=== PATIENT | female | born 1950 | race Caucasian/White ===

== ENCOUNTER 2020-11-25 10:50 | Inpatient (IN) | payer MEDICARE, SELFPAY ==
[2020-11-25] VITALS (41 sets, daily range): BP systolic 156–269; BP diastolic 76–133; PULSE 79–99; RESP 14–21; TEMP 36.2–37.1; O2SAT 92–100; BMI 32.5
--- NOTE | 2020-11-25 10:58 | DI.CT.S_ITS ---
PROCEDURE: CT HEAD/BRAIN WO CON INDICATIONS: Confusion, hypertension TECHNIQUE: Noncontrast 4.5 mm thick angled axial sections acquired from the foramen magnum to the vertex, with coronal and sagittal reformats. For radiation dose reduction, the following was used: automated exposure control, adjustment of mA and/or kV according to patient size. COMPARISON: None. FINDINGS: Image quality: Excellent. CSF spaces: Basal cisterns are patent. No extra-axial fluid collections. The ventricles are symmetric in size and shape. Brain: No intracranial bleeds or masses. There is cerebral volume loss for age, with resultant ventricular and sulcal prominence. There are periventricular and deep white matter chronic small vessel ischemic changes. There is intracranial internal carotid artery atherosclerosis. Skull and face: Calvarium and visualized facial bones appear intact, without suspicious lesions. Sinuses: Visualized sinuses and mastoids are clear. IMPRESSION: 1. No acute intracranial process. 2. Moderate atrophy and chronic microvascular ischemic changes. Dictated by: Mansi Licea M.D. on 11/25/2020 at 10:20 Approved by: Mansi Licea M.D. on 11/25/2020 at 10:22
--- NOTE | 2020-11-25 11:04 | ED.GENADULT ---
HPI - General Adult General Chief complaint: Neuro Symptoms/Deficit Stated complaint: episodes of being confused Time Seen by Provider: 11/25/20 10:57 Source: patient and family () Mode of arrival: Ambulatory Limitations: no limitations History of Present Illness HPI narrative: 70-year-old female who is here for evaluation of intermittent confusion. She is here with her . They state that since yesterday the patient has had intermittent episodes where she seems very confused. She denies any other associated symptoms. She states she does realize these times where she has been confused. She does have a history of high blood pressure but is currently not on any medications. She states that her previous primary doctor stopped her on the medications peer this is been more than a year ago. She does not have a primary doctor here in the local area. Related Data Home Medications Medication Instructions Recorded Confirmed No Known Home Medications 11/25/20 11/25/20 Allergies Allergy/AdvReac Type Severity Reaction Status Date / Time No Known Drug Allergies Allergy Verified 11/25/20 11:10 Review of Systems Constitutional Constitutional: Denies fatigue, Denies fever(s), Denies headache(s) and Denies weakness Eyes Eyes: Denies change in vision ENT Ears, Nose, Mouth, and Throat: Denies vertigo, Denies dizziness, Denies headache(s), Denies disequilibrium and Denies sore throat Cardiovascular Cardiovascular: Denies chest pain, Denies syncope and Denies dyspnea Respiratory Respiratory: Denies cough and Denies dyspnea Gastrointestinal Gastrointestinal: Denies abdominal pain, Denies nausea and Denies vomiting Genitourinary Genitourinary: Denies dysuria Genitourinary: Denies dysuria Musculoskeletal Musculoskeletal: Denies arthralgias, Denies myalgias, Denies numbness and Denies tingling Integumentary/Breasts Skin/Breast: Denies rash Neurologic Neurologic: Denies abnormal speech, Denies behavioral changes, Reports confusion, Denies vertigo, Denies dizziness, Denies syncope, Denies headache(s), Denies numbness, Denies tingling, Denies disequilibrium and Denies weakness Psychiatric Psychiatric: Denies behavioral changes and Reports confusion Endocrine Endocrine: Denies fatigue Hematologic/Lymphatic On Anticoagulants: No Allergic/Immunologic Allergic/Immunologic: Denies urticaria Patient History Medical History Hypertension Social History household members: spouse Smoking Status: Never smoker Exam Initial Vital Signs Initial Vital Signs: Vital Signs Temperature 97.1 F L 11/25/20 10:50 Pulse Rate 97 H 11/25/20 10:50 Respiratory Rate 14 11/25/20 10:50 Blood Pressure 269/133 H 11/25/20 10:50 Pulse Oximetry 100 11/25/20 10:50 Const General: cooperative, comfortable and well developed Limitations: mental status not altered HENMT Head: normal to inspection and normocephalic Ears: hearing grossly normal bilaterally Eyes General: appearance normal, both eyes and all related structures Resp Effort & Inspection: normal respiratory effort Auscultation: clear to auscultation bilaterally Cardio Rate: regular rate Rhythm: regular rhythm GI Inspection: non-distended Palpation: soft, No firm and No tender Skin Lesions: no lesions Rashes: no rashes Neuro General: patient alert and patient awake Speech: speech normal Gait: normal gait Motor: muscle tone normal throughout Sensory Exam: no sensory deficits noted Coordination: [id number] test normal Extrem General: normal to inspection, capillary refill normal and No edema Psych Appearance: grossly normal and well kempt Scores GCS Teagan coma scale eye opening: Spontaneous [place] coma scale verbal response: Confused [place] coma scale motor response: Obey commands Teagan coma scale total score: 14 NIH Stroke Scale Level of Conciousness: Alert, keenly responsive Ask month/age: Answers neither question correctly, aphasic, stuporous, coma Open/close eyes, close hand: Performs both tasks correctly Best gaze horizontal: Normal Visual thomas: No visual loss Facial palsy: Normal symetrical movement Left arm drift: No drift for full 10 sec Right arm drift: No drift for full 10 sec Left leg drift: No drift for full 5 sec Right leg drift: No drift for full 5 sec Limb ataxia: Absent Sensory on face/arms/legs: Normal, no sensory loss Best language: No aphasia, normal Dysarthria: Normal Extinction or inattention: No abnormality Total NIH Stroke scale score: 2 Course Orders Ordered: ED Orders 11/25/20 10:58 CT head/brain wo con Stat 11/25/20 10:59 Urinalysis and Microscopic Stat Urine Drug Screen, Rapid Stat EKG-12 Lead Stat 11/25/20 11:13 COVID19 - ADMIT ([employer] swab/PCR) Stat 11/25/20 11:22 Ammonia (NH3) Stat Complete Blood Count AUTO DIFF Stat Comprehensive Metabolic Panel Stat Ethanol (ETOH) Stat Lipase Stat Magnesium Stat Partial Thromboplastin Time Stat Prothrombin Time INR Stat Troponin & CK Cardiac Panel Stat Acetaminophen (Acetaminophen 325 Mg Tablet) 650 mg PO Q6HR PRN PRN Reason: Fever Aspirin (Aspirin Ec 81 Mg Tablet) 81 mg PO DAILY MANOLO Bisacodyl (Bisacodyl 10 Mg Supp) 10 mg MT DAILY PRN PRN Reason: Constipation Docusate Sodium (Docusate 100 Mg Capsule) 100 mg PO BID MANOLO Enoxaparin Sodium (Enoxaparin 40 Mg/0.4 Ml Syringe) 40 mg SUBCUT DAILY MANOLO Last Admin: 11/25/20 14:15 Dose: 40 mg Documented by: SPABONA Sodium Chloride (Normal Saline 0.9%) 1,000 mls @ 125 mls/hr IV CONT MANOLO Last Infusion: 11/25/20 14:13 Dose: 75 mls/hr Documented by: Infusion: 11/25/20 13:35 Dose: 125 mls/hr Documented by: Infusion: 11/25/20 13:32 Dose: 0 mls/hr Documented by: Infusion: 11/25/20 13:31 Dose: 0 mls/hr Documented by: Admin: 11/25/20 11:35 Dose: 125 mls/hr Documented by: ANAT Nicardipine HCl 25 mg/ Sodium (Chloride) 250 mls @ 50 mls/hr IV TITRATE MANOLO; Protocol Last Titration: 11/25/20 13:40 Dose: 5 mg/hr, 50 mls/hr Documented by: Titration: 11/25/20 13:35 Dose: 0 mg/hr, 0 mls/hr Documented by: Titration: 11/25/20 13:31 Dose: 0 mg/hr, 0 mls/hr Documented by: Admin: 11/25/20 12:25 Dose: 5 mg/hr, 50 mls/hr Documented by: ANAT Sodium Chloride (Normal Saline 0.9%) 1,000 mls @ 75 mls/hr IV CONT MANOLO Last Admin: 11/25/20 14:13 Dose: Not Given Documented by: MARLIN Naloxone HCl (Naloxone 0.4 Mg/Ml Vial) 0.2 mg IV Q2MIN PRN PRN Reason: Opiate Reversal Discontinued Medications Labetalol HCl (Labetalol 20 Mg/4 Ml Syringe) 10 mg IV NOW ONE Stop: 11/25/20 11:26 Last Admin: 11/25/20 11:34 Dose: 10 mg Documented by: ANAT Vital Signs Vital signs: Vital Signs - 8 hr 11/25/20 10:50 11/25/20 11:03 11/25/20 11:15 Temperature 97.1 F L Pulse Rate 97 H 96 H 91 H Respiratory Rate 14 19 Blood Pressure 269/133 H Pulse Oximetry 100 97 95 11/25/20 11:21 11/25/20 11:30 11/25/20 11:34 Temperature Pulse Rate 94 H 91 H 90 Respiratory Rate Blood Pressure 202/124 H 221/124 H 221/124 H Pulse Oximetry 94 95 11/25/20 11:40 11/25/20 11:45 11/25/20 11:50 Temperature Pulse Rate 90 80 79 Respiratory Rate Blood Pressure 218/94 H 213/98 H Pulse Oximetry 94 94 94 11/25/20 12:00 11/25/20 12:10 11/25/20 12:15 Temperature Pulse Rate 79 79 80 Respiratory Rate Blood Pressure 224/101 H 207/93 H Pulse Oximetry 95 94 96 11/25/20 12:20 11/25/20 12:30 Temperature Pulse Rate 81 79 Respiratory Rate Blood Pressure 207/98 H 207/98 H Pulse Oximetry 93 95 Medical Decision Making Lab Data Lab results reviewed: Yes I reviewed the patient's lab results. Result diagrams: 11/25/20 11:22 11/25/20 11:22 Labs: Lab Results 11/25/20 11/25/20 11/25/20 Range/Units 11:13 11:22 11:22 WBC 5.2 (4.5-11.0) X10^3/uL RBC 5.02 (4.0-5.2) X10^6/uL Hgb 14.0 (12.0-16.0) g/dL Hct 43.2 (36-46) % MCV 86.1 (80-100) fL MCH 27.9 (26-34) PG MCHC 32.4 (30-36) % RDW 17.4 H (11.6-14.8) % Plt Count 193 (150-400) X10^3/uL Neut % (Auto) 69.7 (50-75) % Lymph % (Auto) 18.5 L (25-40) % [place] % (Auto) 9.2 (3-14) % Eos % (Auto) 2.0 (2-4) % Baso % (Auto) 0.6 (0-2) % Neut # (Auto) 3600 (2309-0691) /uL Lymph # (Auto) 1000 L (7790-4513) /uL [place] # (Auto) 500 (0-900) /uL Eos # (Auto) 100 (0-450) /uL Baso # (Auto) 0 (0-100) /uL PT 12.8 H (10.1-12.7) SECONDS INR 1.1 (0.9-1.3) APTT 38 H (26.4-36.2) SECONDS Sodium (137-145) mmol/L Potassium (3.4-5.1) mmol/L Chloride (98-107) mmol/L Carbon Dioxide (22-32) mmol/L BUN (7-17) mg/dL Creatinine (0.52-1.04) mg/dL Estimated GFR (>60) mL/min BUN/Creatinine Ratio (6-22) Glucose (80-110) mg/dL Calcium (8.4-10.2) mg/dL Magnesium (1.6-2.3) mg/dL Total Bilirubin (0.2-1.3) mg/dL AST (14-36) IU/L ALT (<35) IU/L Alkaline Phosphatase (38-126) U/L Ammonia (9-30) umol/L Total Creatine Kinase (30-135) U/L CK-MB (CK-2) CK-MB (CK-2) Rel Index Troponin I (0.01-0.034) ng/mL Total Protein (6.3-8.2) g/dL Albumin (3.5-5.0) g/dL Globulin (1.7-4.1) g/dL Albumin/Globulin Ratio (1.0-2.8) Lipase (23-300) U/L Ethyl Alcohol ( - 10) mg/dL SARS-CoV-2 (PCR) Negative (Negative) 11/25/20 11/25/20 Range/Units 11:22 11:22 WBC (4.5-11.0) X10^3/uL RBC (4.0-5.2) X10^6/uL Hgb (12.0-16.0) g/dL Hct (36-46) % MCV (80-100) fL MCH (26-34) PG MCHC (30-36) % RDW (11.6-14.8) % Plt Count (150-400) X10^3/uL Neut % (Auto) (50-75) % Lymph % (Auto) (25-40) % [place] % (Auto) (3-14) % Eos % (Auto) (2-4) % Baso % (Auto) (0-2) % Neut # (Auto) (8177-5834) /uL Lymph # (Auto) (1292-1289) /uL [place] # (Auto) (0-900) /uL Eos # (Auto) (0-450) /uL Baso # (Auto) (0-100) /uL PT (10.1-12.7) SECONDS INR (0.9-1.3) APTT (26.4-36.2) SECONDS Sodium 134 L (137-145) mmol/L Potassium 3.7 (3.4-5.1) mmol/L Chloride 100 (98-107) mmol/L Carbon Dioxide 25 (22-32) mmol/L BUN 15 (7-17) mg/dL Creatinine 0.55 (0.52-1.04) mg/dL Estimated GFR > 60.0 (>60) mL/min BUN/Creatinine Ratio 27.3 H (6-22) Glucose 380 H (80-110) mg/dL Calcium 9.1 (8.4-10.2) mg/dL Magnesium 1.5 L (1.6-2.3) mg/dL Total Bilirubin 1.0 (0.2-1.3) mg/dL AST 52 H (14-36) IU/L ALT 37 H (<35) IU/L Alkaline Phosphatase 121 (38-126) U/L Ammonia 10 (9-30) umol/L Total Creatine Kinase 24 L (30-135) U/L CK-MB (CK-2) TNP CK-MB (CK-2) Rel Index TNP Troponin I < 0.012 (0.01-0.034) ng/mL Total Protein 7.6 (6.3-8.2) g/dL Albumin 3.6 (3.5-5.0) g/dL Globulin 4.0 (1.7-4.1) g/dL Albumin/Globulin Ratio 0.9 L (1.0-2.8) Lipase 197 (23-300) U/L Ethyl Alcohol < 10 ( - 10) mg/dL SARS-CoV-2 (PCR) (Negative) Imaging Data CT scan - head: Radiologist's Impression: [address] [id number] Scan ReportSigned Patient: Sharon Vang LMR#: [id number]: [id number]:[id number]/Sex: 70 / FDate of Service: 11/25/20Loc: EDAccession Number: [id number] Procedure: CT head/brain wo con Ordering Provider: Amol Ayala D.O. PROCEDURE: CT HEAD/BRAIN WO CON INDICATIONS: Confusion, hypertension TECHNIQUE: Noncontrast 4.5 mm thick angled axial sections acquired from the foramen magnum to the vertex, with coronal and sagittal reformats. For radiation dose reduction, the following was used: automated exposure control, adjustment of mA and/or kV according to patient size. COMPARISON: None. FINDINGS: Image quality: Excellent. CSF spaces: Basal cisterns are patent. No extra-axial fluid collections. The ventricles are symmetric in size and shape. Brain: No intracranial bleeds or masses. There is cerebral volume loss for age, with resultant ventricular and sulcal prominence. There are periventricular and deep white matter chronic small vessel ischemic changes. There is intracranial internal carotid artery atherosclerosis. Skull and face: Calvarium and visualized facial bones appear intact, without suspicious lesions. Sinuses: Visualized sinuses and mastoids are clear. IMPRESSION: 1. No acute intracranial process. 2. Moderate atrophy and chronic microvascular ischemic changes. Dictated by: Mansi Licea M.D. on 11/25/2020 at 10:20 Approved by: Mansi Licea M.D. on 11/25/2020 at 10:22 ECG Data Attestation: I personally reviewed and interpreted this ECG as follows: Prior ECG tracings: not available for review Interpretation: Sinus rhythm Ventricular rate 90 Left axis deviation Normal QRS QTC [address] T wave changes MDM Narrative Medical decision making narrative: Patient does seem to be somewhat confused when she does speak she has a clear voice. She is not slurring her words however does stumble over simple things such as the urine the month which according to her she normally nose. When she initially arrived she did not know the year. When she returned back from the CT scan she knew what your was but then shortly after could not remember it. Was hypertensive upon arrival. Is initially given labetalol which improved blood pressure somewhat but then it recurred elevated once again. She was started on a nicardipine drip. Other than the memory issues had no other neurologic deficits. Not on blood thinners. 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 Will hold on tPA as her symptoms started yesterday and there is not a definite ischemic cause. Discussed the case with Dr. zuniga on-call for Internal Medicine who will admit. Discuss the admission with the patient her . They both expressed understanding and agreement. Discharge Plan Departure Patient Disposition: Admitted As Inpatient Clinical Impression: Hypertension, Acute confusion Admit Date/Time: 11/25/20 12:38 Admit Provider: Taylor Zuniga
[2020-11-25 11:29] LABS: Add Manual Diff / Slide Review NO; Basophils Absolute Auto 0 /uL (0-100); Basophils Percent Auto 0.6 % (0-2); Eosinophils Absolute Auto 100 /uL (0-450); Hematocrit 43.2 % (36-46); Lymphocytes Absolute Auto 1000 /uL (1100-4500); Lymphocytes Percent Auto 18.5 % (25-40); Mean Corpuscular HGB Conc 32.4 % (30-36); Mean Corpuscular Hemoglobin 27.9 PG (26-34); Mean Corpuscular Volume 86.1 fL (80-100); Monocytes Absolute Auto 500 /uL (0-900); Monocytes Percent Auto 9.2 % (3-14); Neutrophils Absolute Auto 3600 /uL (1500-7000); Neutrophils Percent Auto 69.7 % (50-75); Platelet Count 193 X10^3/uL (150-400); Red Blood Cell Count 5.02 X10^6/uL (4.0-5.2); Red Cell Distribution Width 17.4 % (11.6-14.8); White Blood Cell Count 5.2 X10^3/uL (4.5-11.0)
[2020-11-25] MEDS: LABETALOL 20 MG/4 ML SYRINGE 10 MG IV (11:34)
[2020-11-25] MEDS: SODIUM CHLORIDE 0.9% 1,000 ML 125 ML IV (11:35)
[2020-11-25 11:37] LABS: INR 1.1 (0.9-1.3); Prothrombin Time 12.8 SECONDS (10.1-12.7)
[2020-11-25 11:40] LABS: PTT Partial Thromboplastin Tim 38 SECONDS (26.4-36.2)
[2020-11-25 11:42] LABS: Ammonia (NH3) 10 umol/L (9-30)
[2020-11-25 11:43] LABS: Alanine Aminotransferase 37 IU/L (<35); Albumin 3.6 g/dL (3.5-5.0); Albumin Globulin Ratio 0.9 (1.0-2.8); Alkaline Phosphatase 121 U/L (38-126); Aspartate Aminotransferase 52 IU/L (14-36); BUN Creatinine Ratio 27.3 (6-22); Blood Urea Nitrogen 15 mg/dL (7-17); Calcium 9.1 mg/dL (8.4-10.2); Carbon Dioxide 25 mmol/L (22-32); Chloride 100 mmol/L (98-107); Creatine Kinase 24 U/L (30-135); Estimated Glomerular Filt Rate > 60.0 mL/min (>60); Ethanol (ETOH) < 10 mg/dL; Glucose 380 mg/dL (80-110); HEMOLYSIS < 15 (0-50); Lipase 197 U/L (23-300); Magnesium 1.5 mg/dL (1.6-2.3); Potassium 3.7 mmol/L (3.4-5.1); Sodium 134 mmol/L (137-145); Total Protein 7.6 g/dL (6.3-8.2)
[2020-11-25 11:53] LABS: Troponin I < 0.012 ng/mL (0.01-0.034)
[2020-11-25] MEDS: NICARDIPINE 25 MG in SODIUM CHLORIDE 0.9% 240 ML 50 ML IV ×2 (12:25→16:00)
[2020-11-25 12:31] LABS: COVID19 - ADMIT (NP swab/PCR) Negative (Negative)
--- NOTE | 2020-11-25 14:08 | DI.MRI.S_ITS ---
PROCEDURE: MR HEAD/BRAIN WO/W CON INDICATIONS: Clinical concern for PRESS syndrome TECHNIQUE: Noncontrast axial T1 spin echo, axial T2 fast spin echo, sagittal and axial FLAIR, coronal T2 fast spin echo, axial gradient echo, axial diffusion and ADC through the brain. After the administration of contrast, axial and coronal T1 spin echo with fat saturation through the brain. COMPARISON: [facility], CT, CT HEAD/BRAIN WO CON, 11/25/2020, 11:09. FINDINGS: Image quality: Excellent. CSF spaces: Basal cisterns are patent. No extra-axial fluid collections. Ventricles are normal in size and shape. Brain: Abnormal diffusion-weighted signal can be seen within the anterior aspect of the left thalamus, as on series 11 images 61 and 62. There is associated dark signal seen on the ADC map these sites. Developing T2 weighted signal can be seen at these sites. Brain parenchymal volume loss is seen. Generalized T2 weighted hyperintensity can be seen within the periventricular deep white matter, with a slight predominance posteriorly, yet this is within normal limits for age appropriate chronic small vessel ischemic change. No midline shift. No intracranial bleeds or masses. No abnormal intracranial enhancement. There is cerebral volume loss for age. There is periventricular white matter chronic small vessel ischemic change. The brainstem appears normal. No chronic ischemic insults. Normal intravascular flow voids are present. Skull and face: Calvarial marrow is normal in signal. Orbits appear normal. Sinuses: Sinuses and mastoids appear clear. IMPRESSION: Left thalamus subacute infarction. Brain parenchymal volume loss and chronic small vessel ischemic change, without yamini findings of posterior reversible encephalopathy syndrome (PRES). Dictated by: Jasiel Ramos M.D. on 11/25/2020 at 17:00 Approved by: Jasiel Ramos M.D. on 11/25/2020 at 17:03
[2020-11-25] MEDS: ENOXAPARIN 40 MG/0.4 ML SYRINGE SUBCUT (14:15)
--- NOTE | 2020-11-25 14:30 | PC.NURSE ---
PT ADMITTED TO ROOM 230- SOME APHASIA NOTED, PT ABLE TO RESPOND TO MOST QUESTIONING BUT AT TIMES WILL BE AT A LOSS FOR WORDS- CAN SPEAK JUST DOESN'T KNOW WHAT TO SAY, SPOUSE, MARIE AT BEDSIDE. SHE HAS NOT VOIDED OF YET AND HAS ORDER FOR UA/TOX SCREEN UPON URINATION- SR WITH 1ST DEGREE AVB IN THE 80'S NO ECTOPY SEEN- B/P ON 5MG/H CARDENE = 160/74 AT THE LOWEST SINCE ARRIVAL TO ICU- DENIES PAIN - ORIENTED TO ROOM AND BED CONTROLS WELL CALL LIGHTS AND PLAN OF CARE- MRI PENDING AT 1800 [facility] SCORE 4
--- NOTE | 2020-11-25 14:50 | PM.HP.1 ---
History of Present Illness History of Present Illness Date Patient Seen: 11/25/20 Chief complaint: episodes of being confused Narrative: The patient is a 70 y/o female with a history of hypertension off medications, who developed confusion yesterday. The patient and her were previously living and is will call [place]. She was seen by Tiny perez primary care provider. She was previously diagnosed with hypertension. However her medications were discontinued about 1 year ago. She has not established care with a primary care provider as such her blood pressure medications have not resumed over the past year. The patient her noted that yesterday she became more confused. She was having hard time answering simple questions. There were multiple times where the patient was not ?making sense. Her was concerned about her brought her to the emergency department for evaluation. In the emergency department patient did not know the year or the month. However subsequently she was able to answer those questions. She denies any headache or blurred vision. She denies any facial droop. She denies any weakness of her arms or legs. She has had no prior episodes of confusion. She has had no prior stroke. Her past medical history is only significant for hypertension. Her notes that she does drink about 3 cocktails per evening. Patient by report has no history of needing to cut down on her alcohol, using an eye commander police reserves with alcohol, feeling guilty about her drinking, or other symptoms of alcoholism. In the emergency department the patient had a head CT. There was no acute bleed. There were chronic microvascular changes. The patient was found to be markedly hypertensive, her initial blood pressure in the emergency room department was 269/133. She was given labetalol and her blood pressure decreased to 221/124. Subsequently the blood pressure increased again and she was placed on a nicardipine drip and admitted to the hospital. Patient continues to be confused. Patient is admitted for further evaluation. Patient History Medical History (Updated 11/25/20 @ 15:32 by Taylor Zuniga MD) Allergic rhinitis Breast cancer Hypertension Surgical History (Updated 11/25/20 @ 15:31 by Taylor Zuniga MD) H/O bilateral mastectomy H/O hysterectomy for benign disease H/O oophorectomy Family & Social History Family History (Updated 11/25/20 @ 15:43 by Taylor Zuniga MD) Father Parkinson's disease dementia Mother Dementia Social History: household members spouse Prior Living Arrangements House Safety & Behavioral: Feels Safe in Current Yes Environment Been Physically Hurt or No Threatened By a Person Suicidal Ideation Description None Suicide Plan Description No Plan Tobacco & Substance use: Smoking Status Never smoker alcohol intake frequency 0-2 drinks per day Substance Use Type does not use Meds Home Medications and Allergies Home Medications Medication Instructions Recorded Confirmed Type No Known Home Medications 11/25/20 11/25/20 History Allergies Allergy/AdvReac Type Severity Reaction Status Date / Time No Known Drug Allergies Allergy Verified 11/25/20 11:10 Review of Systems Review of Systems ROS: Yes All systems reviewed with the patient and are negative except as otherwise documented Exam Vital Signs (past 8 hours): - 11/25/20 10:50 11/25/20 11:03 11/25/20 11:15 Temperature 97.1 F L Pulse Rate 97 H 96 H 91 H Respiratory Rate 14 19 Blood Pressure 269/133 H Pulse Oximetry 100 97 95 11/25/20 11:21 11/25/20 11:30 11/25/20 11:34 Temperature Pulse Rate 94 H 91 H 90 Respiratory Rate Blood Pressure 202/124 H 221/124 H 221/124 H Pulse Oximetry 94 95 11/25/20 11:40 11/25/20 11:45 11/25/20 11:50 Temperature Pulse Rate 90 80 79 Respiratory Rate Blood Pressure 218/94 H 213/98 H Pulse Oximetry 94 94 94 11/25/20 12:00 11/25/20 12:10 11/25/20 12:15 Temperature Pulse Rate 79 79 80 Respiratory Rate Blood Pressure 224/101 H 207/93 H Pulse Oximetry 95 94 96 11/25/20 12:20 11/25/20 12:30 11/25/20 12:40 Temperature Pulse Rate 81 79 82 Respiratory Rate Blood Pressure 207/98 H 207/98 H 185/90 H Pulse Oximetry 93 95 95 11/25/20 12:45 11/25/20 12:50 11/25/20 13:00 Temperature Pulse Rate 84 83 83 Respiratory Rate Blood Pressure 170/86 H 175/86 H Pulse Oximetry 94 93 92 11/25/20 13:27 11/25/20 13:51 11/25/20 14:01 Temperature 97.8 F 98.3 F Pulse Rate 90 85 86 Respiratory Rate 18 19 Blood Pressure 198/93 H 186/83 H 174/80 H Pulse Oximetry 96 93 Oxygen Delivery Method Room Air Narrative Exam Narrative: Pleasant female lying in bed in no obvious distress HEENT: Normocephalic atraumatic, extraocular muscles are intact, oropharynx is clear, neck is supple without adenopathy, there is no facial droop, tongue is midline Lungs: Clear to auscultation Cardiac exam: Regular rate and rhythm normal S1-S2 with a 2/6 systolic ejection murmur Abdomen: Soft nontender nondistended Extremities: No edema Neuro exam: The patient is awake alert and appropriate, she does not know what year it is, she does not know what month it is she was able to state her name, she has excellent stave cutter strength, she is awake and alert, she does have some expressive aphasia, her strength is symmetric and equal in the upper and lower extremities, sensation is grossly intact, she has no abnormalities in terms of ataxia. Her NIH stroke score is 4 Objective Labs Result Diagrams: 11/25/20 11:22 11/25/20 11:22 Labs: Laboratory Results - last 24 hr 11/25/20 11/25/20 11/25/20 11:13 11:22 11:22 WBC 5.2 RBC 5.02 Hgb 14.0 Hct 43.2 MCV 86.1 MCH 27.9 MCHC 32.4 RDW 17.4 H Plt Count 193 Neut % (Auto) 69.7 Lymph % (Auto) 18.5 L [place] % (Auto) 9.2 Eos % (Auto) 2.0 Baso % (Auto) 0.6 Neut # (Auto) 3600 Lymph # (Auto) 1000 L [place] # (Auto) 500 Eos # (Auto) 100 Baso # (Auto) 0 PT 12.8 H INR 1.1 APTT 38 H Sodium Potassium Chloride Carbon Dioxide BUN Creatinine Estimated GFR BUN/Creatinine Ratio Glucose Calcium Magnesium Total Bilirubin AST ALT Alkaline Phosphatase Ammonia Total Creatine Kinase CK-MB (CK-2) CK-MB (CK-2) Rel Index Troponin I Total Protein Albumin Globulin Albumin/Globulin Ratio Lipase Ethyl Alcohol SARS-CoV-2 (PCR) Negative 11/25/20 11/25/20 11:22 11:22 WBC RBC Hgb Hct MCV MCH MCHC RDW Plt Count Neut % (Auto) Lymph % (Auto) [place] % (Auto) Eos % (Auto) Baso % (Auto) Neut # (Auto) Lymph # (Auto) [place] # (Auto) Eos # (Auto) Baso # (Auto) PT INR APTT Sodium 134 L Potassium 3.7 Chloride 100 Carbon Dioxide 25 BUN 15 Creatinine 0.55 Estimated GFR > 60.0 BUN/Creatinine Ratio 27.3 H Glucose 380 H Calcium 9.1 Magnesium 1.5 L Total Bilirubin 1.0 AST 52 H ALT 37 H Alkaline Phosphatase 121 Ammonia 10 Total Creatine Kinase 24 L CK-MB (CK-2) TNP CK-MB (CK-2) Rel Index TNP Troponin I < 0.012 Total Protein 7.6 Albumin 3.6 Globulin 4.0 Albumin/Globulin Ratio 0.9 L Lipase 197 Ethyl Alcohol < 10 SARS-CoV-2 (PCR) Assessment & Plan Assessment & Plan narrative: Impression 1. 70-year-old female admitted to the hospital with acute encephalopathy. Differential diagnosis includes: -acute CVA -hypertensive encephalopathy -reversible posterior leukoencephalopathy syndrome Head CT in the emergency room reveals the following: -No intracranial bleeds or masses. There is cerebral volume loss for age, with resultant ventricular and sulcal prominence. There are periventricular and deep white matter chronic small vessel ischemic changes. There is intracranial internal carotid artery atherosclerosis. Patient remains markedly hypertensive, she is on a nicardipine drip, goal is to decrease blood pressure 20 5% in the 1st 24 hours Patient was hyperglycemic on admission. Will check hemoglobin AIC, check chem stick, and cover with sliding scale insulin Will obtain a fasting lipid profile, start her on a baby aspirin, obtain a head MRI to rule out stroke verses clinical findings suggestive of PRES Will obtain cardiac echo Will adjust blood pressure medications pending the results of the MRI. If the patient has been found to have a stroke will allow for permissive hypertension. If there is no evidence of stroke will continue to manage her blood pressure as described above Patient will be placed on DVT prophylaxis Patient has a surrogate caregiver who was her who is at the bedside Patient reports she is a full code will note that her record accordingly Quality VTE Deep Vein Thrombosis/Pulmonary Embolism Present on Admission: No MIPS - Admit I confirm the patient?s Advance Care Plan is present, Code status is documented, Surrogate decision maker is in patient?s record [If Yes, STOP here]: Yes
[2020-11-25] MEDS: INSULIN LISPRO 100 UNIT/ML 3ML VIAL SUBCUT ×2 (17:06→20:59)
[2020-11-25 17:11] LABS: Hemoglobin A1C% w Est Avg Glu 10.2 % (4.0-6.0)
--- NOTE | 2020-11-25 17:17 | ST.OPIE ---
Visit Care Team Role Provider Type Amol Ayala DO Emergency Provider Physician Referring Provider Specialty: Emergency Medicine Address: [address] [place] [address], [id number] Email: [email or web address] Taylor Zuniga MD Admit Provider Physician Attending Provider Specialty: Internal Medicine Address: [address] [place] [address], [id number] Email: [email or web address] Speech-Language Pathology Initial Evaluation [employer]AIGHT[employer] Adult Cognitive Linguistic Eval Start: 11/25/20 16:47 Freq: Status: Active Protocol: Document 11/25/20 16:47 LNK (Rec: 11/25/20 17:17 LNK [id number]) Adult Cognitive Linguistic Evaluation Session Time Visit Start Time 14:50 Visit Stop Time 15:40 Total Visit Minutes 50 Referral Reason for Referral Code stroke Setting Assessment Location Acute Care Visit Type Note Type Initial evaluation Next Note Type Next Note Type Treatment Note Patient Information Identification Type Name,Wristband Medical History The patient is a 70 y/o female with a history of hypertension off medications, who developed confusion yesterday. She was previously diagnosed with hypertension. However her medications were discontinued about 1 year ago. She has not established care with a primary care provider and as such her blood pressure medications have not resumed over the past year. The patient's noted that yesterday she became more confused. She was having hard time answering simple questions. There were multiple times where the patient was not ?making sense. Her was concerned about her brought her to the emergency department for evaluation. In the emergency department patient did not know the year or the month; however subsequently she was able to answer those questions . She denies any headache or blurred vision. She denies any facial droop. She denies any weakness of her arms or legs. She has had no prior episodes of confusion. She has had no prior stroke. Vision Comments Question visual field cut Previous Therapy Previous Speech-Language Therapy No Subjective Patient Report Pt was in her bed in her room. Her was in attendance and was able to provide information as well as confirm /deny pt's responses to questions. Assessment Oral Motor Examination Completed Yes: WFL Results Pt did not present with dysarthria. A swallow screen was completed. The results indicated no obvious s/sx dysphagia. Pt was able to safely tolerate thin liquids and thin liquids Informal Assessment Receptive Language Normal No Receptive Language Impairment(s) Comprehension of complex yes/ no questions,Following 2-step commands,Picture/Object identification Expressive Language Normal No Expressive Language Impairment(s) Automatic speech,Confrontation naming,Divergent naming, Expression of basic wants/ needs,Expression of complex thoughts/ideas Pragmatic Language Impairment(s) Flat affect,Poor eye contact, Initiation Speech Normal Yes Cognition Normal Confusion - Recommend cognitive screening Cognitive Impairment(s) Orientation,Attention,Thought organization Findings/Results Language Function Moderately-severely impaired Cognitive Function Moderately-severely impaired Findings Pt presents with receptive/ expressive aphasia with significant word-finding difficulty, paraphasias, perseveration, decreased awareness of deficits. Pt was unable to provide her last name, her age or her date of , She was unable to state the name of the hospital. When provided with a choice of tow, she was able to name the hospital. She did appear to demonstrate confusion, giving different answers to the same question. Visual field deficit is questioned. Pt was unable to describe approximately half of the [employer] picture. She did not mention the water spilling from the sink, the mother doing dishes or the boy falling from the chair. She reported that she did not see my fingers wiggling in her peripheral vision. Plan of Care Speech-Language Treatment Yes Frequency 1-2x/day Duration while in hospital Patient/Caregiver Education Described results of evaluation,Family/caregivers expressed understanding of evaluation,Family/caregivers expressed agreement with goals and treatment plan Short Term Goals Pt will be able to name common items within her room either spontaneously or when given a choice of 2. Pt will be able to locate and name items by their function when given a choice of two. Discharge Recommendations [facility] facility, Inpatient rehab facility
[2020-11-25 18:11] LABS: Appearance Urine UA CLEAR; Bilirubin Urine UA NEGATIVE (NEGATIVE); Color Urine UA YELLOW; Glucose Urine UA 2+ g/dL (Negative); Ketones Urine UA TRACE (NEGATIVE); Leukocyte Esterase Urine UA NEGATIVE (NEGATIVE); Nitrite Urine UA NEGATIVE (Negative); Occult Blood Urine UA NEGATIVE (Negative); Protein Urine UA TRACE (Negative); UR Morphine/Opiate cutoff 300 Negative (Negative); Ur Creatinine Normal (Normal); Ur Specific Gravity Normal (Normal); Urine Amphetamines Negative (Negative); Urine Barbiturates Negative (Negative); Urine Benzodiazepines Negative (Negative); Urine Cocaine Negative (Negative); Urine MDMA Negative (Negative); Urine Methadone Negative (Negative); Urine Methamphetamines Negative (Negative); Urine Oxycodone Negative (Negative); Urine Phencyclidine Negative (Negative); Urine Tetrahydrocannabinol Negative (Negative); Urine Tricyclic Antidepressant Negative (Negative); Urine pH Normal (Normal); Urobilinogen Urine UA 0.2 E.U./dL (0.2)
[2020-11-25 18:21] LABS: pH Urine UA 5.5 (4.5-8.0)
[2020-11-25 18:28] LABS: Bacteria Urine Few (2-10); Culture Indicated Urine Specimen Cultured; RBC Urine 0-1/HPF (0-5/HPF); Squamous Epithelial Cell Urine 1-5 /HPF (0-5/HPF); WBC Urine 5-10/HPF (0-5/HPF)
[2020-11-25] MEDS: DOCUSATE 100 MG CAPSULE PO (20:43)
[2020-11-25] MEDS: ATORVASTATIN 20 MG TABLET 80 MG PO (20:43)
--- NOTE | 2020-11-25 22:45 | PC.NURSE ---
Addendum entered by Swapna Sahni R.N. 11/25/20 23:11: Patient also started on sliding scale regular insulin due to high glucose lab results, new A1C result is >10. Mag was low at 1.5, provider aware. Original Note: Patient is alert and able to answer yes/no orientation questions correctly. When asked non yes/no questions, patient has difficulty finding words and will say random words. Patient is aware that her speech is incorrect. [employer] passed patient on swallow eval. Cardene drip on at start of shift, instructions from Dr. Zuniga was to keep MAP around 110. Cardene was titrated down and off due to BP continuing to decrease. Patient had MRI which showed subacute thalamus infarct. Patient started on daily asprin and statin. Per Dr. Zuniga, plan is for permissive hypertension as long as systolic is <200 and diastolic <100. Patient's spO2 on RA was around 90-91%, added NC 2L O2 which improved sats to 95-97%. Patient is able to ambulate to bathroom and appears to be steady. was at bedside most of shift. NIH remains 4. NS is kept running at 75ml/hr per NATASHA Rahman.
[2020-11-26] VITALS (47 sets, daily range): BP systolic 185–237; BP diastolic 88–114; PULSE 80–97; RESP 14–20; TEMP 36.8–37.4; O2SAT 90–97
[2020-11-26] MEDS: MAGNESIUM SULFATE 1 GM/25 ML PIGGYBACK IV (00:33)
[2020-11-26] MEDS: SODIUM CHLORIDE 0.9% 1,000 ML 75 ML IV (02:18)
[2020-11-26 05:00] LABS: Cholesterol 151 mg/dL (140-199); HDL Cholesterol 45 mg/dL (40-60); LDL Cholesterol Calculated 81 mg/dL (<100); Triglycerides 126 mg/dL (35-150)
--- NOTE | 2020-11-26 06:37 | PC.NURSE ---
Birth Attendant Note-Patient has been drowsy, continues to have expressive aphasia, does say yes no thank you otherwise has word anamika. SR, 1st degree AVB, remains hypertensive 190s/100 mostly, see vital trends, denies headache or other pain. NS @ 75ml/hr, 1gm Mg+ rider given. Ambulated to BR with walker and SBA, slow and steady.
[2020-11-26] MEDS: HYDRALAZINE 20 MG/ML VIAL 10 MG IV (07:04)
[2020-11-26] MEDS: DOCUSATE 100 MG CAPSULE PO ×2 (08:17→20:55)
[2020-11-26] MEDS: ASPIRIN EC 81 MG TABLET PO (08:17)
[2020-11-26] MEDS: ENOXAPARIN 40 MG/0.4 ML SYRINGE SUBCUT (08:17)
[2020-11-26] MEDS: INSULIN LISPRO 100 UNIT/ML 3ML VIAL SUBCUT ×4 (08:17→20:55)
--- NOTE | 2020-11-26 08:39 | PC.NURSE ---
0800- Pt continues to be hypertensive (216/104) post hydralazine administration. Notified hospitalist by phone. Dr. Zuniga instructs to monitor and notify for SBP greater than 220.
--- NOTE | 2020-11-26 10:27 | CM.DANOTE ---
Discharge Planning/Care Management DCP: assessment: Case received, EMR reviewed and met in Team Rounds with pt and her . Went back after Rounds to continue the assessment process. Introduced self and role. Pt is a 70 year old female who admitted yesterday afternoon to care of hospitalist team. Payer: [employer] Medicare PCP: last PCP was at the [facility] > one year ago. Pt's spouse is established with Dr. Haynes. Pt has been researching female providers but has yet to establish with anyone. Both express awareness that pt will now need a local PCP. Pt has been on no home medications. Dr. Zuniga explained to all that pt has been diagnoses with a CVA/subacute: likely occuring in the last 24-48 hours with symtoms primarily seeming to affect her speech. TOOLS AND PARTS ATTENDANT has worked with pt. OT and PT are pending. Pt and spouse confirm that she has been functionally independent at baseline, including driving. Pt confirms that she does have a weak R knee, carries a cane in the car but thus far has not felt need to use it. Pt states that she has hx of breast CA with surgeries, chemo and radiation treatment, all at . She and her both say that she has been reluctant to return to the hospital setting because of this. Pt does say that she feels she is understanding more clearly and able to express herself more easily this morning. Assured both that the DCP team would be following as POC unfolds to see what the further therapy recommendations are for post hospital rehab. P: at this time: ? home with spouse and OUT PT therapy vs HH vs SNF vs Acute rehab. Dr. Zuniga advises not staring any referrals at this time as too little is known. (Pt and her spouse have both had full COVID vaccinations.) Advanced directive, confirm from FAMILY Start: 11/25/20 14:12 Freq: Q24H Status: Active Protocol: Document 11/25/20 14:12 SFP (Rec: 11/25/20 14:12 SFP [id number]) Advance Directive, confirm on record Time 14:12 Person contacted Raymond Taj Copy received No CM Discharge Assessment Start: 11/26/20 10:25 Freq: Status: Active Protocol: Document 11/26/20 10:26 ITV (Rec: 11/26/20 10:27 ITV [id number]) Discharge Planning Assessment Advance Directives? Yes Advance Directives on File No History Provided By Patient,Family Member,Medical Record Has Patient been admitted in last 30 No days? Prior Living Arrangements House Household Members spouse Type of transportation used prior to Drives own vehicle admit Independent with ADL's Yes Is patient alert and oriented? Yes DME Already Rented / Owned Cane Comment has a cane but does not use it . White-board Updated in Patient Room with Yes name and ext. # of Milling General Superintendent Review Status In Process
--- NOTE | 2020-11-26 11:06 | DI.ECHO.S_ITS ---
:Reason For Study: R/O EMBOLIC FOCUS : :Ordering Physician: DIAMOND : :CAROLINA Performed By: Mana Lyle : :Referring: CAROLINA FIELDS : + + Interpretation Summary There is mild-moderate concentric left ventricular hypertrophy. Left ventricular systolic function appears normal without focal wall motion abnormalities. The ejection fraction is estimated to be 65-70%. The right ventricle is normal in size and function. Pulmonary artery pressures cannot be estimated because of the lack of a measurable TR jet velocity. Both atria are normal in size. There is no Doppler evidence for an interatrial shunt. Injection of contrast documented no interatrial shunt. There is mild aortic stenosis. The calculated aortic valve area is 1.8 cm2. There is no other significant valvular heart disease. The ascending aorta is mildly enlarged. Procedure: A two-dimensional transthoracic echocardiogram with color flow and Doppler was performed. The study quality was technically adequate. There is no prior echocardiogram noted for this patient. A saline contrast injection was performed to assess for cardiac shunting. The patient was in sinus tachycardia with heart rates between 90-104 bpm during the exam. Left Ventricle: The left ventricle is normal in size. There is mild-moderate concentric left ventricular hypertrophy. Left ventricular systolic function appears normal without focal wall motion abnormalities. The ejection fraction is estimated to be 65-70%. Diastolic function could not be accurately assessed due to tachycardia. Right Ventricle: The right ventricle is normal in size and function. Atria: Both atria are normal in size. There is no Doppler evidence for an interatrial shunt. Injection of contrast documented no interatrial shunt. Mitral Valve: The mitral valve leaflets appear mildly thickened, but open well. There is trace mitral regurgitation. Aortic Valve: There is mild aortic valve sclerosis. The aortic valve is mildly calcified. There is mild aortic stenosis. The calculated aortic valve area is 1.8 cm2. The aortic valve mean gradient is 11 mmHg. The peak aortic velocity is 2.1 m/sec. There is trace aortic regurgitation. Tricuspid Valve: The tricuspid valve is normal in structure and function. There is trace tricuspid regurgitation. Pulmonary artery pressures cannot be estimated because of the lack of a measurable TR jet velocity. Pulmonic Valve: The pulmonic valve leaflets are thin and pliable; valve motion is normal. There is no pulmonic valvular regurgitation. There is no other significant valvular heart disease. Great Vessels: The aortic root is normal size. The ascending aorta is mildly enlarged. The inferior vena cava was not well visualized. Pericardium/ Pleura There is no pericardial effusion. There is no pleural effusion. MMode/2D Measurements & Calculations LVIDd: 4.6 cm LVOT diam: 2.2 cm LVIDs: 3.1 cm Ao root diam: 3.1 cm FS: 32.1 % asc Aorta Diam: 3.8 cm EPSS: 1.2 cm Ao Arch Diam (Prox Trans): 2.5 cm IVSd: 1.4 cm LVPWd: 1.4 cm LV wood. diameter/BSA (cm/m^2): 2.2 LV sys. diameter/BSA (cm/m^2): 1.5 LA A2 area: 21.1 cm2 RA long axis: 4.8 cm LA A4 area: 17.9 cm2 RA area: 15.8 cm2 LA length (vol): 5.2 cm RA vol: 44.1 ml LA vol: 62.1 ml RA : 21.6 ml/m2 LA vol index: 30.4 ml/m2 RVD1 (basal): 3.4 cm TAPSE: 2.3 cm Doppler Measurements & Calculations Ao V2 max: 213.5 cm/sec LVOT Max Magdaleno: 98.1 cm/sec Ao V2 mean: 157.9 cm/sec LV V1 max P.9 mmHg Ao max P.2 mmHg LV V1 VTI: 17.1 cm Ao mean P.9 mmHg GAB(I,D): 1.6 cm2 Ao V2 VTI: 41.1 cm GAB(V,D): 1.8 cm2 sev ratio: 0.42 GAB indexed to BSA (cm^2/m^2): 0.79 MV E max magdaleno: 74.9 cm/sec PA V2 max: 114.4 cm/sec MV A max magdaleno: 124.8 cm/sec PA V2 mean: 81.1 cm/sec MV E/A: 0.60 PA mean P.9 mmHg PA pr(Accel): 24.2 mmHg SV(LVOT): 66.7 ml Reading Physician:02:46 PM
--- NOTE | 2020-11-26 11:10 | ST.IPTN ---
Visit Care Team Role Provider Type Amol Ayala DO Emergency Provider Physician Referring Provider Address: [address] [place] [address], [id number] Taylor Zuniga MD Admit Provider Physician Attending Provider Address: [address] [place] [address], [id number] MANAGER ETL Treatment Note MANAGER ETL Treatment Note Start: 11/25/20 16:47 Freq: Status: Active Protocol: Document 11/26/20 10:50 LNK (Rec: 11/26/20 11:08 LNK [id number]) Speech Pathology Treatment Note Session Time Visit Start Time 08:40 Visit Stop Time 09:15 Total Visit Minutes 35 Setting Treatment Setting Acute Care Visit Type Note Type Treatment Note Next Note Type Next Note Type Treatment Note General Information General Information The patient is a 70 y/o female with a history of hypertension off medications, who developed confusion yesterday. She was previously diagnosed with hypertension. However her medications were discontinued about 1 year ago. She has not established care with a primary care provider and as such her blood pressure medications have not resumed over the past year. The patient's noted that yesterday she became more confused. She was having hard time answering simple questions. There were multiple times where the patient was not ?making sense. Her was concerned about her brought her to the emergency department for evaluation. In the emergency department patient did not know the year or the month; however subsequently she was able to answer those questions . She denies any headache or blurred vision. She denies any facial droop. She denies any weakness of her arms or legs. She has had no prior episodes of confusion. She has had no prior stroke. Subjective Identification Type Name,Date of Others Present Family Observations/Patient Presentation Pt sitting up in her bed. Pt's facial expressions more animated than yesterday. Pt's in attendance Chief Complaint(s) Language Patient Knowledge/Awareness of MANAGER ETL Role Good in Treatment Parent/Caretake Knowledge/Awareness of Excellent MANAGER ETL Role in Treatment Objective Short Term Goals Pt will be able to name common items within her room either spontaneously or when given a choice of 2. Pt will be able to locate and name items by their function when given a choice of two. Pt will be able to provide personal information with choice of 2 cues. Treatment Activities Greeted pt and her . discussed pt's aphasia with pt and her relative to communication and therapeutic activities planned while inpatient status. Both indicated they understood. Pt was able to name objects in her room without difficulty: floor, TV, blanket and light ( penlight). She was able to give her month and day, but was unable to state the year. She could not name [facility], but knows she is in the hospital. Yes/no questions more accurate @ 12/04. Pt was initially unable to state her last name, but after she told me her 's full name, she was then able to state Seble Vang. Pt was also able to state the function of 2/2 items in her room (blanket, TV control). Assessment Patient Response to Treatment Good Rehab Potential Good Impairments Identified Aphasia,Expressive Language, Receptive Language Progress Towards Goals Good Progress Assessment of Improvement Pt appears improved from yesterday. stated he sees improvement. Plan Comment while inpatient Therapeutic Contents Expressive Language Training, Receptive Language Training Provided Patient/Caregiver Instruction Plan of Care Comment Discussed importance of working with personal information and naming Therapy Recommendations Continue with Current Program
--- NOTE | 2020-11-26 11:46 | PT.IIE ---
Surgical History (Last Updated 11/25/20 @ 15:31 by Taylor Zuniga MD) H/O bilateral mastectomy H/O hysterectomy for benign disease H/O oophorectomy Medical History (Last Updated 11/25/20 @ 15:32 by Taylor Zuniga MD) Allergic rhinitis Breast cancer Hypertension Physical Therapy Inpatient Evaluation/Re-Eval M1 PT/OT-IP Prior Functional Status Start: 11/26/20 13:20 Freq: NEEDED Status: Active Protocol: Document 11/26/20 11:46 AB (Rec: 11/26/20 13:34 AB [id number]) Medical Review Prior Functional Status Medical History Reviewed Yes Communication able to answer questions but info is not accurate; spouse in room and anwered questions regarding pt Mobility and Gait stated that she is independent with all mobilities and ambulation without AD Social History Household Members spouse Living Arrangements House Number of Floors (Floors) One Floor Number of Stairs To Enter/Railing? 3 steps L rail ascending to enter Home Environment Standard Height Toilet,Walk in Shower Additional Social History Comment spouse stated that pt has a bad R knee and is due to sx but pt hold off on surgery due to pandemic M2 PT-IP Current Condition Start: 11/26/20 13:20 Freq: NEEDED Status: Active Protocol: Document 11/26/20 11:46 AB (Rec: 11/26/20 13:34 AB [id number]) Physical Therapy Current Condition Current Condition Evaluation Date 11/26/20 Treatment Diagnosis CVA; difficulty in walking Onset Date 11/25/20 Precautions Other Precautions falls M3 PT-IP Subjective Start: 11/26/20 13:20 Freq: NEEDED Status: Active Protocol: Document 11/26/20 11:46 AB (Rec: 11/26/20 13:34 AB [email or web address]) Subjective Physical Therapy Visit Type Type Initial Evaluation Visit Start Time 11:46 Visit Stop Time 12:04 Total Visit Minutes 18 Number of CRITICAL CARE UNIT MANAGER Visits 0 Physical Therapy Visit Comments Patient Comments pt agreed to do PT Therapy Pain Assessment Pain Present Pain Present Denied Pain M4 PT-IP Mobility and Gait Start: 11/26/20 13:20 Freq: NEEDED Status: Active Protocol: Document 11/26/20 11:46 AB (Rec: 11/26/20 13:34 AB [id number]) PT-Bed Mobility Assessment Supine to Sit Supine to Sit Standby Assistance PT-Transfer Assessment Sit to and From Stand Sit to and from Stand Contact Guard Assistance,1 Person Assistance Equipment Transfer Assistive Device None,Gait Belt Orthotic/Prosthetic Devices or Brace: No Transfers Transfer Destination Chair Transfer Technique ambulated without AD Transfer Ability Level of Assist Contact Guard Assistance,1 Person Assistance,Use of Upper Extremities Comments Mobility Comments checked with nurse and stated that pt's BP is stable to work with PT. BP check in supine: 213/103. pt wants to get out of bed. completed supine to sit SBA. pt without c/o dizziness/nausea/ lightheadedness. completed sit to stand CGA and ambulated towards the chair CGA ~ 12 ft without AD. presents with antalgic gait and with genu varus on L knee. agreed to stay up on chair. positioned on chair. call light and table placed within reach. BP checked: 207/101. PT limited activity due to high BP. left pt with spouse and nurse in room. Gait Assessment Gait Gait Assistance Required: Contact Guard Assist Distance (Feet) 12 Able to Maintain Weight Bearing Status Yes During Gait Assistive Devices Assistive Device None,Gait Belt Orthotic/Prosthetic Devices or Brace: No Gait Deviations General Gait Pattern Antalgic,Decreased Stride Length,Decreased Feet Clearance Factors Limiting Gait Function Factors Limiting Gait Function Decreased Activity Tolerance, Poor Balance,Poor Safety Awareness PT-Balance Assessment Sitting Balance and Reactions Static Sitting Balance Ability Good Dynamic Sitting Balance Ability Good Standing Balance and Reactions Static Standing Balance Ability Fair Dynamic Standing Balance Ability Fair Device Used without AD M5 PT-IP Objective Assessments Start: 11/26/20 13:20 Freq: NEEDED Status: Active Protocol: Document 11/26/20 11:46 AB (Rec: 11/26/20 13:34 AB [id number]) Orientation Orientation/Cognition Level of Alertness Alert Orientation Name Safety Awareness Decreased Safety Awareness Memory Description Short Term Impaired Comments pt knows she is in the hospital but was not able to give the name. pt also unable to give date, month or year. able to follow directions but is not aware of safety needs Gross Range of Motion Lower Extremity ROM Assessment Within Functional Limits Strength Lower Extremity Strength Assessment Within Functional Limits Muscle Tone Muscle Tone WNL Yes M6 PT-IP Treatment Start: 11/26/20 13:20 Freq: NEEDED Status: Active Protocol: Document 11/26/20 11:46 AB (Rec: 11/26/20 13:34 AB [id number]) Physical Therapy Treatment Education Education Provided Safety M7 PT-IP Assessment and Plan Start: 11/26/20 13:20 Freq: NEEDED Status: Active Protocol: Document 11/26/20 11:46 AB (Rec: 11/26/20 13:34 AB [id number]) PT Summary Assessment and Plan Potential Rehabilitation Potential Fair Status of Condition at Evaluation Evolving Summary Impairments Pain,ROM,Strength,Balance, Coordination,Cognition,Bed Mobility,Transfers,Gait, Activity Tolerance Assessment Summary pt requiring SBA to CGA with mobility but has cognitive issues affecting safety and requires cues with tasks. pt continues to have increase BP 207/101 and activity limited due to this. PT will continue to assess progress and determine safe d/c plan. pt might require acute rehab or if pt goes home, will require 24/7 assist available for safety needs. Goals Bed Mobility Goal Independent Transfer Goal Independent Gait Goal Independent Gait Distance 150 Other Goals up/down 3 steps L rail ascending SBA Days to Meet Goals 5 Frequency of Treatment Frequency Of Treatment Once a Day Treatment Plan Physical Therapy Treatment Plan Bed Mobility Training,Transfer Training,Gait Training, Therapeutic Exercise,Balance Retraining,Discharge Planning, Neuromuscular Re-ed, Coordination Retraining Precautions Other Precautions BP Recommendations To Nursing Amount of Assist Needed 1 Person Assist Discharge Recommendations PT Discharge Recommendations Home with 24/7 Assist Available,Home Health,Acute Rehab Transportation Needs at Discharge Private Vehicle,Wheelchair/ Cabulance
[2020-11-26] MEDS: LOSARTAN 50 MG TABLET PO (13:14)
[2020-11-26] MEDS: CLOPIDOGREL 75 MG TABLET PO (13:14)
--- NOTE | 2020-11-26 14:58 | OT.IP.EVAL ---
Past Medical History (Last Updated 11/25/20 @ 15:32 by Taylor Zuniga MD) Allergic rhinitis Breast cancer Hypertension Surgical History (Last Updated 11/25/20 @ 15:31 by Taylor Zuniga MD) H/O bilateral mastectomy H/O hysterectomy for benign disease H/O oophorectomy Occupational Therapy Inpatient Evaluation/Re-Eval M1 PT/OT-IP Prior Functional Status Start: 11/26/20 15:26 Freq: NEEDED Status: Active Protocol: Document 11/26/20 15:26 [facility] (Rec: 11/26/20 15:45 [facility] [id number]) Medical Review Prior Functional Status Medical History Reviewed Yes Communication able to answer questions but info is not accurate; spouse in room and answered questions regarding pt Mobility and Gait stated that she is independent with all mobilities and ambulation without AD Activities of Daily Living and IADL's Completely independent with all ADL's, IADL incuding paying the bills and driving. Social History Household Members spouse Living Arrangements House Number of Floors (Floors) One Floor Number of Stairs To Enter/Railing? 3 steps L rail ascending to enter Home Environment Standard Height Toilet,Walk in Shower Additional Social History Comment spouse stated that pt has a bad R knee and is due to sx but pt hold off on surgery due to pandemic M2 OT-IP Current Condition Start: 11/26/20 15:26 Freq: Status: Active Protocol: Document 11/26/20 15:26 [facility] (Rec: 11/26/20 15:45 [facility] [id number]) Occupational Therapy Current Condition Current Condition Evaluation Date 11/25/20 Treatment Diagnosis CVA, decreased functional cognition Diagnosis Onset Date 11/26/20 M3 OT- IP Subjective and Pain Start: 11/26/20 15:26 Freq: Status: Active Protocol: Document 11/26/20 15:26 [facility] (Rec: 11/26/20 15:45 [facility] [id number]) OT- Subjective Occupational Therapy Visit Type Type Initial Evaluation Visit Start Time 14:25 Visit Stop Time 14:58 Total Visit Minutes 33 Occupational Therapy Visit Comments Patient Comments Pt's in the room for OT eval. Patient/Caregiver Goals To get better. Pt states wants whatever is best for the pt when asked whether pt looking to go home versus acute rehab. OT Pain Assessment Pain When Pain Assessed At Rest Pain Present Pain Present Denied Pain M4 OT- IP ADL's Start: 11/26/20 15:26 Freq: Status: Active Protocol: Document 11/26/20 15:26 [facility] (Rec: 11/26/20 15:45 [facility] [id number]) OT [id number] Comments OT Self-Feeding Comments NOt at meal time. OT ADL-Grooming Comments OT Grooming Comments Pt's BP too high therefore just have the pt stay in bed. OT ADL-Oral Care Comments Oral Care Comments Pt's BP too high therefore just have the pt stay in bed. OT ADL-Dressing General Eval Lower Body Dressing Ability Standby Assistance Comments OT Dressing Comments Pt needing to place her right foot up on the bed in order to merry her right foot. OT ADL-Toileting Comments OT Toileting Comments Pt's BP too high therefore just have the pt stay in bed. OT ADL-Bathing Comments OT Bathing Comments Pt's BP too high therefore just have the pt stay in bed. M5 OT- IP IADL's Start: 11/26/20 15:26 Freq: Status: Active Protocol: Document 11/26/20 15:26 [facility] (Rec: 11/26/20 15:45 [facility] [id number]) OT-Instrumental Activities of Daily Living Home Safety Awareness Awareness of Need for Assistance at Home Decreased Awareness Ability to Problem Solve Emergency Unable to Problem Solve Situations Medication Management Medication Management Comments Due to her decreased functional cognition of receptive and expressive aphasia, pt's will have to assist pt for all needs. Money Management Money Management Comments Due to her decreased functional cognition of receptive and expressive aphasia, pt's will have to assist pt for all needs. Meal Preparation Meal Preparation Comments Due to her decreased functional cognition of receptive and expressive aphasia, pt's will have to assist pt for all needs. Director Channel Director Channel Comments Due to her decreased functional cognition of receptive and expressive aphasia, pt's will have to assist pt for all needs. Driving Driving Concerns Identified Regarding Safety M6 OT- IP Functional Cognition Start: 11/26/20 15:26 Freq: Status: Active Protocol: Document 11/26/20 15:26 [facility] (Rec: 11/26/20 15:45 [facility] [id number]) Cognitive Factors Limiting Selfcare Function Cognitive Ability Level of Alertness Alert Patient Orientation Name Attention Span Ability Capable of Focused Attention, Capable of Sustained Attention Ability to Follow Commands Able to Follow One Step Commands with Increased Time, Able to Follow One Step Commands with Repetition Memory Description Short Term Impaired,Working Impaired Problem Solving Ability Unable to Identify Errors, Needs Assist to Identify Solutions Executive Function Ability Unable to Filter Distractions, Unable to Make Plans,Unable to Organize Plans,Unable to Remember Details Cognitive Comments Cognitive Assessment Comments Pt tends to perseverate with words when doing light touch testing would repetitively say wrist, even though pt was aware in was another body part being touched . Pt not able to follow directions for TRAil MAking Part B and unable to complete. Pt not able to remember to alternate between numbers and letters. Score strongly suggests no driving. OT- Vision and Hearing OT- Hearing Assessment OT- Hearing Assessment WFL OT- Vision Assessment Visual Acuity Glasses All The Time Visual Attentiveness WFL Occular Pursuits WFL Visual Convergence WFL Visual [place] WFL Diplopia Absent Vision Assessment Comments Pt able to read the clock time correctly. M7 OT- IP Mobility and Balance Start: 11/26/20 15:26 Freq: Status: Active Protocol: Document 11/26/20 15:26 [facility] (Rec: 11/26/20 15:45 [facility] [id number]) OT- Bed Mobility Assessment Rolling Type of Rolling Roll to Right Level of Assistance Standby Assistance Supine to Sit Supine to Sit Assist Standby Assistance Sit to Supine Sit to Supine Assist Standby Assistance OT-Transfer Assessment Comments Mobility Comments Nursing states pt's BP at 187/ 95 and okay to get up and attempt shower. Pt's BP while seated at the edge of the bed 253/123 pt having no symptoms, but had pt lie down down and notified nursing and physician. BP 247/109 in supine. Pt tends to use a lot of momentum to try to get up from supine to sit. OT- Gait Assessment Comments Gait Ability Comments Unable to assess due to high BP. OT- Balance Assessment Sitting Balance and Reactions Static Sitting Balance Ability Good Dynamic Sitting Balance Ability Fair M8 OT- IP Objective Assessments Start: 11/26/20 15:26 Freq: Status: Active Protocol: Document 11/26/20 15:26 [facility] (Rec: 11/26/20 15:45 [facility] [id number]) OT Gross Range of Motion Upper Extremity Range of Motion Assessment Within Functional Limits OT Strength Comments Strength Comments BUE 4/5 OT- Coordination Assessment Upper Extremity Finger to Nose Test Right UE Impaired OT-Muscle Tone Assessment Muscle Tone WNL Yes OT Sensation Assessment Comments Summary Comments Intact for light touch. Decreased for proprioception for right elbow and fingers and left fingers. M9 OT- IP Assessment and Plan Start: 11/26/20 15:26 Freq: Status: Active Protocol: Document 11/26/20 15:26 [facility] (Rec: 11/26/20 15:45 [facility] [id number]) OT Summary Assessment and Plan Potential Rehabilitation Potential Good Analytic Complexity at Evaluation Moderate Summary OT Impairments Strength,Balance,Coordination, Functional Cognition, Functional Mobility,Grooming, Dressing,Toileting,Bathing, Toilet Transfers,Shower Transfers,Activity Tolerance Progress Towards Goals Slow Progress due to Medical Issues,Slow Progress due to Cognition Assessment Summary Pt MOD complexity and main barriers are high BP, decreased expressive and receptive aphasia, decreased functional cognition and not able to fully assess her mobility due to her high BP level- 247/109 in supine. Pt would benefit from acute rehab versus home and 24/7 assist and home health pending progress. Goals Self-Feeding Goal Independent Grooming Goal Independent Dressing Goal Independent Toileting Goal Independent Bathing Goal Independent Toilet Transfer Goal Independent Shower Transfer Goal Independent Patient/Caregiver Education Goal Caregiver Independent Assisting Patient Days to Meet Goals 20 Frequency of Treatment Frequency Of Treatment Once a Day Treatment Plan OT Treatment Plan ADL Training,Functional Cognition Training,Functional Mobility,Patient/Family Education,Discharge Planning Other Treatment Recommendations and Next shower Treatment Focus Discharge Recommendations OT Discharge Recommendations Home with 24/7 Assist Available,Home Health,Acute Rehab Transportation Needs at Discharge Private Vehicle,Wheelchair/ Cabulance
[2020-11-26] MEDS: LABETALOL 20 MG/4 ML SYRINGE IV ×3 (15:13→22:22)
--- NOTE | 2020-11-26 15:50 | PM.PN.1 ---
Subjective Subjective Date Patient Seen: 11/26/20 Interval history: 70 y/o female admitted yesterday with a subacute thalamic stroke. Patient continues to have episodes of severe hypertension. She continues to remain confused and also with expressive and receptive aphasia. She has no focal weakness. Exam Vital Signs (past 8 hours): - 11/26/20 08:00 11/26/20 08:04 11/26/20 09:25 Temperature 98.3 F Pulse Rate 90 89 97 H Respiratory Rate 18 17 15 Blood Pressure 227/109 H 216/104 H 197/99 H Pulse Oximetry 96 95 94 11/26/20 10:00 11/26/20 10:50 11/26/20 11:00 Temperature 98.3 F Pulse Rate 96 H 92 H 92 H Respiratory Rate 16 19 19 Blood Pressure 185/96 H 204/103 H Pulse Oximetry 93 93 94 11/26/20 11:50 11/26/20 11:54 11/26/20 11:55 Temperature 98.5 F Pulse Rate 92 H 90 Respiratory Rate 20 19 Blood Pressure 213/103 H Pulse Oximetry 94 11/26/20 13:00 11/26/20 15:13 Temperature 98.2 F Pulse Rate 92 H 92 H Respiratory Rate 17 Blood Pressure 187/95 H 237/114 H Pulse Oximetry 94 Oxygen Delivery Method Room Air Oxygen Flow Rate 2 Narrative Exam Narrative: ill appearing female confused but in no distress HEENT: NC/AT, EOMI, no facial droop Lungs: clear to auscultation CV: RRR nl Sl S2 Abd; soft/ non tender Ext: no edema Limited Neuro: confused, expressive aphasia, awake, alert Objective Labs Result Diagrams: 11/25/20 11:22 11/25/20 11:22 Labs: Laboratory Results - last 24 hr 11/25/20 11/25/20 11/25/20 11:22 14:05 17:15 Hemoglobin A1c 10.2 H Triglycerides Cholesterol LDL Cholesterol, Calc HDL Cholesterol Urine Color Yellow Urine Appearance Clear Urine pH 5.5 Ur Specific [place] 1.020 Urine Protein Trace H Urine Glucose (UA) 2+ H Urine Ketones Trace H Urine Occult Blood Negative Urine Nitrate Negative Urine Bilirubin Negative Urine Urobilinogen 0.2 Ur Leukocyte Esterase Negative Urine RBC 0-1/hpf Urine WBC 5-10/hpf H Ur Squamous Epith Cells 1-5 /hpf Urine Bacteria Few (2-10) H Ur Culture Indicated? Specimen cultured Nasal Screen MRSA (PCR) Negative for mrsa U Opiates 300ng/mL cut Ur Oxycodone Screen Urine Methadone Screen Ur Barbiturates Screen U Tricyclic Antidepress Ur Phencyclidine Scrn Ur Amphetamines Screen U Methamphetamines Scrn Ur MDMA Scrn (Ecstasy) U Benzodiazepines Scrn Urine Cocaine Screen U Marijuana (THC) Screen 11/25/20 11/26/20 17:15 04:40 Hemoglobin A1c Triglycerides 126 Cholesterol 151 LDL Cholesterol, Calc 81 HDL Cholesterol 45 Urine Color Urine Appearance Urine pH Ur Specific [place] Urine Protein Urine Glucose (UA) Urine Ketones Urine Occult Blood Urine Nitrate Urine Bilirubin Urine Urobilinogen Ur Leukocyte Esterase Urine RBC Urine WBC Ur Squamous Epith Cells Urine Bacteria Ur Culture Indicated? Nasal Screen MRSA (PCR) U Opiates 300ng/mL cut Negative Ur Oxycodone Screen Negative Urine Methadone Screen Negative Ur Barbiturates Screen Negative U Tricyclic Antidepress Negative Ur Phencyclidine Scrn Negative Ur Amphetamines Screen Negative U Methamphetamines Scrn Negative Ur MDMA Scrn (Ecstasy) Negative U Benzodiazepines Scrn Negative Urine Cocaine Screen Negative U Marijuana (THC) Screen Negative PFSH Medical History (Updated 11/25/20 @ 15:32 by Taylor Zuniga MD) Allergic rhinitis Breast cancer Hypertension Surgical History (Updated 11/25/20 @ 15:31 by Taylor Zuniga MD) H/O bilateral mastectomy H/O hysterectomy for benign disease H/O oophorectomy Family History (Updated 11/25/20 @ 15:43 by Taylor Zuniga MD) Father Parkinson's disease dementia Mother Dementia Social History household members: spouse Smoking Status: Never smoker Assessment & Plan Assessment & Plan narrative: 1. Acute Thalamic CVA -Patient continues to have expressive and receptive aphasia -motor weakness difficult to assess given significant hypertension -continue ASA/Plavix, Statin -will obtain Echo with bubble study -continue DVT prophylaxis -continue PT/OT/Speech 2. Hypertension-poorly controlled -will allow permissive hypertension -goal is for SBP to be less than 200 -losartan started today -prn hydralazine/lebetalol for SBP over 200 or DBP over 110 -will add additional agent tomorrow if needed 3. New Onset Diabetes -Hgb A1c 10.5% -BS still elevated -start Glucophage 500 bid -dietary consult -diabetic education Patient is significantly disabled from her Stroke. Will need additional support for mental status/aphasia Quality VTE Deep Vein Thrombosis/Pulmonary Embolism Present on Admission: No
[2020-11-26] MEDS: METFORMIN HCL 500 MG TABLET PO (17:35)
[2020-11-26] MEDS: AMLODIPINE 5 MG TABLET 10 MG PO (19:26)
[2020-11-26] MEDS: ATORVASTATIN 20 MG TABLET 80 MG PO (20:55)
[2020-11-27] VITALS (17 sets, daily range): BP systolic 175–219; BP diastolic 87–105; PULSE 79–89; RESP 16–20; TEMP 35.8–37; O2SAT 93–95
[2020-11-27] MEDS: ENOXAPARIN 40 MG/0.4 ML SYRINGE SUBCUT (08:18)
[2020-11-27] MEDS: DOCUSATE 100 MG CAPSULE PO ×2 (08:19→21:11)
[2020-11-27] MEDS: ASPIRIN EC 81 MG TABLET PO (08:19)
[2020-11-27] MEDS: CLOPIDOGREL 75 MG TABLET PO (08:20)
[2020-11-27] MEDS: LOSARTAN 50 MG TABLET PO (08:20)
[2020-11-27] MEDS: AMLODIPINE 5 MG TABLET 10 MG PO (08:20)
[2020-11-27] MEDS: METFORMIN HCL 500 MG TABLET PO ×2 (08:22→17:55)
[2020-11-27] MEDS: INSULIN LISPRO 100 UNIT/ML 3ML VIAL SUBCUT ×4 (08:22→21:11)
[2020-11-27] MEDS: cloNIDine TTS 0.1 MG PATCH TOP (09:52)
[2020-11-27] MEDS: SODIUM CHLORIDE 0.9% FLUSH 10 ML IV ×2 (09:53→21:15)
[2020-11-27] MEDS: LOSARTAN 50 MG TABLET 100 MG PO (09:57)
--- NOTE | 2020-11-27 10:35 | ST.IPTN ---
Visit Care Team Role Provider Type Amol Ayala DO Emergency Provider Physician Referring Provider Address: [address] [place] [address], [id number] Taylor Zuniga MD Admit Provider Physician Attending Provider Address: [address] [place] [address], [id number] CLINIC LEAD Treatment Note CLINIC LEAD Treatment Note Start: 11/25/20 16:47 Freq: Status: Active Protocol: Document 11/27/20 10:05 JOVI (Rec: 11/27/20 10:35 JOVI [id number]) Speech Pathology Treatment Note Session Time Visit Start Time 08:50 Visit Stop Time 09:30 Total Visit Minutes 40 Setting Treatment Setting Acute Care Visit Type Note Type Treatment Note Next Note Type Next Note Type Treatment Note General Information General Information The patient is a 70 y/o female admitted with a subacute thalamic stroke. Patient continues to have episodes of severe hypertension. She continues to remain confused and also with expressive and receptive aphasia. She has no focal weakness. Subjective Identification Type Name,Date of Others Present Family Observations/Patient Presentation Pt was awake sitting up in bed with present. Both pt and spouse reported improvement with pt's communication skills. The pt stated it was still difficult to talk, sometimes to formulate thoughts, other times to verbally express her thoughts. She felt she was understanding others sufficiently. Chief Complaint(s) Language Patient Knowledge/Awareness of CLINIC LEAD Role Good in Treatment Parent/Caretake Knowledge/Awareness of Excellent CLINIC LEAD Role in Treatment Objective Short Term Goals 1. The pt will be able to recite biographical information accurately with minimal verbal prompts to communicate effectively with her medical team and significant others. 2. With verbal prompts as needed (e.g., phonemic cues, carrier phrases, obvious topic transitions, etc.), the pt will express her thoughts with minimal paraphasias. Mcfp Goals 1. The pt will demonstrate expressive, receptive and cognitive communication skills sufficient to participate in conversations and decisions related to her care. Treatment Activities Greeted pt and her . Discussed pt's aphasia with pt and her relative to communication and therapeutic activities planned while inpatient status as well as future rehab situations. Both indicated they understood. Pt named items in her environment and described their uses with 100% accuracy. Pt stated her full name, name of and dtr, and city of residence independently. Had initial difficulty stating date and son's name but was responsive to use of carrier phrases (both independently and as clinician prompt) and phonemic cues. Able to restate accurately x2 after delays, with one error in month, which she self -corrected when given time. Biographical information was written by CLINIC LEAD on paper. The pt was able to read accurately . Paper left for practice and as start of communication book , if desired. Automatic speech: Able to state days of week independently. Was perseverative in transitions from days to months and from letters to numbers, but again responsive to v/v prompts, resulting in 100% accuracy of recitation. Yes/No Questions: 100% accuracy. Trained pt/spouse in use of verbal prompts, as well as hand gestures to signal if the pt would like others to help her find words or not (i.e., a hand held up = wait, let me try; a hand wave forward = please help me). Discussed use it or lose it and use it and improve it principles of neuroplasticity. Pt/spouse both verbalized understanding and agreement. Also discussed idea of creating a communication book of important information for the pt to express, should she be unable to verbalize accurately . Spouse independently provided appropriate phonemic cue to assist the pt in stating son's name, demonstrating understanding. He also took notes of all education provided. 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 Recommended the pt read aloud to exercise expressive language. Pt/spouse in agreement. Assessment Patient Response to Treatment Good Rehab Potential Good Impairments Identified Aphasia,Expressive Language, Receptive Language Progress Towards Goals Good Progress Assessment of Overall Progress Improving Assessment of Improvement Pt is improving. Comprehension is better than expression; however, the pt is highly responsive to verbal and visual prompts. She is perseverative on topics, so clear topic transitions from conversation partners are important. The pt is often aware of errors and sometimes able to self-correct if given time and opportunity. Recommend medical staff and loved ones give the pt additional time and be responsive to her desires to work to express herself. Reviewed with Patient Goals,Progress Being Made,Home Exercise Program Patient/Caregiver Understanding Good Plan Comment while inpatient Therapeutic Contents Expressive Language Training, Receptive Language Training Provided Patient/Caregiver Instruction Home Exercise Program,Plan of Care,Questions/Concerns Comment Discussed importance of working with personal information and naming Therapy Recommendations Continue with Current Program
--- NOTE | 2020-11-27 11:20 | OT.IP.TRT ---
Current Diagnoses Encephalopathy, unspecified (11/25/20) Occupational Therapy Treatment Note M2 OT-IP Current Condition Start: 11/26/20 15:26 Freq: Status: Active Protocol: Document 11/26/20 15:26 [facility] (Rec: 11/26/20 15:45 [facility] [id number]) Occupational Therapy Current Condition Current Condition Evaluation Date 11/25/20 Treatment Diagnosis CVA, decreased functional cognition Diagnosis Onset Date 11/26/20 M3 OT- IP Subjective and Pain Start: 11/26/20 15:26 Freq: Status: Active Protocol: Document 11/27/20 12:56 [facility] (Rec: 11/27/20 13:25 [facility] [id number]) OT- Subjective Occupational Therapy Visit Type Type Treatment Note Visit Start Time 09:50 Visit Stop Time 11:20 Total Visit Minutes 90 Occupational Therapy Visit Comments Patient Comments Pt agreed to redo [place] Making Part B and wanting to shower. Pt's present in the room. Patient/Caregiver Goals Pt states would like to go home, but open to going to rehab. Pt's states wants whatever is best for the pt and really would like her to go to rehab to start. OT Pain Assessment Pain When Pain Assessed At Rest Pain Present Pain Present Denied Pain M4 OT- IP ADL's Start: 11/26/20 15:26 Freq: Status: Active Protocol: Document 11/27/20 12:56 [facility] (Rec: 11/27/20 13:25 [facility] [id number]) OT ADL-Grooming General Evaluation Grooming Ability Standby Assistance Areas Needing Assistance Retrieving/Set-up of Grooming Items OT ADL-Dressing General Eval Lower Body Dressing Ability Minimal Assistance Comments OT Dressing Comments JOEL to assist to help straighten her right sock. OT ADL-Toileting General Evaluation Toileting Ability Standby Assistance OT ADL-Bathing Bathing Type Bathing Type Shower General Evaluation Bathing Ability Minimal Assistance Areas Needing Assistance Wash/Dry Back Comments OT Bathing Comments Pt needing assist to wash her back, CGA while standing for her balance and heavy use of grab bars while standing. Pt needing vc for sequencing through the task of showering needs. M5 OT- IP IADL's Start: 11/26/20 15:26 Freq: Status: Active Protocol: Document 11/27/20 12:56 [facility] (Rec: 11/27/20 13:25 [facility] [id number]) OT-Instrumental Activities of Daily Living Home Safety Awareness Awareness of Need for Assistance at Home Decreased Awareness Ability to Problem Solve Emergency Unable to Problem Solve Situations Medication Management Medication Management Comments Due to her decreased functional cognition of receptive and expressive aphasia, pt's will have to assist pt for all needs. Money Management Money Management Comments Due to her decreased functional cognition of receptive and expressive aphasia, pt's will have to assist pt for all needs. Meal Preparation Meal Preparation Comments Due to her decreased functional cognition of receptive and expressive aphasia, pt's will have to assist pt for all needs. Ditch Inspector Ditch Inspector Comments Due to her decreased functional cognition of receptive and expressive aphasia, pt's will have to assist pt for all needs. M6 OT- IP Functional Cognition Start: 11/26/20 15:26 Freq: Status: Active Protocol: Document 11/27/20 12:56 [facility] (Rec: 11/27/20 13:25 [facility] [id number]) Cognitive Factors Limiting Selfcare Function Cognitive Ability Level of Alertness Alert Patient Orientation Name Attention Span Ability Capable of Focused Attention, Capable of Sustained Attention Ability to Follow Commands Able to Follow One Step Commands with Increased Time, Able to Follow One Step Commands with Repetition Memory Description Short Term Impaired,Working Impaired Problem Solving Ability Unable to Identify Errors, Needs Assist to Identify Solutions Executive Function Ability Unable to Filter Distractions, Unable to Make Plans,Unable to Organize Plans,Unable to Remember Details Cognitive Comments Cognitive Assessment Comments Pt able to figure out after increased time how to get the toilet paper out from the roll , and able adjust the water temperature after given cues of how it works. Pt still having trouble with numbers to add, average two numbers, how to read a chart for her 9 hole peg test. Pt not able to sequence through showering task as forgot to wash her legs, feet, and pericare needs. After giving pt reminders to wash, pt states was done. Pt needing cue to keep the FWW in front of her at all times for safety. Today pt able to complete [place] Making Part B with MODA vc in 610 seconds much better from yesterday of not being able to recall the directions and only got from 1-A-2. M7 OT- IP Mobility and Balance Start: 11/26/20 15:26 Freq: Status: Active Protocol: Document 11/27/20 12:56 [facility] (Rec: 11/27/20 13:25 [facility] [id number]) OT- Bed Mobility Assessment Rolling Type of Rolling Roll to Right Level of Assistance Standby Assistance Supine to Sit Supine to Sit Assist Standby Assistance Sit to Supine Sit to Supine Assist Standby Assistance OT-Transfer Assessment Sit to and From Stand Sit to and from Stand Standby Assistance,Contact Guard Assistance Technique Transfer Destination Bed,Chair,Shower Stall,Toilet Transfer Technique Stand Step Pivot Devices Transfer Assistive Devices None,Gait Belt,Front Wheeled Walker Comments Mobility Comments BP 184/89 while in bed and then 199/103. Pt given more BP medication and patch and able to shower and BP at 195/ 91. Dr. Zuniga aware of her high numbers. Pt CGA for balance without use of walker with wide base of support and unsteady gait. OT- Balance Assessment Sitting Balance and Reactions Static Sitting Balance Ability Good Dynamic Sitting Balance Ability Fair Standing Balance and Reactions Static Standing Balance Ability Fair M8 OT- IP Objective Assessments Start: 11/26/20 15:26 Freq: Status: Active Protocol: Document 11/27/20 12:56 [facility] (Rec: 11/27/20 13:25 [facility] [id number]) OT- Coordination Assessment Comments Coordination Comments Pt scored 35 with right hand and 33.5 for left hand for 9 hole peg test which both score under 10% for her age. Pt is right hand dominant. Pt able to lease picker the pegs but slow in movements. M9 OT- IP Assessment and Plan Start: 11/26/20 15:26 Freq: Status: Active Protocol: Document 11/27/20 12:56 [facility] (Rec: 11/27/20 13:25 [facility] [id number]) OT Summary Assessment and Plan Potential Rehabilitation Potential Good Analytic Complexity at Evaluation Moderate Summary OT Impairments Strength,Balance,Coordination, Functional Cognition, Functional Mobility,Grooming, Dressing,Toileting,Bathing, Toilet Transfers,Shower Transfers,Activity Tolerance Progress Towards Goals Slow Progress due to Medical Issues,Slow Progress due to Cognition Assessment Summary Pt making some gains with her cognition , however tends to still perseverate and repeat herself, pt did not remember how old she was even after letting her know, and in addition pt's has to correct her answers at times. Pt would benefit from acute rehab if able to qualify versus skilled rehab to be able to get daily therapy to help with her gains and follow through with coordination , speed of movements, dynamic balance, and functional cognition for ADL and functional mobility needs. Goals Self-Feeding Goal Independent Grooming Goal Standby Assistance Dressing Goal Standby Assistance Toileting Goal Standby Assistance Bathing Goal Standby Assistance Toilet Transfer Goal Standby Assistance Shower Transfer Goal Standby Assistance Patient/Caregiver Education Goal Caregiver Independent Assisting Patient Days to Meet Goals 19 Frequency of Treatment Frequency Of Treatment Once a Day Treatment Plan OT Treatment Plan ADL Training,Functional Cognition Training,Functional Mobility,Patient/Family Education,Discharge Planning Discharge Recommendations OT Discharge Recommendations Home with 22/02 Assist Available,Home Health,Acute Rehab Transportation Needs at Discharge Private Vehicle
--- NOTE | 2020-11-27 11:36 | CM.DPC ---
Addendum entered by Rosetta Collins R.N. 11/27/20 12:38: Called Bethany at [facility] to follow up with the referral that was sent. She indicated, she most likely will not have enough needs to qualify for acute inpatient rehab. Updated , Raymond. Updated Jocelynn at [facility], and she is currently working on authorization through [employer]. Gave Jocelynn's phone number, for he has questions regarding the facility. He does have proof that he and his have both had COVID vaccines, and he scanned them on his phone. At this time, [facility] is the plan. Original Note: DCP Cont: Met with patient and , Raymond. Introduced self and role. Prior, had gone into patient's room during team rounds. According to P.T, patient does have some improved mobility, but is also having cognitive and speech issues. Gave Raymond, , some resources, discussed with him and patient in the room. Brought in information regarding [facility], versus Medicare Choice List, as well as [facility] for in home caregiving when patient does discharge home. stated, he just wants best for her, and if she needs care home or inpatient rehab, he is supportive of this. also stated, he has resources should she need some in home care, but would like her to go to rehab first. Discussed home health services as well, and what it entails. Sent referral over to Jocelynn at [facility] to review, updated her on patient. and patient have both had their COVID vaccines, so he should be able to visit her if she goes there. Having Ibis, addictions counselor assistant, fax over referral over to [facility]. Asking her to fax over all therapy disciplines, including P.T, O.T, speech, med sheets, H&P. P: DCP to continue to follow. Patient does have [employer], so either facility of acceptance will need to obtain insurance authorization. will continue to review Medicare Choice List, but [facility] verses [facility] is in the works. Rosetta Collins RN/[employer]
--- NOTE | 2020-11-27 11:50 | CM.DPNOTE ---
Faxed referral packet to [facility] per Giovana on 11/27/20 and received fax confirmation. Ibis Salazar CM Asst.
--- NOTE | 2020-11-27 12:29 | PT-IP ANOTE ---
Pt was unavailable seeing OT in am and eating lunch when returned. MANAGER MORTGAGE will see pt in early afternoon.
--- NOTE | 2020-11-27 14:27 | PM.PN.1 ---
Subjective Subjective Date Patient Seen: 11/27/20 Exam Vital Signs (past 8 hours): - 11/27/20 07:55 11/27/20 08:20 11/27/20 09:57 Temperature 98.0 F Pulse Rate 79 Respiratory Rate 20 Blood Pressure 198/101 H 198/101 H 184/89 H Pulse Oximetry 94 11/27/20 10:04 Temperature Pulse Rate Respiratory Rate Blood Pressure 184/89 H Pulse Oximetry Oxygen Delivery Method Room Air Oxygen Flow Rate 0 Objective Labs Result Diagrams: 11/25/20 11:22 11/25/20 11:22 PFSH Medical History (Updated 11/25/20 @ 15:32 by Taylor Zuniga MD) Allergic rhinitis Breast cancer Hypertension Surgical History (Updated 11/25/20 @ 15:31 by Taylor Zuniga MD) H/O bilateral mastectomy H/O hysterectomy for benign disease H/O oophorectomy Family History (Updated 11/25/20 @ 15:43 by Taylor Zuniga MD) Father Parkinson's disease dementia Mother Dementia Social History household members: spouse Smoking Status: Never smoker Quality VTE Deep Vein Thrombosis/Pulmonary Embolism Present on Admission: No
--- NOTE | 2020-11-27 14:32 | PC.NURSE ---
Upon shift change, patient resting in bed comfortably, awake and alert. Flat affect noted, pt does not verbalize much besides yes/no but does appear to be oriented to situation. Pt vital signs stable, heart and lung sounds WDL. Raymond at bedside at 0810. Pt BP maintained below 200 systolic and 110 diastolic up until working with physical therapy at 1430. BP at this time elevated up to 219/105 after ambulation. Pt took a shower with the assistance of OT at 1000 and BP remained controlled without supplemental medications. Dr. Zuniga increased the dosage of PO losartan from 50mg to 100mg, and added on metoprolol and a clonidine patch as well. Patient and educated on fall prevention strategies.
[2020-11-27] MEDS: LABETALOL 20 MG/4 ML SYRINGE IV (14:37)
--- NOTE | 2020-11-27 14:40 | PT.IPTN ---
Current Diagnoses Encephalopathy, unspecified (11/25/20) Physical Therapy Treatment Note M2 PT-IP Current Condition Start: 11/26/20 13:20 Freq: NEEDED Status: Active Protocol: Document 11/26/20 11:46 AB (Rec: 11/26/20 13:34 AB [id number]) Physical Therapy Current Condition Current Condition Evaluation Date 11/26/20 Treatment Diagnosis CVA; difficulty in walking Onset Date 11/25/20 Precautions Other Precautions falls M3 PT-IP Subjective Start: 11/26/20 13:20 Freq: NEEDED Status: Active Protocol: Document 11/27/20 14:16 SP (Rec: 11/27/20 15:46 SP [id number]) Subjective Physical Therapy Visit Type Type Treatment Note Visit Start Time 14:16 Visit Stop Time 14:40 Total Visit Minutes 24 Notes provided physical assist required during caregiver training throughout tx. Number of ELECTRICAL TEST ENGINEER Visits 1 Physical Therapy Visit Comments Patient Comments Pt agreed to work with PT. Therapy Pain Assessment Pain Present Pain Present Denied Pain M4 PT-IP Mobility and Gait Start: 11/26/20 13:20 Freq: NEEDED Status: Active Protocol: Document 11/27/20 14:16 SP (Rec: 11/27/20 15:46 SP [id number]) PT-Bed Mobility Assessment Supine to Sit Supine to Sit Standby Assistance Scooting Scooting to Edge of Bed Contact Guard Assistance PT-Transfer Assessment Sit to and From Stand Sit to and from Stand Standby Assistance,Use of Upper Extremities Equipment Transfer Assistive Device Gait Belt,Front Wheeled Walker Orthotic/Prosthetic Devices or Brace: No Transfers Transfer Destination Chair Transfer Technique pt ambulated using FWW . Transfer Ability Level of Assist Contact Guard Assistance,Use of Upper Extremities Comments Mobility Comments Pt is self motiviated to work with therapy. She completed supine>sitting SBA, scoot CGA. Assessed BP 212/104 with report I feel fine, with c/o dizziness/ nausea/ lightheadness. Pt wanted to get up in the chair. BP check in standing 219/105 CGA for balance without use of walker with wide base of support and unsteady gait, provided FWW then ambulated around end of bed to chair SBA with cuing for body center front chair then reach back for slow descent. Instructed patient on LE exercises can do when not standing: supine ankle pumps, heel slides, hip abd, SLR; seated LAQ, HRTR, marching with good performance. Pt was seated call light and all needs in reach with in room before left. Gait Assessment Gait Gait Assistance Required: Contact Guard Assist Distance (Feet) 12 Able to Maintain Weight Bearing Status Yes During Gait Assistive Devices Assistive Device Gait Belt,Front Wheeled Walker Orthotic/Prosthetic Devices or Brace: No Gait Deviations General Gait Pattern Antalgic,Decreased Stride Length,Decreased Feet Clearance Factors Limiting Gait Function Factors Limiting Gait Function Decreased Activity Tolerance, Poor Balance,Poor Safety Awareness Comments Gait Comments See mobility comments Stair Climbing Assessment Comments Stair Climbing Comments unable at this time due to safety concerns w/ elevated BP . PT-Balance Assessment Sitting Balance and Reactions Static Sitting Balance Ability Good Dynamic Sitting Balance Ability Good Standing Balance and Reactions Static Standing Balance Ability Fair Dynamic Standing Balance Ability Fair Device Used without AD, good with fWW Functional Assessments Other Functional Tests Performed static balance head turns NBOS unsteady CGA, EC unsteady sway min recovery with cuing. M5 PT-IP Objective Assessments Start: 11/26/20 13:20 Freq: NEEDED Status: Active Protocol: Document 11/26/20 11:46 AB (Rec: 11/26/20 13:34 AB [id number]) Orientation Orientation/Cognition Level of Alertness Alert Orientation Name Safety Awareness Decreased Safety Awareness Memory Description Short Term Impaired Comments pt knows she is in the hospital but was not able to give the name. pt also unable to give date, month or year. able to follow directions but is not aware of safety needs Gross Range of Motion Lower Extremity ROM Assessment Within Functional Limits Strength Lower Extremity Strength Assessment Within Functional Limits Muscle Tone Muscle Tone WNL Yes M6 PT-IP Treatment Start: 11/26/20 13:20 Freq: NEEDED Status: Active Protocol: Document 11/27/20 14:16 SP (Rec: 11/27/20 15:46 SP [id number]) Physical Therapy Treatment Education Education Provided Safety M7 PT-IP Assessment and Plan Start: 11/26/20 13:20 Freq: NEEDED Status: Active Protocol: Document 11/27/20 14:16 SP (Rec: 11/27/20 15:46 SP [id number]) PT Summary Assessment and Plan Potential Rehabilitation Potential Fair Status of Condition at Evaluation Evolving Summary Impairments Pain,ROM,Strength,Balance, Coordination,Cognition,Bed Mobility,Transfers,Gait, Activity Tolerance Progress Towards Goals Progressing Toward Goals,Slow Progress due to Medical Issues Assessment Summary Pt requiring SBA to CGA with mobility, requires cuing for proper hand placement and body spacial awareness for safety mobilizing. Pt continues to have increased BP 219/105 and activity limited due to this. PT will continue to assess progress and determine safe d/ c plan. pt would be a good candidate for acute rehab/ longterm or if pt goes home, will require 24/7 assist available for safety needs. Goals Bed Mobility Goal Independent Transfer Goal Independent Gait Goal Independent Gait Distance 150 Other Goals up/down 3 steps L rail ascending SBA Days to Meet Goals 5 Frequency of Treatment Frequency Of Treatment Once a Day Treatment Plan Physical Therapy Treatment Plan Bed Mobility Training,Transfer Training,Gait Training, Therapeutic Exercise,Balance Retraining,Discharge Planning, Neuromuscular Re-ed, Coordination Retraining Other Recommendations and Next Treatment Assess vitals, Bed mobility, Focus transfers, gait with LRAD. Precautions Other Precautions BP Recommendations To Nursing Amount of Assist Needed 1 Person Assist Discharge Recommendations PT Discharge Recommendations Home with 24/7 Assist Available,Home Health,Acute Rehab Transportation Needs at Discharge Private Vehicle,Wheelchair/ Cabulance
--- NOTE | 2020-11-27 15:00 | CM.DPNOTE ---
Faxed referral packet to [facility]arro at [facility] fax [phone]. I followed up with Chaparro at [phone] and told him I was faxing referral for pt. He said that [facility] usually takes 24-48 hours to receive approval, and if pt. is discharged home on 11/28, [facility] may not receive the authorization in time. He suggested that if the pt. is discharged home, she could call him to see if she qualifies for this service. Fax confirmation received. Ibis Salazar CM Asst.
--- NOTE | 2020-11-27 15:03 | CM.DPC ---
DCP Cont: Patient's , Raymond, has had several questions. He has been spending some time researching skilled rehab facilities. He was concerned about some of the reviews of [facility], as well as the others. He mentioned facilities in the [place] area, and let him know that this train planner is not familiar with these, only on the local Medicare Choice List. Confirmed with Jocelynn at [facility] that she did receive authorization through patient's [employer]. Other option for is to take her home, which he is considering. Mentioned home health, which is an option, but informed that they will not be there daily. He wanted to know if he can hire a physical therapist to come a few times a day to see patient, and let him know that this case filler is not familiar with this service. He does have [employer] that he can review for caregivers in the home. Let him know that patient is accepted at [facility] tomorrow. Did have Ibis contact [facility]. They will review. It is unclear if they can accept, but they mentioned that they can always contact if patient goes home, and she can go there from her home. P: Plan is for discharge tomorrow. She will either go to [facility], or home with and home health. Rosetta Collins RN/Ophthalmic Technologist
[2020-11-27] MEDS: METOPROLOL ER 50 MG TABLET PO ×2 (15:26→21:10)
--- NOTE | 2020-11-27 16:40 | DIET.PN ---
Addendum entered by Madeleine Dumas 11/28/20 10:43: Met c pt and spouse, Raymond at bedside. Pt and completely unaware of MNT for DM2. RD spent 30 minutes educating on Heart Healthy/Carbohydrate Consistent Diet and answering questions. Pt was able to follow along c conversation and even interjected appropriately throughout. Usual Day: B(8am): coffee c half and half, raisin bran c almond milk or two slices toast L(1pm): leftovers or [employer] packaged soup [place] Sn(3pm): chocolate chip cookie or ice cream D(6pm): grilled salmon, chicken, ribs, pasta, potatoes ETOH: ~4 shots scotch on ice in evening while watching news Pts reports they both put on some weight during covid as they had just retired and moved to the area. They are relying more on processed foods (boxed au gratin potatoes, soups) than they did previously. Also both have been drinking more than usual. Pts son who is healthy eater will be coming up to stay with them and do a [employer] run, requested he shop for low sodium, carb consistent, good protein, and high fiber food options. Nutrition Dx: altered nutrition-related laboratory values (BP, A1c, BG) r/t life transitions and undesirable food choices aeb BP on admit 207/109 c subacute CVA, BG 380 H, A1c 10.2 c new dx DM2, pt has gained weight over the past year, eating more carb-heavy processed foods, increased etoh intake, and has limited mobility secondary to bad knee. Interventions: 1. Discussed Heart Healthy nutrition including role of sodium in diet, limiting to 1.5-2g/d focusing on reducing intake of processed foods, label reading tips. Provided HH/CCD MNT handout and answered all questions. 2. Discussed role of etoh in HTN. Educated on moderate etoh intake of 1 etoh eq no more than 4x/w for women. Discussed ways to moderate intake such as subbing loose leaf tea in fancy cups, reexamining evening habits. 3. Introduced pt and spouse to DM2 MNT including what A1c is, factors contributing to pts insulin resistance, and ways to manage to get A1c down to 6-7 range. Pt has limited mobility until knee replacement so focus is on CCD. Discussed appropriate carb levels for pt focusing on grain foods, sweets, beverages. Provided DM2 MNT c carb levels and examples of carb foods and how to build meals and read food labels. Introduced pt and spouse to patient menu c carb amounts listed for practice. Answered all questions at this time. 4. Request pt enroll in DSME program at to further support this lifestyle change. Original Note: Dietary Progress Note Nursing request RD do teaching when pts spouse, Raymond present. RD to cosmetic counselor pt and spouse Thurs am on HH/CCD diet using handouts. Assessment: 70y F admitted for subacute thalamic stroke c severe hypertension (207/109) and new onset DM2 (A1c 10.2) referred to nutrition for education on HTN, stroke, DM2 nutrition. HT: 167.6cm WT: 91.1kg BMI:32.4 Labs:A1c 10.2 H, BG 380 H MNA: 14 Greg:20 Diet Order: CCD/HH EER: 30g CHO/meal, 2g Na max, 21g dietary fiber/d
--- NOTE | 2020-11-27 18:16 | P.PN_ITS ---
Subjective Subjective Date Patient Seen: 11/27/20 Interval history: The patient is a 70 year female who was admitted to the hospital for an acute left thalamic stroke. She continues to have significant hypertension. The patient has improvement of her expressive aphasia but does continue to have some cognitive impairment. She also complained of some right hip pain when ambulating. Exam Vital Signs (past 8 hours): - 11/27/20 14:00 11/27/20 14:37 11/27/20 15:26 Temperature 98.3 F Pulse Rate 87 89 81 Respiratory Rate 20 Blood Pressure 175/90 H 219/105 H 186/101 H Pulse Oximetry 94 11/27/20 16:10 Temperature 97.9 F Pulse Rate 79 Respiratory Rate 16 Blood Pressure 177/87 H Pulse Oximetry 94 Oxygen Delivery Method Room Air Oxygen Flow Rate 0 Narrative Exam Narrative: Pleasant female resting comfortably in no obvious distress Lungs: Clear to auscultation Cardiac exam: Regular rate and rhythm normal S1-S2 Abdomen soft nontender nondistended Extremities: No edema Objective Labs Result Diagrams: 11/25/20 11:22 11/25/20 11:22 REPLACED BY [facility] Medical History (Updated 11/25/20 @ 15:32 by Taylor Zuniga MD) Allergic rhinitis Breast cancer Hypertension Surgical History (Updated 11/25/20 @ 15:31 by Taylor Zuniga MD) H/O bilateral mastectomy H/O hysterectomy for benign disease H/O oophorectomy Family History (Updated 11/25/20 @ 15:43 by Taylor Zuniga MD) Father Parkinson's disease dementia Mother Dementia Social History household members: spouse Smoking Status: Never smoker Assessment & Plan Assessment & Plan narrative: 1. Acute Thalamic CVA -Patient continues to have expressive and receptive aphasia -motor weakness difficult to assess given significant hypertension -continue ASA/Plavix, Statin -will obtain Echo with bubble study -continue DVT prophylaxis -continue PT/OT/Speech -patient's speech is improving, she was able to ambulate with PT and OT, she is not likely a candidate for acute rehab but may be eligible for subacute rehab -Case Management will continue to work with to find a suitable place for her to go at discharge 2. Hypertension-poorly controlled -will allow permissive hypertension -goal is for SBP to be less than 200 -losartan started today -prn hydralazine/lebetalol for SBP over 200 or DBP over 110 -patient now on losartan 100 mg per day, clonidine TTS patch 1., metoprolol 50 per day -would recommend outpatient renal duplex to rule out renal artery stenosis. We were unable to obtain that study here in the hospital 3. New Onset Diabetes -Hgb A1c 10.5% -BS still elevated -start Glucophage 500 bid -dietary consult -diabetic education Patient is significantly disabled from her Stroke. Will need additional support for mental status/aphasia Quality VTE Deep Vein Thrombosis/Pulmonary Embolism Present on Admission: No
[2020-11-27] MEDS: ATORVASTATIN 20 MG TABLET 80 MG PO (21:11)
[2020-11-28] VITALS (15 sets, daily range): BP systolic 160–226; BP diastolic 77–105; PULSE 75–86; RESP 16–18; TEMP 35.8–36.7; O2SAT 94–97
[2020-11-28] MEDS: SODIUM CHLORIDE 0.9% FLUSH 10 ML IV ×2 (00:33→08:48)
[2020-11-28] MEDS: LABETALOL 20 MG/4 ML SYRINGE IV (00:33)
[2020-11-28] MEDS: METOPROLOL ER 50 MG TABLET PO ×2 (08:21→14:51)
[2020-11-28] MEDS: ASPIRIN EC 81 MG TABLET PO (08:21)
[2020-11-28] MEDS: LOSARTAN 50 MG TABLET 100 MG PO (08:21)
[2020-11-28] MEDS: ENOXAPARIN 40 MG/0.4 ML SYRINGE SUBCUT (08:21)
[2020-11-28] MEDS: AMLODIPINE 5 MG TABLET 10 MG PO (08:22)
[2020-11-28] MEDS: CLOPIDOGREL 75 MG TABLET PO (08:22)
[2020-11-28] MEDS: DOCUSATE 100 MG CAPSULE PO (08:22)
[2020-11-28] MEDS: INSULIN LISPRO 100 UNIT/ML 3ML VIAL SUBCUT ×2 (08:37→12:44)
[2020-11-28] MEDS: METFORMIN HCL 500 MG TABLET PO (08:38)
--- NOTE | 2020-11-28 10:32 | DI.CT.S_ITS ---
PROCEDURE: CT ANGIO ABDOMEN INDICATIONS: r/o renal artery stenosis for malignant hypertension TECHNIQUE: After the administration of intravenous contrast, 2.5 mm sections acquired from the diaphragm to the iliac crests. 10 mm maximum intensity projection (MIP) coronal and sagittal reformats were then performed. For radiation dose reduction, the following was used: automated exposure control. COMPARISON: None. FINDINGS: Image quality: Excellent. Extravascular tissues: Lung bases are clear. Heart size is normal. Bilateral mammoplasties. Diffusely cirrhoticsurface nodularity of the liver with a somewhat prominent left lobe. There are multiple gallstones in the gallbladder. The gallbladder wall is not thickened. Biliary system is non dilated. Pancreas enhances normally. Spleen is enlarged. No adrenal nodules. Kidneys are normal in size and enhancement, without hydronephrosis. Non-opacified bowel loops demonstrate normal wall thickness and caliber. No free fluid or air. No retroperitoneal or mesenteric adenopathy. No ventral hernias. No suspicious bony abnormalities. No vertebral body compression fractures. Abdominal aorta: Normal caliber, unremarkable Mesenteric arteries: The left gastric artery arises as an independent vessel off the abdominal aorta just above and minimally to the left of the celiac artery. It provides a very impressive Dieulafoy lesion (vascular malformation) involving the posterior wall of the fundus and extending into the mucosal region of the fundus, potentially putting the patient at risk for marked hemorrhage. The celiac, SMA, and HILDA are widely patent. Renal arteries: No ostial stenosis. No findings suggesting fibromuscular dysplasia. Widely patent. IMPRESSION: 1. No evidence of renal artery stenosis. No evidence of fibromuscular dysplasia of the renal arteries. 2. Cirrhosis. 3. Splenomegaly. 4. Cholelithiasis. 5. The left gastric artery has normal variant origin off of the abdominal aorta, independent of the celiac artery. 6. 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 This puts the patient at risk for marked hemorrhage. Comment: Findings were discussed with Dr. Taylor Zuniga, the hospitalist caring for the patient at [facility], at the time of study dictation on 11/28/2020 at 1157 hours. At that time, consideration of placing an outpatient Ambulatory Referral in Interventional Radiology for consideration of possible prophylactic percutaneous embolization of this lesion. Additional comment: There is a small amount of high density material present in the stomach. On questioning Dr. Zuniga, the patient is not having any hematemesis. This likely represents ingested food content. Dictated by: West Melendez M.D. on 11/28/2020 at 11:48 Approved by: West Melendez M.D. on 11/28/2020 at 12:14
[2020-11-28] MEDS: HYDRALAZINE 20 MG/ML VIAL 10 MG IV (10:37)
--- NOTE | 2020-11-28 11:00 | ST.OPTN ---
Visit Care Team Role Provider Type Amol Ayala DO Emergency Provider Physician Referring Provider Address: [address] [place] [address], [id number] Taylor Zuniga MD Admit Provider Physician Attending Provider Address: [address] [place] [address], [id number] STRATEGIC INTELLIGENCE OFFICER Treatment Note STRATEGIC INTELLIGENCE OFFICER Treatment Note Start: 11/25/20 16:47 Freq: Status: Active Protocol: Document 11/28/20 13:15 [facility] (Rec: 11/28/20 13:18 [facility] [id number]) Speech Pathology Treatment Note Session Time Visit Start Time 10:20 Visit Stop Time 11:00 Total Visit Minutes 40 Setting Treatment Setting Acute Care Visit Type Note Type Treatment Note Next Note Type Next Note Type Treatment Note General Information General Information The patient is a 70 y/o female admitted with a subacute thalamic stroke. Patient continues to have episodes of severe hypertension. She continues to remain confused and also with expressive and receptive aphasia. She has no focal weakness. Subjective Identification Type Name,Date of Others Present Family Observations/Patient Presentation Pt was awake sitting up in chair in room. Her was present and reported he noticed improvements in patient's communication since admission. Patient noted to have flat affect. Chief Complaint(s) Language Additional Areas of Concern Cognition Patient Knowledge/Awareness of STRATEGIC INTELLIGENCE OFFICER Role Good in Treatment Parent/Caretake Knowledge/Awareness of Excellent STRATEGIC INTELLIGENCE OFFICER Role in Treatment Objective Short Term Goals 1. The pt will be able to recite biographical information accurately with minimal verbal prompts to communicate effectively with her medical team and significant others. 2. With verbal prompts as needed (e.g., phonemic cues, carrier phrases, obvious topic transitions, etc.), the pt will express her thoughts with minimal paraphasias. Treatment Activities Administered SLUMs cognitive examination. Patient scored 9/ 30 indicating significant neurocognitive impairments. She stated the day of the week correctly, but said the year was 1971 and said we were in the state of [place]. She had difficulty with mental math and divergent naming. She named only one animal (albatross) and a plant (philodendren). She recalled 1 out of 5 objects during short term recall. She perseverated on the clock drawing putting the number 11 along the entire circumference of the clock. She correctly answered 1 out of 4 questions about a paragraph read aloud. Patient was taken down to radiology following completion of SLUMs at which time I reviewed results with patient's . We discussed recommendations for ongoing assessment and therapy given significant cognitive impairment. Patient' s said he was surprised by the difficulty patient had on the cognitive assessment since he feels she has made such obvious improvements in communication. I provided handouts targeting word finding, categorization and attention for the patient' s to complete with her . He verbalized understanding and did not have any questions . Assessment Patient Response to Treatment Good Rehab Potential Good Impairments Identified Aphasia,Expressive Language, Receptive Language Progress Towards Goals Good Progress Assessment of Overall Progress Improving Assessment of Improvement Patient continues to have difficulty answering orientation questions. Unable to assess communication in conversation since patient went down to radiology right after completion of cognitive assessment. Reviewed with Patient Goals,Progress Being Made,Home Exercise Program Patient/Caregiver Understanding Good Plan Therapeutic Contents Cognitive-Linguistic Training, Expressive Language Training, Receptive Language Training Provided Patient/Caregiver Instruction Home Exercise Program,Plan of Care,Questions/Concerns Therapy Recommendations Continue with Current Program
--- NOTE | 2020-11-28 11:05 | CM.DPC ---
DCP Cont: Chaparro at [facility] stated that patient does not meet criteria, as is the same criteria as [facility]. Patient has also been having increased blood pressures. Jocelynn at [facility] confirmed that she can accept patient today, is aware of high blood pressures, prefers that they be under 200 systolic. Patient is having a test done today. was going to meet with Jocelynn elizabeth [facility] with additional questions. 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 Have updated nurse, Phuong. Will need updated COVID. All will depend upon test results and blood pressures. P: [facility] can accept patient today, depending upon test results and BPs. Rosetta Collins RN/Handle Lathe Operator
--- NOTE | 2020-11-28 11:44 | OT.IP.TRT ---
Current Diagnoses Encephalopathy, unspecified (11/25/20) Occupational Therapy Treatment Note M2 OT-IP Current Condition Start: 11/26/20 15:26 Freq: Status: Active Protocol: Document 11/26/20 15:26 [facility] (Rec: 11/26/20 15:45 [facility] [id number]) Occupational Therapy Current Condition Current Condition Evaluation Date 11/25/20 Treatment Diagnosis CVA, decreased functional cognition Diagnosis Onset Date 11/26/20 M3 OT- IP Subjective and Pain Start: 11/26/20 15:26 Freq: Status: Active Protocol: Document 11/28/20 13:18 [facility] (Rec: 11/28/20 13:34 [facility] [id number]) OT- Subjective Occupational Therapy Visit Type Type Treatment Note Visit Start Time 11:13 Visit Stop Time 11:44 Total Visit Minutes 31 Occupational Therapy Visit Comments Patient Comments Pt agreed to work with OT. Patient/Caregiver Goals Pt's present during OT eval. OT Pain Assessment Pain When Pain Assessed At Rest Pain Present Pain Present Denied Pain M4 OT- IP ADL's Start: 11/26/20 15:26 Freq: Status: Active Protocol: Document 11/28/20 13:18 [facility] (Rec: 11/28/20 13:34 [facility] [id number]) OT [id number] Comments OT Self-Feeding Comments Not at meal time. OT ADL-Grooming General Evaluation Grooming Ability Standby Assistance Areas Needing Assistance Retrieving/Set-up of Grooming Items Comments OT Grooming Comments While standing, vc to point out items on the counter. OT ADL-Oral Care General Eval Oral Care Ability Independent M6 OT- IP Functional Cognition Start: 11/26/20 15:26 Freq: Status: Active Protocol: Document 11/28/20 13:18 [facility] (Rec: 11/28/20 13:34 [facility] [id number]) Cognitive Factors Limiting Selfcare Function Cognitive Ability Level of Alertness Alert Patient Orientation Name Attention Span Ability Capable of Focused Attention, Capable of Sustained Attention Ability to Follow Commands Able to Follow One Step Commands with Increased Time, Able to Follow One Step Commands with Repetition Memory Description Short Term Impaired Problem Solving Ability Unable to Identify Errors, Needs Assist to Identify Solutions Executive Function Ability Unable to Organize Plans, Unable to Remember Details Cognitive Comments Cognitive Assessment Comments Had pt make the bed. Pt needing cues to identify the names of the items and at times perseverating on certain words. Pt able to pick out from the closet with MODA vc all the items needed to make the bed. Pt also needing MODA vc to help sequence , pt trying to put flat sheet on the bed versus fitted sheet first, and pt forgetting to put the green pad on the bed. Pt also not remembering that after brushing her teeth that therapist had asked her to try to make her bed. Pt needing vc to keep the FWW in front of her. M7 OT- IP Mobility and Balance Start: 11/26/20 15:26 Freq: Status: Active Protocol: Document 11/28/20 13:18 [facility] (Rec: 11/28/20 13:34 [facility] [id number]) OT- Bed Mobility Assessment Rolling Type of Rolling Roll to Right Level of Assistance Standby Assistance Supine to Sit Supine to Sit Assist Standby Assistance Sit to Supine Sit to Supine Assist Standby Assistance OT-Transfer Assessment Sit to and From Stand Sit to and from Stand Standby Assistance Technique Transfer Destination Bed Transfer Technique Stand Step Pivot Devices Transfer Assistive Devices None,Gait Belt,Front Wheeled Walker Comments Mobility Comments Pt able to use FWW as times only barely touching the FWW for support. Pt able to walk around the bed in order to make the bed without loss of balance. Pt getting tired and needing cues to sit and rest BP 191/95. OT- Gait Assessment Comments Gait Ability Comments Close SBA no device, distant SBA with FWW. OT- Balance Assessment Sitting Balance and Reactions Static Sitting Balance Ability Normal Dynamic Sitting Balance Ability Good Standing Balance and Reactions Static Standing Balance Ability Good . M9 OT- IP Assessment and Plan Start: 11/26/20 15:26 Freq: Status: Active Protocol: Document 11/28/20 13:18 [facility] (Rec: 11/28/20 13:34 [facility] [id number]) OT Summary Assessment and Plan Potential Rehabilitation Potential Good Analytic Complexity at Evaluation Moderate Summary OT Impairments Strength,Balance,Coordination, Functional Cognition, Functional Mobility,Grooming, Dressing,Toileting,Bathing, Toilet Transfers,Shower Transfers,Activity Tolerance Progress Towards Goals Progressing Toward Goals Assessment Summary Pt able to sequence better today and with MODA vc able to get items needed out of the closet and able to change the bedding with close SBA. Pt still having difficulty with short term memory and getting the words out. Pt would benefit from daily therapy as making progress with her cognition. Therefore recommend acute rehab , but per case management notes does not meet criteria, therefore suggest skilled rehab versus home with 24/7 assist and home health. Goals Self-Feeding Goal Independent Grooming Goal Independent Dressing Goal Standby Assistance Toileting Goal Standby Assistance Bathing Goal Standby Assistance Toilet Transfer Goal Standby Assistance Shower Transfer Goal Standby Assistance Patient/Caregiver Education Goal Caregiver Independent Assisting Patient Days to Meet Goals 10 Frequency of Treatment Frequency Of Treatment Once a Day Treatment Plan OT Treatment Plan ADL Training,Functional Cognition Training,Functional Mobility,Patient/Family Education,Discharge Planning Discharge Recommendations OT Discharge Recommendations Home with 24/7 Assist Available,Home Health,SNF Rehab Transportation Needs at Discharge Private Vehicle
--- NOTE | 2020-11-28 11:55 | PT.IPTN ---
Current Diagnoses Encephalopathy, unspecified (11/25/20) Physical Therapy Treatment Note M2 PT-IP Current Condition Start: 11/26/20 13:20 Freq: NEEDED Status: Active Protocol: Document 11/26/20 11:46 AB (Rec: 11/26/20 13:34 AB [id number]) Physical Therapy Current Condition Current Condition Evaluation Date 11/26/20 Treatment Diagnosis CVA; difficulty in walking Onset Date 11/25/20 Precautions Other Precautions falls M3 PT-IP Subjective Start: 11/26/20 13:20 Freq: NEEDED Status: Active Protocol: Document 11/28/20 11:55 AB (Rec: 11/28/20 13:18 AB [email or web address]) Subjective Physical Therapy Visit Type Type Treatment Note Visit Start Time 11:55 Visit Stop Time 12:21 Total Visit Minutes 26 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 Physical Therapy Visit Comments Patient Comments pt is agreeable to do PT Therapy Pain Assessment Pain Present Pain Present Denied Pain M4 PT-IP Mobility and Gait Start: 11/26/20 13:20 Freq: NEEDED Status: Active Protocol: Document 11/28/20 11:55 AB (Rec: 11/28/20 13:18 AB [id number]) PT-Bed Mobility Assessment Supine to Sit Supine to Sit Standby Assistance PT-Transfer Assessment Sit to and From Stand Sit to and from Stand Contact Guard Assistance Equipment Transfer Assistive Device None,Gait Belt Orthotic/Prosthetic Devices or Brace: No Transfers Transfer Destination Chair Transfer Technique ambulated without AD Comments Mobility Comments BP: 171/85 .pt completed supine to sit SBA. pt was able to sit on EOB SBA. completed sit to stand CGA and ambulated in room CGA without AD. presents with antalgic gait with decrease jag, step length. per spouse, pt has R knee problems and is needing and replacement but was hold off at this time. pt prefer to use FWW at this time for safety and spouse stated that he bought one for pt already. pt sat on chair and rested. BP checked: 181/87 . completed standing balance activities: increase COG awareness, standing with decrease JENNIFER, weight shifting Ant/post, side to side and horizontal, reaching, standing on one leg (pt required mod to max A for SLS) also completed sit to stand x 3 reps without use of UE. ambulated in room again with education and carryover of previous standing activities: pt able to ambulate without AD in room 20 ft with better LE elevation and step length. pt agreed to stay up on chair and positioned. BP checked: 160/77. call light and table placed within reach. Gait Assessment Gait Gait Assistance Required: Contact Guard Assist,1 Person Assist Distance (Feet) 30 Able to Maintain Weight Bearing Status Yes During Gait Assistive Devices Assistive Device None,Gait Belt Orthotic/Prosthetic Devices or Brace: No Gait Deviations General Gait Pattern Antalgic,Decreased Stride Length,Decreased Feet Clearance,Flexed Trunk,Step-to Gait,Wide Based Gait Factors Limiting Gait Function Factors Limiting Gait Function Decreased Activity Tolerance, Decreased Strength,Limited Range of Motion,Pain,Poor Balance,Poor Safety Awareness Comments Gait Comments pls refer to mobility section for details M5 PT-IP Objective Assessments Start: 11/26/20 13:20 Freq: NEEDED Status: Active Protocol: Document 11/26/20 11:46 AB (Rec: 11/26/20 13:34 AB [id number]) Orientation Orientation/Cognition Level of Alertness Alert Orientation Name Safety Awareness Decreased Safety Awareness Memory Description Short Term Impaired Comments pt knows she is in the hospital but was not able to give the name. pt also unable to give date, month or year. able to follow directions but is not aware of safety needs Gross Range of Motion Lower Extremity ROM Assessment Within Functional Limits Strength Lower Extremity Strength Assessment Within Functional Limits Muscle Tone Muscle Tone WNL Yes M6 PT-IP Treatment Start: 11/26/20 13:20 Freq: NEEDED Status: Active Protocol: Document 11/28/20 11:55 AB (Rec: 11/28/20 13:18 AB [email or web address]) Physical Therapy Treatment Education Education Provided Safety Other Treatments Other Treatment Performed sit<>stand x 4 reps without use of UE M7 PT-IP Assessment and Plan Start: 11/26/20 13:20 Freq: NEEDED Status: Active Protocol: Document 11/28/20 11:55 AB (Rec: 11/28/20 13:18 AB [email or web address]) PT Summary Assessment and Plan Potential Rehabilitation Potential Good Summary Impairments Pain,ROM,Strength,Balance, Coordination,Sensation,Tone, Cognition,Bed Mobility, Transfers,Gait,Activity Tolerance Progress Towards Goals Progressing Toward Goals Assessment Summary pt requiring CGA with mobility but requires cues with all tasks. pt continues to have flat affect and had decrease safety awareness. pt may benefit from acute rehab or SNF. If pt goes home, will need assistance for safety and will need outpt PT. will continues to assess progress. Goals Bed Mobility Goal Independent Transfer Goal Independent Gait Goal Independent Gait Distance 150 Other Goals up/down 3 steps L rail ascending SBA Days to Meet Goals 5 Frequency of Treatment Frequency Of Treatment Once a Day Treatment Plan Physical Therapy Treatment Plan Bed Mobility Training,Transfer Training,Gait Training, Therapeutic Exercise,Balance Retraining,Discharge Planning, Neuromuscular Re-ed, Coordination Retraining Other Recommendations and Next Treatment Assess vitals, Bed mobility, Focus transfers, gait with LRAD. Precautions Other Precautions BP Recommendations To Nursing Amount of Assist Needed 1 Person Assist Discharge Recommendations PT Discharge Recommendations Home with 22/02 Assist Available,Home Health,SNF Rehab,Acute Rehab Transportation Needs at Discharge Private Vehicle,Wheelchair/ Cabulance
--- NOTE | 2020-11-28 13:39 | P.DS_ITS ---
History of Present Illness History of Present Illness Chief complaint: episodes of being confused Narrative: The patient is a 70 y/o female with a history of hypertension off medications, who developed confusion yesterday. The patient and her were previously living and is will call [place]. She was seen by Tiny perez primary care provider. She was previously diagnosed with hypertension. However her medications were discontinued about 1 year ago. She has not established care with a primary care provider as such her blood pressure medications have not resumed over the past year. The patient her noted that yesterday she became more confused. She was having hard time answering si mple questions. There were multiple times where the patient was not ?making sense. Her was concerned about her brought her to the emergency department for evaluation. In the emergency department patient did not know the year or the month. However subsequently she was able to answer those questions. She denies any headache or blurred vision. She denies any facial droop. She denies any weakness of her arms or legs. She has had no prior episodes of confusion. She has had no prior stroke. Her past medical history is only significant for hypertension. Her notes that she does drink about 3 cocktails per evening. Patient by report has no history of needing to cut down on her alcohol, using an eye imcu specialist with alcohol, feeling guilty about her drinking, or other symptoms of alcoholism. In the emergency department the patient had a head CT. There was no acute bleed. There were chronic microvascular changes. The patient was found to be markedly hypertensive, her initial blood pressure in the emergency room department was 269/133. She was given labetalol and her blood pressure decreased to 221/124. Subsequently the blood pressure increased again and she was placed on a nicardipine drip and admitted to the hospital. Patient continues to be confused. Patient is admitted for further evaluation. Discharge Providers Provider Date of admission: 11/25/20 12:38 Discharge Date: 11/28/20 Consults: 11/25/20 14:09 Consult to Speech Therapy Evaluate & Treat Comment: cognitive evaluation Physician Instructions: Evaluate and treat 11/25/20 18:43 Consult to Occupational Therapy Evaluate & Treat Comment: Physician Instructions: Evaluate and treat Consult to Physical Therapy Evaluate & Treat Comment: Physician Instructions: Evaluate and Treat 11/26/20 13:16 Consult to Dietitian, Adult Routine Comment: Reason For Exam: new DM, new stroke, HTN Discharge provider: Taylor Zuniga MD Summary Hospital Course Discharge Diagnosis: 1. Left thalamic stroke, with residual aphasia and cognitive deficits 2. Hypertension 3. New onset diabetes 4. Obesity 5. Cirrhosis, based on CT finding 6. Lesion of dieulafoy defined as a lesion involving the left gastric artery Hospital Course: Patient was admitted to the hospital with acute encephalopathy and malignant hypertension. Her initial blood pressure was 233/150. The patient was initially confused. MRI findings on CT demonstrated a subacute left thalamic stroke. The patient was seen by speech pathology, PT and OT. She was functionally able to ambulate and had no weakness in the upper and lower extremities. However she continued to have evidence of expressive and receptive aphasia. The patient's blood sugars were elevated during her hospital stay. Her glycohemoglobin was also elevated at 10%. She was started on metformin. This will be increased to 1000 mg twice daily. Patient's blood pressure was quite difficult to control. Ultimately she was placed on losartan 100 mg per day, metoprolol 50 b.i.d., clonidine TTS patch, and amlodipine 10 mg daily. With this her blood pressure improved to 160/77 systolic. The patient stabilized in terms of her stroke. She did have some improvement in her l anguage and cognitive abilities. However she is still less than her baseline. Recommendations were made for the patient to go to [facility] for ongoing PT OT and speech. Patient her were agreeable. Given her abdominal CT findings the patient will be referred to outpatient Interventional Radiology at [facility] for possible stenting given her Dieulafoy lesion. Patient had no evidence of bleeding during her hospital stay. She was deemed appropriate for discharge and arrangements were made for her to discharge to [facility] home. Status at Discharge Cognitive/behavioral status at discharge: confused Functional status at discharge: independent ambulation Overall status at discharge: patient is not back to baseline Time Spent with Patient Time spent: Less than 30 minutes Exam Vital Signs (past 8 hours): - 11/28/20 08:00 11/28/20 08:21 11/28/20 09:22 Temperature 97.2 F L Pulse Rate 75 85 77 Respiratory Rate 18 Blood Pressure 205/96 H 205/96 H 188/94 H Pulse Oximetry 94 11/28/20 10:20 11/28/20 10:37 11/28/20 11:12 Temperature Pulse Rate 78 81 Respiratory Rate 17 Blood Pressure 195/95 H 196/95 H 191/91 H Pulse Oximetry 97 11/28/20 12:12 11/28/20 12:37 Temperature Pulse Rate 86 85 Respiratory Rate 18 Blood Pressure 181/87 H 160/77 H Pulse Oximetry Oxygen Delivery Method Room Air Oxygen Flow Rate 0 Narrative Exam Narrative: Pleasant female in no obvious distress Lungs: Clear to auscultation Cardiac exam: Regular rate and rhythm normal S1-S2 Abdomen: Soft nontender nondistended Extremities: No edema Objective Labs Result Diagrams: 11/25/20 11:22 11/25/20 11:22 [facility] Medical History (Updated 11/25/20 @ 15:32 by Taylor Zuniga MD) Allergic rhinitis Breast cancer Hypertension Surgical History (Updated 11/25/20 @ 15:31 by Taylor Zuniga MD) H/O bilateral mastectomy H/O hysterectomy for benign disease H/O oophorectomy Family History (Updated 11/25/20 @ 15:43 by Taylor Zuniga MD) Father Parkinson's disease dementia Mother Dementia Social History household members: spouse Smoking Status: Never smoker Discharge Assessment & Plan Assessment and Plan Assessment: 1. Left thalamic stroke 2. Hypertension 3. New onset type 2 diabetes 4. Cirrhosis 5. Lesion of Dieulafoy Plan of Treatment: Medications as prescribed A patient evaluation by [facility] Interventional Radiology for the Dieulafoy lesion above Patient to follow up with Dr. Haynes who will schedule the outpatient visit at [facility] Interventional Radiology for embolization of the lesion above Discharge Plan Discharge Plan Patient Disposition: Home Discharge orders & Medications Prescriptions: New losartan 50 mg Tablet 100 mg PO DAILY Qty: 30 RF: 0 atorvastatin [Lipitor] 20 mg Tablet 80 mg PO BEDTIME Qty: 30 RF: 0 clopidogrel 75 mg Tablet 75 mg PO DAILY Qty: 21 RF: 0 amlodipine [Norvasc] 5 mg Tablet 10 mg PO DAILY Qty: 30 RF: 0 aspirin 81 mg Tablet,Delayed Release (Dr/Ec) 81 mg PO DAILY Qty: 30 RF: 0 metoprolol succinate 100 mg tablet extended release 24 hr 100 mg PO DAILY Qty: 30 RF: 0 Discharge Health Status Multidrug resistant organism: No MDRO Diet/Activity/Treatments Diet: Carb-consistent/Diabetic, Low-sodium and Low-cholesterol Activity: as tolerated Quality VTE Deep Vein Thrombosis/Pulmonary Embolism Present on Admission: No
[2020-11-28 14:14] LABS: COVID19 - ADMIT (NP swab/PCR) Negative (Negative)
--- NOTE | 2020-11-28 14:39 | CM.DPC ---
Addendum entered by Rosetta Collins R.N. 11/28/20 15:20: has chosen [facility]. Updated Blessing at [facility], [place]. Let her know that is in the process of getting patient an appointment at [facility] with Dr. Haynes, or other provider to establish care. Blessing asked if Dr. Zuniga can follow before, and let her know that she can't, for she is hospitalist, and once patient is discharged, will be up to the primary provider. was going to to over to the clinic to see if he can get her an appointment soon. Faxed over face sheet, orders, face to face, H&P, P.T, O.T, Speech, Sales Representative Metals notes, pending updated discharge summary to [facility]. Gave patient's a copy of [facility]. He stated, he appreciated the care that his has received here in the hospital. Gave a [facility] Health brochure. Original Note: DCP Cont: Patient is being discharged today. Original plan was for patient to go over to [facility]. , Raymond, had gone over to attempt to see facility and talk to P.T. He ended up speaking to social welfare administrator, and expressed concerns that he will not be able to see his when he wants to, and how much therapy she will be getting, as well as what the rooms look like. Jocelynn at [facility] had updated this home health care case manager about reconsidering her [facility]. This home health care case manager and nurse, Phuong, spoke to in patient's room. Let him know that patient is deemed medically stable, and ready for discharge today. He is willing to do home health. He is currently researching agencies. Updated Dr. Zuniga, and she signed a face to face. It is also noted that Dr. Haynes will be following patient, as sees Dr. Haynes, and he went over to set up an appointment for her. also mentioned that their son is at their home now for additional assistance. He also has a walker for her. has also learned from key sander here at hospital, and taken note of foods recommended for patient. He has Senior Resource Book that was given to him yesterday with caregiving information. He is also aware that home health P.T and O.T, will not be on a daily basis, but a few times a week depending upon her needs. Speech will be ordered, as well as a bath aide. Have face to face signed, Dr. Zuniga will update DC summary, and is currently speaking to patient and . P: Patient will be discharged home today with home health. Will see again to discuss agency of choice so this capacity planner can set up for patient before she leaves. December at [facility] is aware that patient will not be going to their facility, and home with home health instead. Rosetta Collins RN/Automotive Generator Repairer
--- NOTE | 2020-11-28 17:35 | PC.NURSE ---
1700 Pt given discharge instructions re BP meds, Stroke symptoms and blood thinners. Pt and state they understand instructions. follow up appointment made with Dr. Haynes. discharged per WC @ 0944
== END 2020-11-28 17:20 | disposition home or self-care (01) | DRG 64 ==
LOC: ED 12:37 → AC 12:39 → ICU 14:50
PROVIDERS: Admitting Provider Internal Medicine; Emergency Provider Emergency Medicine; Referring Provider Emergency Medicine; Visit Provider Internal Medicine
DX: I63.89 Other cerebral infarction (principal); K31.82 Dieulafoy lesion (hemorrhagic) of stomach and duodenum; G93.49 Other encephalopathy; I16.9 Hypertensive crisis, unspecified; R47.01 Aphasia; I10 Essential (primary) hypertension; Z85.3 Personal history of malignant neoplasm of breast; E11.9 Type 2 diabetes mellitus without complications; E66.9 Obesity, unspecified; Z68.32 Body mass index [BMI] 32.0-32.9, adult; Z20.822 Contact with and (suspected) exposure to COVID-19
CPT/HCPCS: 36415; 70450; 70553; 74175; 80053; 80061; 80305; 80320; 81001; 82140; 82550; 82962; 83036; 83690; 83735; 84484; 85025; 85610; 85730; 87086; 87635; 87797; 92507; 93005; 93306; 96105; 96361; 96365; 96375; 97110; 97112; 97116; 97129; 97130; 97162; 97166; 97530; 97535; 99284; 99285; C9803; A9579; J0360; J1650; J1815; J3475; Q9967

== ENCOUNTER 2021-01-08 11:15 | Outpatient (RCR) | payer MEDICARE, SELFPAY ==
[2020-11-25 14:04] VITALS: BMI 32.5
--- NOTE | 2021-01-07 14:30 | PT.OPPOC ---
Physical, Occupational & Speech Therapy At [facility] Current Diagnoses Cerebral infarction, unspecified (01/08/21) Visit Care Team Role Provider Type Renny Haynes MD Attending Provider Physician Family Provider Primary Care Provider Referring Provider Specialty: Internal Medicine Address: [address] [place] [address], [address], [address] Email: [email or web address] Plan Of Care PT-OP-T Assessment and Plan Start: 01/07/21 14:19 Freq: Status: Active Protocol: Document 01/07/21 13:45 DCW (Rec: 01/08/21 11:44 DCW [id number]) Physical Therapy Assessment Rehab Potential Rehabilitation Potential Excellent Evaluation Complexity Number of Personal Factors/Comorbidities 1-2 Number of Body Systems Impaired 1-2 Clinical Presentation at Evaluation Stable Impairments Impairments Balance Goals Two Impairment Pt limited on SLS to 7 seconds R and 4 seconds L Short Term Goal (STG) Pt to increase SLS time to 15 seconds bilaterally STG Duration 01/14/21 One Impairment Pt does not have an appropriate home exercise program Short Term Goal (STG) Pt to be independent and compliant with an appropriate HEP STG Duration 01/14/21 Assessment Summary Assessment Pt largely doing very well six weeks s/p CVA. Pt strength is largely WNL, good balance, appropriate mobility. Pt's only real limitations are due to her ongoing right knee dysfunction, for which conservative treatment has already failed and pt is now waiting for a TKA. Pt and her are in agreement that she will not largely benefit from outpatient therapy at the moment, but would like to have one session with balance training to better understand what she should be working on at home. Physical Therapy Plan Frequency and Duration Frequency of Treatment 2x/Week Duration of Treatment One week Plan of Care Start Date 01/07/21 Plan of Care End Date 01/14/21 Therapeutic Interventions Therapeutic Interventions Balance Training,Neuromuscular Re-education,Therapeutic Exercises Next Visit Focus/Plan Next Note Type Treatment Note Next Visit Plan Balance training, HEP Plan of Care Dates Plan of Care Start Date 01/07/21 Plan of Care End Date 01/14/21 Electronically Signed by: Jarad Jensen, PT 01/08/21 2321 Please Sign and Return: I have reviewed this Plan of Care and certify that the skilled therapy services above are required to meet the patient?s needs. Physician Signature Date Printed Name and Credentials Clinical Instructor Signature Printed Name and Credentials
--- NOTE | 2021-01-07 14:30 | PT.OIE ---
Current Diagnoses Cerebral infarction, unspecified (01/08/21) Past Medical History (Last Reviewed 12/10/20 @ 10:32 by Renny Haynes MD) Allergic rhinitis Breast cancer (~1999) Dieulafoy lesion of stomach Essential hypertension H/O: stroke with residual effects Hypertension LVH (left ventricular hypertrophy) Uncontrolled type 2 diabetes mellitus with hyperglycemia Past Surgical History (Last Reviewed 12/10/20 @ 10:32 by Renny Haynes MD) H/O bilateral mastectomy (~2000) H/O hysterectomy for benign disease H/O oophorectomy Visit Care Team Role Provider Type Renny Haynes MD Attending Provider Physician Family Provider Primary Care Provider Referring Provider Specialty: Internal Medicine Address: [address] [place] [address], [address], [facility] Email: [email or web address] Physical Therapy Initial Evaluation PT-OP-A Visit Information Start: 01/07/21 14:19 Freq: Status: Active Protocol: Document 01/07/21 13:45 DCW (Rec: 01/07/21 14:28 DCW [id number]) Out-Patient Physical Therapy Visit Information Visit Information Visit Type Initial Evaluation Visit Start Time 13:45 Visit Stop Time 14:15 Total Visit Minutes 30 Visit Number 1 Number of VERIFIER Visits 0 Evaluation Information Evaluation Date 01/07/21 PT-OP-B Current Condition Start: 01/07/21 14:19 Freq: Status: Active Protocol: Document 01/07/21 13:45 DCW (Rec: 01/07/21 14:28 DCW [id number]) Current Condition History of Current Condition Onset Date 11/24/20 Current Complaints 6 weeks s/p CVA History of Current Condition Pt is a 70 year old female presenting with skilled physical therapy for an evaluation six weeks s/p CVA. PT had presented to the ED with a one day history of confusion on 11/25/20, and was found to have suffered a left thalamic stroke. While in the hospital, pt exhibited some confusion and expressive aphasia, as well as unsteadiness and was discharged home with a FWW and participated in home health PT. Pt is now feeling better overall, walks in without an assistive device. Pt and her note she has a history of right knee problems, and was actually scheduled for a TKA last year before plans were changed due to Covid shut -downs. Pt feels that her only difficulty with movement and balance are all related to her knee pain, not her CVA. PT-OP-C Subjective Start: 01/07/21 14:19 Freq: Status: Active Protocol: Document 01/07/21 13:45 DCW (Rec: 01/07/21 14:28 DCW [id number]) OP-PT Subjective Patient Comments Patient Comments I want to get back to playing my violin. When asked what she felt was holding her back from playing, she simply stated she hasn't practiced. Patient Reported Progress Improving OP-PT Pain Assessment Pain Assessment Grid Paper Pain Assessment Grid Completed Yes: None PT-OP-D Balance Start: 01/07/21 14:19 Freq: Status: Active Protocol: Document 01/07/21 13:45 DCW (Rec: 01/07/21 16:11 DCW [id number]) OP-PT Balance Assessment Sitting Balance Static Sitting Balance Ability Normal Dynamic Sitting Balance Ability Normal Standing Balance Static Standing Balance Ability Normal Dynamic Standing Balance Ability Normal Balance Tests Single Limb Standing Single Limb- Right 7 seconds Single Limb- Left 4 seconds Tandem Tandem Standing 16 seconds L, 18 seconds R Other Other Balance Tests Performed NBOS EO: 45+ seconds NBOS EC: 45+ seconds Travis Fall Scale Copyright Permission PT-OP-G Mobility & Gait Start: 01/07/21 14:19 Freq: Status: Active Protocol: Document 01/07/21 13:45 DCW (Rec: 01/07/21 16:11 DCW [id number]) OP Gait Assessment Gait Gait Assistance Required: Independent Assistive Devices Assistive Device None Orthotic/Prosthetic Devices or Brace: No Gait Deviations General Gait Pattern Antalgic Factors Limiting Gait Function Factors Limiting Gait Function Pain Comments Gait Comments Right knee pain causes antalgic gait PT-OP-H Neuro Start: 01/07/21 14:19 Freq: Status: Active Protocol: Document 01/07/21 13:45 DCW (Rec: 01/07/21 16:11 DCW [id number]) Sensation Evaluation Gross Sensation Gross Sensation WNL Coordination Evaluation Upper Extremity Tests Right Finger to Therapist's Finger Test Minimal Impairment Finger to Finger Test Normal Performance Alternate Nose to Finger Test Minimal Impairment Pronation/Supination Test Normal Performance Left Finger to Therapist's Finger Test Normal Performance Finger to Finger Test Normal Performance Alternate Nose to Finger Test Normal Performance Pronation/Supination Test Normal Performance Lower Extremity Tests Right Heel on Michelle Test Minimal Impairment Left Heel on Michelle Test Normal Performance Comments Coordination Comments Right sided coordination testing all on target, just very mildly slower speed than left Deep Tendon Reflex & Clonus Assessment Deep Tendon Reflex Right Achilles Deep Tendon Reflex 1+ Diminished Right Patellar Deep Tendon Reflex 1+ Diminished Left Achilles Deep Tendon Reflex 1+ Diminished Left Patellar Deep Tendon Reflex 1+ Diminished Ankle Clonus Bilateral Clonus Assessment Absent PT-OP-M Strength Start: 01/07/21 14:19 Freq: Status: Active Protocol: Document 01/07/21 13:45 DCW (Rec: 01/07/21 16:11 DCW [id number]) Hip Strength Hip Manual Muscle Testing Right Flexion (L2) 4+ Good+ Extension (S1) 4- Good- Abduction 4+ Good+ External Rotation 4- Good- Internal Rotation 4- Good- Left Flexion (L2) 4+ Good+ Abduction 4+ Good+ Adduction 4+ Good+ External Rotation 4+ Good+ Internal Rotation 4+ Good+ Knee Strength Knee Manual Muscle Testing Right Flexion (S2) 4+ Good+ Extension (L3) 4+ Good+ Left Flexion (S2) 4+ Good+ Extension (L3) 4+ Good+ Ankle/Foot Strength Ankle and Foot Manual Muscle Testing Right Dorsiflexion (L4) 4+ Good+ Plantarflexion (S1) 4+ Good+ Left Dorsiflexion (L4) 4+ Good+ Plantarflexion (S1) 4+ Good+ PT-OP-T Assessment and Plan Start: 01/07/21 14:19 Freq: Status: Active Protocol: Document 01/07/21 13:45 DCW (Rec: 01/08/21 11:44 DCW [id number]) Physical Therapy Assessment Rehab Potential Rehabilitation Potential Excellent Evaluation Complexity Number of Personal Factors/Comorbidities 1-2 Number of Body Systems Impaired 1-2 Clinical Presentation at Evaluation Stable Impairments Impairments Balance Goals Two Impairment Pt limited on SLS to 7 seconds R and 4 seconds L Short Term Goal (STG) Pt to increase SLS time to 15 seconds bilaterally STG Duration 01/14/21 One Impairment Pt does not have an appropriate home exercise program Short Term Goal (STG) Pt to be independent and compliant with an appropriate HEP STG Duration 01/14/21 Assessment Summary Assessment Pt largely doing very well six weeks s/p CVA. Pt strength is largely WNL, good balance, appropriate mobility. Pt's only real limitations are due to her ongoing right knee dysfunction, for which conservative treatment has already failed and pt is now waiting for a TKA. Pt and her are in agreement that she will not largely benefit from outpatient therapy at the moment, but would like to have one session with balance training to better understand what she should be working on at home. Physical Therapy Plan Frequency and Duration Frequency of Treatment 2x/Week Duration of Treatment One week Plan of Care Start Date 01/07/21 Plan of Care End Date 01/14/21 Therapeutic Interventions Therapeutic Interventions Balance Training,Neuromuscular Re-education,Therapeutic Exercises Next Visit Focus/Plan Next Note Type Treatment Note Next Visit Plan Balance training, HEP
--- NOTE | 2021-01-08 11:44 | PT.OIE ---
Current Diagnoses Cerebral infarction, unspecified (01/08/21) Past Medical History (Last Reviewed 12/10/20 @ 10:32 by Renny Haynes MD) Allergic rhinitis Breast cancer (~1999) Dieulafoy lesion of stomach Essential hypertension H/O: stroke with residual effects Hypertension LVH (left ventricular hypertrophy) Uncontrolled type 2 diabetes mellitus with hyperglycemia Past Surgical History (Last Reviewed 12/10/20 @ 10:32 by Renny Haynes MD) H/O bilateral mastectomy (~2000) H/O hysterectomy for benign disease H/O oophorectomy Visit Care Team Role Provider Type Renny Haynes MD Attending Provider Physician Family Provider Primary Care Provider Referring Provider Specialty: Internal Medicine Address: [address] [place] [address], [address], [facility] Email: [email or web address] Physical Therapy Initial Evaluation PT-OP-A Visit Information Start: 01/07/21 14:19 Freq: Status: Active Protocol: Document 01/07/21 13:45 DCW (Rec: 01/07/21 14:28 DCW [id number]) Out-Patient Physical Therapy Visit Information Visit Information Visit Type Initial Evaluation Visit Start Time 13:45 Visit Stop Time 14:15 Total Visit Minutes 30 Visit Number 1 Number of CITIZENSHIP TEACHER Visits 0 Evaluation Information Evaluation Date 01/07/21 PT-OP-B Current Condition Start: 01/07/21 14:19 Freq: Status: Active Protocol: Document 01/07/21 13:45 DCW (Rec: 01/07/21 14:28 DCW [id number]) Current Condition History of Current Condition Onset Date 11/24/20 Current Complaints 6 weeks s/p CVA History of Current Condition Pt is a 70 year old female presenting with skilled physical therapy for an evaluation six weeks s/p CVA. PT had presented to the ED with a one day history of confusion on 11/25/20, and was found to have suffered a left thalamic stroke. While in the hospital, pt exhibited some confusion and expressive aphasia, as well as unsteadiness and was discharged home with a FWW and participated in home health PT. Pt is now feeling better overall, walks in without an assistive device. Pt and her note she has a history of right knee problems, and was actually scheduled for a TKA last year before plans were changed due to Covid shut -downs. Pt feels that her only difficulty with movement and balance are all related to her knee pain, not her CVA. PT-OP-C Subjective Start: 01/07/21 14:19 Freq: Status: Active Protocol: Document 01/07/21 13:45 DCW (Rec: 01/07/21 14:28 DCW [id number]) OP-PT Subjective Patient Comments Patient Comments I want to get back to playing my violin. When asked what she felt was holding her back from playing, she simply stated she hasn't practiced. Patient Reported Progress Improving OP-PT Pain Assessment Pain Assessment Grid Paper Pain Assessment Grid Completed Yes: None PT-OP-D Balance Start: 01/07/21 14:19 Freq: Status: Active Protocol: Document 01/07/21 13:45 DCW (Rec: 01/07/21 16:11 DCW [id number]) OP-PT Balance Assessment Sitting Balance Static Sitting Balance Ability Normal Dynamic Sitting Balance Ability Normal Standing Balance Static Standing Balance Ability Normal Dynamic Standing Balance Ability Normal Balance Tests Single Limb Standing Single Limb- Right 7 seconds Single Limb- Left 4 seconds Tandem Tandem Standing 16 seconds L, 18 seconds R Other Other Balance Tests Performed NBOS EO: 45+ seconds NBOS EC: 45+ seconds Travis Fall Scale Copyright Permission PT-OP-G Mobility & Gait Start: 01/07/21 14:19 Freq: Status: Active Protocol: Document 01/07/21 13:45 DCW (Rec: 01/07/21 16:11 DCW [id number]) OP Gait Assessment Gait Gait Assistance Required: Independent Assistive Devices Assistive Device None Orthotic/Prosthetic Devices or Brace: No Gait Deviations General Gait Pattern Antalgic Factors Limiting Gait Function Factors Limiting Gait Function Pain Comments Gait Comments Right knee pain causes antalgic gait PT-OP-H Neuro Start: 01/07/21 14:19 Freq: Status: Active Protocol: Document 01/07/21 13:45 DCW (Rec: 01/07/21 16:11 DCW [id number]) Sensation Evaluation Gross Sensation Gross Sensation WNL Coordination Evaluation Upper Extremity Tests Right Finger to Therapist's Finger Test Minimal Impairment Finger to Finger Test Normal Performance Alternate Nose to Finger Test Minimal Impairment Pronation/Supination Test Normal Performance Left Finger to Therapist's Finger Test Normal Performance Finger to Finger Test Normal Performance Alternate Nose to Finger Test Normal Performance Pronation/Supination Test Normal Performance Lower Extremity Tests Right Heel on Michelle Test Minimal Impairment Left Heel on Michelle Test Normal Performance Comments Coordination Comments Right sided coordination testing all on target, just very mildly slower speed than left Deep Tendon Reflex & Clonus Assessment Deep Tendon Reflex Right Achilles Deep Tendon Reflex 1+ Diminished Right Patellar Deep Tendon Reflex 1+ Diminished Left Achilles Deep Tendon Reflex 1+ Diminished Left Patellar Deep Tendon Reflex 1+ Diminished Ankle Clonus Bilateral Clonus Assessment Absent PT-OP-M Strength Start: 01/07/21 14:19 Freq: Status: Active Protocol: Document 01/07/21 13:45 DCW (Rec: 01/07/21 16:11 DCW [id number]) Hip Strength Hip Manual Muscle Testing Right Flexion (L2) 4+ Good+ Extension (S1) 4- Good- Abduction 4+ Good+ External Rotation 4- Good- Internal Rotation 4- Good- Left Flexion (L2) 4+ Good+ Abduction 4+ Good+ Adduction 4+ Good+ External Rotation 4+ Good+ Internal Rotation 4+ Good+ Knee Strength Knee Manual Muscle Testing Right Flexion (S2) 4+ Good+ Extension (L3) 4+ Good+ Left Flexion (S2) 4+ Good+ Extension (L3) 4+ Good+ Ankle/Foot Strength Ankle and Foot Manual Muscle Testing Right Dorsiflexion (L4) 4+ Good+ Plantarflexion (S1) 4+ Good+ Left Dorsiflexion (L4) 4+ Good+ Plantarflexion (S1) 4+ Good+ PT-OP-T Assessment and Plan Start: 01/07/21 14:19 Freq: Status: Active Protocol: Document 01/07/21 13:45 DCW (Rec: 01/08/21 11:44 DCW [id number]) Physical Therapy Assessment Rehab Potential Rehabilitation Potential Excellent Evaluation Complexity Number of Personal Factors/Comorbidities 1-2 Number of Body Systems Impaired 1-2 Clinical Presentation at Evaluation Stable Impairments Impairments Balance Goals Two Impairment Pt limited on SLS to 7 seconds R and 4 seconds L Short Term Goal (STG) Pt to increase SLS time to 15 seconds bilaterally STG Duration 01/14/21 One Impairment Pt does not have an appropriate home exercise program Short Term Goal (STG) Pt to be independent and compliant with an appropriate HEP STG Duration 01/14/21 Assessment Summary Assessment Pt largely doing very well six weeks s/p CVA. Pt strength is largely WNL, good balance, appropriate mobility. Pt's only real limitations are due to her ongoing right knee dysfunction, for which conservative treatment has already failed and pt is now waiting for a TKA. Pt and her are in agreement that she will not largely benefit from outpatient therapy at the moment, but would like to have one session with balance training to better understand what she should be working on at home. Physical Therapy Plan Frequency and Duration Frequency of Treatment 2x/Week Duration of Treatment One week Plan of Care Start Date 01/07/21 Plan of Care End Date 01/14/21 Therapeutic Interventions Therapeutic Interventions Balance Training,Neuromuscular Re-education,Therapeutic Exercises Next Visit Focus/Plan Next Note Type Treatment Note Next Visit Plan Balance training, HEP
--- NOTE | 2021-01-08 11:50 | PT.OTN ---
Current Diagnoses Cerebral infarction, unspecified (01/08/21) Physical Therapy Treatment Note PT-OP-A Visit Information Start: 01/07/21 14:19 Freq: Status: Active Protocol: Document 01/08/21 11:15 DCW (Rec: 01/08/21 11:49 DCW [id number]) Out-Patient Physical Therapy Visit Information Visit Information Visit Type Discharge Summary Visit Start Time 11:15 Visit Stop Time 11:35 Total Visit Minutes 20 Visit Number 2 Number of BULK SAUSAGE CASING TIER OFF Visits 0 Evaluation Information Evaluation Date 01/07/21 PT-OP-B Current Condition Start: 01/07/21 14:19 Freq: Status: Active Protocol: Document 01/07/21 13:45 DCW (Rec: 01/07/21 14:28 DCW [id number]) Current Condition History of Current Condition Onset Date 11/24/20 Current Complaints 6 weeks s/p CVA History of Current Condition Pt is a 70 year old female presenting with skilled physical therapy for an evaluation six weeks s/p CVA. PT had presented to the ED with a one day history of confusion on 11/25/20, and was found to have suffered a left thalamic stroke. While in the hospital, pt exhibited some confusion and expressive aphasia, as well as unsteadiness and was discharged home with a FWW and participated in home health PT. Pt is now feeling better overall, walks in without an assistive device. Pt and her note she has a history of right knee problems, and was actually scheduled for a TKA last year before plans were changed due to Covid shut -downs. Pt feels that her only difficulty with movement and balance are all related to her knee pain, not her CVA. PT-OP-C Subjective Start: 01/07/21 14:19 Freq: Status: Active Protocol: Document 01/08/21 11:15 DCW (Rec: 01/08/21 11:50 DCW [id number]) OP-PT Subjective Patient Comments Patient Comments Pt still comfortable with a short balance training session today for a better understanding of a good HEB, followed by discharge from [facility] PT. PT-OP-D Balance Start: 01/07/21 14:19 Freq: Status: Active Protocol: Document 01/07/21 13:45 DCW (Rec: 01/07/21 16:11 DCW [id number]) OP-PT Balance Assessment Sitting Balance Static Sitting Balance Ability Normal Dynamic Sitting Balance Ability Normal Standing Balance Static Standing Balance Ability Normal Dynamic Standing Balance Ability Normal Balance Tests Single Limb Standing Single Limb- Right 7 seconds Single Limb- Left 4 seconds Tandem Tandem Standing 16 seconds L, 18 seconds R Other Other Balance Tests Performed NBOS EO: 45+ seconds NBOS EC: 45+ seconds Travis Fall Scale Copyright Permission PT-OP-G Mobility & Gait Start: 01/07/21 14:19 Freq: Status: Active Protocol: Document 01/07/21 13:45 DCW (Rec: 01/07/21 16:11 DCW [id number]) OP Gait Assessment Gait Gait Assistance Required: Independent Assistive Devices Assistive Device None Orthotic/Prosthetic Devices or Brace: No Gait Deviations General Gait Pattern Antalgic Factors Limiting Gait Function Factors Limiting Gait Function Pain Comments Gait Comments Right knee pain causes antalgic gait PT-OP-H Neuro Start: 01/07/21 14:19 Freq: Status: Active Protocol: Document 01/07/21 13:45 DCW (Rec: 01/07/21 16:11 DCW [id number]) Sensation Evaluation Gross Sensation Gross Sensation WNL Coordination Evaluation Upper Extremity Tests Right Finger to Therapist's Finger Test Minimal Impairment Finger to Finger Test Normal Performance Alternate Nose to Finger Test Minimal Impairment Pronation/Supination Test Normal Performance Left Finger to Therapist's Finger Test Normal Performance Finger to Finger Test Normal Performance Alternate Nose to Finger Test Normal Performance Pronation/Supination Test Normal Performance Lower Extremity Tests Right Heel on Michelle Test Minimal Impairment Left Heel on Michelle Test Normal Performance Comments Coordination Comments Right sided coordination testing all on target, just very mildly slower speed than left Deep Tendon Reflex & Clonus Assessment Deep Tendon Reflex Right Achilles Deep Tendon Reflex 1+ Diminished Right Patellar Deep Tendon Reflex 1+ Diminished Left Achilles Deep Tendon Reflex 1+ Diminished Left Patellar Deep Tendon Reflex 1+ Diminished Ankle Clonus Bilateral Clonus Assessment Absent PT-OP-M Strength Start: 01/07/21 14:19 Freq: Status: Active Protocol: Document 01/07/21 13:45 DCW (Rec: 01/07/21 16:11 DCW [id number]) Hip Strength Hip Manual Muscle Testing Right Flexion (L2) 4+ Good+ Extension (S1) 4- Good- Abduction 4+ Good+ External Rotation 4- Good- Internal Rotation 4- Good- Left Flexion (L2) 4+ Good+ Abduction 4+ Good+ Adduction 4+ Good+ External Rotation 4+ Good+ Internal Rotation 4+ Good+ Knee Strength Knee Manual Muscle Testing Right Flexion (S2) 4+ Good+ Extension (L3) 4+ Good+ Left Flexion (S2) 4+ Good+ Extension (L3) 4+ Good+ Ankle/Foot Strength Ankle and Foot Manual Muscle Testing Right Dorsiflexion (L4) 4+ Good+ Plantarflexion (S1) 4+ Good+ Left Dorsiflexion (L4) 4+ Good+ Plantarflexion (S1) 4+ Good+ PT-OP-Q Treatments Start: 01/07/21 14:19 Freq: Status: Active Protocol: Document 01/08/21 11:15 DCW (Rec: 01/08/21 11:49 [facility] [id number]) Neuro Re-Education Treatment Balance Activities 4 Details SLS 3 Details Tandem Stance 2 Details Foam Stance Surface Blue foam Comments EO/EC 1 Details Narrow JENNIFER Comments EO/EC PT-OP-T Assessment and Plan Start: 01/07/21 14:19 Freq: Status: Active Protocol: Document 01/08/21 11:15 DCW (Rec: 01/08/21 11:49 [facility] [id number]) Physical Therapy Assessment Impairments Impairments Balance Goals Two Impairment Pt limited on SLS to 7 seconds R and 4 seconds L Short Term Goal (STG) Pt to increase SLS time to 15 seconds bilaterally STG Duration 01/14/21 One Impairment Pt does not have an appropriate home exercise program Short Term Goal (STG) Pt to be independent and compliant with an appropriate HEP STG Duration 01/14/21 Assessment Summary Assessment Pt and comfortable at this time with general understanding of appropriate balance HEP. Pt discharged to independent HEP with assistance from her . Physical Therapy Plan Frequency and Duration Frequency of Treatment 2x/Week Duration of Treatment One week Plan of Care Start Date 01/07/21 Plan of Care End Date 01/14/21 Therapeutic Interventions Therapeutic Interventions Balance Training,Neuromuscular Re-education,Therapeutic Exercises Discharge Physical Therapy Discharge Reasons Patient Request Next Visit Focus/Plan Next Note Type Discharge Summary
== END 2021-01-08 14:00 | disposition home or self-care (01) ==
LOC: PHYS 11:15
PROVIDERS: Family Provider Internal Medicine; PCP Internal Medicine; Referring Provider Internal Medicine; Visit Provider Internal Medicine
DX: I63.9 Cerebral infarction, unspecified (principal)
CPT/HCPCS: 97112; 97161

== ENCOUNTER 2021-01-27 10:30 | Outpatient (RCR) | payer MEDICARE, SELFPAY ==
[2020-11-25 14:04] VITALS: BMI 32.5
--- NOTE | 2021-01-08 15:30 | OT.OP.EVAL ---
Visit Care Team Role Provider Type Renny Haynes MD Attending Provider Physician Family Provider Primary Care Provider Referring Provider Specialty: Internal Medicine Address: [address] [place] [address], [address], [place], [address] Email: [email or web address] Occupational Therapy Initial Evaluation OT Outpatient Adult Evaluation Start: 01/10/21 10:45 Freq: Status: Active Protocol: Document 01/08/21 15:30 AMS (Rec: 01/10/21 11:22 AMS [id number]) General Information Visit Start Time 12:30 Visit Stop Time 13:23 Total Visit Minutes 53 Plan of Care Dates 01/08/21-03/19/21 Treatment Setting Outpatient Care Note Type Initial Evaluation Goals Treatment Education. Initiated home exercise program. Skilled Nursing Goals 1. Sharon will be modified independent with execution of home exercise program with support(s) utilizing written and visual instructions provided by therapist. 2. Sharon will demonstrate improved engagement in meaningful activities; this will be evidenced by couple's report of Sharon self- initiating and engaging in use of electronic/tech devices on the home on a daily basis. Assessment/Plan Treatment Assessment Patient is a 70 year-old right hand dominant female referred to outpatient OT by PCP d/t stroke. On 11/25/20, patient was admitted to hospital w/ acute encephalopathy and malignant hypertension. Diagnostic findings included subacute left thalamic stroke. Patient received inpatient PT , OT and speech. Patient was d /c from hospital to SNF and then to home w/ HH. Patient will be receiving outpatient speech. She has been discharged from outpatient PT. PMH: Significant for blood clots; bood pressure concerns; cancer; diabetes II; and memory loss; need for TKR ( surgery was planned --> and then COVID happened). PLOF: Independent; division of labor was evident prior. Evaluation Findings: QuickDASH UE Outcome Measure Score = 4.55. Ambulated without AE. Kinesthetic awareness of UEs WFL, however, left hand/ fingers slightly slower than R hand w/ EO and EC w/ opposition and opposition slide. Slight midline shift to the left observed in frontal plane and above head with UEs meeting at midline. Patient has begun engaging in functional activities in the home; she is actively utilizing the microwave and managing one of the couple's music devices. She is self- initiating getting dressed in the morning and going to breakfast, as well as self- initiating bathing. Since the stroke, Sharon has not returned to use of her electronic devices (cell phone , laptop, ipad, and annemarie) and or playing the violin. All of these activities were preferred prior to onset of stroke. 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 Sharon reportedly read and completed necessary paperwork prior to outpatient initial evaluation. Thus, it would likely be beneficial for OT to address initiation with engagement in tech based tasks to support return to prior level of function. When asked to list as many animals as she could, Sharon listed bear, cat, dog and boy w/ 3+ minutes given for task completion. Handwriting was legible and spelling was correct. Sharon did not demonstrate much variability in facial expressions and did not spontaneously participate in verbal conversation; cueing w/ questioning support engagement w/ therapist in conversation. Sharon did engage in brightly contrasted puzzle w/ therapist; structure was provided to support participation. Further assessment re: visual perceptual abilities is recommended. Comment 10 weeks Treatment Frequency Once a Week Therapeutic Contents Active Range of Motion, Adaptive Equipment Education, Client Education,Cognitive Skills Development,Functional Activities,Home Exercise Program,Joint Protection, Education,Neurodevelopment Treatment,Neuromuscular Re- Education,Self-Care, Therapeutic Activities, Therapeutic Exercises
--- NOTE | 2021-01-14 13:51 | OT.OP.TRT ---
Visit Care Team Role Provider Type Renny Haynes MD Attending Provider Physician Family Provider Primary Care Provider Referring Provider Specialty: Internal Medicine Address: [address] [place] [address], [address], [place], [address] Email: [email or web address] Occupational Therapy Treatment Note OT Outpatient Treatment Note - Adult Start: 01/10/21 10:45 Freq: Status: Active Protocol: Document 01/14/21 13:38 AMS (Rec: 01/14/21 13:51 AMS [id number]) OT Outpatient Adult Treatment Note Session Time Visit Start Time 09:30 Visit Stop Time 10:25 Total Visit Minutes 55 Visit Information Plan of Care Dates 01/08/21-03/19/21 Insurance Information [facility] Setting Treatment Setting Outpatient Care Visit Type Note Type Treatment Note General Information General Information Patient is a 70 year-old right hand dominant female referred to outpatient OT by PCP d/t stroke. On 11/25/20, patient was admitted to hospital w/ acute encephalopathy and malignant hypertension. Diagnostic findings included subacute left thalamic stroke. Patient received inpatient PT , OT and speech. Patient was d /c from hospital to SNF and then to home w/ HH. Patient will be receiving outpatient speech. She has been discharged from outpatient PT. PMH: Significant for blood clots; bood pressure concerns; cancer; diabetes II; and memory loss; need for TKR ( surgery was planned --> and then COVID happened). PLOF: Independent; division of labor was evident prior. - Subjective Identification Type Name Identification Reconciled With Medical Record Observations Sharon was accompanied by her to treatment session. She has been doing more per Raymond. - Objective Objective Measurements Please refer to below for progress towards meeting established OT goals. MVPT-4: The Motor-Free Visual Perception Test (4th ed.) ( MVPT-4) is an individually administered assessment of visual-perceptual skills. The MVPT-4 tasks provide information for five types of visual-perceptual abilities: spatial relationships, visual discrimination, figure-ground, visual closure, and visual memory. Sharon obtained a raw score = 24, which was converted to a standard score of 79 which is > 1 SD below the mean. Sharon's performance suggests that her visual perceptual abilities are less/slightly impared when compared to her same-aged peers. Payroll Lead Goals 1. Sharon will be modified independent with execution of home exercise program with support(s) utilizing written and visual instructions provided by therapist. 2. Sharon will demonstrate improved engagement in meaningful activities; this will be evidenced by couple's report of Sharon self- initiating and engaging in use of electronic/tech devices on the home on a daily basis. - - Assessment Assessment of Improvement Per Sharon and her , she is engaging in more activities in the home since last treatment session. She participated in prepping strawberries and the asparague the couple had gotten at the [employer]. She is not actively engaging in/using familiar tech when compared to PLOF. She was able to engage in [employer] game on ipad w/ no cueing re: rules. Therapist administered the Motor-Free Visual Perception Test (4th ed .). The (MVPT-4) is an individually administered assessment of visual- perceptual skills. The MVPT-4 tasks provide information for five types of visual- perceptual abilities: spatial relationships, visual discrimination, figure-ground, visual closure, and visual memory. Sharon obtained a raw score = 24, which was converted to a standard score of 79 which is > 1 SD below the mean. Sharon's performance suggests that her visual perceptual abilities are less/slightly impared when compared to her same-aged peers. She had difficulties in the following areas: spatial relationships, visual discrimination and figure- ground. Continued outpatient OT is recommended to maximize Sharon's success w/ active participation in meaningful activities. TUG CAPTAIN to address sequencing. - Plan Therapy Recommendations Continue with Current Program, Advance per Rehabilitation Protocol
--- NOTE | 2021-01-23 16:04 | OT.OP.TRT ---
Visit Care Team Role Provider Type Renny Haynes MD Attending Provider Physician Family Provider Primary Care Provider Referring Provider Specialty: Internal Medicine Address: [address] [place] [address], [address], [address] Email: [email or web address] Occupational Therapy Treatment Note OT Outpatient Treatment Note - Adult Start: 01/10/21 10:45 Freq: Status: Active Protocol: Document 01/23/21 15:58 AMS (Rec: 01/23/21 16:03 AMS [id number]) OT Outpatient Adult Treatment Note Session Time Visit Start Time 13:30 Visit Stop Time 14:25 Total Visit Minutes 55 Visit Information Plan of Care Dates 01/08/21-03/19/21 Insurance Information [facility] Setting Treatment Setting Outpatient Care Visit Type Note Type Treatment Note General Information General Information Patient is a 70 year-old right hand dominant female referred to outpatient OT by PCP d/t stroke. On 11/25/20, patient was admitted to hospital w/ acute encephalopathy and malignant hypertension. Diagnostic findings included subacute left thalamic stroke. Patient received inpatient PT , OT and speech. Patient was d /c from hospital to SNF and then to home w/ HH. Patient will be receiving outpatient speech. She has been discharged from outpatient PT. PMH: Significant for blood clots; bood pressure concerns; cancer; diabetes II; and memory loss; need for TKR ( surgery was planned --> and then COVID happened). PLOF: Independent; division of labor was evident prior. - Subjective Identification Type Name Identification Reconciled With Medical Record Observations Sharon was accompanied by her , Raymond, to treatment session. She has been doing slightly more. She is still taking a nap for about an hour; she is not having any difficulties sleeping at night. Her affect is still pretty low. She sees Dr. Haynes in 2 weeks per Raymond. - Objective Objective Measurements Please refer to below for progress towards meeting established OT goals. MVPT-4: The Motor-Free Visual Perception Test (4th ed.) ( MVPT-4) is an individually administered assessment of visual-perceptual skills. The MVPT-4 tasks provide information for five types of visual-perceptual abilities: spatial relationships, visual discrimination, figure-ground, visual closure, and visual memory. Sharon obtained a raw score = 24, which was converted to a standard score of 79 which is > 1 SD below the mean. Sharon's performance suggests that her visual perceptual abilities are less/slightly impared when compared to her same-aged peers. 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 Sharon will be modified independent with execution of home exercise program with support(s) utilizing written and visual instructions provided by therapist. 2. Sharon will demonstrate improved engagement in meaningful activities; this will be evidenced by couple's report of Sharno self- initiating and engaging in use of electronic/tech devices on the home on a daily basis. - - Assessment Assessment of Improvement Inconsistent use of personal ipad w/ previously preferred game - SolStackSearchire; 1 error corrected by therapist w/ stacking from Santo --> Rigoberto of each suit. Cueing to support swiping through ipad to locate Adea game; increased ability to self-identify runs with this zoya w/ horizontal orientation of ipad. Trialed puzzle zoya on personal ipad as well; therapist assist w/ parameters. Able to complete x 2, 12 piece puzzles without assistance. Mod v.c. to support completion of 42-piece puzzle on zoya. Inconsistent engagement in Solitaire zoya per couple's report. Recommended alternating between the 2 apps. Continued outpatient OT is recommended to maximize Sharon's success w/ active participation in meaningful activities. SEW ON OPERATOR to address sequencing. - Plan Therapy Recommendations Continue with Current Program, Advance per Rehabilitation Protocol
--- NOTE | 2021-01-27 11:32 | OT.OP.TRT ---
Visit Care Team Role Provider Type Renny Haynes MD Attending Provider Physician Family Provider Primary Care Provider Referring Provider Specialty: Internal Medicine Address: [address] [place] [address], [address], [address] Email: [email or web address] Occupational Therapy Treatment Note OT Outpatient Treatment Note - Adult Start: 01/10/21 10:45 Freq: Status: Active Protocol: Document 01/27/21 11:24 AMS (Rec: 01/27/21 11:32 AMS [id number]) OT Outpatient Adult Treatment Note Session Time Visit Start Time 10:30 Visit Stop Time 11:24 Total Visit Minutes 54 Visit Information Plan of Care Dates 01/08/21-03/19/21 Insurance Information [facility] Setting Treatment Setting Outpatient Care Visit Type Note Type Treatment Note General Information General Information Patient is a 70 year-old right hand dominant female referred to outpatient OT by PCP d/t stroke. On 11/25/20, patient was admitted to hospital w/ acute encephalopathy and malignant hypertension. Diagnostic findings included subacute left thalamic stroke. Patient received inpatient PT , OT and speech. Patient was d /c from hospital to SNF and then to home w/ HH. Patient will be receiving outpatient speech. She has been discharged from outpatient PT. PMH: Significant for blood clots; bood pressure concerns; cancer; diabetes II; and memory loss; need for TKR ( surgery was planned --> and then COVID happened). PLOF: Independent; division of labor was evident prior. - Subjective Identification Type Name Identification Reconciled With Medical Record Observations Sharon was accompanied by her , Raymond, to treatment session. Patient/Caregiver Compliance with Home Good Exercise Program - Objective Objective Measurements Please refer to below for progress towards meeting established OT goals. MVPT-4: The Motor-Free Visual Perception Test (4th ed.) ( MVPT-4) is an individually administered assessment of visual-perceptual skills. The MVPT-4 tasks provide information for five types of visual-perceptual abilities: spatial relationships, visual discrimination, figure-ground, visual closure, and visual memory. Sharon obtained a raw score = 24, which was converted to a standard score of 79 which is > 1 SD below the mean. Sharon's performance suggests that her visual perceptual abilities are less/slightly impared when compared to her same-aged peers. 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 *MET Sharon will demonstrate improved engagement in meaningful activities; this will be evidenced by couple's report of Sharon self- initiating and engaging in use of electronic/tech devices on the home on a daily basis. SOLID DIE CUTTER to continue to work on sequencing/cognition to support use of technology/ electronic devices - - Assessment Assessment of Improvement Patient is modified independent w/ execution of home exercise program w/ support. Sharon is actively engaging in functional tasks in the home and the couple denies any fine motor difficulties. Sharon required min support for navigation purposes w/ use of personal ipad; single page on ipad was created to isolate most used apps by therapist. Sharon demonstrated improved functional independence w/ execution of puzzle w/ use of personal ipad; however, she required min v.c. relative to edge completion and problem solving. Sharon will continue to receive outpatient speech services which will address sequencing and cognition concerns. Couple was agreeable to d/c. - Plan Therapy Recommendations Discharge from Occupational Therapy
== END 2021-01-27 11:45 | disposition home or self-care (01) ==
LOC: OT 10:30
PROVIDERS: Family Provider Internal Medicine; PCP Internal Medicine; Referring Provider Internal Medicine; Visit Provider Internal Medicine
DX: I63.9 Cerebral infarction, unspecified (principal)
CPT/HCPCS: 97110; 97165; 97530

== ENCOUNTER → 2021-01-27 11:29 | Outpatient (CLI) | payer MEDICARE, SELFPAY ==
[2020-11-25 14:04] VITALS: BMI 32.5
[2021-01-27 12:39] LABS: Hemoglobin A1C% w Est Avg Glu 9.7 % (4.0-6.0)
[2021-01-27 12:51] LABS: BUN Creatinine Ratio 41.1 (6-22); Blood Urea Nitrogen 23 mg/dL (7-17); Calcium 9.1 mg/dL (8.4-10.2); Carbon Dioxide 22 mmol/L (22-32); Chloride 104 mmol/L (98-107); Estimated Glomerular Filt Rate > 60.0 mL/min (>60); Glucose 226 mg/dL (80-110); HEMOLYSIS < 15 (0-50); Potassium 4.1 mmol/L (3.4-5.1); Sodium 137 mmol/L (137-145)
== END ==
PROVIDERS: Family Provider Internal Medicine; PCP Internal Medicine; Referring Provider Internal Medicine; Visit Provider Internal Medicine
DX: E11.65 Type 2 diabetes mellitus with hyperglycemia (principal); I10 Essential (primary) hypertension
CPT/HCPCS: 36415; 80048; 83036

== ENCOUNTER 2021-02-24 08:41 | Observation (INO) | payer MEDICARE, SELFPAY ==
[2020-11-25 14:04] VITALS: BMI 32.5
[2021-02-24] VITALS (29 sets, daily range): BP systolic 119–158; BP diastolic 57–71; PULSE 70–102; RESP 12–19; TEMP 36.4–36.6; O2SAT 95–100; BMI 32.8
--- NOTE | 2021-02-24 09:02 | ED_ITS ---
HPI - Altered Mental Status General Chief Complaint: Nausea/Vomiting/Diarrhea Stated Complaint: can barely form sentences/diarrhea and vomitting Time Seen by Provider: 02/24/21 08:47 History of Present Illness HPI narrative: 71-year-old female nonsmoker with history of hypertension, hyper lipidemia and prior stroke on anticoagulation presents with her in the chief complaint of significant weakness and confusion. They state that she went to bed feeling a bit under the weather and was weak and in the middle the night had nausea, vomiting and diarrhea. There is no report of blood or dark and tarry emesis or stool. Upon waking this morning at about 8 or 830 she was very confused, lightheaded and weak. There is no report of focal findings. states that she appears quite pale. She has had no fever or chills. She has had no chest pain or shortness of breath. Related Data Previous Rx's Medication Instructions Recorded aspirin 81 mg tablet,delayed 81 mg PO DAILY #30 tab 11/28/20 release amlodipine 10 mg tablet 10 mg PO DAILY #90 tab 12/31/20 atorvastatin 80 mg tablet 80 mg PO DAILY #90 tab 12/31/20 clopidogrel 75 mg tablet 75 mg PO DAILY #90 tab 12/31/20 losartan 100 mg tablet 100 mg PO DAILY #90 tab 12/31/20 metoprolol succinate 100 mg 100 mg PO DAILY #90 tab 12/31/20 tablet,extended release 24 hr metformin 1,000 mg tablet 1,000 mg PO BID #180 tab 01/31/21 Allergies Allergy/AdvReac Type Severity Reaction Status Date / Time No Known Drug Allergies Allergy Verified 02/24/21 09:10 Review of Systems Review of Systems Narrative: GENERAL: See HPI HEENT: Denies sinus pain, ear pain, sore throat, difficulty swallowing, dizziness. RESPIRATORY: Denies dyspnea, cough, wheezing, hemoptysis, sputum. CARDIOVASCULAR: Denies chest pain, palpitations, orthopnea, edema, GASTROINTESTINAL: Denies nausea, vomiting, abdominal pain, diarrhea, constip ation, melena. : Denies dysuria, frequency, incontinence, hematuria, urinary retention. MUSCULOSKELETAL: denies weakness, joint pain, or bony pain SKIN: Denies rash, skin lesions, or other NEUROLOGIC: See HPI PSYCHIATRIC: No concerning psychosocial issues. 12 point review of systems is negative except for those stated above Patient History Medical History Allergic rhinitis Allergies Breast cancer (~1999) Chicken pox Dieulafoy lesion of stomach Essential hypertension (~2009) H/O: stroke with residual effects (~11/25/20) Hypertension LVH (left ventricular hypertrophy) Measles Mixed hyperlipidemia Mumps Uncontrolled type 2 diabetes mellitus with hyperglycemia (~2020) Surgical History Anesthesia H/O bilateral mastectomy (~2000) H/O hysterectomy for benign disease (~2000) H/O oophorectomy (~2000) History of section (~1979) Family History Father Parkinson's disease dementia Mother Dementia Breast cancer Social History household members: spouse Smoking Status: Never smoker alcohol intake: former Smoking Status: Never smoker alcohol intake frequency: 0-2 drinks per day Substance Use Type: does not use Exam Narrative Exam Narrative: GENERAL: [71] year old patient appears stated age. Well- developed patient, in mild distress. A bit slow to respond though much better than earlier per the . Pale HEAD: Atraumatic. Normocephalic. EYES: Pale conjunctiva. Pupils equal round and reactive. Extraocular motions intact. No scleral icterus. No injection or drainage. ENT: Nose without bleeding, purulent drainage. Throat without erythema, to nsillar hypertrophy or exudate. Airway patent. NECK: Trachea midline. Non tender CARDIOVASCULAR: Regular rate and rhythm without murmurs, gallops, or rubs. RESPIRATORY: Clear to auscultation. Breath sounds equal bilaterally. No wheezes, rales, or rhonchi. GASTROINTESTINAL: Abdomen soft, non-tender, nondistended. RECTAL: No pain or bleeding, heme-negative. EXTREMITIES: No edema or joint tenderness. BACK: Nontender without deformity or crepitance. No flank tenderness. NEURO: AOx3. SKIN: No rash or erythema of visible areas NIH Stroke Scale 1a. LOC: Patient is alert and keenly responsive (0) 1b. LOC Questions: Patient answers both LOC questions accurately (0) 1c. LOC Commands: Patient performs both tasks correctly (0) 2. Best Gaze: Normal (0) 3. Visual: No visual loss (0) 4. Facial palsy: Normal symmetrical movements (0) 5. Motor arm: No drift (0) 6. Motor leg: No drift (0) 7. Limb ataxia: Absent (0) 8. Sensory: Normal (0) 9. Best language: No aphasia; normal (0) 10. Dysarthria: Normal (0) 11. Extinction and inattention: No abnormality (0) NIHSS: 0 Initial Vital Signs Initial Vital Signs: Vital Signs Pulse Rate 91 H 02/24/21 08:58 Blood Pressure 135/65 02/24/21 08:58 Pulse Oximetry 97 02/24/21 08:58 Course Orders Ordered: ED Orders 02/24/21 13:21 Consult to Physician Routine 02/24/21 18:11 Hemoglobin and Hematocrit Urgent Acetaminophen (Acetaminophen 325 Mg Tablet) 650 mg PO Q6HR PRN PRN Reason: Fever/Mild Pain (1-3) Atorvastatin Calcium (Atorvastatin 20 Mg Tablet) 80 mg PO DAILY MANOLO Dextrose (Dextrose 50 % In Water 25 Gm/50 Ml Syringe) 25 gm IV PRN PRN PRN Reason: Hypoglycemia Sodium Chloride (Normal Saline 0.9%) 1,000 mls @ 100 mls/hr IV CONT MANOLO Last Admin: 02/24/21 17:45 Dose: 100 mls/hr Documented by: MIKE Insulin Human Lispro (Insulin Lispro 100 Unit/Ml 3ml Vial) 0 unit SUBCUT Q6H MANOLO; Protocol Last Admin: 02/24/21 17:46 Dose: Not Given Documented by: MIKE Magnesium Oxide (Magnesium Oxide 400 Mg Tablet) 400 mg PO BID [facility] Metoprolol Succinate (Metoprolol Er 50 Mg Tablet) 100 mg PO DAILY [facility] Naloxone HCl (Naloxone 0.4 Mg/Ml Vial) 0.2 mg IV Q2MIN PRN PRN Reason: Opiate Reversal Pantoprazole Sodium (Pantoprazole 40 Mg Vial) 40 mg IV BID MANOLO Discontinued Medications Insulin Human Lispro (Insulin Lispro 100 Unit/Ml 3ml Vial) 0 unit SUBCUT ACHS MANOLO; Protocol Last Admin: 02/24/21 16:00 Dose: Not Given Documented by: MIKE Polyethylene Glycol/Electrolytes ([id number]/Sod Sulf,Bicarb,Cl/Kcl 4,000 Ml Solution) 4,000 ml PO NOW ONE Stop: 02/24/21 13:25 Last Admin: 02/24/21 15:59 Dose: 4,000 ml Documented by: MIKE Consultations Consultation #1: Discussed with her PCP, Dr. Haynes, given her anemia, weakness and use of anticoagulant she will require hospitalization unlikely an upper and lower endoscopy. He requests I consult with Dr. Silva Consultation #2: Dr. Silva (Gen Surgeon) happy to be involved when needed. Vital Signs Vital signs: Vital Signs - 8 hr 02/24/21 08:58 02/24/21 09:00 02/24/21 09:07 Temperature 97.9 F Pulse Rate 91 H 89 70 Respiratory Rate 14 Blood Pressure 135/65 130/66 130/66 Pulse Oximetry 97 97 99 02/24/21 09:30 02/24/21 10:00 02/24/21 10:30 Temperature Pulse Rate 88 84 87 Respiratory Rate Blood Pressure 123/58 L 119/57 L 125/64 Pulse Oximetry 98 98 97 02/24/21 11:00 Temperature Pulse Rate 91 H Respiratory Rate Blood Pressure 129/68 Pulse Oximetry 98 MDM - Altered Mental Status Lab Data Result diagrams: 02/24/21 18:11 02/24/21 09:35 Labs: Lab Results 02/24/21 02/24/21 02/24/21 Range/Units 09:35 09:35 09:35 WBC 6.5 (4.5-11.0) X10^3/uL RBC 2.56 L (4.0-5.2) X10^6/uL Hgb 6.3 L* (12.0-16.0) g/dL Hct 19.8 L* (36-46) % MCV 77.4 L (80-100) fL MCH 24.6 L (26-34) PG MCHC 31.8 (30-36) % RDW 23.7 H (11.6-14.8) % Plt Count 268 (150-400) X10^3/uL Neut % (Auto) 71.8 (50-75) % Lymph % (Auto) 15.3 L (25-40) % [place] % (Auto) 11.4 (3-14) % Eos % (Auto) 0.8 L (2-4) % Baso % (Auto) 0.7 (0-2) % Neut # (Auto) 4600 (4021-9120) /uL Lymph # (Auto) 1000 L (8419-7962) /uL [place] # (Auto) 700 (0-900) /uL Eos # (Auto) 100 (0-450) /uL Baso # (Auto) 0 (0-100) /uL RBC Morphology See below Anisocytosis 2+ H PT 14.1 H (10.1-12.7) SECONDS INR 1.2 (0.9-1.3) Sodium 137 (137-145) mmol/L Potassium 3.9 (3.4-5.1) mmol/L Chloride 108 H (98-107) mmol/L Carbon Dioxide 23 (22-32) mmol/L BUN 15 (7-17) mg/dL Creatinine 0.48 L (0.52-1.04) mg/dL Estimated GFR > 60.0 (>60) mL/min BUN/Creatinine Ratio 31.3 H (6-22) Glucose 144 H (80-110) mg/dL Lactate (0.7-2.1) mmol/L Calcium 8.7 (8.4-10.2) mg/dL Magnesium (1.6-2.3) mg/dL Total Bilirubin 0.5 (0.2-1.3) mg/dL AST 37 H (14-36) IU/L ALT 30 (<35) IU/L Alkaline Phosphatase 80 (38-126) U/L Ammonia (9-30) umol/L Total Creatine Kinase (30-135) U/L CK-MB (CK-2) CK-MB (CK-2) Rel Index Troponin I (0.01-0.034) ng/mL NT-Pro-B Natriuret Pep (<125) pg/mL Total Protein 6.7 (6.3-8.2) g/dL Albumin 3.3 L (3.5-5.0) g/dL Globulin 3.4 (1.7-4.1) g/dL Albumin/Globulin Ratio 1.0 (1.0-2.8) Lipase (23-300) U/L SARS-CoV-2 (PCR) (Negative) Blood Type Antibody Screen Crossmatch 02/24/21 02/24/21 02/24/21 Range/Units 09:35 09:35 09:35 WBC (4.5-11.0) X10^3/uL RBC (4.0-5.2) X10^6/uL Hgb (12.0-16.0) g/dL Hct (36-46) % MCV (80-100) fL MCH (26-34) PG MCHC (30-36) % RDW (11.6-14.8) % Plt Count (150-400) X10^3/uL Neut % (Auto) (50-75) % Lymph % (Auto) (25-40) % [place] % (Auto) (3-14) % Eos % (Auto) (2-4) % Baso % (Auto) (0-2) % Neut # (Auto) (4381-1292) /uL Lymph # (Auto) (6862-4122) /uL [place] # (Auto) (0-900) /uL Eos # (Auto) (0-450) /uL Baso # (Auto) (0-100) /uL RBC Morphology Anisocytosis PT (10.1-12.7) SECONDS INR (0.9-1.3) Sodium (137-145) mmol/L Potassium (3.4-5.1) mmol/L Chloride (98-107) mmol/L Carbon Dioxide (22-32) mmol/L BUN (7-17) mg/dL Creatinine (0.52-1.04) mg/dL Estimated GFR (>60) mL/min BUN/Creatinine Ratio (6-22) Glucose (80-110) mg/dL Lactate 1.8 (0.7-2.1) mmol/L Calcium (8.4-10.2) mg/dL Magnesium 1.5 L (1.6-2.3) mg/dL Total Bilirubin (0.2-1.3) mg/dL AST (14-36) IU/L ALT (<35) IU/L Alkaline Phosphatase (38-126) U/L Ammonia 14 (9-30) umol/L Total Creatine Kinase 46 (30-135) U/L CK-MB (CK-2) TNP CK-MB (CK-2) Rel Index TNP Troponin I < 0.012 (0.01-0.034) ng/mL NT-Pro-B Natriuret Pep 139 H (<125) pg/mL Total Protein (6.3-8.2) g/dL Albumin (3.5-5.0) g/dL Globulin (1.7-4.1) g/dL Albumin/Globulin Ratio (1.0-2.8) Lipase 338 H (23-300) U/L SARS-CoV-2 (PCR) (Negative) Blood Type Antibody Screen Crossmatch 02/24/21 02/24/21 Range/Units 09:35 09:50 WBC (4.5-11.0) X10^3/uL RBC (4.0-5.2) X10^6/uL Hgb (12.0-16.0) g/dL Hct (36-46) % MCV (80-100) fL MCH (26-34) PG MCHC (30-36) % RDW (11.6-14.8) % Plt Count (150-400) X10^3/uL Neut % (Auto) (50-75) % Lymph % (Auto) (25-40) % [place] % (Auto) (3-14) % Eos % (Auto) (2-4) % Baso % (Auto) (0-2) % Neut # (Auto) (6585-9896) /uL Lymph # (Auto) (2797-8660) /uL [place] # (Auto) (0-900) /uL Eos # (Auto) (0-450) /uL Baso # (Auto) (0-100) /uL RBC Morphology Anisocytosis PT (10.1-12.7) SECONDS INR (0.9-1.3) Sodium (137-145) mmol/L Potassium (3.4-5.1) mmol/L Chloride (98-107) mmol/L Carbon Dioxide (22-32) mmol/L BUN (7-17) mg/dL Creatinine (0.52-1.04) mg/dL Estimated GFR (>60) mL/min BUN/Creatinine Ratio (6-22) Glucose (80-110) mg/dL Lactate (0.7-2.1) mmol/L Calcium (8.4-10.2) mg/dL Magnesium (1.6-2.3) mg/dL Total Bilirubin (0.2-1.3) mg/dL AST (14-36) IU/L ALT (<35) IU/L Alkaline Phosphatase (38-126) U/L Ammonia (9-30) umol/L Total Creatine Kinase (30-135) U/L CK-MB (CK-2) CK-MB (CK-2) Rel Index Troponin I (0.01-0.034) ng/mL NT-Pro-B Natriuret Pep (<125) pg/mL Total Protein (6.3-8.2) g/dL Albumin (3.5-5.0) g/dL Globulin (1.7-4.1) g/dL Albumin/Globulin Ratio (1.0-2.8) Lipase (23-300) U/L SARS-CoV-2 (PCR) Negative (Negative) Blood Type A Positive Antibody Screen Negative Crossmatch See Detail Point of Care Testing Glucose POC 140 Discharge Plan Departure Patient Disposition: Admitted As Inpatient Clinical Impression: Anemia, Anticoagulation adequate Admit Date/Time: 02/24/21 11:22 Admit Provider: Renny Haynes
--- NOTE | 2021-02-24 09:13 | DI.CT.S_ITS ---
PROCEDURE: CT HEAD/BRAIN WO CON INDICATIONS: altered, history of stroke TECHNIQUE: Noncontrast 4.5 mm thick angled axial sections acquired from the foramen magnum to the vertex, with coronal and sagittal reformats. For radiation dose reduction, the following was used: automated exposure control, adjustment of mA and/or kV according to patient size. COMPARISON: [facility], MR, MR HEAD/BRAIN WO/W CON, 11/25/2020, 17:23. [facility], CT, CT HEAD/BRAIN WO CON, 11/25/2020, 11:09. FINDINGS: Image quality: Excellent. CSF spaces: Basal cisterns are patent. No extra-axial fluid collections. The ventricles are symmetric in size and shape. Brain: No intracranial bleeds or masses. There is cerebral volume loss for age, with resultant ventricular and sulcal prominence. There are periventricular and deep white matter chronic small vessel ischemic changes. Chronic left thalamic lacunar infarct. There is intracranial internal carotid artery and vertebral artery atherosclerosis. Skull and face: Calvarium and visualized facial bones appear intact, without suspicious lesions. Sinuses: Visualized sinuses and mastoids are clear. IMPRESSION: No acute intracranial disease process. Dictated by: Bhavna Monte MD, PhD on 02/24/2021 at 10:32 Approved by: Bhavna Monte MD, PhD on 02/24/2021 at 10:34
[2021-02-24 09:55] LABS: INR 1.2 (0.9-1.3); Prothrombin Time 14.1 SECONDS (10.1-12.7)
[2021-02-24 09:57] LABS: Add Manual Diff / Slide Review NO; Basophils Absolute Auto 0 /uL (0-100); Basophils Percent Auto 0.7 % (0-2); Eosinophils Absolute Auto 100 /uL (0-450); Eosinophils Percent Auto 0.8 % (2-4); Lymphocytes Absolute Auto 1000 /uL (1100-4500); Lymphocytes Percent Auto 15.3 % (25-40); Mean Corpuscular HGB Conc 31.8 % (30-36); Mean Corpuscular Hemoglobin 24.6 PG (26-34); Mean Corpuscular Volume 77.4 fL (80-100); Monocytes Absolute Auto 700 /uL (0-900); Monocytes Percent Auto 11.4 % (3-14); Neutrophils Absolute Auto 4600 /uL (1500-7000); Neutrophils Percent Auto 71.8 % (50-75); Platelet Count 268 X10^3/uL (150-400); Red Blood Cell Count 2.56 X10^6/uL (4.0-5.2); Red Cell Distribution Width 23.7 % (11.6-14.8); White Blood Cell Count 6.5 X10^3/uL (4.5-11.0)
[2021-02-24 09:58] LABS: Creatine Kinase 46 U/L (30-135); Lipase 338 U/L (23-300); Magnesium 1.5 mg/dL (1.6-2.3)
[2021-02-24 09:59] LABS: Lactate (Lactic Acid) 1.8 mmol/L (0.7-2.1)
[2021-02-24 10:01] LABS: Ammonia (NH3) 14 umol/L (9-30)
[2021-02-24 10:04] LABS: Hematocrit 19.8 % (36-46); Hemoglobin 6.3 g/dL (12.0-16.0)
[2021-02-24 10:10] LABS: NT-proBNP (BNP-Adult 18+) 139 pg/mL (<125); Troponin I < 0.012 ng/mL (0.01-0.034)
[2021-02-24 10:15] LABS: Alanine Aminotransferase 30 IU/L (<35); Albumin 3.3 g/dL (3.5-5.0); Alkaline Phosphatase 80 U/L (38-126); Aspartate Aminotransferase 37 IU/L (14-36); BUN Creatinine Ratio 31.3 (6-22); Bilirubin Total 0.5 mg/dL (0.2-1.3); Blood Urea Nitrogen 15 mg/dL (7-17); Calcium 8.7 mg/dL (8.4-10.2); Carbon Dioxide 23 mmol/L (22-32); Chloride 108 mmol/L (98-107); Estimated Glomerular Filt Rate > 60.0 mL/min (>60); Globulin 3.4 g/dL (1.7-4.1); Glucose 144 mg/dL (80-110); HEMOLYSIS < 15 (0-50); Potassium 3.9 mmol/L (3.4-5.1); Sodium 137 mmol/L (137-145); Total Protein 6.7 g/dL (6.3-8.2)
[2021-02-24 10:51] LABS: Anisocytosis 2+
[2021-02-24 10:54] LABS: COVID19 - ADMIT (NP swab/PCR) Negative (Negative)
--- NOTE | 2021-02-24 11:45 | PM.HP.1 ---
History of Present Illness History of Present Illness Date Patient Seen: 02/24/21 Chief complaint: can barely form sentences/diarrhea and vomitting Narrative: 71-year-old female, admitted through the [facility] Emergency Department for anemia Patient relatively new to my practice been seen only a couple of times after a recent hospitalization for CVA. She had primarily word-finding and speech issues and was placed on dual anti-platelet therapy upon discharge. Also diagnosed with a Dieulafoy lesion treated by Interventional Radiology at [facility] in December In any event she presented to the emergency department with complaints severe weakness and perhaps increased confusion. These complaints are relatively sudden in onset apparently. Had had some nausea and vomiting within 12-24 hours prior although no blood or dark material were noted. Family and friends have noticed a change in overall coloration thinking she had the yellowish cast to her the last 2 weeks or so apparently She has found to be quite anemic and was admitted for transfusion and further evaluation Patient History Medical History (Updated 02/24/21 @ 17:36 by Osei Silva MD) Allergic rhinitis Allergies Breast cancer (~1999) Chicken pox Dieulafoy lesion of stomach Essential hypertension (~2009) H/O: stroke with residual effects (~11/25/20) Hypertension LVH (left ventricular hypertrophy) Measles Mixed hyperlipidemia Mumps Uncontrolled type 2 diabetes mellitus with hyperglycemia (~2020) Surgical History Anesthesia H/O bilateral mastectomy (~2000) H/O hysterectomy for benign disease (~2000) H/O oophorectomy (~2000) History of section (~1979) Family & Social History Family History Father Parkinson's disease dementia Mother Dementia Breast cancer Social History: household members spouse Safety & Behavioral: Feels Safe in Current Yes Environment Been Physically Hurt or No Threatened By a Person Tobacco & Substance use: Smoking Status Never smoker alcohol intake frequency 0-2 drinks per day Substance Use Type does not use Meds Home Medications and Allergies Home Medications Medication Instructions Recorded Confirmed Type aspirin 81 mg tablet,delayed 81 mg PO DAILY #30 tab 11/28/20 02/24/21 Rx release amlodipine 10 mg tablet 10 mg PO DAILY #90 tab 12/31/20 02/24/21 Rx atorvastatin 80 mg tablet 80 mg PO DAILY #90 tab 12/31/20 02/24/21 Rx clopidogrel 75 mg tablet 75 mg PO DAILY #90 tab 12/31/20 02/24/21 Rx losartan 100 mg tablet 100 mg PO DAILY #90 tab 12/31/20 02/24/21 Rx metoprolol succinate 100 mg 100 mg PO DAILY #90 tab 12/31/20 02/24/21 Rx tablet,extended release 24 hr metformin 1,000 mg tablet 1,000 mg PO BID #180 tab 01/31/21 02/24/21 Rx Allergies Allergy/AdvReac Type Severity Reaction Status Date / Time No Known Drug Allergies Allergy Verified 02/24/21 09:10 Review of Systems Constitutional Constitutional: Denies excessive sweating, Denies fever(s), Denies headache(s), Denies weakness, Denies weight gain and Denies weight loss Eyes Eyes: Denies change in vision, Denies itchy eyes, Denies loss of vision and Denies other visual disturbances ENT Ears, Nose, Mouth, and Throat: No change in voice, No dysphagia, No dizziness, No otalgia, No headache(s), No hoarseness, No lip swelling, No neck pain, No sore throat, No throat swelling and No tongue swelling Cardiovascular Cardiovascular: Denies chest pain, Denies syncope, Denies rapid heart rate, Denies irregular heart rhythm, Denies palpitations, Denies dyspnea, Denies dyspnea on exertion and Denies slow heart rate Respiratory Respiratory: Denies chest congestion, Denies cough, Denies hemoptysis, Denies dyspnea, Denies dyspnea on exertion, Denies stridor and Denies wheezing Gastrointestinal Gastrointestinal: Denies dysphagia Genitourinary Genitourinary: Denies hematuria, Denies urinary frequency and Denies difficulty voiding Musculoskeletal Musculoskeletal: Denies abnormal gait, Denies myalgias, Denies arthralgias, Denies limited range of motion and Denies neck pain Integumentary/Breasts Skin/Breast: Denies bleeding lesions, Denies change in pigmentation, Denies changing lesions, Denies new lesions, Denies rash, Denies skin swelling, Denies sores and Denies jaundice Neurologic Neurologic: Denies abnormal gait, Denies behavioral changes, Denies confusion, Denies dizziness, Denies syncope, Denies headache(s), Denies loss of vision, Denies memory loss and Denies weakness Psychiatric Psychiatric: Denies behavioral changes, Denies change in appetite, Denies confusion, Denies difficulty concentrating, Denies auditory hallucinations, Denies memory loss, Denies mood swings and Denies suicidal ideation Endocrine Endocrine: Denies excessive sweating, Denies flushing, Denies polyuria and Denies palpitations Hematologic/Lymphatic Hematologic/Lymphatic: Denies easy bleeding, Denies easy bruising and Denies lymphadenopathy Allergic/Immunologic Allergic/Immunologic: Denies urticaria, Denies itchy eyes, Denies lip swelling, Denies throat swelling, Denies tongue swelling and Denies wheezing Exam Vital Signs (past 8 hours): - 02/24/21 08:58 02/24/21 09:00 02/24/21 09:07 Temperature 97.9 F Pulse Rate 91 H 89 70 Respiratory Rate 14 Blood Pressure 135/65 130/66 130/66 Pulse Oximetry 97 97 99 02/24/21 09:30 02/24/21 10:00 02/24/21 10:30 Temperature Pulse Rate 88 84 87 Respiratory Rate Blood Pressure 123/58 L 119/57 L 125/64 Pulse Oximetry 98 98 97 02/24/21 11:00 02/24/21 11:38 Temperature 97.9 F Pulse Rate 91 H 89 Respiratory Rate 16 Blood Pressure 129/68 129/68 Pulse Oximetry 98 Oxygen Delivery Method Room Air Narrative Exam Narrative: Elderly female in no obvious distress sitting in her hospital bed HEENT-unremarkable, normocephalic atraumatic Neck-no lymphadenopathy no bruits Lungs-clear anteriorly and posteriorly no wheezes no crackles good breath sounds Heart-regular rate and rhythm, no murmur, rub, or gallop. normal S1-S2 Abdomen-positive bowel tones, soft, nontender, nondistended, no hepatosplenomegaly, no masses palpable Neuro-normal to screening exam, gait not tested Extremities-no cyanosis clubbing or edema Objective Labs Result Diagrams: 02/24/21 09:35 02/24/21 09:35 Labs: Laboratory Results - last 24 hr 02/24/21 02/24/21 02/24/21 09:35 09:35 09:35 WBC 6.5 RBC 2.56 L Hgb 6.3 L* Hct 19.8 L* MCV 77.4 L MCH 24.6 L MCHC 31.8 RDW 23.7 H Plt Count 268 Neut % (Auto) 71.8 Lymph % (Auto) 15.3 L [place] % (Auto) 11.4 Eos % (Auto) 0.8 L Baso % (Auto) 0.7 Neut # (Auto) 4600 Lymph # (Auto) 1000 L [place] # (Auto) 700 Eos # (Auto) 100 Baso # (Auto) 0 RBC Morphology See below Anisocytosis 2+ H PT 14.1 H INR 1.2 Sodium 137 Potassium 3.9 Chloride 108 H Carbon Dioxide 23 BUN 15 Creatinine 0.48 L Estimated GFR > 60.0 BUN/Creatinine Ratio 31.3 H Glucose 144 H Lactate Calcium 8.7 Magnesium Total Bilirubin 0.5 AST 37 H ALT 30 Alkaline Phosphatase 80 Ammonia Total Creatine Kinase CK-MB (CK-2) CK-MB (CK-2) Rel Index Troponin I NT-Pro-B Natriuret Pep Total Protein 6.7 Albumin 3.3 L Globulin 3.4 Albumin/Globulin Ratio 1.0 Lipase SARS-CoV-2 (PCR) Blood Type Antibody Screen Crossmatch 02/24/21 02/24/21 02/24/21 09:35 09:35 09:35 WBC RBC Hgb Hct MCV MCH MCHC RDW Plt Count Neut % (Auto) Lymph % (Auto) [place] % (Auto) Eos % (Auto) Baso % (Auto) Neut # (Auto) Lymph # (Auto) [place] # (Auto) Eos # (Auto) Baso # (Auto) RBC Morphology Anisocytosis PT INR Sodium Potassium Chloride Carbon Dioxide BUN Creatinine Estimated GFR BUN/Creatinine Ratio Glucose Lactate 1.8 Calcium Magnesium 1.5 L Total Bilirubin AST ALT Alkaline Phosphatase Ammonia 14 Total Creatine Kinase 46 CK-MB (CK-2) TNP CK-MB (CK-2) Rel Index TNP Troponin I < 0.012 NT-Pro-B Natriuret Pep 139 H Total Protein Albumin Globulin Albumin/Globulin Ratio Lipase 338 H SARS-CoV-2 (PCR) Blood Type Antibody Screen Crossmatch 02/24/21 02/24/21 09:35 09:50 WBC RBC Hgb Hct MCV MCH MCHC RDW Plt Count Neut % (Auto) Lymph % (Auto) [place] % (Auto) Eos % (Auto) Baso % (Auto) Neut # (Auto) Lymph # (Auto) [place] # (Auto) Eos # (Auto) Baso # (Auto) RBC Morphology Anisocytosis PT INR Sodium Potassium Chloride Carbon Dioxide BUN Creatinine Estimated GFR BUN/Creatinine Ratio Glucose Lactate Calcium Magnesium Total Bilirubin AST ALT Alkaline Phosphatase Ammonia Total Creatine Kinase CK-MB (CK-2) CK-MB (CK-2) Rel Index Troponin I NT-Pro-B Natriuret Pep Total Protein Albumin Globulin Albumin/Globulin Ratio Lipase SARS-CoV-2 (PCR) Negative Blood Type A Positive Antibody Screen Negative Crossmatch See Detail Assessment & Plan Assessment & Plan narrative: 1. Significant, probably acute blood loss type anemia causing least her weakness. She received transfusion of packed red blood cells. Certainly would be concerned about a possible GI source of bleeding specially given her GI symptoms even though by report there is no evidence of active bleeding and her stool was thus far hemoccult negative. She is microcytic in addition to being anemic which would suggest more longer term blood loss rather than some sudden acute (over the last 24-48 hours) time frame. I would recommend certainly upper and strongly consider lower endoscopy if upper endoscopy does not reveal source of bleeding. General surgery has been consulted via the emergency department for this purpose. I am going to start her on proton pump inhibitor to start with. She will need to have both her aspirin and her clopidogrel discontinued at this time 2. Diabetes-diabetic diet and continue oral meds for now. Insulin as necessary to manage hyperglycemia 3. Status post CVA-will have to discontinue her anti-platelet therapy as above. Do not believe she needs skilled therapy at this point but will continue to monitor 4. Hypertension-if anything patient is somewhat hypotensive here today probably due to blood loss. Will hold off on her antihypertensives but continue her beta-donis therapy for now. Will reintroduce her antihypertensives if her blood pressure permits and or requires 5. VTE prophylaxis-patient not a candidate for any sort of anticoagulant but sequential compression devices make sense 6. Code status-patient should be considered full code in the setting of a sudden cardiac or respiratory arrest she would like to be resuscitated Patient deserves inpatient hospitalization given her profound anemia and need for further evaluation as above. Should clearly be in the hospital more likely than not greater than 48 hours which will span 2 separate midnights
[2021-02-24] MEDS: PEG3350/SOD SULF,BICARB,CL/KCL 4,000 ML SOLUTION 4000 ML PO (15:59)
--- NOTE | 2021-02-24 17:36 | P.CONS_ITS ---
History of Present Illness Consult details Date Patient Seen: 02/24/21 Time Patient Seen: 17:42 Chief complaint: can barely form sentences/diarrhea and vomitting Narrative: 71-year-old female history of stroke admitted to the hospital for acute anemia. Yesterday she developed weakness nausea vomiting and worsening confusion. At admission today, hematocrit 20, baseline October. No hematemesis bright red blood per rectum or dark stool. She was recently started on aspirin and clopidogrel secondary to CVA. Since admission she has received 1 unit packed red blood cells, Protonix and remained hemodynamically stable. No history of peptic ulcer disease. Interestingly she had Interventional Radiology procedure unspecified for a Dieulafoy's lesion of the stomach the according to there was no active hemorrhage at the time it was done prophylactically. Colonoscopy within the past 15 years at [facility] per was initially unable to be completed secondary to tortuous colon and likely effects of abdominal radiation. No current nausea vomiting or abdominal pain. Meds Home Medications and Allergies Home Medications Medication Instructions Recorded Confirmed Type aspirin 81 mg tablet,delayed 81 mg PO DAILY #30 tab 11/28/20 02/24/21 Rx release amlodipine 10 mg tablet 10 mg PO DAILY #90 tab 12/31/20 02/24/21 Rx atorvastatin 80 mg tablet 80 mg PO DAILY #90 tab 12/31/20 02/24/21 Rx clopidogrel 75 mg tablet 75 mg PO DAILY #90 tab 12/31/20 02/24/21 Rx losartan 100 mg tablet 100 mg PO DAILY #90 tab 12/31/20 02/24/21 Rx metoprolol succinate 100 mg 100 mg PO DAILY #90 tab 12/31/20 02/24/21 Rx tablet,extended release 24 hr metformin 1,000 mg tablet 1,000 mg PO BID #180 tab 01/31/21 02/24/21 Rx Allergies Allergy/AdvReac Type Severity Reaction Status Date / Time No Known Drug Allergies Allergy Verified 02/24/21 09:10 Review of Systems Review of Systems ROS: Yes unobtainable due to mental condition (CVA) Exam Vital Signs (past 8 hours): - 02/24/21 10:00 02/24/21 10:30 02/24/21 11:00 Temperature Pulse Rate 84 87 91 H Respiratory Rate Blood Pressure 119/57 L 125/64 129/68 Pulse Oximetry 98 97 98 02/24/21 11:32 02/24/21 11:38 02/24/21 11:39 Temperature 97.9 F Pulse Rate 102 H 89 89 Respiratory Rate 16 Blood Pressure 129/68 141/66 H Pulse Oximetry 96 99 02/24/21 11:54 02/24/21 11:59 02/24/21 12:00 Temperature 97.7 F Pulse Rate 86 87 87 Respiratory Rate 15 16 16 Blood Pressure 129/63 130/64 Pulse Oximetry 99 98 98 02/24/21 12:15 02/24/21 12:30 02/24/21 12:45 Temperature Pulse Rate 87 87 90 Respiratory Rate 16 17 12 Blood Pressure 134/65 130/63 125/64 Pulse Oximetry 97 97 97 02/24/21 13:00 02/24/21 13:15 02/24/21 13:29 Temperature Pulse Rate 87 87 88 Respiratory Rate 15 16 Blood Pressure 126/67 136/70 Pulse Oximetry 98 98 97 02/24/21 13:30 02/24/21 14:01 02/24/21 14:04 Temperature 97.8 F 97.8 F Pulse Rate 84 84 Respiratory Rate 17 17 Blood Pressure 128/57 L 131/68 131/68 Pulse Oximetry 02/24/21 14:09 02/24/21 14:19 02/24/21 16:05 Temperature 97.8 F 97.7 F 97.6 F Pulse Rate 84 84 86 Respiratory Rate 17 19 18 Blood Pressure 131/68 132/63 151/71 H Pulse Oximetry 100 96 Oxygen Delivery Method Room Air Oxygen Flow Rate 0 Narrative Exam Narrative: GENERAL-elderly woman, no acute distress HEENT-no scleral icterus, hearing intact NECK-no JVD, trachea midline CVS- regular rate, no peripheral edema RESP-unlabored respiratory effort, no audible wheezing GI-soft, nontender nondistended MSK-no cyanosis or clubbing, extremities without deformity SKIN-warm, dry NEURO-alert, confused at times Objective Labs Result Diagrams: 02/24/21 09:35 02/24/21 09:35 Labs: Laboratory Results - last 24 hr 02/24/21 02/24/21 02/24/21 09:35 09:35 09:35 WBC 6.5 RBC 2.56 L Hgb 6.3 L* Hct 19.8 L* MCV 77.4 L MCH 24.6 L MCHC 31.8 RDW 23.7 H Plt Count 268 Neut % (Auto) 71.8 Lymph % (Auto) 15.3 L [place] % (Auto) 11.4 Eos % (Auto) 0.8 L Baso % (Auto) 0.7 Neut # (Auto) 4600 Lymph # (Auto) 1000 L [place] # (Auto) 700 Eos # (Auto) 100 Baso # (Auto) 0 RBC Morphology See below Anisocytosis 2+ H PT 14.1 H INR 1.2 Sodium 137 Potassium 3.9 Chloride 108 H Carbon Dioxide 23 BUN 15 Creatinine 0.48 L Estimated GFR > 60.0 BUN/Creatinine Ratio 31.3 H Glucose 144 H Lactate Calcium 8.7 Magnesium Total Bilirubin 0.5 AST 37 H ALT 30 Alkaline Phosphatase 80 Ammonia Total Creatine Kinase CK-MB (CK-2) CK-MB (CK-2) Rel Index Troponin I NT-Pro-B Natriuret Pep Total Protein 6.7 Albumin 3.3 L Globulin 3.4 Albumin/Globulin Ratio 1.0 Lipase Nasal Screen MRSA (PCR) SARS-CoV-2 (PCR) Blood Type Antibody Screen Crossmatch 02/24/21 02/24/21 02/24/21 09:35 09:35 09:35 WBC RBC Hgb Hct MCV MCH MCHC RDW Plt Count Neut % (Auto) Lymph % (Auto) [place] % (Auto) Eos % (Auto) Baso % (Auto) Neut # (Auto) Lymph # (Auto) [place] # (Auto) Eos # (Auto) Baso # (Auto) RBC Morphology Anisocytosis PT INR Sodium Potassium Chloride Carbon Dioxide BUN Creatinine Estimated GFR BUN/Creatinine Ratio Glucose Lactate 1.8 Calcium Magnesium 1.5 L Total Bilirubin AST ALT Alkaline Phosphatase Ammonia 14 Total Creatine Kinase 46 CK-MB (CK-2) TNP CK-MB (CK-2) Rel Index TNP Troponin I < 0.012 NT-Pro-B Natriuret Pep 139 H Total Protein Albumin Globulin Albumin/Globulin Ratio Lipase 338 H Nasal Screen MRSA (PCR) SARS-CoV-2 (PCR) Blood Type Antibody Screen Crossmatch 02/24/21 02/24/21 02/24/21 09:35 09:50 14:00 WBC RBC Hgb Hct MCV MCH MCHC RDW Plt Count Neut % (Auto) Lymph % (Auto) [place] % (Auto) Eos % (Auto) Baso % (Auto) Neut # (Auto) Lymph # (Auto) [place] # (Auto) Eos # (Auto) Baso # (Auto) RBC Morphology Anisocytosis PT INR Sodium Potassium Chloride Carbon Dioxide BUN Creatinine Estimated GFR BUN/Creatinine Ratio Glucose Lactate Calcium Magnesium Total Bilirubin AST ALT Alkaline Phosphatase Ammonia Total Creatine Kinase CK-MB (CK-2) CK-MB (CK-2) Rel Index Troponin I NT-Pro-B Natriuret Pep Total Protein Albumin Globulin Albumin/Globulin Ratio Lipase Nasal Screen MRSA (PCR) Negative for mrsa SARS-CoV-2 (PCR) Negative Blood Type A Positive Antibody Screen Negative Crossmatch See Detail Assessment & Plan Assessment and plan (1) Anemia: Status: Acute Assessment & Plan narrative: 71-year-old female history recent stroke admitted to the hospital for acute anemia, hemodynamically stable, presumed gastrointestinal hemorrhage. -esophagoduodenoscopy and colonoscopy -bowel prep -NPO after midnight -Protonix, hold plavix and ASA Discussed with the patient and her recommendations to proceed with esophagoduodenoscopy and colonoscopy to evaluate for any intraluminal pa thology/source of anemia. Given her recent stroke I have requested anesthesia for sedation measures. Technical details of the procedure were discussed with the patient and her procedural risks including bleeding, infection, intestinal perforation, missed diagnosis, were discussed. Their questions have been answered and they are in agreement with this plan.
[2021-02-24] MEDS: SODIUM CHLORIDE 0.9% 1,000 ML 100 ML IV (17:45)
[2021-02-24 18:28] LABS: Hematocrit 26.4 % (36-46); Hemoglobin 8.6 g/dL (12.0-16.0)
[2021-02-24] MEDS: MAGNESIUM OXIDE 400 MG TABLET PO (20:31)
[2021-02-24] MEDS: PANTOPRAZOLE 40 MG VIAL IV (20:31)
[2021-02-25] VITALS (14 sets, daily range): BP systolic 122–162; BP diastolic 51–76; PULSE 77–105; RESP 13–19; TEMP 36.2–37.1; O2SAT 93–98; BMI 32.8
--- NOTE | 2021-02-25 | PATH_ITS ---
[facility] Accession Number: [id number] . 01 Material submitted: . PART A: duodenum - DUODENUM BIOPSY PART B: colon - CECUM POLYP . 02 Diagnosis: A. Duodenum: Duodenal mucosa with no diagnostic abnormality. Negative for active inflammation, features of sprue, dysplasia, or malignancy. . B. Cecal Polyp, Biopsy: Tubular adenoma. MRV 02/28/2021 1206 Local . 02 Electronically signed: . Travis Couch MD, PhD, Pathologist NPI- [id number] . 01 Gross description: . Part A: DUODENUM BIOPSY: Received in formalin are 2 fragment(s) of alfredo, soft tissue measuring 0.2 x 0.2 x 0.2 cm to 0.2 x 0.2 x 0.2 cm submitted entirely in 1 cassette(s) Part B: CECUM POLYP: Received in formalin is 1 fragment(s) of alfredo, soft tissue measuring 1.0 x 0.6 x 0.4 cm submitted entirely in 1 cassette(s) /GAB 02/26/2021 0819 Local . 02 Pathologist provided ICD-10: R10.9, D12.0 . 02 CPT . 792730, [id number] Performed at: 01 [facility] [address], [place], [place] [id number] MD Vamshi Reece MD Phone: [phone] Performed at: 02 [facility] [address] [place], [place] [id number] MD Lorena Berman MD Phone: [phone]
--- NOTE | 2021-02-25 00:23 | PC.NURSE ---
Patient's BP steadily increasing throughout shift. Dr. Haynes aware. Patient is planned to be scoped by Dr. Silva 02/25. Nirmal at bedside, patient is making very little progress drinking it and needs constant encouragement to drink more. Per Dr. Haynes, scope will be in afternoon.
[2021-02-25] MEDS: SODIUM CHLORIDE 0.9% 1,000 ML 100 ML IV ×3 (01:59→21:06)
--- NOTE | 2021-02-25 02:09 | PC.NURSE ---
Drinking her Golytely very slowly. Needs lots of encouragement & frequent reminder to drink her Golytely. Denies any nausea & no C/O pain. Will monitor.
--- NOTE | 2021-02-25 02:54 | PC.NURSE ---
Checked patient to let her drink more of her Golytely, but she's sound asleep. Coordinator notified, will monitor.
[2021-02-25 05:21] LABS: Hematocrit 25.1 % (36-46); Hemoglobin 8.1 g/dL (12.0-16.0)
[2021-02-25 05:22] LABS: BUN Creatinine Ratio 14.6 (6-22); Blood Urea Nitrogen 7 mg/dL (7-17); Calcium 8.5 mg/dL (8.4-10.2); Carbon Dioxide 24 mmol/L (22-32); Chloride 111 mmol/L (98-107); Estimated Glomerular Filt Rate > 60.0 mL/min (>60); Glucose 119 mg/dL (80-110); HEMOLYSIS < 15 (0-50); Potassium 3.5 mmol/L (3.4-5.1); Sodium 141 mmol/L (137-145)
--- NOTE | 2021-02-25 08:22 | PM.PN.1 ---
Subjective Subjective Date Patient Seen: 02/25/21 Time Patient Seen: 08:22 Interval history: Patient with basically an uneventful day yesterday. Managed to get most of her colonoscopy prep in to her overnight. Does not seem to have any complaints this morning Blood counts improved after transfusion and have remained stable Exam Vital Signs (past 8 hours): - 02/25/21 05:41 Temperature 98.3 F Pulse Rate 89 Respiratory Rate 19 Blood Pressure 147/70 H Pulse Oximetry 98 Oxygen Delivery Method Room Air Oxygen Flow Rate 0 Objective Labs Result Diagrams: 02/25/21 04:45 02/25/21 04:45 Labs: Laboratory Results - last 24 hr 02/24/21 02/24/21 02/24/21 09:35 09:35 09:35 WBC 6.5 RBC 2.56 L Hgb 6.3 L* Hct 19.8 L* MCV 77.4 L MCH 24.6 L MCHC 31.8 RDW 23.7 H Plt Count 268 Neut % (Auto) 71.8 Lymph % (Auto) 15.3 L [place] % (Auto) 11.4 Eos % (Auto) 0.8 L Baso % (Auto) 0.7 Neut # (Auto) 4600 Lymph # (Auto) 1000 L [place] # (Auto) 700 Eos # (Auto) 100 Baso # (Auto) 0 RBC Morphology See below Anisocytosis 2+ H PT 14.1 H INR 1.2 Sodium 137 Potassium 3.9 Chloride 108 H Carbon Dioxide 23 BUN 15 Creatinine 0.48 L Estimated GFR > 60.0 BUN/Creatinine Ratio 31.3 H Glucose 144 H Lactate Calcium 8.7 Magnesium Total Bilirubin 0.5 AST 37 H ALT 30 Alkaline Phosphatase 80 Ammonia Total Creatine Kinase CK-MB (CK-2) CK-MB (CK-2) Rel Index Troponin I NT-Pro-B Natriuret Pep Total Protein 6.7 Albumin 3.3 L Globulin 3.4 Albumin/Globulin Ratio 1.0 Lipase Nasal Screen MRSA (PCR) SARS-CoV-2 (PCR) Blood Type Antibody Screen Crossmatch 02/24/21 02/24/21 02/24/21 09:35 09:35 09:35 WBC RBC Hgb Hct MCV MCH MCHC RDW Plt Count Neut % (Auto) Lymph % (Auto) [place] % (Auto) Eos % (Auto) Baso % (Auto) Neut # (Auto) Lymph # (Auto) [place] # (Auto) Eos # (Auto) Baso # (Auto) RBC Morphology Anisocytosis PT INR Sodium Potassium Chloride Carbon Dioxide BUN Creatinine Estimated GFR BUN/Creatinine Ratio Glucose Lactate 1.8 Calcium Magnesium 1.5 L Total Bilirubin AST ALT Alkaline Phosphatase Ammonia 14 Total Creatine Kinase 46 CK-MB (CK-2) TNP CK-MB (CK-2) Rel Index TNP Troponin I < 0.012 NT-Pro-B Natriuret Pep 139 H Total Protein Albumin Globulin Albumin/Globulin Ratio Lipase 338 H Nasal Screen MRSA (PCR) SARS-CoV-2 (PCR) Blood Type Antibody Screen Crossmatch 02/24/21 02/24/21 02/24/21 09:35 09:50 14:00 WBC RBC Hgb Hct MCV MCH MCHC RDW Plt Count Neut % (Auto) Lymph % (Auto) [place] % (Auto) Eos % (Auto) Baso % (Auto) Neut # (Auto) Lymph # (Auto) [place] # (Auto) Eos # (Auto) Baso # (Auto) RBC Morphology Anisocytosis PT INR Sodium Potassium Chloride Carbon Dioxide BUN Creatinine Estimated GFR BUN/Creatinine Ratio Glucose Lactate Calcium Magnesium Total Bilirubin AST ALT Alkaline Phosphatase Ammonia Total Creatine Kinase CK-MB (CK-2) CK-MB (CK-2) Rel Index Troponin I NT-Pro-B Natriuret Pep Total Protein Albumin Globulin Albumin/Globulin Ratio Lipase Nasal Screen MRSA (PCR) Negative for mrsa SARS-CoV-2 (PCR) Negative Blood Type A Positive Antibody Screen Negative Crossmatch See Detail 02/24/21 02/25/21 02/25/21 18:11 04:45 04:45 WBC RBC Hgb 8.6 L 8.1 L Hct 26.4 L 25.1 L MCV MCH MCHC RDW Plt Count Neut % (Auto) Lymph % (Auto) [place] % (Auto) Eos % (Auto) Baso % (Auto) Neut # (Auto) Lymph # (Auto) [place] # (Auto) Eos # (Auto) Baso # (Auto) RBC Morphology Anisocytosis PT INR Sodium 141 Potassium 3.5 Chloride 111 H Carbon Dioxide 24 BUN 7 Creatinine 0.48 L Estimated GFR > 60.0 BUN/Creatinine Ratio 14.6 Glucose 119 H Lactate Calcium 8.5 Magnesium Total Bilirubin AST ALT Alkaline Phosphatase Ammonia Total Creatine Kinase CK-MB (CK-2) CK-MB (CK-2) Rel Index Troponin I NT-Pro-B Natriuret Pep Total Protein Albumin Globulin Albumin/Globulin Ratio Lipase Nasal Screen MRSA (PCR) SARS-CoV-2 (PCR) Blood Type Antibody Screen Crossmatch COUNT INCLUDES THE [facility] Medical History Allergic rhinitis Allergies Breast cancer (~1999) Chicken pox Dieulafoy lesion of stomach Essential hypertension (~2009) H/O: stroke with residual effects (~11/25/20) Hypertension LVH (left ventricular hypertrophy) Measles Mixed hyperlipidemia Mumps Uncontrolled type 2 diabetes mellitus with hyperglycemia (~2020) Surgical History Anesthesia H/O bilateral mastectomy (~2000) H/O hysterectomy for benign disease (~2000) H/O oophorectomy (~2000) History of section (~1979) Family History Father Parkinson's disease dementia Mother Dementia Breast cancer Social History household members: spouse Smoking Status: Never smoker alcohol intake: former Assessment & Plan Assessment & Plan narrative: 1. Question GI bleed with acute blood loss anemia-blood counts improved after transfusion. Plan for endoscopy later today Continue off for anti-platelet therapy and continue with proton pump inhibitor 2. Diabetes-numbers acceptable for now specially with her limited diet. She most likely will return to more normal diet after ask piece today 3. Status post CVA-as above will need to remain off for anti-platelet therapy indefinitely 4. Hypertension-patient's numbers crept up a bit yesterday improve some this morning. Will continue to hold her antihypertensive therapy for now but will likely need to resume at least part of them if not the full regimen when ready for discharge Note: Greater than 30 minutes was spent evaluating the patient on the floor, including examining the patient, discussing clinical course with clinical and nursing staff, reviewing clinical course in the computer, preparing documentation and writing orders for continued management of care, discussing status with family as appropriate, reviewing plans for the next 24 hours with both patient/family and nursing staff as appropriate.
[2021-02-25] MEDS: METOPROLOL ER 50 MG TABLET 100 MG PO (10:03)
[2021-02-25] MEDS: ATORVASTATIN 20 MG TABLET 80 MG PO (10:04)
[2021-02-25] MEDS: MAGNESIUM OXIDE 400 MG TABLET PO ×2 (10:04→21:00)
[2021-02-25] MEDS: PANTOPRAZOLE 40 MG VIAL IV ×2 (10:04→21:00)
[2021-02-25] MEDS: SODIUM CHLORIDE 0.9% FLUSH 10 ML IV ×2 (10:05→21:01)
--- NOTE | 2021-02-25 10:39 | PC.NURSE ---
PT CONTINUES TO REQUIRE MUCH ENCOURAGEMENT TO COMPLETE BOWEL PREP- SPOUSE ASSISTING WITH VERBAL SUPPORT AND FREQ REMINDERS- PTS AFFECT SOMEWHAT FLAT BUT SHE IS STABLE ON FEET AND TRANSFERS TO BR WITH SBA ONLY - LIQ STOOL BUT REMAINS BROWNISH-YELLOW IN COLOR WITH SEDIMENT/PARTICLES OF STOOL
--- NOTE | 2021-02-25 13:11 | CM.DANOTE ---
DCP: Case received, EMR reviewed and met with patient. , Raymond, was at bedside. Was able to obtain information from patient and regarding patient's baseline activity status prior to hospitalization. DCP assessment completed with information currently available. Patient is a 71 year old female who admitted yesterday morning to the care of the hospitalist team. PCP: Dr. Haynes. Payer: confirmed: [facility] Patient came to the hospital via private vehicle secondary to having increased weakness and some confusion. Patient was diagnosed with anemia, and received 2 units of blood. She also has history of recent CVA, and was here at the hospital a few months ago. Patient is to be having an EGD this pm, and a colonoscopy to look for GI bleed. She is currently NPO. Met with patient and , Raymond, who was at bedside. Patient is alert and oriented, she does have history of aphasia secondary to recent CVA, but was answering some questions. She would look at her if she did not know the answer. Patient was discharged a few months ago with [facility], RN, P.T, O.T, and speech. indicated, we were very pleased with [facility]. At the time of that discharge, patient was unsteady on her feet, but indicated, she made progress. She is now going to this hospital for speech therapy with [facility]. Patient is now using a cane, but also has a walker at home if needed. She has her shower set up with a shower chair. She is not currently driving, but patient thought she still was. takes her to her appointments as needed, for he is retired, and her support system. He also prepares ready to eat meals for patient as well. He plans on her continuing with outpatient therapy. P: DCP to continue to follow for any needs. Patient should be able to go home when she is deemed medically stable. Rosetta Collins RN/English As A Second Language Teacher
--- NOTE | 2021-02-25 18:11 | PM.PREOP ---
Pre-operative Note Interval Note History & Physical reviewed/Exam performed by Physician: Yes Changes to H&P: No
--- NOTE | 2021-02-25 19:01 | PM.OP.ENDO ---
Operative Date/Time/Diagnoses Date of procedure: 02/25/21 Time of procedure: 19:01 Pre-op diagnosis: ANEMIA Post-op diagnosis: other (DUODENAL ULCER, COLONIC POLYP) Procedure & Clinicians Study performed: ESOPHAGODUODENOSCOPY AND COLONOSCOPY Same procedure as scheduled: Yes Indications: Anemia Surgeon: Osei Silva Procedure Notes Procedure in detail: General anesthesia was induced intubated with an endotracheal tube. A bite block was placed. the scope was inserted into the mouth and advanced through the esophagus and into the stomach. The pylorus was intubated. In the second portion of the duodenum there was a 1 cm healing ulcer, no active bleeding or visible vessel. Biopsy of the duodenal mucosa was taken. The scope was retroflexed within the stomach and there was no hiatal hernia. No ulcers, or gastritis. The scope was withdrawn into the esophagus the Z line was seen at 40 cm from the incisions. There was no Silva's esophagitis or masses or strictures. Stomach was desufflated and scope removed FINDINGS 1. Healing non actively bleeding duodenal ulcer 1cm The colonoscopy scope was then placed into the anal canal and was advanced to the cecum, which was identified by the ileocecal valve, the appendiceal orifice and the confluence of the taenia. The scope was then slowly withdrawn examining colon thoroughly in all directions, irrigating it of any residual stool. FINDINGS 1. 5 mm cecal polyp removed with cold snare 2. grade 1 internal hemorrhoids The patient tolerated the procedure well. They will be discharged once criteria are met. The prep was of fair quality. The withdrawl time was 8 minutes. Findings: duodenal ulcer Specimen(s): other (dudoenum, cecal polyp) Complications: none Impression: duodenal ulcer Post-procedure Plan for aftercare: Empiric H. pylori treatment Disposition: Acute Care
[2021-02-25] MEDS: AMOXICILLIN 250 MG CAPSULE 1000 MG PO (21:00)
[2021-02-25] MEDS: FAMOTIDINE 20 MG/2 ML VIAL IV (21:00)
[2021-02-25] MEDS: CLARITHROMYCIN 500 MG TABLET PO (21:03)
[2021-02-26 00:50] VITALS: BP 136/73; PULSE 81; RESP 18; TEMP 36.6; O2SAT 94
--- NOTE | 2021-02-26 01:56 | PC.NURSE ---
This morning this SITE OPERATIONS MANAGER passed this patients room and noticed her sitting on the end of her bed. She answered no when asked if needed help, but she that she wanted to get up for the day. She stated she was not confused, and I reported this to her assigned SITE OPERATIONS MANAGER.
[2021-02-26 03:56] VITALS: BP 125/62; PULSE 76; RESP 18; TEMP 36.6; O2SAT 94
[2021-02-26 05:24] LABS: RBC Urine None Seen (0-5/HPF)
[2021-02-26 05:30] LABS: Appearance Urine UA CLEAR; Bilirubin Urine UA NEGATIVE (NEGATIVE); Glucose Urine UA NEGATIVE (Negative); Ketones Urine UA NEGATIVE (NEGATIVE); Leukocyte Esterase Urine UA TRACE (NEGATIVE); Nitrite Urine UA NEGATIVE (Negative); Occult Blood Urine UA NEGATIVE (Negative); Protein Urine UA NEGATIVE (Negative); Specific Gravity Urine UA <=1.005 (1.000-1.035); Urobilinogen Urine UA 0.2 E.U./dL (0.2); pH Urine UA 5.5 (4.5-8.0)
[2021-02-26 05:31] LABS: Bacteria Urine Moderate (10-30); Color Urine UA Straw; Squamous Epithelial Cell Urine 0-1 /HPF (0-5/HPF); WBC Urine 0-1/HPF (0-5/HPF)
[2021-02-26 05:32] LABS: Culture Indicated Urine Specimen Cultured
[2021-02-26 05:57] LABS: Hemoglobin 8.2 g/dL (12.0-16.0)
[2021-02-26 05:59] LABS: Magnesium 1.5 mg/dL (1.6-2.3)
[2021-02-26 07:46] VITALS: BP 144/75; PULSE 87; RESP 16; TEMP 36.5; O2SAT 95
[2021-02-26] MEDS: SODIUM CHLORIDE 0.9% 1,000 ML 100 ML IV (08:15)
[2021-02-26] MEDS: PANTOPRAZOLE 40 MG VIAL IV (08:16)
[2021-02-26] MEDS: INSULIN LISPRO 100 UNIT/ML 3ML VIAL SUBCUT (08:17)
[2021-02-26] MEDS: AMOXICILLIN 250 MG CAPSULE 1000 MG PO (08:18)
[2021-02-26] MEDS: ATORVASTATIN 20 MG TABLET 80 MG PO (08:18)
[2021-02-26] MEDS: TRIMETH/SULFA 160/800 (DS) TABLET 1 TAB PO (08:18)
[2021-02-26] MEDS: METOPROLOL ER 50 MG TABLET 100 MG PO (08:18)
[2021-02-26] MEDS: SODIUM CHLORIDE 0.9% FLUSH 10 ML IV (08:19)
[2021-02-26] MEDS: MAGNESIUM OXIDE 400 MG TABLET PO (08:19)
[2021-02-26] MEDS: CLARITHROMYCIN 500 MG TABLET PO (08:19)
--- NOTE | 2021-02-26 08:44 | P.DS_ITS ---
History of Present Illness History of Present Illness Date Patient Seen: 02/26/21 Time Patient Seen: 08:45 Chief complaint: can barely form sentences/diarrhea and vomitting Narrative: 71-year-old female, admitted through the [facility] Emergency Department for anemia Patient relatively new to my practice been seen only a couple of times after a recent hospitalization for CVA. She had primarily word-finding and speech issues and was placed on dual anti-platelet therapy upon discharge. Also diagnosed with a Dieulafoy lesion treated by Interventional Radiology at [facility] in December In any event she presented to the emergency department with complaints severe weakness and perhaps increased confusion. These complaints are relatively sudden in onset apparently. Had had some nausea and vomiting within 12-24 hours prior although no blood or dark material were noted. Family and friends have noticed a change in overall coloration thinking she had the yellowish cast to her the last 2 weeks or so apparently She has found to be quite anemic and was admitted for transfusion and further evaluation Discharge Providers Provider Date of admission: 02/24/21 11:22 Discharge Date: 02/26/21 Primary care physician: Renny Haynes MD Consults: 02/24/21 13:21 Consult to Physician Routine Comment: Consulting Provider: Osei Silva Reason for consultation: gi bleed? Has provider been notified: Yes Discharge provider: Renny Haynes MD Summary Hospital Course Discharge Diagnosis: 1. Acute blood loss anemia 2. Duodenal ulcer as a source of acute GI bleeding 3. UTI, organism not identified 4. Hypomagnesemia 5. Recent CVA on dual anti-platelet therapy 6. Essential hypertension 7. Type 2 diabetes controlled 8. Dieulafoy's lesion of stomach, status post ablation as an outpatient prior to admission Hospital Course: Patient was admitted as above. She received 2 units of packed red cells with i mprovement in symptoms. Her blood counts remained stable. She underwent upper and lower endoscopy showing evidence of a duodenal ulcer not actively bleeding presumed to be source of blood loss anemia. Endoscopist felt like her anti- platelet therapy could be resumed as this was a low risk lesion. Biopsies were obtained. No lesions or abnormalities found in the large intestine on a marginal prep colonoscopy Patient also with urinary frequency discomfort an obvious infection. Sample was obtained and patient started on empiric oral antibiotics Patient's diabetes well controlled during this hospitalization Status at Discharge Cognitive/behavioral status at discharge: at baseline, oriented Functional status at discharge: independent ambulation Overall status at discharge: patient is progressing back to baseline Time Spent with Patient Time spent: Greater than 30 minutes Exam Vital Signs (past 8 hours): - 02/26/21 00:50 02/26/21 03:56 02/26/21 07:46 Temperature 97.9 F 97.9 F 97.7 F Pulse Rate 81 76 87 Respiratory Rate 18 18 16 Blood Pressure 136/73 125/62 144/75 H Pulse Oximetry 94 94 95 Oxygen Delivery Method Room Air Oxygen Flow Rate 0 Objective Labs Result Diagrams: 02/26/21 05:18 02/25/21 04:45 Labs: Laboratory Results - last 24 hr 02/26/21 02/26/21 02/26/21 02:00 05:18 05:18 Hgb 8.2 L Hct 26.0 L Magnesium 1.5 L Urine Color Straw Urine Appearance Clear Urine pH 5.5 Ur Specific [place] <=1.005 Urine Protein Negative Urine Glucose (UA) Negative Urine Ketones Negative Urine Occult Blood Negative Urine Nitrate Negative Urine Bilirubin Negative Urine Urobilinogen 0.2 Ur Leukocyte Esterase Trace H Urine RBC None seen Urine WBC 0-1/hpf Ur Squamous Epith Cells 0-1 /hpf Urine Bacteria Moderate (10-30) H Ur Culture Indicated? Specimen cultured [facility] Medical History Allergic rhinitis Allergies Breast cancer (~1999) Chicken pox Dieulafoy lesion of stomach Essential hypertension (~2009) H/O: stroke with residual effects (~11/25/20) Hypertension LVH (left ventricular hypertrophy) Measles Mixed hyperlipidemia Mumps Uncontrolled type 2 diabetes mellitus with hyperglycemia (~2020) Surgical History Anesthesia H/O bilateral mastectomy (~2000) H/O hysterectomy for benign disease (~2000) H/O oophorectomy (~2000) History of section (~1979) Family History Father Parkinson's disease dementia Mother Dementia Breast cancer Social History household members: spouse Smoking Status: Never smoker alcohol intake: former Discharge Assessment & Plan Assessment and Plan Plan of Treatment: Patient was discharged home. She will be on a proton pump inhibitor b.i.d. for least 4 weeks. I am going to restart her Plavix but hold off on the dual anti- platelet therapy at this point so will be holding her aspirin. She will continue on antibiotic therapy for her acute cystitis Otherwise continue same medications without change Discharge Plan Discharge Plan Patient Disposition: Home Discharge orders & Medications Prescriptions: New magnesium oxide 400 mg magnesium tablet 400 mg PO DAILY Qty: 90 RF: 3 ferrous sulfate 325 mg (65 mg iron) tablet 325 mg PO DAILY Qty: 90 RF: 3 sulfamethoxazole-trimethoprim 800-160 mg Tablet 1 tab PO BID Qty: 14 RF: 0 clopidogrel 75 mg tablet 75 mg PO DAILY Qty: 90 RF: 3 pantoprazole 40 mg tablet,delayed release (DR/EC) 40 mg PO BID Qty: 60 RF: 2 Continued amlodipine 10 mg tablet 10 mg PO DAILY Qty: 90 RF: 3 atorvastatin 80 mg tablet 80 mg PO DAILY Qty: 90 RF: 3 losartan 100 mg tablet 100 mg PO DAILY Qty: 90 RF: 3 metoprolol succinate 100 mg tablet extended release 24 hr 100 mg PO DAILY Qty: 90 RF: 3 metformin 1,000 mg tablet 1,000 mg PO BID Qty: 180 RF: 3 Discontinued clopidogrel 75 mg tablet 75 mg PO DAILY Qty: 90 RF: 3 aspirin 81 mg Tablet,Delayed Release (Dr/Ec) 81 mg PO DAILY Qty: 30 RF: 0 Follow up/Referrals: Renny Haynes MD [Primary Care Provider] - 2 Weeks Discharge Health Status Multidrug resistant organism: No MDRO Diet/Activity/Treatments Diet: Diet as Tolerated Visit Report/Discharge Packet Instructions: DI for Gastric Ulcer Discharge Data Primary Care Provider: Renny Haynes Attending Provider: Renny Haynes
--- NOTE | 2021-02-26 09:09 | CM.DPC ---
DCP Discharge Home Per MD, pt is medically stable to d/c home today with family support and no identified barriers to discharge. Per RN, pt has been up today and seems alert and oriented and pt has stated she is ready to d/c home and get ready for the day. No identified concerns at this time. Plan: Patient to d/c home today via spouse POV and continuing outpt therapy and no SW needs at this time. MOHINDER Ramos
--- NOTE | 2021-02-26 09:40 | PC.NURSE ---
Assess- Patient is alert but confused x2. Up with one person assist and walker. Patient is confused and tries to get out of bed multiple times. in room and she is going to be discharged soon.
== END 2021-02-26 10:41 | disposition home or self-care (01) ==
LOC: ED 08:47 → AC 11:53 → ICU 13:48 → AC 02-25 14:24
PROVIDERS: Surgery; Admitting Provider Internal Medicine; Emergency Provider Emergency Medicine; Family Provider Internal Medicine; PCP Internal Medicine; Referring Provider Emergency Medicine; Visit Provider Internal Medicine
PROC: 0DJ08ZZ Inspection of Upper Intestinal Tract, Via Natural or Artificial Opening Endoscopic (ICD-10-PCS; CPT 43235; principal; 2021-02-25 17:00)
PROC: 0DJD8ZZ Inspection of Lower Intestinal Tract, Via Natural or Artificial Opening Endoscopic (ICD-10-PCS; CPT 45378; 2021-02-25 17:00)
DX: D62 Acute posthemorrhagic anemia (principal); I10 Essential (primary) hypertension; E78.2 Mixed hyperlipidemia; E11.9 Type 2 diabetes mellitus without complications; Z79.84 Long term (current) use of oral hypoglycemic drugs; Z20.822 Contact with and (suspected) exposure to COVID-19; Z86.73 Personal history of transient ischemic attack (TIA), and cerebral infarction without residual deficits; Z79.01 Long term (current) use of anticoagulants; Z79.82 Long term (current) use of aspirin; K64.0 First degree hemorrhoids; K26.9 Duodenal ulcer, unspecified as acute or chronic, without hemorrhage or perforation; K63.5 Polyp of colon
CPT/HCPCS: 43239; 45385; 36415; 36430; 36592; 70450; 80048; 80053; 81001; 81003; 82140; 82550; 82962; 83605; 83690; 83735; 83880; 84484; 85014; 85018; 85025; 85610; 86850; 86900; 86901; 87077; 87086; 87186; 87635; 87797; 96361; 96372; 96374; 96375; 96376; 99217; 99220; 99225; 99284; C9803; G0378; P9016; C9113; J0330; J1815; J2405; J2704; J3010

== ENCOUNTER → 2021-03-06 11:04 | Outpatient (CLI) | payer MEDICARE, SELFPAY ==
[2021-02-27 10:08] VITALS: BMI 32.8
[2021-03-06 13:44] LABS: Hematocrit 28.6 % (36-46); Hemoglobin 9.1 g/dL (12.0-16.0)
[2021-03-06 14:13] LABS: Blood Urea Nitrogen 17 mg/dL (7-17); Calcium 9.6 mg/dL (8.4-10.2); Carbon Dioxide 22 mmol/L (22-32); Chloride 104 mmol/L (98-107); Estimated Glomerular Filt Rate 51.2 mL/min (>60); Glucose 125 mg/dL (80-110); HEMOLYSIS < 15 (0-50); Magnesium 1.6 mg/dL (1.6-2.3); Potassium 4.6 mmol/L (3.4-5.1); Sodium 137 mmol/L (137-145)
== END ==
PROVIDERS: Family Provider Internal Medicine; PCP Internal Medicine; Referring Provider Internal Medicine; Visit Provider Internal Medicine
DX: I10 Essential (primary) hypertension (principal); D64.9 Anemia, unspecified
CPT/HCPCS: 36415; 80048; 83735; 85014; 85018

== ENCOUNTER → 2021-03-17 07:09 | Outpatient (CLI) | payer MEDICARE, SELFPAY ==
[2021-02-27 10:08] VITALS: BMI 32.8
== END ==
PROVIDERS: Family Provider Internal Medicine; PCP Internal Medicine; Referring Provider Internal Medicine; Visit Provider Internal Medicine
DX: R19.7 Diarrhea, unspecified (principal); R19.5 Other fecal abnormalities
CPT/HCPCS: 87045; 87177; 87493; 87899

== ENCOUNTER → 2021-04-25 08:25 | Outpatient (CLI) | payer MEDICARE, SELFPAY ==
[2021-02-27 10:08] VITALS: BMI 32.8
[2021-04-25 09:27] LABS: Hemoglobin A1C% w Est Avg Glu 6.3 % (4.0-6.0)
[2021-04-25 10:06] LABS: Alanine Aminotransferase 33 IU/L (<35); Albumin Globulin Ratio 1.1 (1.0-2.8); Alkaline Phosphatase 110 U/L (38-126); Aspartate Aminotransferase 40 IU/L (14-36); BUN Creatinine Ratio 28.4 (6-22); Bilirubin Total 0.5 mg/dL (0.2-1.3); Blood Urea Nitrogen 19 mg/dL (7-17); Calcium 9.5 mg/dL (8.4-10.2); Carbon Dioxide 26 mmol/L (22-32); Chloride 107 mmol/L (98-107); Cholesterol 94 mg/dL (140-199); Estimated Glomerular Filt Rate > 60.0 mL/min (>60); Globulin 3.6 g/dL (1.7-4.1); Glucose 149 mg/dL (80-110); HDL Cholesterol 36 mg/dL (40-60); HEMOLYSIS < 15 (0-50); LDL Cholesterol Calculated 35 mg/dL (<100); Potassium 4.3 mmol/L (3.4-5.1); Sodium 139 mmol/L (137-145); Total Protein 7.6 g/dL (6.3-8.2); Triglycerides 114 mg/dL (35-150)
== END ==
PROVIDERS: Family Provider Internal Medicine; PCP Internal Medicine; Referring Provider Internal Medicine; Visit Provider Internal Medicine
DX: E11.65 Type 2 diabetes mellitus with hyperglycemia (principal); E78.2 Mixed hyperlipidemia; I10 Essential (primary) hypertension
CPT/HCPCS: 36415; 80053; 80061; 83036

== ENCOUNTER → 2021-08-05 11:28 | Outpatient (CLI) | payer MEDICARE, SELFPAY ==
[2021-02-27 10:08] VITALS: BMI 32.8
[2021-08-05 12:32] LABS: Hematocrit 30.5 % (36-46); Hemoglobin 9.7 g/dL (12.0-16.0); Mean Corpuscular HGB Conc 31.7 % (30-36); Mean Corpuscular Hemoglobin 27.2 PG (26-34); Mean Corpuscular Volume 85.6 fL (80-100); Platelet Count 355 X10^3/uL (150-400); Red Blood Cell Count 3.56 X10^6/uL (4.0-5.2); Red Cell Distribution Width 15.4 % (11.6-14.8); White Blood Cell Count 6.4 X10^3/uL (4.5-11.0)
[2021-08-05 12:40] LABS: Hemoglobin A1C% w Est Avg Glu 5.6 % (4.0-6.0)
[2021-08-05 13:01] LABS: BUN Creatinine Ratio 22.7 (6-22); Blood Urea Nitrogen 17 mg/dL (7-17); Calcium 9.5 mg/dL (8.4-10.2); Carbon Dioxide 25 mmol/L (22-32); Chloride 106 mmol/L (98-107); Estimated Glomerular Filt Rate > 60.0 mL/min (>60); Glucose 116 mg/dL (80-110); HEMOLYSIS < 15 (0-50); Iron 26 ug/dL (37-170); Sodium 141 mmol/L (137-145)
[2021-08-05 13:11] LABS: Percent Iron Saturation 5 % (15-50); Total Iron Binding Capacity 475 ug/dL (265-497); Transferrin 345 mg/dL (206-381)
== END ==
PROVIDERS: Family Provider Internal Medicine; PCP Internal Medicine; Referring Provider Internal Medicine; Visit Provider Internal Medicine
DX: E11.65 Type 2 diabetes mellitus with hyperglycemia (principal); D64.9 Anemia, unspecified; E78.2 Mixed hyperlipidemia; I10 Essential (primary) hypertension
CPT/HCPCS: 36415; 80048; 83036; 83540; 83550; 85027

== ENCOUNTER → 2021-11-26 08:19 | Outpatient (CLI) | payer MEDICARE, SELFPAY ==
[2021-02-27 10:08] VITALS: BMI 32.8
[2021-11-26 09:08] LABS: Add Manual Diff / Slide Review NO; Basophils Absolute Auto 0 /uL (0-100); Basophils Percent Auto 0.7 % (0-2); Eosinophils Absolute Auto 100 /uL (0-450); Eosinophils Percent Auto 2.7 % (2-4); Hematocrit 35.8 % (36-46); Hemoglobin 11.4 g/dL (12.0-16.0); Lymphocytes Absolute Auto 1500 /uL (1100-4500); Lymphocytes Percent Auto 26.8 % (25-40); Mean Corpuscular Hemoglobin 28.4 PG (26-34); Monocytes Absolute Auto 400 /uL (0-900); Neutrophils Absolute Auto 3400 /uL (1500-7000); Neutrophils Percent Auto 61.8 % (50-75); Platelet Count 260 X10^3/uL (150-400); Red Blood Cell Count 4.02 X10^6/uL (4.0-5.2); Red Cell Distribution Width 15.3 % (11.6-14.8); White Blood Cell Count 5.5 X10^3/uL (4.5-11.0)
[2021-11-26 09:19] LABS: HEMOLYSIS < 15 (0-50); Iron 60 ug/dL (37-170)
[2021-11-26 09:22] LABS: BUN Creatinine Ratio 23.3 (6-22); Blood Urea Nitrogen 17 mg/dL (7-17); Calcium 9.4 mg/dL (8.4-10.2); Carbon Dioxide 26 mmol/L (22-32); Chloride 105 mmol/L (98-107); Estimated Glomerular Filt Rate > 60 mL/min (>60); Glucose 130 mg/dL (80-110); HEMOLYSIS < 15 (0-50); Hemoglobin A1C% w Est Avg Glu 5.6 % (4.0-6.0); Potassium 4.1 mmol/L (3.4-5.1); Sodium 141 mmol/L (137-145)
[2021-11-26 09:31] LABS: Percent Iron Saturation 14 % (15-50); Total Iron Binding Capacity 444 ug/dL (265-497); Transferrin 326 mg/dL (206-381)
== END ==
PROVIDERS: Family Provider Internal Medicine; PCP Internal Medicine; Referring Provider Internal Medicine; Visit Provider Internal Medicine
DX: E78.2 Mixed hyperlipidemia (principal); E11.65 Type 2 diabetes mellitus with hyperglycemia; I10 Essential (primary) hypertension
CPT/HCPCS: 36415; 80048; 83036; 83540; 83550; 85025

== ENCOUNTER 2022-02-24 10:30 | Outpatient (RCR) | payer MEDICARE, SELFPAY ==
[2020-11-25 14:04] VITALS: BMI 32.5
--- NOTE | 2021-01-06 11:30 | ST.OPIE ---
Visit Care Team Role Provider Type Renny Haynes MD Attending Provider Physician Family Provider Primary Care Provider Referring Provider Specialty: Internal Medicine Address: [address] [place] [address], [address], [place], [address] Email: [email or web address] Speech-Language Pathology Initial Evaluation FELT CHECKER Adult Cognitive Linguistic Eval Start: 01/06/21 12:19 Freq: Status: Active Protocol: Document 01/06/21 17:31 JOVI (Rec: 01/06/21 18:12 JOVI [id number]) Adult Cognitive Linguistic Evaluation Session Time Visit Start Time 09:30 Visit Stop Time 10:30 Total Visit Minutes 60 Visit Information Visit Number Initial Evaluation Plan of Care Dates 01/06/21 - 04/08/21 Insurance Information [facility] Referral Referring Provider Dr. Renny Haynes Reason for Referral CVA Setting Assessment Location Outpatient Care Visit Type Note Type Initial evaluation Next Note Type Next Note Type Treatment Note Patient Information Identification Type Name,ID Card Medical History The pt is a 70-yr-old female familiar to this FELT CHECKER from 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 On 11/25/20, the pt was admitted to the hospital with acute encephalopathy and malignant hypertension. She was initially confused. MRI findings on CT demonstrated a subacute left thalamic stroke. The patient was seen by speech pathology, PT and OT. She was functionally able to ambulate and had no weakness in the upper and lower extremities. However, she continued to have evidence of expressive and receptive aphasia. She dc'd from hospital to SNF, and then to home with HH. The pt will be receiving outpatient ST and PT services. 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 Subjective Patient Report The pt arrived on time accompanied by her . The couple provided updated case history. The pt was participatory in conversation but often with vague answers. Her provided detailed reports. The pt identified improving word recall and general thinking skills as goals and priorities. 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 Additionally, she managed grocery shopping ( online during the pandemic) and cooking, while her maintained laundry. The pt has not been using the computer since being home, and has been minimally participatory in generating shopping lists and cooking. She started reading a novel on her Esther yesterday. Her is managing her medications. Mental Status Alert,Responsive,Cooperative Assessment Oral Motor Examination Completed No Informal Assessment Receptive Language Normal WFL in basic conversation. Needs further assessment. Expressive Language Normal No: Vague language/fillers; WFDs; limited expression. Needs further assessment. Pragmatic Language Normal No Pragmatic Language Impairment(s) Flat affect,Initiation Speech Normal Yes Cognition Normal No Cognitive Impairment(s) Orientation,Short-term memory, Executive functioning,Problem solving Formal Assessment Standardized Test/Screener Type [place] Cognitive Assessment (MoCA) Administration Complete Results MoCA: (Normal = 26 or greater) Visuospatial/Executive function (3/5): Pt copied cube correctly and [place] with numbers of clock appropriately sequenced and spaced. Hands of equal length originated from center and pointed to 10 and 11. [place] making task included several errors in sequencing lines and objects. Naming (3/3): Extended time (~ 8 sec) required to name rhinoceros. Immediate Memory (not scored): 4/5 upon first trial; 5/5 upon second trial. Delayed Memory (0/5): Pt listed cat (not an item). Was unable to name others independently, with category cues, or with multiple choices . Attention (3/6): Pt repeated numbers in forward (5 items) and backward (3 items) order; tapped finger upon presentation of A with 1 error ; and was unable to count backwards by 7s. From 100, the pt responded, 103, 105, 104 and was unable to continue after that. Language (2/3): The pt correctly repeated sentences. She named 3 words beginning with F in 60 sec. Orientation (6): The pt was oriented to day of week, place , and city. Stated date as Jul 06, 1008. [place] Naming Test, Short Form : ; the pt named the remaining item with a phonemic cue. Findings/Results Language Function Mild-moderately impaired Cognitive Function Moderately impaired Findings The pt presented with mild- moderate expressive aphasia characterized by WFDs managed with filler words (e.g., stuff , like that, etc.) and limited initiation or expansion of conversation. She exhibited auditory comprehension WFLs during simple, ego-centric conversation, although deficits may be masked by expressive language impairments and require further evaluation. Reading and writing skills were not assessed and will be at next session with administration of [place] Diagnostic Aphasia Examination. The pt presents with moderately-severely impaired cognitive skills, as measured by MoCA screening tool. Deficits were noted in areas of executive functions, memory , mental flexibility, orientation, and word recall. Pt/family report the pt is beginning to participate in household tasks and demonstrating improving function. Further evaluation will be administered in treatment to guide POC. Cognitive Communication Deficits Self-awareness of Cognitive- Predictive awareness (able to Communication Deficits predict problem; impact of impairments) Concomitant Factors Comment Flat affect Impact on Functioning Activity Limits/Particip.Rest. Mod: General Tasks and Demands Household Tasks Sev: Interpersonal Interactions Community Safety Risks Mod: Being Left Alone at Home Sev: Reacting to Emergency Managing Medication Traveling Alone in Community Prognosis Prognosis Good Based on Family support,Comorbidities, Duration of symptoms/severity, Time since onset Plan of Care Speech-Language Treatment Yes Frequency 1x/wk for 16 wks Patient/Caregiver Education Described results of evaluation,Patient expressed understanding of evaluation, Patient expressed agreement with goals and treatment plans ,Family/caregivers expressed understanding of evaluation, Family/caregivers expressed agreement with goals and treatment plan,Patient requires further education/ training,Family/caregivers require further education/ training Short Term Goals 1. The pt will participate in further assessment of expressive, receptive and cognitive communication skills to identify strengths and deficits and to guide POC. 2. The pt will complete exercises targeting word recall with 80% accuracy to improve expressive language skills and increase conversation participation. 3. The pt will follow written instructions with 90% accuracy to perform functional tasks, such as remote control use, simple computer navigation, housekeeping tasks, etc. Additional goals to be established upon completion of assessment. Prison Goals 1. The pt will demonstrate expressive and receptive language skills WFL, as demonstrated by increased social and conversational participation and measured by pt/family report and clinical judgment. 2. The pt will demonstrate cognitive communication skills WFL, as demonstrated by at least 50% participation in household tasks completed by the pt prior to CVA (e.g., computer use, cooking, grocery shopping/planning, etc.) and measured by pt/family report and clinical judgment. Additional goals to be established upon completion of assessment.
--- NOTE | 2021-01-14 15:12 | ST.OPTN ---
Visit Care Team Role Provider Type Renny Haynes MD Attending Provider Physician Family Provider Primary Care Provider Referring Provider Address: [address] [place] [address], [address], [place], [address] FARM MACHINE TENDER Treatment Note FARM MACHINE TENDER Treatment Note Start: 01/06/21 12:19 Freq: Status: Active Protocol: Document 01/13/21 10:28 JOVI (Rec: 01/13/21 10:29 JOVI [id number]) Speech Pathology Treatment Note Session Time Visit Start Time 09:30 Visit Stop Time 10:20 Total Visit Minutes 50 Visit Information Visit Number 08/11 Plan of Care Dates 01/06/21 - 04/08/21 Insurance Information [facility] General Information General Information The pt is a 70-yr-old female familiar to this FARM MACHINE TENDER from 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 On 11/25/20, the pt was admitted to the hospital with acute encephalopathy and malignant hypertension. She was initially confused. MRI findings on CT demonstrated a subacute left thalamic stroke. The patient was seen by speech pathology, PT and OT. She was functionally able to ambulate and had no weakness in the upper and lower extremities. However, she continued to have evidence of expressive and receptive aphasia. She dc'd from hospital to SNF, and then to home with . The pt will be receiving outpatient ST and PT services. Subjective Others Present Family Observations/Patient Presentation The pt arrived on time accompanied by her who was present throughout for CG training to promote carryover of tx targets. No new complaints. 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 She has not yet attempted to work on the computer. The pt's inquired if tx frequency could be increased to 2x/wk. The pt and FARM MACHINE TENDER were in agreement with this request, which will be implemented when scheduling allows. Chief Complaint(s) Language,Cognitive Patient Knowledge/Awareness of FARM MACHINE TENDER Role Good in Treatment Parent/Caretake Knowledge/Awareness of Good FARM MACHINE TENDER Role in Treatment Objective Short Term Goals 1. The pt will participate in further assessment of expressive, receptive and cognitive communication skills to identify strengths and deficits and to guide POC. 2. The pt will complete exercises targeting word recall with 80% accuracy to improve expressive language skills and increase conversation participation. 3. The pt will follow written instructions with 90% accuracy to perform functional tasks, such as remote control use, simple computer navigation, housekeeping tasks, etc. 4. Given texts presented in writing or orally, the pt will answer questions related to inferential or implied meanings with 80% accuracy to improve comprehension of abstract concepts. 5. The pt will complete sequencing tasks (e.g., following a recipe, navigating phone/computer) with min v/v prompts to improve executive function and memory skills and increase pt's participation with functional and social ADLs. Additional goals to be established upon completion of assessment. Patcher Wood Welder Goals 1. The pt will demonstrate expressive and receptive language skills WFL, as demonstrated by increased social and conversational participation and measured by pt/family report and clinical judgment. 2. The pt will demonstrate cognitive communication skills WFL, as demonstrated by at least 50% participation in household tasks completed by the pt prior to CVA (e.g., computer use, cooking, grocery shopping/planning, etc.) and measured by pt/family report and clinical judgment. Additional goals to be established upon completion of assessment. Treatment Activities Continued assessment of expressive and receptive language via administration of [place] Diagnostic Aphasia Examination (BDAE) with the following results: SEVERITY RATIN/5, Moderate Impairment: The pt can discuss almost all everyday problems with little or no assistance. Reduction of speech and/or comprehension, however, makes conversation about certain material difficult or impossible. Picture Description: Appropriate syntax and word choices. Descriptions limited to concrete, visible facts; absent of intentions of characters, safety hazards, or other abstract concepts. When asked why the picture was named The Jamila Sosa, the pt responded, Because he seems to be stealing them. When asked what makes it appear that way, she stated, Just seems to be. FLUENCY: Phrase Length 7/7, 100%ile; Melodic Line 6/7, 60% ile; Grammatical Form 7/7, 100 %ile. COVERSATION/EXPOSITORY SPEECH: Simple Social Responses 6/7, 50%ile, AUDITORY COMPREHENSION: Basic Word Discrimination 15/16, 60% ile; Commands 9/10, 70%ile; Complex /Ideational Material 6 /6, 100%ile. ARTICULATION: Agility 6/7, 70% ile. RECITATION: Automatized Sequences 4/4, 100%ile. REPETITION: Words 5/5, 100%ile ; Sentences 2/2, 100%ile; NAMING: Responsive Naming 6/10 , 40%ile; [place] Naming Test 14/15, 90%ile; Special Categories 07/13, 100%ile; PARAPHASIA: 6/7, verbal x2, 60 %ile. READING: Matching Cases & Scripts 11/03, 100%; Number Matching 11/03, 100%ile; Picture -Word Matching 10/03, 40%ile; Oral Word Reading , 100% ile; Oral Sentence Reading 11/04 , 80%ile; Oral Sentence Comprehension 10/02, 100%ile; Sentence/Paraphraph Comprehension 11/03, 100%ile. WRITING: Form 07/15, 40%ile; Letter Choice , 100%ile; Motor Facility , 50%ile; Primer Words 11/03, 100%ile; Regular Phonics /, 50%ile; Common Irregular Words 10/02, 100%ile; Written Picture Naming 10/03, 80%ile. Narrative Writing 04/11, 90%ile . Assessment Rehab Potential Good Impairments Identified Aphasia,Cognitive-Linguistic Skills,Expressive Language, Memory - Short Term,Memory - Working,Receptive Language, Other Additional Impairments Identified Flat affect and prosody Assessment of Improvement The pt presents with moderate expressive and mild receptive aphasia characterized by limited scope of expression with minimal elaboration when prompted including categorical naming skills, occ WFDs and/ or semantic paraphasias, and reduced comprehension/ expression of abstract concepts. Conversation content is appropriate but limited in scope, often single word or short phrase responses. Example of semantic paraphasia and/or word recall difficulty: when pt was asked what we do with a pencil, she paused as if searching for answer and then responded, Make saravia. Auditory and reading comprehension are strengths, and writing skills appear largely WNLs, possibly mild reduced letter formation that may impact legibility. The pt does not typically write in cursive, accounting for the absence of writing the assessment sentence in cursive , as instructed. She did, however, write her name legibly in cursive (signature) . Reviewed with Patient Goals,Progress Being Made,Home Exercise Program Patient/Caregiver Understanding Good Plan Amount of Therapy Recommended 4 Months Frequency of Treatment Twice a Week Length of Session 45 Minutes Treatment Emphasis Next Session Assess problem solving w/ SCCAN reading task; inferential comprehension Therapeutic Contents Client Education,Cognitive- Linguistic Training,Expressive Language Training,Home Exercise Program,Information Processing,Receptive Language Training Provided Patient/Caregiver Instruction Home Exercise Program,Plan of Care,Questions/Concerns Therapy Recommendations Continue with Current Program
--- NOTE | 2021-01-20 15:24 | ST.OPTN ---
Visit Care Team Role Provider Type Renny Haynes MD Attending Provider Physician Family Provider Primary Care Provider Referring Provider Address: [address] [place] [address], [address], [place], [address] TIPPLE OILER Treatment Note TIPPLE OILER Treatment Note Start: 01/06/21 12:19 Freq: Status: Active Protocol: Document 01/20/21 15:10 JOVI (Rec: 01/20/21 15:24 JOVI [id number]) Speech Pathology Treatment Note Session Time Visit Start Time 10:30 Visit Stop Time 11:15 Total Visit Minutes 45 Visit Information Visit Number 09/11 Plan of Care Dates 01/06/21 - 04/08/21 Insurance Information [facility] Setting Treatment Setting Outpatient Care Next Note Type Next Note Type Treatment Note General Information General Information The pt is a 70-yr-old female familiar to this TIPPLE OILER from 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 On 11/25/20, the pt was admitted to the hospital with acute encephalopathy and malignant hypertension. She was initially confused. MRI findings on CT demonstrated a subacute left thalamic stroke. The patient was seen by speech pathology, PT and OT. She was functionally able to ambulate and had no weakness in the upper and lower extremities. However, she continued to have evidence of expressive and receptive aphasia. She dc'd from hospital to SNF, and then to home with . The pt will be receiving outpatient ST and PT services. Subjective Others Present Family Observations/Patient Presentation The pt arrived on time accompanied by her who was present throughout for CG training to promote carryover of tx targets. No new complaints. 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 She is starting to participate in meal prep and looking on the Internet. Chief Complaint(s) Language,Cognitive Patient Knowledge/Awareness of TIPPLE OILER Role Good in Treatment Parent/Caretake Knowledge/Awareness of Good TIPPLE OILER Role in Treatment Objective Short Term Goals 1. The pt will participate in further assessment of expressive, receptive and cognitive communication skills to identify strengths and deficits and to guide POC. 2. The pt will complete exercises targeting word recall with 80% accuracy to improve expressive language skills and increase conversation participation. 3. The pt will follow written instructions with 90% accuracy to perform functional tasks, such as remote control use, simple computer navigation, housekeeping tasks, etc. 4. Given texts presented in writing or orally, the pt will answer questions related to inferential or implied meanings with 80% accuracy to improve comprehension of abstract concepts. 5. The pt will complete sequencing tasks (e.g., following a recipe, navigating phone/computer) with min v/v prompts to improve executive function and memory skills and increase pt's participation with functional and social ADLs. Additional goals to be established upon completion of assessment. Senior Care Goals 1. The pt will demonstrate expressive and receptive language skills WFL, as demonstrated by increased social and conversational participation and measured by pt/family report and clinical judgment. 2. The pt will demonstrate cognitive communication skills WFL, as demonstrated by at least 50% participation in household tasks completed by the pt prior to CVA (e.g., computer use, cooking, grocery shopping/planning, etc.) and measured by pt/family report and clinical judgment. Additional goals to be established upon completion of assessment. Treatment Activities Continued assessment of reading comprehension and problem solving skills with reading task taken from SCCAN assessment tool. Given a list of 4 tasks that include time constraints, the pt was asked to sequence steps. Initially she listed the first two items as steps 1 and 2, then recorded times next to items 3 and 4. Verbal prompts were provided, and pt listed items 1-4 in the order presented ( incorrect). With each step isolated visually, the pt read content with 100% accuracy and answered questions with 57 % accuracy regarding specific content and sequencing. Pt required max v/v cues including color highlights of critical information to sequence items appropriately. Skilled feedback was provided. Assessed pt's ability to navigate iPad including turning on/off (min prompts), entering passcode (independent ), opening and closing apps ( min prompts), reading email ( independent), opening a new message to compose (mod prompts with review of icons), and searching [employer] (mod prompts). The pt accessed a game of Envysion on iPad. She demonstrated excellent understanding of and ability to play the game. Moderate- severe deficits exhibited in pt's ability to explain how to play the game. She answers to questions related to rules of play with ~65% acc. Assessment Rehab Potential Good Impairments Identified Aphasia,Cognitive-Linguistic Skills,Expressive Language, Memory - Short Term,Memory - Working,Receptive Language, Other Additional Impairments Identified Flat affect and prosody Assessment of Improvement The pt exhibited moderate to severe deficits in executive function including sequencing written material that related to time, and in expressive language necessary to explain steps to a [employer] card game. She played the same card game independently, demonstrating understanding of rules, and exhibited moderate ability to navigate a variety of apps on her iPad. She is improving in participation with household tasks, per pt/spouse reports. Reviewed with Patient Goals,Progress Being Made,Home Exercise Program Patient/Caregiver Understanding Good Plan Amount of Therapy Recommended 4 Months Frequency of Treatment Twice a Week Length of Session 45 Minutes Treatment Emphasis Next Session Introduce Constant Therapy HEP zoya Therapeutic Contents Client Education,Cognitive- Linguistic Training,Expressive Language Training,Home Exercise Program,Information Processing,Receptive Language Training Provided Patient/Caregiver Instruction Home Exercise Program,Plan of Care,Questions/Concerns Therapy Recommendations Continue with Current Program
--- NOTE | 2021-01-27 17:27 | ST.OPTN ---
Visit Care Team Role Provider Type Renny Haynes MD Attending Provider Physician Family Provider Primary Care Provider Referring Provider Address: [address] [place] [address], [address], [place], [address] BID ANALYST Treatment Note BID ANALYST Treatment Note Start: 01/06/21 12:19 Freq: Status: Active Protocol: Document 01/27/21 17:18 JOVI (Rec: 01/27/21 17:22 JOVI [id number]) Speech Pathology Treatment Note Session Time Visit Start Time 09:35 Visit Stop Time 10:20 Total Visit Minutes 45 Visit Information Visit Number 10/[id number] Plan of Care Dates 01/06/21 - 04/08/21 Insurance Information [facility] Setting Treatment Setting Outpatient Care Next Note Type Next Note Type Treatment Note General Information General Information The pt is a 70-yr-old female familiar to this BID ANALYST from 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 On 11/25/20, the pt was admitted to the hospital with acute encephalopathy and malignant hypertension. She was initially confused. MRI findings on CT demonstrated a subacute left thalamic stroke. The patient was seen by speech pathology, PT and OT. She was functionally able to ambulate and had no weakness in the upper and lower extremities. However, she continued to have evidence of expressive and receptive aphasia. She dc'd from hospital to SNF, and then to home with . The pt will be receiving outpatient ST and PT services. Subjective Others Present Family Observations/Patient Presentation The pt arrived on time accompanied by her who was present throughout for CG training to promote carryover of tx targets. No new complaints. The pt/ spouse downloaded Constant Therapy zoya on iPad, which they brought to complete establishment of new account and set up homework. Chief Complaint(s) Language,Cognitive Patient Knowledge/Awareness of BID ANALYST Role Good in Treatment Parent/Caretake Knowledge/Awareness of Good BID ANALYST Role in Treatment Objective Short Term Goals 1. The pt will participate in further assessment of expressive, receptive and cognitive communication skills to identify strengths and deficits and to guide POC. 2. The pt will complete exercises targeting word recall with 80% accuracy to improve expressive language skills and increase conversation participation. 3. The pt will follow written instructions with 90% accuracy to perform functional tasks, such as remote control use, simple computer navigation, housekeeping tasks, etc. 4. Given texts presented in writing or orally, the pt will answer questions related to inferential or implied meanings with 80% accuracy to improve comprehension of abstract concepts. 5. The pt will complete sequencing tasks (e.g., following a recipe, navigating phone/computer) with min v/v prompts to improve executive function and memory skills and increase pt's participation with functional and social ADLs. Additional goals to be established upon completion of assessment. Longterm Goals 1. The pt will demonstrate expressive and receptive language skills WFL, as demonstrated by increased social and conversational participation and measured by pt/family report and clinical judgment. 2. The pt will demonstrate cognitive communication skills WFL, as demonstrated by at least 50% participation in household tasks completed by the pt prior to CVA (e.g., computer use, cooking, grocery shopping/planning, etc.) and measured by pt/family report and clinical judgment. Additional goals to be established upon completion of assessment. Treatment Activities Pt logged into computer from written username and password, initially with min verbal prompts from , improving to independence upon second attempt later in the session. Established Constant Therapy account and initiated training of a variety of tasks and establishment of HEP. The pt completed confrontational naming task with 100% accuracy . She followed oral instructions: 1 component, 80% acc (1 error made following an interruption to task, challenging delayed memory); 2 components, 85% acc. Instruted pt in several other tasks; pt completed 1-2 trials per task to demonstrate understanding. Assessment Rehab Potential Good Impairments Identified Aphasia,Cognitive-Linguistic Skills,Expressive Language, Memory - Short Term,Memory - Working,Receptive Language, Other Additional Impairments Identified Flat affect and prosody Assessment of Improvement The pt was responsive to all training today, demonstrating ability to navigate iPad and Constant Therapy (CT) zoya. She returned demonstration of all tasks. Exhibited minimal impairment in following oral instructions (1 and 2 components), including when task was interrupted. The pt is an excellent candidate for CT home exercises. Will continue training at next session. Reviewed with Patient Goals,Progress Being Made,Home Exercise Program Patient/Caregiver Understanding Good Plan Amount of Therapy Recommended 4 Months Frequency of Treatment Twice a Week Length of Session 45 Minutes Treatment Emphasis Next Session Introduce Constant Therapy HEP zoya Therapeutic Contents Client Education,Cognitive- Linguistic Training,Expressive Language Training,Home Exercise Program,Information Processing,Receptive Language Training Provided Patient/Caregiver Instruction Home Exercise Program,Plan of Care,Questions/Concerns Therapy Recommendations Continue with Current Program
--- NOTE | 2021-02-05 15:19 | ST.OPTN ---
Visit Care Team Role Provider Type Renny Haynes MD Attending Provider Physician Family Provider Primary Care Provider Referring Provider Address: [address] [place] [address], [address], [place], [address] TENNIS DIRECTOR Treatment Note TENNIS DIRECTOR Treatment Note Start: 01/06/21 12:19 Freq: Status: Active Protocol: Document 02/05/21 17:53 JOVI (Rec: 02/05/21 17:57 JOVI [id number]) Speech Pathology Treatment Note Session Time Visit Start Time 09:30 Visit Stop Time 10:20 Total Visit Minutes 50 Visit Information Visit Number 11/09 Plan of Care Dates 01/06/21 - 04/08/21 Insurance Information [facility] Setting Treatment Setting Outpatient Care Next Note Type Next Note Type Treatment Note General Information General Information The pt is a 70-yr-old female familiar to this TENNIS DIRECTOR from 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 On 11/25/20, the pt was admitted to the hospital with acute encephalopathy and malignant hypertension. She was initially confused. MRI findings on CT demonstrated a subacute left thalamic stroke. The patient was seen by speech pathology, PT and OT. She was functionally able to ambulate and had no weakness in the upper and lower extremities. However, she continued to have evidence of expressive and receptive aphasia. She dc'd from hospital to SNF, and then to home with . The pt will be receiving outpatient ST and PT services. Subjective Others Present Family Observations/Patient Presentation The pt arrived on time accompanied by her who was present throughout for CG training to promote carryover of tx targets. No new complaints. Using Constant Therapy at home. noted increased confusion in the pt's ability to orient and sequence tasks such as getting dressed and helping clear food/dishes from table. He also observed the pt's difficulty in using a calculator to set up simple math problems during home practice, requiring his assistance. Chief Complaint(s) Language,Cognitive Patient Knowledge/Awareness of TENNIS DIRECTOR Role Good in Treatment Parent/Caretake Knowledge/Awareness of Good TENNIS DIRECTOR Role in Treatment Objective Short Term Goals 1. The pt will participate in further assessment of expressive, receptive and cognitive communication skills to identify strengths and deficits and to guide POC. 2. The pt will complete exercises targeting word recall with 80% accuracy to improve expressive language skills and increase conversation participation. 3. The pt will follow written instructions with 90% accuracy to perform functional tasks, such as remote control use, simple computer navigation, housekeeping tasks, etc. 4. Given texts presented in writing or orally, the pt will answer questions related to inferential or implied meanings with 80% accuracy to improve comprehension of abstract concepts. 5. The pt will complete sequencing tasks (e.g., following a recipe, navigating phone/computer) with min v/v prompts to improve executive function and memory skills and increase pt's participation with functional and social ADLs. Additional goals to be established upon completion of assessment. Prison Goals 1. The pt will demonstrate expressive and receptive language skills WFL, as demonstrated by increased social and conversational participation and measured by pt/family report and clinical judgment. 2. The pt will demonstrate cognitive communication skills WFL, as demonstrated by at least 50% participation in household tasks completed by the pt prior to CVA (e.g., computer use, cooking, grocery shopping/planning, etc.) and measured by pt/family report and clinical judgment. Additional goals to be established upon completion of assessment. Treatment Activities Consulted with pt/spouse RE confusion with temporal and sequential tasks at home. Education was provided to answer their qurestions. Initiated training of calculator use to assist pt in completing functional mathematical tasks. Pt required max prompts to identify and navigate keys on calculator. Benefited from both visual and verbal cues, including elimination of visual access to extraneous keys. Pt had to copy from written text to perform basic math calculations. Needs reinforcement. Assessment Patient Response to Treatment Good Rehab Potential Good Impairments Identified Aphasia,Cognitive-Linguistic Skills,Expressive Language, Memory - Short Term,Memory - Working,Receptive Language, Other Additional Impairments Identified Flat affect and prosody Assessment of Improvement Pt exhibited minimal recognition of calculator keys , with which she was very familiar prior to stroke. She required basic retraining of calculator use and basic math problem setup and benefited from visual isolation, written text to copy, and repetition. HEP tasks provided. 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 Reviewed with Patient Goals,Progress Being Made,Home Exercise Program Patient/Caregiver Understanding Good Plan Amount of Therapy Recommended 4 Months Frequency of Treatment Twice a Week Length of Session 45 Minutes Treatment Emphasis Next Session Introduce Constant Therapy HEP zoya Therapeutic Contents Client Education,Cognitive- Linguistic Training,Expressive Language Training,Home Exercise Program,Information Processing,Receptive Language Training Provided Patient/Caregiver Instruction Home Exercise Program,Plan of Care,Questions/Concerns Therapy Recommendations Continue with Current Program
--- NOTE | 2021-02-10 16:56 | ST.OPTN ---
Visit Care Team Role Provider Type Renny Haynes MD Attending Provider Physician Family Provider Primary Care Provider Referring Provider Address: [address] [place] [address], [address], [place], [address] BLASTING WORKER Treatment Note BLASTING WORKER Clinical Instructor Line Start: 02/10/21 16:33 Freq: Status: Active Protocol: Document 02/10/21 16:35 JOVI (Rec: 02/10/21 16:35 JOVI [email or web address]) Clinical Instructor Signature Clinical Instructor Clinical Instructor Yes BLASTING WORKER Treatment Note Start: 01/06/21 12:19 Freq: Status: Active Protocol: Document 02/10/21 12:14 EB (Rec: 02/10/21 12:23 EB [email or web address]) Speech Pathology Treatment Note Session Time Visit Start Time 10:30 Visit Stop Time 11:15 Total Visit Minutes 45 Visit Information Visit Number 12/09 Plan of Care Dates 01/06/21 - 04/08/21 Insurance Information [facility] Setting Treatment Setting Outpatient Care Next Note Type Next Note Type Treatment Note General Information General Information The pt is a 70-yr-old female familiar to this BLASTING 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 On 11/25/20, the pt was admitted to the hospital with acute encephalopathy and malignant hypertension. She was initially confused. MRI findings on CT demonstrated a subacute left thalamic stroke. The patient was seen by speech pathology, PT and OT. She was functionally able to ambulate and had no weakness in the upper and lower extremities. However, she continued to have evidence of expressive and receptive aphasia. She dc'd from hospital to SNF, and then to home with . The pt will be receiving outpatient ST and PT services. Subjective Others Present Family,Student Observations/Patient Presentation The pt arrived on time accompanied by her who was present throughout for CG training to promote carryover of tx targets. No new complaints. Using Constant Therapy at home as well as an math addition worksheet provided by BLASTING WORKER last week. again noted confusion in the pt's ability to orient and sequence tasks such as getting dressed. He also observed the pt's difficulty in completing simple math problems during home practice, often requiring his assistance. He also reported the pt perseverated on a particular number across multiple math problems. Session conducted and note written by student BLASTING WORKER Nadeen Mccray. Chief Complaint(s) Language,Cognitive Patient Knowledge/Awareness of BLASTING WORKER Role Good in Treatment Parent/Caretake Knowledge/Awareness of Good BLASTING WORKER Role in Treatment Objective Short Term Goals 1. The pt will participate in further assessment of expressive, receptive and cognitive communication skills to identify strengths and deficits and to guide POC. 2. The pt will complete exercises targeting word recall with 80% accuracy to improve expressive language skills and increase conversation participation. 3. The pt will follow written instructions with 90% accuracy to perform functional tasks, such as remote control use, simple computer navigation, housekeeping tasks, etc. 4. Given texts presented in writing or orally, the pt will answer questions related to inferential or implied meanings with 80% accuracy to improve comprehension of abstract concepts. 5. The pt will complete sequencing tasks (e.g., following a recipe, navigating phone/computer) with min v/v prompts to improve executive function and memory skills and increase pt's participation with functional and social ADLs. Additional goals to be established upon completion of assessment. [employer] Goals 1. The pt will demonstrate expressive and receptive language skills WFL, as demonstrated by increased social and conversational participation and measured by pt/family report and clinical judgment. 2. The pt will demonstrate cognitive communication skills WFL, as demonstrated by at least 50% participation in household tasks completed by the pt prior to CVA (e.g., computer use, cooking, grocery shopping/planning, etc.) and measured by pt/family report and clinical judgment. Additional goals to be established upon completion of assessment. Treatment Activities Consulted and provided education to pt/spouse re general confusion and perseveration that has been noted at home. Spouse reported that pt's confusion seems to vary. Targeted simple addition problems and checking those answers on a calculator. Pt required maximum cueing in order to correctly copy over the math problem to the calculator. Pt answered simple addition problems with 30% accuracy; the problems she was most successful with were problems containing the number 1 i.e. 1+6=7. Introduced new Constant Therapy task which targets formulating Subject+Verb+ Object sentence structure. Pt/ spouse demonstrated understanding of HEP and level of cueing that pt's spouse will likely need to provide in order to complete homework. Assessment Patient Response to Treatment Good Rehab Potential Good Impairments Identified Aphasia,Cognitive-Linguistic Skills,Expressive Language, Memory - Short Term,Memory - Working,Receptive Language, Other Additional Impairments Identified Flat affect and prosody Assessment of Improvement Pt continued to exhibit minimal recognition of calculator keys, with which she was very familiar prior to stroke. She required basic retraining of calculator use and basic math problem setup in order to copy a presented problem onto the calculator. Recognizing and copying symbols/writing will be further targeted in future sessions. BLASTING WORKER noted an increase in perseveration across different therapy tasks ; will continue to provide education and training to decrease the tendency to perseverate. Reviewed with Patient Goals,Progress Being Made,Home Exercise Program Patient/Caregiver Understanding Good Plan Amount of Therapy Recommended 4 Months Frequency of Treatment Twice a Week Length of Session 45 Minutes Treatment Emphasis Next Session Introduce Constant Therapy HEP zoya Therapeutic Contents Client Education,Cognitive- Linguistic Training,Expressive Language Training,Home Exercise Program,Information Processing,Receptive Language Training Provided Patient/Caregiver Instruction Home Exercise Program,Plan of Care,Questions/Concerns Therapy Recommendations Continue with Current Program
--- NOTE | 2021-02-17 12:07 | ST.OPTN ---
Visit Care Team Role Provider Type Renny Haynes MD Attending Provider Physician Family Provider Primary Care Provider Referring Provider Address: [address] [place] [address], [address], [place], [address] STEP DOWN NURSE Treatment Note STEP DOWN NURSE Clinical Instructor Line Start: 02/10/21 16:33 Freq: Status: Active Protocol: Document 02/17/21 12:07 JOVI (Rec: 02/17/21 12:07 JOVI [email or web address]) Clinical Instructor Signature Clinical Instructor Clinical Instructor Yes STEP DOWN NURSE Treatment Note Start: 01/06/21 12:19 Freq: Status: Active Protocol: Document 02/17/21 11:38 EB (Rec: 02/17/21 12:00 EB [id number]) Speech Pathology Treatment Note Session Time Visit Start Time 10:35 Visit Stop Time 11:15 Total Visit Minutes 40 Visit Information Visit Number 01/09 Plan of Care Dates 01/06/21 - 04/08/21 Insurance Information [facility] Setting Treatment Setting Outpatient Care Next Note Type Next Note Type Treatment Note General Information General Information The pt is a 70-yr-old female familiar to this STEP DOWN NURSE from 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 On 11/25/20, the pt was admitted to the hospital with acute encephalopathy and malignant hypertension. She was initially confused. MRI findings on CT demonstrated a subacute left thalamic stroke. The patient was seen by speech pathology, PT and OT. She was functionally able to ambulate and had no weakness in the upper and lower extremities. However, she continued to have evidence of expressive and receptive aphasia. She dc'd from hospital to SNF, and then to home with . The pt will be receiving outpatient ST and PT services. Subjective Others Present Family,Student Observations/Patient Presentation The pt arrived 5 minutes late accompanied by her who was present throughout for CG training to promote carryover of tx targets. No new complaints. Pt recently renewed Constant Therapy subscription in order to practice therapy tasks at home. Session conducted and note written by student STEP DOWN NURSE Nadeen Mccray. Chief Complaint(s) Language,Cognitive Patient Knowledge/Awareness of STEP DOWN NURSE Role Good in Treatment Parent/Caretake Knowledge/Awareness of Good STEP DOWN NURSE Role in Treatment Objective Short Term Goals 1. The pt will participate in further assessment of expressive, receptive and cognitive communication skills to identify strengths and deficits and to guide POC. 2. The pt will complete exercises targeting word recall with 80% accuracy to improve expressive language skills and increase conversation participation. 3. The pt will follow written instructions with 90% accuracy to perform functional tasks, such as remote control use, simple computer navigation, housekeeping tasks, etc. 4. Given texts presented in writing or orally, the pt will answer questions related to inferential or implied meanings with 80% accuracy to improve comprehension of abstract concepts. 5. The pt will complete sequencing tasks (e.g., following a recipe, navigating phone/computer) with min v/v prompts to improve executive function and memory skills and increase pt's participation with functional and social ADLs. Additional goals to be established upon completion of assessment. [facility] Goals 1. The pt will demonstrate expressive and receptive language skills WFL, as demonstrated by increased social and conversational participation and measured by pt/family report and clinical judgment. 2. The pt will demonstrate cognitive communication skills WFL, as demonstrated by at least 50% participation in household tasks completed by the pt prior to CVA (e.g., computer use, cooking, grocery shopping/planning, etc.) and measured by pt/family report and clinical judgment. Additional goals to be established upon completion of assessment. Treatment Activities Targeted sequencing and picture description through [place] zoya. Pt perseverated on written directions 7 times during therapy task. Pt independently answered the question who is doing what? 40% of the time. During other trials, pt required mod-max prompting to achieve the correct answer. Pt required mod-max cueing in order to sequence steps required for task, cueing was faded to min-mod by the end of the session. Instructed pt and pt's spouse to continue targeting the skill at home with Constant Therapy zoya, both verbally agreed. Assessment Patient Response to Treatment Good Rehab Potential Good Impairments Identified Aphasia,Cognitive-Linguistic Skills,Expressive Language, Memory - Short Term,Memory - Working,Receptive Language, Other Additional Impairments Identified Flat affect and prosody Assessment of Improvement Pt showed an increase in perseveration which interfered with her ability to complete the task. When asked who is doing what?, pt consistently answered who correctly, but would then repeat written instructions. Education provided regarding perseveration and strategies for reducing it at home (e.g. covering written instructions) . One instance of noted WFD, but later pt restated the sentence containing the target word. Phonemic and sentence completion cues appeared to be helpful for pt. Reviewed with Patient Goals,Progress Being Made,Home Exercise Program Patient/Caregiver Understanding Good Plan Amount of Therapy Recommended 4 Months Frequency of Treatment Twice a Week Length of Session 45 Minutes Treatment Emphasis Next Session Introduce Constant Therapy HEP zoya Therapeutic Contents Client Education,Cognitive- Linguistic Training,Expressive Language Training,Home Exercise Program,Information Processing,Receptive Language Training Provided Patient/Caregiver Instruction Home Exercise Program,Plan of Care,Questions/Concerns Therapy Recommendations Continue with Current Program
--- NOTE | 2021-02-19 17:52 | ST.OPTN ---
Visit Care Team Role Provider Type Renny Haynes MD Attending Provider Physician Family Provider Primary Care Provider Referring Provider Address: [address] [place] [address], [address], [place], [address] ASSEMBLING MACHINE OPERATOR Treatment Note ASSEMBLING MACHINE OPERATOR Clinical Instructor Line Start: 02/10/21 16:33 Freq: Status: Active Protocol: Document 02/19/21 17:37 JOVI (Rec: 02/19/21 17:37 JOVI [email or web address]) Clinical Instructor Signature Clinical Instructor Clinical Instructor Yes ASSEMBLING MACHINE OPERATOR Treatment Note Start: 01/06/21 12:19 Freq: Status: Active Protocol: Document 02/19/21 12:41 EB (Rec: 02/19/21 13:05 EB [email or web address]) Speech Pathology Treatment Note Session Time Visit Start Time 10:35 Visit Stop Time 11:20 Total Visit Minutes 45 Visit Information Visit Number 02/08 Plan of Care Dates 01/06/21 - 04/08/21 Insurance Information [facility] Setting Treatment Setting Outpatient Care Next Note Type Next Note Type Treatment Note General Information General Information The pt is a 70-yr-old female familiar to this ASSEMBLING MACHINE OPERATOR from 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 On 11/25/20, the pt was admitted to the hospital with acute encephalopathy and malignant hypertension. She was initially confused. MRI findings on CT demonstrated a subacute left thalamic stroke. The patient was seen by speech pathology, PT and OT. She was functionally able to ambulate and had no weakness in the upper and lower extremities. However, she continued to have evidence of expressive and receptive aphasia. She dc'd from hospital to SNF, and then to home with . The pt will be receiving outpatient ST and PT services. Subjective Others Present Family,Student Observations/Patient Presentation The pt was accompanied by her who was present throughout for CG training to promote carryover of tx targets. Pt's spouse reported that HEP went well and that 1-step directions appear to be an appropriate target for the pt at this time. Spouse also reported that pt is continuing to have difficulty sequencing steps required for getting dressed in the morning. No new complaints. Session conducted and note written by student ASSEMBLING MACHINE OPERATOR Nadeen Mccray. Chief Complaint(s) Language,Cognitive Patient Knowledge/Awareness of ASSEMBLING MACHINE OPERATOR Role Good in Treatment Parent/Caretake Knowledge/Awareness of Good ASSEMBLING MACHINE OPERATOR Role in Treatment Objective Short Term Goals 1. The pt will participate in further assessment of expressive, receptive and cognitive communication skills to identify strengths and deficits and to guide POC. 2. The pt will complete exercises targeting word recall with 80% accuracy to improve expressive language skills and increase conversation participation. 3. The pt will follow written instructions with 90% accuracy to perform functional tasks, such as remote control use, simple computer navigation, housekeeping tasks, etc. 4. Given texts presented in writing or orally, the pt will answer questions related to inferential or implied meanings with 80% accuracy to improve comprehension of abstract concepts. 5. The pt will complete sequencing tasks (e.g., following a recipe, navigating phone/computer) with min v/v prompts to improve executive function and memory skills and increase pt's participation with functional and social ADLs. Additional goals to be established upon completion of assessment. Detention Goals 1. The pt will demonstrate expressive and receptive language skills WFL, as demonstrated by increased social and conversational participation and measured by pt/family report and clinical judgment. 2. The pt will demonstrate cognitive communication skills WFL, as demonstrated by at least 50% participation in household tasks completed by the pt prior to CVA (e.g., computer use, cooking, grocery shopping/planning, etc.) and measured by pt/family report and clinical judgment. Additional goals to be established upon completion of assessment. Treatment Activities Targeted sequencing and picture description through ConstantTherapy zoya. Written instructions were obscured to decrease perseverations; this appeared to be helpful as pt perseverated only 3 times during therapy task. Prior to beginning the task, errorless- learning was implemented to reinforce the steps needed to record the pt's voice on the zoya so pt can more easily use the zoya at home. Pt independently answered the question who is doing what? with 80% accuracy. After reviewing the steps, pt required mod cueing in order to sequence steps required for task, cueing was faded to min -mod by the end of the session . Assessment Patient Response to Treatment Good Rehab Potential Good Impairments Identified Aphasia,Cognitive-Linguistic Skills,Expressive Language, Memory - Short Term,Memory - Working,Receptive Language, Other Additional Impairments Identified Flat affect and prosody Assessment of Improvement Pt demonstrated a significant decrease in perseverations when written directions were covered. Education provided to pt's spouse RE supporting/ prompting pt during HEP, spouse verbally expressed understanding. Decreasing the opportunity to perseverate also appeared to aid the pt's ability to focus on the therapy task as evidenced by a significant increase in her accuracy percentage when compared to previous session. Pt also appeared to benefit from errorless-learning to reinforce sequencing task as she needed less cueing than previous session. In conversational speech, pt was noted as being short and vague in her responses, likely due to WFD. Pt's spouse reported that pt continues to have difficulty sequencing the steps required for getting dressed, will collaborate with pt and spouse next session to target this skill and reduce caregiver burden. Reviewed with Patient Goals,Progress Being Made,Home Exercise Program Patient/Caregiver Understanding Good Plan Amount of Therapy Recommended 4 Months Frequency of Treatment Twice a Week Length of Session 45 Minutes Treatment Emphasis Next Session Sequencing related to dressing Therapeutic Contents Client Education,Cognitive- Linguistic Training,Expressive Language Training,Home Exercise Program,Information Processing,Receptive Language Training Provided Patient/Caregiver Instruction Home Exercise Program,Plan of Care,Questions/Concerns Therapy Recommendations Continue with Current Program
--- NOTE | 2021-03-11 11:35 | ST.OPTN ---
Visit Care Team Role Provider Type Renny Haynes MD Attending Provider Physician Family Provider Primary Care Provider Referring Provider Address: [address] [place] [address], [address], [place], [address] CLINICAL ENGINEERING DIRECTOR Treatment Note CLINICAL ENGINEERING DIRECTOR Clinical Instructor Line Start: 02/10/21 16:33 Freq: Status: Active Protocol: Document 02/19/21 17:37 JOVI (Rec: 02/19/21 17:37 JOVI [email or web address]) Clinical Instructor Signature Clinical Instructor Clinical Instructor Yes CLINICAL ENGINEERING DIRECTOR Treatment Note Start: 01/06/21 12:19 Freq: Status: Active Protocol: Document 03/11/21 11:22 JOVI (Rec: 03/11/21 11:35 JOVI [email or web address]) Speech Pathology Treatment Note Session Time Visit Start Time 10:30 Visit Stop Time 11:20 Total Visit Minutes 50 Visit Information Visit Number 03/11 Plan of Care Dates 01/06/21 - 04/08/21 Insurance Information [facility] Setting Treatment Setting Outpatient Care Visit Type Note Type Treatment Note Next Note Type Next Note Type Treatment Note General Information General Information The pt is a 70-yr-old female familiar to this CLINICAL ENGINEERING DIRECTOR from 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 On 11/25/20, the pt was admitted to the hospital with acute encephalopathy and malignant hypertension. She was initially confused. MRI findings on CT demonstrated a subacute left thalamic stroke. The patient was seen by speech pathology, PT and OT. She was functionally able to ambulate and had no weakness in the upper and lower extremities. However, she continued to have evidence of expressive and receptive aphasia. She dc'd from hospital to SNF, and then to home with . The pt will be receiving outpatient ST and PT services. Subjective Identification Type Name,Date of Others Present Family,Student Observations/Patient Presentation The pt was accompanied by her who was present throughout for CG training to promote carryover of tx targets. The pt was recently hospitalized for anemia, feeling better now and back home. Initial symptoms included confusion, which the ED doctor stated was d/t reduced oxygen to the brain. Pt stated she feels she is back to her baseline post stroke and prior to this hospitalization. Spouse reported the pt has demonstrated progress by increasing engagement in conversation and reduced confusion with dressing, though occ mild confusion remains. Chief Complaint(s) Language,Cognitive Additional Areas of Concern Cognition Patient Knowledge/Awareness of CLINICAL ENGINEERING DIRECTOR Role Good in Treatment Parent/Caretake Knowledge/Awareness of Good CLINICAL ENGINEERING DIRECTOR Role in Treatment Objective Short Term Goals 1. The pt will participate in further assessment of expressive, receptive and cognitive communication skills to identify strengths and deficits and to guide POC. 2. The pt will complete exercises targeting word recall with 80% accuracy to improve expressive language skills and increase conversation participation. 3. The pt will follow written instructions with 90% accuracy to perform functional tasks, such as remote control use, simple computer navigation, housekeeping tasks, etc. 4. Given texts presented in writing or orally, the pt will answer questions related to inferential or implied meanings with 80% accuracy to improve comprehension of abstract concepts. 5. The pt will complete sequencing tasks (e.g., following a recipe, navigating phone/computer) with min v/v prompts to improve executive function and memory skills and increase pt's participation with functional and social ADLs. Additional goals to be established upon completion of assessment. Detention Goals 1. The pt will demonstrate expressive and receptive language skills WFL, as demonstrated by increased social and conversational participation and measured by pt/family report and clinical judgment. 2. The pt will demonstrate cognitive communication skills WFL, as demonstrated by at least 50% participation in household tasks completed by the pt prior to CVA (e.g., computer use, cooking, grocery shopping/planning, etc.) and measured by pt/family report and clinical judgment. Additional goals to be established upon completion of assessment. Treatment Activities Re-assessed pt's expressive language and cognitive communication skills informally with confrontational naming, description of objects, and sequencing of tasks. Confrontational Namin/30 (77% acc) + 3 answers with semantic cues and 4 answers with phonemic cues. Object Description: 9/11 (82% acc), perseveration x2 corrected with semantic prompts. Sequencing: Max assist required to sequence two 3- step tasks on the computer; Independent sequencing of getting dressed including up to 6 clothing items pictures. Skilled feedback and findings provided to pt/spouse, as well as recommendations for home practice. Pt/spouse verbalized agreement. Pt followed 1- to 2-step directions with ~80% acc, requiring repetition with sequencing left to right instructions. Assessment Patient Response to Treatment Good Rehab Potential Good Impairments Identified Aphasia,Cognitive-Linguistic Skills,Expressive Language, Memory - Short Term,Memory - Working,Receptive Language, Other Additional Impairments Identified Flat affect and prosody Progress Towards Goals Good Progress Assessment of Overall Progress Improving Assessment of Improvement Informal assessment results indicate continued mild- moderate word recall and expressive/receptive language deficits and moderate reasoning deficits, specific to sequencing. Pt exhibited excellent focused and sustained attention skills and was highly responsive to both semantic and phonemic cues. The pt's verbal output continues to be limited to short, simple sentences and phrases or one-word answers. She was appropriately engaged throughout all conversation and tasks. Will continue goals as stated. Reviewed with Patient Goals,Progress Being Made,Home Exercise Program Patient/Caregiver Understanding Good Plan Amount of Therapy Recommended 4 Months Comment while inpatient Frequency of Treatment Twice a Week Length of Session 45 Minutes Treatment Emphasis Next Session Constant Therapy HEP zoya Therapeutic Contents Client Education,Cognitive- Linguistic Training,Expressive Language Training,Home Exercise Program,Information Processing,Receptive Language Training Provided Patient/Caregiver Instruction Home Exercise Program,Plan of Care,Questions/Concerns Comment Discussed importance of working with personal information and naming Therapy Recommendations Continue with Current Program
--- NOTE | 2021-03-12 13:36 | ST.OPTN ---
Visit Care Team Role Provider Type Renny Haynes MD Attending Provider Physician Family Provider Primary Care Provider Referring Provider Address: [address] [place] [address], [address], [place], [address] VACUUM WORKER Treatment Note VACUUM WORKER Clinical Instructor Line Start: 02/10/21 16:33 Freq: Status: Active Protocol: Document 02/19/21 17:37 JOVI (Rec: 02/19/21 17:37 JOVI [email or web address]) Clinical Instructor Signature Clinical Instructor Clinical Instructor Yes VACUUM WORKER Treatment Note Start: 01/06/21 12:19 Freq: Status: Active Protocol: Document 03/12/21 13:21 JOVI (Rec: 03/12/21 13:36 JOVI [email or web address]) Speech Pathology Treatment Note Session Time Visit Start Time 08:30 Visit Stop Time 09:20 Total Visit Minutes 50 Visit Information Visit Number 04/11 Plan of Care Dates 01/06/21 - 04/08/21 Insurance Information [facility] Setting Treatment Setting Outpatient Care Visit Type Note Type Treatment Note Next Note Type Next Note Type Progress Note General Information General Information The pt is a 70-yr-old female familiar to this VACUUM 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 On 11/25/20, the pt was admitted to the hospital with acute encephalopathy and malignant hypertension. She was initially confused. MRI findings on CT demonstrated a subacute left thalamic stroke. The patient was seen by speech pathology, PT and OT. She was functionally able to ambulate and had no weakness in the upper and lower extremities. However, she continued to have evidence of expressive and receptive aphasia. She dc'd from hospital to SNF, and then to home with . The pt will be receiving outpatient ST and PT services. Subjective Identification Type Name,Date of Others Present Family Observations/Patient Presentation The pt was accompanied by her who was present throughout for CG training to promote carryover of tx targets. No new complaints. Chief Complaint(s) Language,Cognitive Additional Areas of Concern Cognition Patient Knowledge/Awareness of VACUUM WORKER Role Good in Treatment Parent/Caretake Knowledge/Awareness of Good VACUUM WORKER Role in Treatment Objective Short Term Goals 1. The pt will participate in further assessment of expressive, receptive and cognitive communication skills to identify strengths and deficits and to guide POC. 2. The pt will complete exercises targeting word recall with 80% accuracy to improve expressive language skills and increase conversation participation. 3. The pt will follow written instructions with 90% accuracy to perform functional tasks, such as remote control use, simple computer navigation, housekeeping tasks, etc. 4. Given texts presented in writing or orally, the pt will answer questions related to inferential or implied meanings with 80% accuracy to improve comprehension of abstract concepts. 5. The pt will complete sequencing tasks (e.g., following a recipe, navigating phone/computer) with min v/v prompts to improve executive function and memory skills and increase pt's participation with functional and social ADLs. Additional goals to be established upon completion of assessment. Mcfp Goals 1. The pt will demonstrate expressive and receptive language skills WFL, as demonstrated by increased social and conversational participation and measured by pt/family report and clinical judgment. 2. The pt will demonstrate cognitive communication skills WFL, as demonstrated by at least 50% participation in household tasks completed by the pt prior to CVA (e.g., computer use, cooking, grocery shopping/planning, etc.) and measured by pt/family report and clinical judgment. Additional goals to be established upon completion of assessment. Treatment Activities Targeted word recall and increasing spontaneous expressive language via picture description task and conversation. The pt described pictures with min-mod WFDs and word perseveration x4. Content was >90% accurate with exception of perseveration episodes. During episodes of WFD, the pt benefited from prompts to discuss other parts of the picture, after which she frequently produced the original word she was searching for, indicating benefit from semantic feature analysis strategy. In conversation, the pt demonstrated ~85% accurate recall of facts about her life and family. At times of WFDs, her provided appropriate cues, such as question prompts and semantic and phonemic cueing, which were effective >80% of the time. The pt transitioned without difficulty between topics and exhibited only 1 episode of perseveration in conversation. Responses to questions were typically single sentences or phrases, simple in nature. Verbal prompts were required for the pt to elaborate on comments, which were again made in simple sentences and phrases. Assessment Patient Response to Treatment Good Rehab Potential Good Impairments Identified Aphasia,Cognitive-Linguistic Skills,Expressive Language, Memory - Short Term,Memory - Working,Receptive Language, Other Additional Impairments Identified Flat affect and prosody Progress Towards Goals Good Progress Assessment of Overall Progress Improving Assessment of Improvement The pt demonstrated benefit from semantic feature analysis type of word recall strategy. Mod WFS were exhibited in structured tasks and greater perseveration demonstrated in structured tasks vs guided conversation. Conversational speech continues to be short and simple without expansion of ideas. While the pt appeared interested and invested in the conversation, her affect remained flat with little to no facial expression , and prosodic features were present but diminished. The pt 's ability to transition between topics, recall facts about her life and family is improving, and perseveration in conversation is much improved as compared to SOC. The pt's spouse demonstrated excellent verbal prompts, which promoted further language from the pt and ability to participate in conversations. Reviewed with Patient Goals,Progress Being Made,Home Exercise Program Patient/Caregiver Understanding Good Plan Amount of Therapy Recommended 4 Months Frequency of Treatment Twice a Week Length of Session 45 Minutes Therapeutic Contents Client Education,Cognitive- Linguistic Training,Expressive Language Training,Home Exercise Program,Information Processing,Receptive Language Training Provided Patient/Caregiver Instruction Home Exercise Program,Plan of Care,Questions/Concerns Comment Discussed importance of working with personal information and naming Therapy Recommendations Continue with Current Program
--- NOTE | 2021-03-17 16:50 | ST.OPTN ---
Visit Care Team Role Provider Type Renny Haynes MD Attending Provider Physician Family Provider Primary Care Provider Referring Provider Address: [address] [place] [address], [address], [place], [address] COMMERCIAL REAL ESTATE BROKER Treatment Note COMMERCIAL REAL ESTATE BROKER Clinical Instructor Line Start: 02/10/21 16:33 Freq: Status: Active Protocol: Document 02/19/21 17:37 OJVI (Rec: 02/19/21 17:37 JOVI [email or web address]) Clinical Instructor Signature Clinical Instructor Clinical Instructor Yes COMMERCIAL REAL ESTATE BROKER Treatment Note Start: 01/06/21 12:19 Freq: Status: Active Protocol: Document 03/17/21 13:33 JOVI (Rec: 03/17/21 16:50 JOVI [email or web address]) Speech Pathology Treatment Note Session Time Visit Start Time 12:30 Visit Stop Time 13:15 Total Visit Minutes 45 Visit Information Visit Number 05/11 Plan of Care Dates 04/11/21 - 07/11/21 Insurance Information [facility] Setting Treatment Setting Outpatient Care Visit Type Note Type Progress Note Next Note Type Next Note Type Treatment Note General Information General Information The pt is a 70-yr-old female familiar to this COMMERCIAL REAL ESTATE BROKER from 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 On 11/25/20, the pt was admitted to the hospital with acute encephalopathy and malignant hypertension. She was initially confused. MRI findings on CT demonstrated a subacute left thalamic stroke. The patient was seen by speech pathology, PT and OT. She was functionally able to ambulate and had no weakness in the upper and lower extremities. However, she continued to have evidence of expressive and receptive aphasia. She dc'd from hospital to SNF, and then to home with . The pt will be receiving outpatient ST and PT services. Subjective Identification Type Name,Date of Others Present Family Observations/Patient Presentation The pt was accompanied by her who was present throughout for CG training to promote carryover of tx targets. No new complaints. Chief Complaint(s) Language,Cognitive Additional Areas of Concern Cognition Patient Knowledge/Awareness of COMMERCIAL REAL ESTATE BROKER Role Good in Treatment Parent/Caretake Knowledge/Awareness of Good COMMERCIAL REAL ESTATE BROKER Role in Treatment Objective Short Term Goals 1. The pt will participate in further assessment of expressive, receptive and cognitive communication skills to identify strengths and deficits and to guide POC. GOAL MET 2. The pt will complete exercises targeting word recall with 80% accuracy to improve expressive language skills and increase conversation participation. MAKING PROGRESS; CONTINUE GOAL 3. The pt will follow written instructions with 90% accuracy to perform functional tasks, such as remote control use, simple computer navigation, housekeeping tasks, etc. MAKING PROGRESS; CONTINUE GOAL 4. Given texts presented in writing or orally, the pt will answer questions related to inferential or implied meanings with 80% accuracy to improve comprehension of abstract concepts. CONTINUE GOAL 5. The pt will complete sequencing tasks (e.g., following a recipe, navigating phone/computer) with min v/v prompts to improve executive function and memory skills and increase pt's participation with functional and social ADLs. CONTINUE GOAL [employer] Operator Goals CONTINUE ALL LONG-TERM GOALS 1. The pt will demonstrate expressive and receptive language skills WFL, as demonstrated by increased social and conversational participation and measured by pt/family report and clinical judgment. 2. The pt will demonstrate cognitive communication skills WFL, as demonstrated by at least 50% participation in household tasks completed by the pt prior to CVA (e.g., computer use, cooking, grocery shopping/planning, etc.) and measured by pt/family report and clinical judgment. Treatment Activities Targeted expanding expressive language via written/oral sentence creation and expansion. Given a picture scene, the pt created a simple sentence describing Who is doing what? With verbal prompts, the pt described the age, hair color and clothing of individuals in the pictures to create more expansive phrases. The pt wrote 3 phrases/sentences, with mostly legible handwriting. 77% spelling accuracy and appropriate content in 2/3 sentences (67% acc). Spelling errors typically included doubling letters or affixes (e .g., poppcorn, theaterer). Moderate WFDs were exhibited, which the pt resolved in ~75% of opportunities with COMMERCIAL REAL ESTATE BROKER verbal prompts and/or further discussion of pictures. For example, the pt identified a young girl as a boy but then changed her description after discussing the girl's pink dress. Assessment Patient Response to Treatment Good Rehab Potential Good Impairments Identified Aphasia,Cognitive-Linguistic Skills,Expressive Language, Memory - Short Term,Memory - Working,Receptive Language, Other Additional Impairments Identified Flat affect and prosody Progress Towards Goals Good Progress Assessment of Overall Progress Improving Assessment of Improvement Per report, the pt is beginning to initiate conversation and speaking in slightly longer and complete sentences in spontaneous conversation. Over the course of treatment, the pt has demonstrated slowly increasing expressive language production. She continues with moderate expressive and mild-moderate receptive aphasia and moderate cognitive communication deficits primarily in areas of memory and executive functions. Pt has demonstrated inconsistent ability to plan, sequence and carry out household tasks. She is slowly increasing engagement with computers, which were of great interest to her prior to stroke, and reading. She also was highly engaged with numbers and math prior to stroke. She is improving in simple mathematic skills and benefits from home exercises via [employer] zoya. The pt's is a great support and provides appropriate verbal prompts as needed to promote her oral expression. Skilled intervention is medically necessary to increase the pt's ability to express herself, comprehend conversation from others, and complete ADLs. Reviewed with Patient Goals,Progress Being Made,Home Exercise Program Patient/Caregiver Understanding Good Plan Amount of Therapy Recommended 4 Months Frequency of Treatment Twice a Week Length of Session 45 Minutes Therapeutic Contents Client Education,Cognitive- Linguistic Training,Expressive Language Training,Home Exercise Program,Information Processing,Receptive Language Training Provided Patient/Caregiver Instruction Home Exercise Program,Plan of Care,Questions/Concerns Therapy Recommendations Continue with Current Program
--- NOTE | 2021-03-19 14:45 | ST.OPTN ---
Visit Care Team Role Provider Type Renny Haynes MD Attending Provider Physician Family Provider Primary Care Provider Referring Provider Address: [address] [place] [address], [address], [place], [address] AUTO VINYL TOP INSTALLER Treatment Note AUTO VINYL TOP INSTALLER Clinical Instructor Line Start: 02/10/21 16:33 Freq: Status: Active Protocol: Document 02/19/21 17:37 JOVI (Rec: 02/19/21 17:37 JOVI [email or web address]) Clinical Instructor Signature Clinical Instructor Clinical Instructor Yes AUTO VINYL TOP INSTALLER Treatment Note Start: 01/06/21 12:19 Freq: Status: Active Protocol: Document 03/19/21 14:30 JOVI (Rec: 03/19/21 14:45 JOVI [email or web address]) Speech Pathology Treatment Note Session Time Visit Start Time 09:30 Visit Stop Time 10:15 Total Visit Minutes 45 Visit Information Visit Number 08/11 Plan of Care Dates 04/11/21 - 07/11/21 Insurance Information [facility] Setting Treatment Setting Outpatient Care Visit Type Note Type Treatment Note Next Note Type Next Note Type Treatment Note General Information General Information The pt is a 70-yr-old female familiar to this AUTO VINYL TOP INSTALLER from 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 On 11/25/20, the pt was admitted to the hospital with acute encephalopathy and malignant hypertension. She was initially confused. MRI findings on CT demonstrated a subacute left thalamic stroke. The patient was seen by speech pathology, PT and OT. She was functionally able to ambulate and had no weakness in the upper and lower extremities. However, she continued to have evidence of expressive and receptive aphasia. She dc'd from hospital to SNF, and then to home with . The pt will be receiving outpatient ST and PT services. Subjective Identification Type Name,Date of Others Present Family Observations/Patient Presentation The pt was accompanied by her who was present throughout for CG training to promote carryover of tx targets. No new complaints. Spouse reported occasional ongoing difficulty with sequencing or confusion with daily tasks, e.g., putting hand soap in toothbrush. However, this is improved as compared to ~1 mo ago. Chief Complaint(s) Language,Cognitive Additional Areas of Concern Cognition Patient Knowledge/Awareness of AUTO VINYL TOP INSTALLER Role Good in Treatment Parent/Caretake Knowledge/Awareness of Good AUTO VINYL TOP INSTALLER Role in Treatment Objective Short Term Goals 1. The pt will participate in further assessment of expressive, receptive and cognitive communication skills to identify strengths and deficits and to guide POC. GOAL MET 2. The pt will complete exercises targeting word recall with 80% accuracy to improve expressive language skills and increase conversation participation. MAKING PROGRESS; CONTINUE GOAL 3. The pt will follow written instructions with 90% accuracy to perform functional tasks, such as remote control use, simple computer navigation, housekeeping tasks, etc. MAKING PROGRESS; CONTINUE GOAL 4. Given texts presented in writing or orally, the pt will answer questions related to inferential or implied meanings with 80% accuracy to improve comprehension of abstract concepts. CONTINUE GOAL 5. The pt will complete sequencing tasks (e.g., following a recipe, navigating phone/computer) with min v/v prompts to improve executive function and memory skills and increase pt's participation with functional and social ADLs. CONTINUE GOAL [facility] Goals CONTINUE ALL LONG-TERM GOALS 1. The pt will demonstrate expressive and receptive language skills WFL, as demonstrated by increased social and conversational participation and measured by pt/family report and clinical judgment. 2. The pt will demonstrate cognitive communication skills WFL, as demonstrated by at least 50% participation in household tasks completed by the pt prior to CVA (e.g., computer use, cooking, grocery shopping/planning, etc.) and measured by pt/family report and clinical judgment. Treatment Activities Targeted expanding expressive language via written S-V-O sentence structure and picture descriptions. Given a verb, the pt wrote 3 SVO sentences with mod-max v/v prompts required to reduce perseveration. Pt benefited from discussion of subject and object options prior to writing sentences. To improve penmanship/ legibility, the pt wrote sentences on a lined whiteboard designed for such. She required only one verbal prompt to increase size of writing. Writing was otherwise ~75% within targeted upper/ lower case margins. Pt exhibited 2 spelling errors across 6 sentences, which she self-corrected. The pt completed picture description task which required expression of complete sentences (100% acc) and identfication of safety problems represented in pictures (86% acc). The pt frequently exhibited WFDs, which she managed successfully (~70% acc) by using synonyms and/or describing target ideas /words. For example, when seeing a small child standing up in a car, she stated, The child is not stabilized. Moderate semantic paraphasias and perseveration was noted, for example, calling a cell phone a remote phone after looking at TV remote controls. Assessment Patient Response to Treatment Good Rehab Potential Good Impairments Identified Aphasia,Cognitive-Linguistic Skills,Expressive Language, Memory - Short Term,Memory - Working,Receptive Language, Other Additional Impairments Identified Flat affect and prosody Progress Towards Goals Good Progress Assessment of Overall Progress Improving Assessment of Improvement The pt is making progress toward goals. She continues to perseverate frequently on words/concepts, requiring visual and verbal transitions away from previous topics. Word recall difficulties also continue, but the pt is independently beginning to employ strategies to avoid communication breakdowns. She exhibits excellent persistance , not becoming frustrated or abandoning tasks d/t WFDs. Reviewed with Patient Goals,Progress Being Made,Home Exercise Program Patient/Caregiver Understanding Good Plan Amount of Therapy Recommended 12+ Months Frequency of Treatment Twice a Week Length of Session 45 Minutes Treatment Emphasis Next Session Sequencing daily tasks; Identifying/discussing incongruent scenes Therapeutic Contents Client Education,Cognitive- Linguistic Training,Expressive Language Training,Home Exercise Program,Information Processing,Receptive Language Training Provided Patient/Caregiver Instruction Home Exercise Program,Plan of Care,Questions/Concerns Therapy Recommendations Continue with Current Program
--- NOTE | 2021-03-24 12:18 | ST.OPTN ---
Visit Care Team Role Provider Type Renny Haynes MD Attending Provider Physician Family Provider Primary Care Provider Referring Provider Address: [address] [place] [address], [address], [place], [address] DIGITAL IMAGING TECHNICIAN Treatment Note DIGITAL IMAGING TECHNICIAN Clinical Instructor Line Start: 02/10/21 16:33 Freq: Status: Active Protocol: Document 02/19/21 17:37 JOVI (Rec: 02/19/21 17:37 JOVI [email or web address]) Clinical Instructor Signature Clinical Instructor Clinical Instructor Yes DIGITAL IMAGING TECHNICIAN Treatment Note Start: 01/06/21 12:19 Freq: Status: Active Protocol: Document 03/24/21 12:07 JOVI (Rec: 03/24/21 12:18 JOVI [email or web address]) Speech Pathology Treatment Note Session Time Visit Start Time 10:30 Visit Stop Time 11:15 Total Visit Minutes 45 Visit Information Visit Number 09/11 Plan of Care Dates 04/11/21 - 07/11/21 Insurance Information [facility] Setting Treatment Setting Outpatient Care Visit Type Note Type Treatment Note Next Note Type Next Note Type Treatment Note General Information General Information The pt is a 70-yr-old female familiar to this DIGITAL IMAGING TECHNICIAN from 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 On 11/25/20, the pt was admitted to the hospital with acute encephalopathy and malignant hypertension. She was initially confused. MRI findings on CT demonstrated a subacute left thalamic stroke. The patient was seen by speech pathology, PT and OT. She was functionally able to ambulate and had no weakness in the upper and lower extremities. However, she continued to have evidence of expressive and receptive aphasia. She dc'd from hospital to SNF, and then to home with . The pt will be receiving outpatient ST and PT services. Subjective Identification Type Name,Date of Others Present Family Observations/Patient Presentation The pt was accompanied by her who was present throughout for CG training to promote carryover of tx targets. No new complaints. Spouse reported evidence that the pt is getting her cristi back in making clever comments at home. Chief Complaint(s) Language,Cognitive Additional Areas of Concern Cognition Patient Knowledge/Awareness of DIGITAL IMAGING TECHNICIAN Role Good in Treatment Parent/Caretake Knowledge/Awareness of Good DIGITAL IMAGING TECHNICIAN Role in Treatment Objective Short Term Goals 1. The pt will participate in further assessment of expressive, receptive and cognitive communication skills to identify strengths and deficits and to guide POC. GOAL MET 2. The pt will complete exercises targeting word recall with 80% accuracy to improve expressive language skills and increase conversation participation. MAKING PROGRESS; CONTINUE GOAL 3. The pt will follow written instructions with 90% accuracy to perform functional tasks, such as remote control use, simple computer navigation, housekeeping tasks, etc. MAKING PROGRESS; CONTINUE GOAL 4. Given texts presented in writing or orally, the pt will answer questions related to inferential or implied meanings with 80% accuracy to improve comprehension of abstract concepts. CONTINUE GOAL 5. The pt will complete sequencing tasks (e.g., following a recipe, navigating phone/computer) with min v/v prompts to improve executive function and memory skills and increase pt's participation with functional and social ADLs. CONTINUE GOAL [facility] Goals CONTINUE ALL LONG-TERM GOALS 1. The pt will demonstrate expressive and receptive language skills WFL, as demonstrated by increased social and conversational participation and measured by pt/family report and clinical judgment. 2. The pt will demonstrate cognitive communication skills WFL, as demonstrated by at least 50% participation in household tasks completed by the pt prior to CVA (e.g., computer use, cooking, grocery shopping/planning, etc.) and measured by pt/family report and clinical judgment. Treatment Activities Targeted visual and auditory reasoning skills via [employer] sequencing task including sequencing 3-4 steps of daily tasks. The pt completed with mod-max assist and benefited from visual aid representing steiner words (e.g., front, middle, final). Discussed with pt/spouse activities the pt is participating in at home. Given 3 written steps to a simple task and instructions to label them 1-2-3 in order, the pt first labeled them in the order they were written. With further verbal prompts, she correctly labeled them in the order in which they would be done. Provided recommendations for home practice and request the pt/ spouse bring a list of activities the pt is currently completing or would like to re-engage with to create additional sequencing exercises and promote the pt's ability to perform actual tasks. Pt/spouse in agreement . Assessment Patient Response to Treatment Good Rehab Potential Good Impairments Identified Aphasia,Cognitive-Linguistic Skills,Expressive Language, Memory - Short Term,Memory - Working,Problem Solving, Receptive Language,Other Additional Impairments Identified Flat affect and prosody Progress Towards Goals Good Progress Assessment of Overall Progress Improving Assessment of Improvement The pt navigated the [employer] zoya with mod verbal cues which decreased to min with repetition, indicating ability to learn computerized task. Mod-max prompts were required for sequencing tasks. Needs reinforcement with highly functional tasks, scaffolded from 2 to 4 steps. Reviewed with Patient Goals,Progress Being Made,Home Exercise Program Patient/Caregiver Understanding Good Plan Amount of Therapy Recommended 12+ Months Frequency of Treatment Twice a Week Length of Session 45 Minutes Treatment Emphasis Next Session Sequencing daily tasks, written on cards, scaffolded from 2-4 steps Therapeutic Contents Client Education,Cognitive- Linguistic Training,Expressive Language Training,Home Exercise Program,Information Processing,Receptive Language Training Provided Patient/Caregiver Instruction Home Exercise Program,Plan of Care,Questions/Concerns Therapy Recommendations Continue with Current Program
--- NOTE | 2021-03-26 11:46 | ST.OPTN ---
Visit Care Team Role Provider Type Renny Haynes MD Attending Provider Physician Family Provider Primary Care Provider Referring Provider Address: [address] [place] [address], [address], [place], [address] CARDIOPULMONARY TECHNOLOGIST Treatment Note CARDIOPULMONARY TECHNOLOGIST Clinical Instructor Line Start: 02/10/21 16:33 Freq: Status: Active Protocol: Document 02/19/21 17:37 JOVI (Rec: 02/19/21 17:37 JOVI [email or web address]) Clinical Instructor Signature Clinical Instructor Clinical Instructor Yes CARDIOPULMONARY TECHNOLOGIST Treatment Note Start: 01/06/21 12:19 Freq: Status: Active Protocol: Document 03/26/21 11:22 JOVI (Rec: 03/26/21 11:46 JOVI [email or web address]) Speech Pathology Treatment Note Session Time Visit Start Time 10:30 Visit Stop Time 11:15 Total Visit Minutes 45 Visit Information Visit Number [id number] Plan of Care Dates 04/11/21 - 07/11/21 Insurance Information [facility] Setting Treatment Setting Outpatient Care Visit Type Note Type Treatment Note Next Note Type Next Note Type Treatment Note General Information General Information The pt is a 70-yr-old female familiar to this CARDIOPULMONARY TECHNOLOGIST from 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 On 11/25/20, the pt was admitted to the hospital with acute encephalopathy and malignant hypertension. She was initially confused. MRI findings on CT demonstrated a subacute left thalamic stroke. The patient was seen by speech pathology, PT and OT. She was functionally able to ambulate and had no weakness in the upper and lower extremities. However, she continued to have evidence of expressive and receptive aphasia. She dc'd from hospital to SNF, and then to home with . The pt will be receiving outpatient ST and PT services. Subjective Identification Type Other Others Present Family Observations/Patient Presentation The pt was accompanied by her who was present throughout for CG training to promote carryover of tx targets. No new complaints. Spouse brought cards with written steps to functional tasks on them, which he and the pt created together at home. He stated the pt identified a missing step in one sequence while creating the cards. He also reporte difficulty the pt had with sequencing while taking medication last night. Chief Complaint(s) Language,Cognitive Additional Areas of Concern Cognition Patient Knowledge/Awareness of CARDIOPULMONARY TECHNOLOGIST Role Good in Treatment Parent/Caretake Knowledge/Awareness of Good CARDIOPULMONARY TECHNOLOGIST Role in Treatment Patient/Caregiver Compliance with Home Excellent Exercise Program Objective Short Term Goals 1. The pt will participate in further assessment of expressive, receptive and cognitive communication skills to identify strengths and deficits and to guide POC. GOAL MET 2. The pt will complete exercises targeting word recall with 80% accuracy to improve expressive language skills and increase conversation participation. MAKING PROGRESS; CONTINUE GOAL 3. The pt will follow written instructions with 90% accuracy to perform functional tasks, such as remote control use, simple computer navigation, housekeeping tasks, etc. MAKING PROGRESS; CONTINUE GOAL 4. Given texts presented in writing or orally, the pt will answer questions related to inferential or implied meanings with 80% accuracy to improve comprehension of abstract concepts. CONTINUE GOAL 5. The pt will complete sequencing tasks (e.g., following a recipe, navigating phone/computer) with min v/v prompts to improve executive function and memory skills and increase pt's participation with functional and social ADLs. CONTINUE GOAL Explosives Engineer Goals CONTINUE ALL LONG-TERM GOALS 1. The pt will demonstrate expressive and receptive language skills WFL, as demonstrated by increased social and conversational participation and measured by pt/family report and clinical judgment. 2. The pt will demonstrate cognitive communication skills WFL, as demonstrated by at least 50% participation in household tasks completed by the pt prior to CVA (e.g., computer use, cooking, grocery shopping/planning, etc.) and measured by pt/family report and clinical judgment. Treatment Activities Targeted sequencing steps to familiar items and tasks. 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 Unclear if difficulty stemmed from reduced comprehension of sequencing words (e.g., before , after, first, next, ect.), from comprehension of language on the cards, which the pt read aloud without error, or from the general concept of sequencing. Task was simplified to sequencing of automatic speech. The pt recited numbers 1-10, complete alphabet, and days of the week with 100% acc. She did perseverate on the alphabet when first asked to recite days of the week, but appropriately shifted topics with the example that today is Wednesday. The pt then sequenced numbers 1-10 and letters A-E independently, with occasional errors that she self-corrected. She sequenced days of the week with 57% acc (4/7) independently and 100% accurately with prompts for each day (e.g., What comes after...?) from Clinician. Skilled feedback was provided to pt/spouse with recommendations for home practice for decreasing and increasing challenge. Both verbalized understanding and agreement. Assessment Patient Response to Treatment Good Rehab Potential Good Impairments Identified Aphasia,Cognitive-Linguistic Skills,Expressive Language, Memory - Short Term,Memory - Working,Problem Solving, Receptive Language,Other Additional Impairments Identified Flat affect and prosody Progress Towards Goals Good Progress Assessment of Overall Progress Improving Assessment of Improvement The pt exhibited moderate- severe deficits in sequencing functional tasks. Improved ability observed with automatic speech, particularly numbers and letters. Decline in performance appears to be related to complexity of language/images on sequencing cards. 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 Requires further assessment to determine where the breakdown is happening for this patient. Reviewed with Patient Goals,Progress Being Made,Home Exercise Program Patient/Caregiver Understanding Good Plan Amount of Therapy Recommended 12+ Months Frequency of Treatment Twice a Week Length of Session 45 Minutes Treatment Emphasis Next Session Sequencing automatic speech/ simple tasks, language & concepts Therapeutic Contents Client Education,Cognitive- Linguistic Training,Expressive Language Training,Home Exercise Program,Information Processing,Receptive Language Training Provided Patient/Caregiver Instruction Home Exercise Program,Plan of Care,Questions/Concerns Therapy Recommendations Continue with Current Program
--- NOTE | 2021-03-31 11:41 | ST.OPTN ---
Visit Care Team Role Provider Type Renny Haynes MD Attending Provider Physician Family Provider Primary Care Provider Referring Provider Address: [address] [place] [address], [address], [place], [address] REGIONAL SALES MANAGER Treatment Note REGIONAL SALES MANAGER Clinical Instructor Line Start: 02/10/21 16:33 Freq: Status: Active Protocol: Document 02/19/21 17:37 JOVI (Rec: 02/19/21 17:37 JOVI [email or web address]) Clinical Instructor Signature Clinical Instructor Clinical Instructor Yes REGIONAL SALES MANAGER Treatment Note Start: 01/06/21 12:19 Freq: Status: Active Protocol: Document 03/31/21 11:27 JOVI (Rec: 03/31/21 11:41 JOVI [email or web address]) Speech Pathology Treatment Note Session Time Visit Start Time 10:30 Visit Stop Time 11:20 Total Visit Minutes 50 Visit Information Visit Number 11/09 Plan of Care Dates 04/11/21 - 07/11/21 Insurance Information [facility] Setting Treatment Setting Outpatient Care Visit Type Note Type Treatment Note Next Note Type Next Note Type Treatment Note General Information General Information The pt is a 70-yr-old female familiar to this REGIONAL SALES MANAGER from 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 On 11/25/20, the pt was admitted to the hospital with acute encephalopathy and malignant hypertension. She was initially confused. MRI findings on CT demonstrated a subacute left thalamic stroke. The patient was seen by speech pathology, PT and OT. She was functionally able to ambulate and had no weakness in the upper and lower extremities. However, she continued to have evidence of expressive and receptive aphasia. She dc'd from hospital to SNF, and then to home with . The pt will be receiving outpatient ST and PT services. Subjective Identification Type Other Others Present Family Observations/Patient Presentation The pt was accompanied by her who was present throughout for CG training to promote carryover of tx targets. No new complaints. Chief Complaint(s) Language,Cognitive Additional Areas of Concern Cognition Patient Knowledge/Awareness of REGIONAL SALES MANAGER Role Good in Treatment Parent/Caretake Knowledge/Awareness of Good REGIONAL SALES MANAGER Role in Treatment Patient/Caregiver Compliance with Home Excellent Exercise Program Objective Short Term Goals 1. The pt will participate in further assessment of expressive, receptive and cognitive communication skills to identify strengths and deficits and to guide POC. GOAL MET 2. The pt will complete exercises targeting word recall with 80% accuracy to improve expressive language skills and increase conversation participation. MAKING PROGRESS; CONTINUE GOAL 3. The pt will follow written instructions with 90% accuracy to perform functional tasks, such as remote control use, simple computer navigation, housekeeping tasks, etc. MAKING PROGRESS; CONTINUE GOAL 4. Given texts presented in writing or orally, the pt will answer questions related to inferential or implied meanings with 80% accuracy to improve comprehension of abstract concepts. CONTINUE GOAL 5. The pt will complete sequencing tasks (e.g., following a recipe, navigating phone/computer) with min v/v prompts to improve executive function and memory skills and increase pt's participation with functional and social ADLs. CONTINUE GOAL [facility] Goals CONTINUE ALL LONG-TERM GOALS 1. The pt will demonstrate expressive and receptive language skills WFL, as demonstrated by increased social and conversational participation and measured by pt/family report and clinical judgment. 2. The pt will demonstrate cognitive communication skills WFL, as demonstrated by at least 50% participation in household tasks completed by the pt prior to CVA (e.g., computer use, cooking, grocery shopping/planning, etc.) and measured by pt/family report and clinical judgment. Treatment Activities The pt participated in spontaneous conversation RE weekend and upcoming week activities and questions related to her children. She exhibited WFDs x4, responding well to phonemic prompts provided by . She required occ verbal prompts to expand language to specific details vs vague comments (e.g ., REGIONAL SALES MANAGER: How did you spend the weekend? Pt: Quietly.). She was responsive to all prompting. Word choices and syntax were appropriate. Affect remains flat. Continued targeting sequencing steps to familiar items and tasks. Pt recited numbers 1-10 independently, days of week with 1 verbal prompt, and months of year with 3 and then 2 verbal prompts across 2 trials. Given same items presented in writing, she arranged: Numbers in correct sequence with 100% acc; Days of week first segmented into 3 days ( 100% acc) and then 4 days (50% acc) and then all 7 days (71% acc self-corrected to 100% acc); Months of year first segmented into 6 and 6 months (100% acc with self- corrections) and then all 12 with 100% acc after self- corrections. The pt answered sequencing questions (e.g., Does 3 come before or after 4?) with 92% acc. Discussed daily routine with pt. Pt identified 3 meals eaten in correct sequence. Given these and additional routines presented in writing, she placed Get up, Go to bed and brush teeth (x2) in correct places with 75% acc. Skilled feedback was provided with recommendations for home practice. Pt/spouse verbalized understanding. Assessment Patient Response to Treatment Good Rehab Potential Good Impairments Identified Aphasia,Cognitive-Linguistic Skills,Expressive Language, Memory - Short Term,Memory - Working,Problem Solving, Receptive Language,Other Additional Impairments Identified Flat affect and prosody Progress Towards Goals Good Progress Assessment of Overall Progress Improving Assessment of Improvement The pt participated well in spontaneous conversations with verbal prompts provided for expanding language and making it more specific. Spouse provided appropriate phonemic and verbal/reasoning prompts when pt had difficulty recalling details, such as years of children's births and times of upcoming events. She demonstrated improved ability to sequence automatic speech and familiar routine tasks, self-correcting almost all errors. Responses to sequencing questions were generally accurate with occ confusion with before and after. Reviewed with Patient Goals,Progress Being Made,Home Exercise Program Patient/Caregiver Understanding Good Plan Amount of Therapy Recommended 12+ Months Frequency of Treatment Twice a Week Length of Session 45 Minutes Treatment Emphasis Next Session Sequencing simple tasks, language & concepts Therapeutic Contents Client Education,Cognitive- Linguistic Training,Expressive Language Training,Home Exercise Program,Information Processing,Receptive Language Training Provided Patient/Caregiver Instruction Home Exercise Program,Plan of Care,Questions/Concerns Therapy Recommendations Continue with Current Program
--- NOTE | 2021-04-02 11:49 | ST.OPTN ---
Visit Care Team Role Provider Type Renny Haynes MD Attending Provider Physician Family Provider Primary Care Provider Referring Provider Address: [address] [place] [address], [address], [place], [address] CERTIFIED DIALYSIS TECHNICIAN Treatment Note CERTIFIED DIALYSIS TECHNICIAN Clinical Instructor Line Start: 02/10/21 16:33 Freq: Status: Active Protocol: Document 02/19/21 17:37 JOVI (Rec: 02/19/21 17:37 JOVI [email or web address]) Clinical Instructor Signature Clinical Instructor Clinical Instructor Yes CERTIFIED DIALYSIS TECHNICIAN Treatment Note Start: 01/06/21 12:19 Freq: Status: Active Protocol: Document 04/02/21 11:37 JOVI (Rec: 04/02/21 11:49 JOVI [email or web address]) Speech Pathology Treatment Note Session Time Visit Start Time 10:30 Visit Stop Time 11:15 Total Visit Minutes 45 Visit Information Visit Number 12/09 Plan of Care Dates 04/11/21 - 07/11/21 Insurance Information [facility] Setting Treatment Setting Outpatient Care Visit Type Note Type Treatment Note Next Note Type Next Note Type Treatment Note General Information General Information The pt is a 70-yr-old female familiar to this CERTIFIED DIALYSIS TECHNICIAN from 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 On 11/25/20, the pt was admitted to the hospital with acute encephalopathy and malignant hypertension. She was initially confused. MRI findings on CT demonstrated a subacute left thalamic stroke. The patient was seen by speech pathology, PT and OT. She was functionally able to ambulate and had no weakness in the upper and lower extremities. However, she continued to have evidence of expressive and receptive aphasia. She dc'd from hospital to SNF, and then to home with . The pt will be receiving outpatient ST and PT services. Subjective Identification Type Other Others Present Family Observations/Patient Presentation The pt was accompanied by her who was present throughout for CG training to promote carryover of tx targets. No new complaints. Chief Complaint(s) Language,Cognitive Additional Areas of Concern Cognition Patient Knowledge/Awareness of CERTIFIED DIALYSIS TECHNICIAN Role Good in Treatment Parent/Caretake Knowledge/Awareness of Good CERTIFIED DIALYSIS TECHNICIAN Role in Treatment Patient/Caregiver Compliance with Home Excellent Exercise Program Objective Short Term Goals 1. The pt will participate in further assessment of expressive, receptive and cognitive communication skills to identify strengths and deficits and to guide POC. GOAL MET 2. The pt will complete exercises targeting word recall with 80% accuracy to improve expressive language skills and increase conversation participation. MAKING PROGRESS; CONTINUE GOAL 3. The pt will follow written instructions with 90% accuracy to perform functional tasks, such as remote control use, simple computer navigation, housekeeping tasks, etc. MAKING PROGRESS; CONTINUE GOAL 4. Given texts presented in writing or orally, the pt will answer questions related to inferential or implied meanings with 80% accuracy to improve comprehension of abstract concepts. CONTINUE GOAL 5. The pt will complete sequencing tasks (e.g., following a recipe, navigating phone/computer) with min v/v prompts to improve executive function and memory skills and increase pt's participation with functional and social ADLs. CONTINUE GOAL Detention Goals CONTINUE ALL LONG-TERM GOALS 1. The pt will demonstrate expressive and receptive language skills WFL, as demonstrated by increased social and conversational participation and measured by pt/family report and clinical judgment. 2. The pt will demonstrate cognitive communication skills WFL, as demonstrated by at least 50% participation in household tasks completed by the pt prior to CVA (e.g., computer use, cooking, grocery shopping/planning, etc.) and measured by pt/family report and clinical judgment. Treatment Activities Given scrambled sentences presented in writing, the pt sequenced words with 100% acc, 1 verbal prompt. Pt wrote sentences (copying as needed) with 3 words misspelled across 7 sentences. She self- identified one of the words as being incorrect and, when shown errors and prompted, she corrected them independently. Given 7 routine activities representing her daily routine , the pt sequenced activities initially with 57% acc (4/7 items). With prompting, this improved to 86% acc (6/7). The pt repeatedly misplaced one activity (brush teeth) even after several discussions with demonstration. An additional activity was added to the routine in an attempt to break this repetitive cycle, with one demonstration made during the session; will reinforce in future sessions. Scrambled sentences were provided for home practice. Assessment Patient Response to Treatment Good Rehab Potential Good Impairments Identified Aphasia,Cognitive-Linguistic Skills,Expressive Language, Memory - Short Term,Memory - Working,Problem Solving, Receptive Language,Other Additional Impairments Identified Flat affect and prosody Progress Towards Goals Good Progress Assessment of Overall Progress Improving Assessment of Improvement The pt sequenced scrambled sentences very well. Few spelling errors were observed when pt wrote sentences. Home practive is recommended both for sequencing and spelling practice. The pt demonstrated stronger ability to sequence language than activities, though she showed improvement with the latter in today's session. Her continued difficulty sequening a particular activity may indicate deficits in reasoning skills that will continue to be assessed and addressed in treatment. Reviewed with Patient Goals,Progress Being Made,Home Exercise Program Patient/Caregiver Understanding Good Plan Amount of Therapy Recommended 12+ Months Frequency of Treatment Twice a Week Length of Session 45 Minutes Treatment Emphasis Next Session Sequencing simple tasks, language & concepts; reasoning skills Therapeutic Contents Client Education,Cognitive- Linguistic Training,Expressive Language Training,Home Exercise Program,Information Processing,Receptive Language Training Provided Patient/Caregiver Instruction Home Exercise Program,Plan of Care,Questions/Concerns Therapy Recommendations Continue with Current Program
--- NOTE | 2021-04-08 14:11 | ST.OPTN ---
Visit Care Team Role Provider Type Renny Haynes MD Attending Provider Physician Family Provider Primary Care Provider Referring Provider Address: [address] [place] [address], [address], [place], [address] ENVIRONMENTAL STUDIES PROFESSOR Treatment Note ENVIRONMENTAL STUDIES PROFESSOR Clinical Instructor Line Start: 02/10/21 16:33 Freq: Status: Active Protocol: Document 02/19/21 17:37 JOVI (Rec: 02/19/21 17:37 JOVI [email or web address]) Clinical Instructor Signature Clinical Instructor Clinical Instructor Yes ENVIRONMENTAL STUDIES PROFESSOR Treatment Note Start: 01/06/21 12:19 Freq: Status: Active Protocol: Document 04/08/21 12:26 JOVI (Rec: 04/08/21 12:34 JOVI [email or web address]) Speech Pathology Treatment Note Session Time Visit Start Time 10:30 Visit Stop Time 11:15 Total Visit Minutes 45 Visit Information Visit Number 01/09 Plan of Care Dates 04/11/21 - 07/11/21 Insurance Information [facility] Setting Treatment Setting Outpatient Care Visit Type Note Type Treatment Note Next Note Type Next Note Type Treatment Note General Information General Information The pt is a 70-yr-old female familiar to this ENVIRONMENTAL STUDIES PROFESSOR from 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 On 11/25/20, the pt was admitted to the hospital with acute encephalopathy and malignant hypertension. She was initially confused. MRI findings on CT demonstrated a subacute left thalamic stroke. The patient was seen by speech pathology, PT and OT. She was functionally able to ambulate and had no weakness in the upper and lower extremities. However, she continued to have evidence of expressive and receptive aphasia. She dc'd from hospital to SNF, and then to home with . The pt will be receiving outpatient ST and PT services. Subjective Identification Type Other Others Present Family Observations/Patient Presentation The pt was accompanied by her who was present throughout for CG training to promote carryover of tx targets. No new complaints. Chief Complaint(s) Language,Cognitive Additional Areas of Concern Cognition Patient Knowledge/Awareness of ENVIRONMENTAL STUDIES PROFESSOR Role Good in Treatment Parent/Caretake Knowledge/Awareness of Good ENVIRONMENTAL STUDIES PROFESSOR Role in Treatment Patient/Caregiver Compliance with Home Excellent Exercise Program Objective Short Term Goals 1. The pt will participate in further assessment of expressive, receptive and cognitive communication skills to identify strengths and deficits and to guide POC. GOAL MET 2. The pt will complete exercises targeting word recall with 80% accuracy to improve expressive language skills and increase conversation participation. MAKING PROGRESS; CONTINUE GOAL 3. The pt will follow written instructions with 90% accuracy to perform functional tasks, such as remote control use, simple computer navigation, housekeeping tasks, etc. MAKING PROGRESS; CONTINUE GOAL 4. Given texts presented in writing or orally, the pt will answer questions related to inferential or implied meanings with 80% accuracy to improve comprehension of abstract concepts. CONTINUE GOAL 5. The pt will complete sequencing tasks (e.g., following a recipe, navigating phone/computer) with min v/v prompts to improve executive function and memory skills and increase pt's participation with functional and social ADLs. CONTINUE GOAL Assisted Goals CONTINUE ALL LONG-TERM GOALS 1. The pt will demonstrate expressive and receptive language skills WFL, as demonstrated by increased social and conversational participation and measured by pt/family report and clinical judgment. 2. The pt will demonstrate cognitive communication skills WFL, as demonstrated by at least 50% participation in household tasks completed by the pt prior to CVA (e.g., computer use, cooking, grocery shopping/planning, etc.) and measured by pt/family report and clinical judgment. Treatment Activities The pt participated in conversation related to the couple's daughter's visit. The pt responded to questions with appropriate but brief remarks, with phonemic cuing provided by as needed. Unless prompted, the pt's remarks were limited to single phrases/sentences. Continued training in sequencing processes and expressive language production with use of incomplete stories. Given 2-3 sentences in writing that described a scenario, the pt produced a final statement describing what happened next? with mod- max prompts. Most >50% of responses to ENVIRONMENTAL STUDIES PROFESSOR's verbal prompts were appropriate to the context. At other times, the pt visually referred back to the written text and repeated words presented on the page, occasionally including words not related to the current scenario. She benefited from removal of text from her visual field after having read the scenario. Assessment Patient Response to Treatment Good Rehab Potential Good Impairments Identified Aphasia,Cognitive-Linguistic Skills,Expressive Language, Memory - Short Term,Memory - Working,Problem Solving, Receptive Language,Other Additional Impairments Identified Flat affect and prosody Progress Towards Goals Good Progress Assessment of Overall Progress Improving Assessment of Improvement The pt demonstrated logical thinking while creating endings for short stories. She did require mod-max prompts and removal of visual text to prevent verbal perseveration and to think beyond what was presented in writing, but once achieved, responses were appropriate and demonstrated story and sequencing comprehension. Conversational skills were consistent with previous presentation: limited in length and context but topic appropriate. She exhibited frequent WFDs, but was able to name target items when they were described by the ENVIRONMENTAL STUDIES PROFESSOR and was responsive to phonemic cues. These do interfere significantly with the pt's ability to participate effectively in conversations. Reviewed with Patient Goals,Progress Being Made,Home Exercise Program Patient/Caregiver Understanding Good Plan Amount of Therapy Recommended 12+ Months Frequency of Treatment Twice a Week Length of Session 45 Minutes Treatment Emphasis Next Session Semantic features analysis; cont. sequencing tasks Therapeutic Contents Client Education,Cognitive- Linguistic Training,Expressive Language Training,Home Exercise Program,Information Processing,Receptive Language Training Provided Patient/Caregiver Instruction Home Exercise Program,Plan of Care,Questions/Concerns Therapy Recommendations Continue with Current Program
--- NOTE | 2021-04-09 13:38 | ST.OPTN ---
Visit Care Team Role Provider Type Renny Haynes MD Attending Provider Physician Family Provider Primary Care Provider Referring Provider Address: [address] [place] [address], [address], [place], [address] FURNITURE STAINER Treatment Note FURNITURE STAINER Clinical Instructor Line Start: 02/10/21 16:33 Freq: Status: Active Protocol: Document 02/19/21 17:37 JOVI (Rec: 02/19/21 17:37 JOVI [email or web address]) Clinical Instructor Signature Clinical Instructor Clinical Instructor Yes FURNITURE STAINER Treatment Note Start: 01/06/21 12:19 Freq: Status: Active Protocol: Document 04/09/21 12:15 JOVI (Rec: 04/09/21 12:22 JOVI [email or web address]) Speech Pathology Treatment Note Session Time Visit Start Time 10:30 Visit Stop Time 11:15 Total Visit Minutes 45 Visit Information Visit Number 02/08 Plan of Care Dates 04/11/21 - 07/11/21 Insurance Information [facility] Setting Treatment Setting Outpatient Care Visit Type Note Type Treatment Note Next Note Type Next Note Type Treatment Note General Information General Information The pt is a 70-yr-old female familiar to this FURNITURE STAINER from 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 On 11/25/20, the pt was admitted to the hospital with acute encephalopathy and malignant hypertension. She was initially confused. MRI findings on CT demonstrated a subacute left thalamic stroke. The patient was seen by speech pathology, PT and OT. She was functionally able to ambulate and had no weakness in the upper and lower extremities. However, she continued to have evidence of expressive and receptive aphasia. She dc'd from hospital to SNF, and then to home with . The pt will be receiving outpatient ST and PT services. Subjective Identification Type Other Others Present Family Observations/Patient Presentation The pt was accompanied by her who was present throughout for CG training to promote carryover of tx targets. No new complaints. Chief Complaint(s) Language,Cognitive Additional Areas of Concern Cognition Patient Knowledge/Awareness of FURNITURE STAINER Role Good in Treatment Parent/Caretake Knowledge/Awareness of Good FURNITURE STAINER Role in Treatment Patient/Caregiver Compliance with Home Excellent Exercise Program Objective Short Term Goals 1. The pt will participate in further assessment of expressive, receptive and cognitive communication skills to identify strengths and deficits and to guide POC. GOAL MET 2. The pt will complete exercises targeting word recall with 80% accuracy to improve expressive language skills and increase conversation participation. MAKING PROGRESS; CONTINUE GOAL 3. The pt will follow written instructions with 90% accuracy to perform functional tasks, such as remote control use, simple computer navigation, housekeeping tasks, etc. MAKING PROGRESS; CONTINUE GOAL 4. Given texts presented in writing or orally, the pt will answer questions related to inferential or implied meanings with 80% accuracy to improve comprehension of abstract concepts. CONTINUE GOAL 5. The pt will complete sequencing tasks (e.g., following a recipe, navigating phone/computer) with min v/v prompts to improve executive function and memory skills and increase pt's participation with functional and social ADLs. CONTINUE GOAL [facility] Goals CONTINUE ALL LONG-TERM GOALS 1. The pt will demonstrate expressive and receptive language skills WFL, as demonstrated by increased social and conversational participation and measured by pt/family report and clinical judgment. 2. The pt will demonstrate cognitive communication skills WFL, as demonstrated by at least 50% participation in household tasks completed by the pt prior to CVA (e.g., computer use, cooking, grocery shopping/planning, etc.) and measured by pt/family report and clinical judgment. Treatment Activities Initiated semantic features analysis training to increase word recall. Given pictures of objects, semantic features worksheet, and verbal instruction, the pt described various aspects of objects with varying degrees of support, min-max. The pt exhibited perseveration on topics x2, which decreased with elimination of written words from the pt's visual field. The pt exhibited limited vocabulary and/or WFDs in ~45% of opportunities, often producing taget language when given extended time. Often the pt's vocabulary was synonymous with responses this FURNITURE STAINER anticipated (e.g., set off vs explode, coins vs money) and were effective in communicating her ideas. She was responsive to phonemic cues when provided. Prior to completing the features analysis tasks, the pt named each object in the pictures, once with need of extended time, but otherwise without difficulty. Assessment Patient Response to Treatment Good Rehab Potential Good Impairments Identified Aphasia,Cognitive-Linguistic Skills,Expressive Language, Memory - Short Term,Memory - Working,Problem Solving, Receptive Language,Other Additional Impairments Identified Flat affect and prosody Progress Towards Goals Good Progress Assessment of Overall Progress Improving Assessment of Improvement The pt was actively engaged with today's task. Moderate WFDs were evident, but the pt benefited from extended processing time, often producing synonyms to target or anticipated words ( anticipated by FURNITURE STAINER). She demonstrated good comprehension of questions and descriptive categories with occasional need for repetition of instructions and visual elimination of extraneous words and images to avoid perseveration. She named target objects with minimal difficulty. Reviewed with Patient Goals,Progress Being Made,Home Exercise Program Patient/Caregiver Understanding Good Plan Amount of Therapy Recommended 12+ Months Frequency of Treatment Twice a Week Length of Session 45 Minutes Treatment Emphasis Next Session Semantic features analysis; cont. sequencing tasks Therapeutic Contents Client Education,Cognitive- Linguistic Training,Expressive Language Training,Home Exercise Program,Information Processing,Receptive Language Training Provided Patient/Caregiver Instruction Home Exercise Program,Plan of Care,Questions/Concerns Therapy Recommendations Continue with Current Program
--- NOTE | 2021-04-14 11:34 | ST.OPTN ---
Visit Care Team Role Provider Type Renny Haynes MD Attending Provider Physician Family Provider Primary Care Provider Referring Provider Address: [address] [place] [address], [address], [place], [address] NEEDLE CONTROL CHENILLER Treatment Note NEEDLE CONTROL CHENILLER Clinical Instructor Line Start: 02/10/21 16:33 Freq: Status: Active Protocol: Document 02/19/21 17:37 JOVI (Rec: 02/19/21 17:37 JOVI [email or web address]) Clinical Instructor Signature Clinical Instructor Clinical Instructor Yes NEEDLE CONTROL CHENILLER Treatment Note Start: 01/06/21 12:19 Freq: Status: Active Protocol: Document 04/14/21 11:25 JOVI (Rec: 04/14/21 11:34 JOVI [email or web address]) Speech Pathology Treatment Note Session Time Visit Start Time 10:35 Visit Stop Time 11:20 Total Visit Minutes 45 Visit Information Visit Number 03/11 Plan of Care Dates 04/11/21 - 07/11/21 Insurance Information [facility] Setting Treatment Setting Outpatient Care Visit Type Note Type Treatment Note Next Note Type Next Note Type Treatment Note General Information General Information The pt is a 70-yr-old female familiar to this NEEDLE CONTROL CHENILLER from 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 On 11/25/20, the pt was admitted to the hospital with acute encephalopathy and malignant hypertension. She was initially confused. MRI findings on CT demonstrated a subacute left thalamic stroke. The patient was seen by speech pathology, PT and OT. She was functionally able to ambulate and had no weakness in the upper and lower extremities. However, she continued to have evidence of expressive and receptive aphasia. She dc'd from hospital to SNF, and then to home with . The pt will be receiving outpatient ST and PT services. Subjective Identification Type Other Others Present Family Observations/Patient Presentation The pt was accompanied by her who was present throughout for CG training to promote carryover of tx targets. No new complaints. Pt is doing better with sequencing dressing herself in the morning. Sometimes confused with sequencing steps of taking pills. Chief Complaint(s) Language,Cognitive Additional Areas of Concern Cognition Patient Knowledge/Awareness of NEEDLE CONTROL CHENILLER Role Good in Treatment Parent/Caretake Knowledge/Awareness of Good NEEDLE CONTROL CHENILLER Role in Treatment Patient/Caregiver Compliance with Home Excellent Exercise Program Objective Short Term Goals 1. The pt will participate in further assessment of expressive, receptive and cognitive communication skills to identify strengths and deficits and to guide POC. GOAL MET 2. The pt will complete exercises targeting word recall with 80% accuracy to improve expressive language skills and increase conversation participation. MAKING PROGRESS; CONTINUE GOAL 3. The pt will follow written instructions with 90% accuracy to perform functional tasks, such as remote control use, simple computer navigation, housekeeping tasks, etc. MAKING PROGRESS; CONTINUE GOAL 4. Given texts presented in writing or orally, the pt will answer questions related to inferential or implied meanings with 80% accuracy to improve comprehension of abstract concepts. CONTINUE GOAL 5. The pt will complete sequencing tasks (e.g., following a recipe, navigating phone/computer) with min v/v prompts to improve executive function and memory skills and increase pt's participation with functional and social ADLs. CONTINUE GOAL Nursing Home Goals CONTINUE ALL LONG-TERM GOALS 1. The pt will demonstrate expressive and receptive language skills WFL, as demonstrated by increased social and conversational participation and measured by pt/family report and clinical judgment. 2. The pt will demonstrate cognitive communication skills WFL, as demonstrated by at least 50% participation in household tasks completed by the pt prior to CVA (e.g., computer use, cooking, grocery shopping/planning, etc.) and measured by pt/family report and clinical judgment. Treatment Activities Continued training in sequencing and sentence formulation. Given 5 words and instructions to create a 4-word sentence, the pt identified the word that did not belong with min- mod prompts, sometimes requiring reminders that one word does not belong. She was highly responsive to that prompt. She sequenced words into sentences with occ min assistance, benefiting from extended time to check her answers and/or reading sentences aloud to check sequencing. Given 8 steps to a daily routine, the pt required max verbal prompts to sequence steps. Task was broken into 3 chunks of 2-3 steps each, and when pt exhibited difficulty consistently sequencing 3 steps, those were reduced to 2 at a time. The pt answered before/after questions with 68 % acc. Errorless learning technique was used to sequence minimal tasks at a time. The pt was given steps to a new task, taking a pill, including 5 steps. NEEDLE CONTROL CHENILLER provided demonstration of sequencing. The pt then answered leading questions to arrange the items in sequence. Needs reinforcement. Skilled feedback was required, including recommendations for home practice. Assessment Patient Response to Treatment Good Rehab Potential Good Impairments Identified Aphasia,Cognitive-Linguistic Skills,Expressive Language, Memory - Short Term,Memory - Working,Problem Solving, Receptive Language,Other Additional Impairments Identified Flat affect and prosody Progress Towards Goals Good Progress Assessment of Overall Progress Improving Assessment of Improvement The pt continues with moderate confusion with task/step sequencing and benefits from simplification (2-3 items at a time) and prompting questions . She sequences words in sentences with minimal difficulty, able to self- identify and correct errors. Reviewed with Patient Goals,Progress Being Made,Home Exercise Program Patient/Caregiver Understanding Good Plan Amount of Therapy Recommended 12+ Months Frequency of Treatment Twice a Week Length of Session 45 Minutes Treatment Emphasis Next Session Semantic features analysis; cont. sequencing tasks Therapeutic Contents Client Education,Cognitive- Linguistic Training,Expressive Language Training,Home Exercise Program,Information Processing,Receptive Language Training Provided Patient/Caregiver Instruction Home Exercise Program,Plan of Care,Questions/Concerns Therapy Recommendations Continue with Current Program
--- NOTE | 2021-04-16 17:19 | ST.OPTN ---
Visit Care Team Role Provider Type Renny Haynes MD Attending Provider Physician Family Provider Primary Care Provider Referring Provider Address: [address] [place] [address], [address], [place], [address] IN FLIGHT REFUELING SYSTEM REPAIRER Treatment Note IN FLIGHT REFUELING SYSTEM REPAIRER Clinical Instructor Line Start: 02/10/21 16:33 Freq: Status: Active Protocol: Document 02/19/21 17:37 JOIV (Rec: 02/19/21 17:37 JOVI [email or web address]) Clinical Instructor Signature Clinical Instructor Clinical Instructor Yes IN FLIGHT REFUELING SYSTEM REPAIRER Treatment Note Start: 01/06/21 12:19 Freq: Status: Active Protocol: Document 04/16/21 16:54 JOVI (Rec: 04/16/21 17:19 JOVI [email or web address]) Speech Pathology Treatment Note Session Time Visit Start Time 10:30 Visit Stop Time 11:15 Total Visit Minutes 45 Visit Information Visit Number 04/11 Plan of Care Dates 04/11/21 - 07/11/21 Insurance Information [facility] Setting Treatment Setting Outpatient Care Visit Type Note Type Treatment Note Next Note Type Next Note Type Progress Note General Information General Information The pt is a now 71-yr-old female familiar to this IN FLIGHT REFUELING SYSTEM REPAIRER from 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 On , the pt was admitted to the hospital with acute encephalopathy and malignant hypertension. She was initially confused. MRI findings on CT demonstrated a subacute left thalamic stroke. The patient was seen by speech pathology, PT and OT. She was functionally able to ambulate and had no weakness in the upper and lower extremities. However, she continued to have evidence of expressive and receptive aphasia. She dc'd from hospital to SNF, and then to home with . The pt will be receiving outpatient ST and PT services. Subjective Identification Type Other Others Present Family,Additional Therapist Observations/Patient Presentation The pt was accompanied by her who was present throughout for CG training to promote carryover of tx targets. No new complaints. Additional therapist was present for observation training. Chief Complaint(s) Language,Cognitive Additional Areas of Concern Cognition Patient Knowledge/Awareness of IN FLIGHT REFUELING SYSTEM REPAIRER Role Good in Treatment Parent/Caretake Knowledge/Awareness of Good IN FLIGHT REFUELING SYSTEM REPAIRER Role in Treatment Patient/Caregiver Compliance with Home Excellent Exercise Program Objective Short Term Goals 1. The pt will participate in further assessment of expressive, receptive and cognitive communication skills to identify strengths and deficits and to guide POC. GOAL MET 2. The pt will complete exercises targeting word recall with 80% accuracy to improve expressive language skills and increase conversation participation. MAKING PROGRESS; CONTINUE GOAL 3. The pt will follow written instructions with 90% accuracy to perform functional tasks, such as remote control use, simple computer navigation, housekeeping tasks, etc. MAKING PROGRESS; CONTINUE GOAL 4. Given texts presented in writing or orally, the pt will answer questions related to inferential or implied meanings with 80% accuracy to improve comprehension of abstract concepts. CONTINUE GOAL 5. The pt will complete sequencing tasks (e.g., following a recipe, navigating phone/computer) with min v/v prompts to improve executive function and memory skills and increase pt's participation with functional and social ADLs. CONTINUE GOAL Core Analysis Operator Goals CONTINUE ALL LONG-TERM GOALS 1. The pt will demonstrate expressive and receptive language skills WFL, as demonstrated by increased social and conversational participation and measured by pt/family report and clinical judgment. 2. The pt will demonstrate cognitive communication skills WFL, as demonstrated by at least 50% participation in household tasks completed by the pt prior to CVA (e.g., computer use, cooking, grocery shopping/planning, etc.) and measured by pt/family report and clinical judgment. Treatment Activities Continued expressive language training via semantic features analysis (SFA) and confrontational naming. Pt named pictured objects with 100% accuracy. She exhibited frequent WFDs in conversation and during picture description /SFA tasks. She benefited from extended processing and response time as well as phonemic cuing. Frequently the pt's vocabulary was very context specific and different but synonymous to the IN FLIGHT REFUELING SYSTEM REPAIRER's target vocabulary. This demonstrates that the pt has a strong vocabulary but is limited in accessing it. Targeted sequencing of activities in coversation, discussing ways to cook the pt 's favorite foods. The pt continued to be limited and vague in her responses, not addressing cval-[id number] approach but was responsive to IN FLIGHT REFUELING SYSTEM REPAIRER's prompts and able to provide mostly correct steps in sequence (~75% acc). Assessment Patient Response to Treatment Good Rehab Potential Good Impairments Identified Aphasia,Cognitive-Linguistic Skills,Expressive Language, Memory - Short Term,Memory - Working,Problem Solving, Receptive Language,Other Additional Impairments Identified Flat affect and prosody Progress Towards Goals Good Progress Assessment of Overall Progress Improving Assessment of Improvement Pt continues with significant WFDs. Given extended time and prompts, she is able to produce a rich vocabulary. She completes SFA and sequencing tasks with prompting; otherwise limited responses independently. Reviewed with Patient Goals,Progress Being Made,Home Exercise Program Patient/Caregiver Understanding Good Plan Amount of Therapy Recommended 12+ Months Frequency of Treatment Twice a Week Length of Session 45 Minutes Treatment Emphasis Next Session Semantic features analysis; cont. sequencing tasks Therapeutic Contents Client Education,Cognitive- Linguistic Training,Expressive Language Training,Home Exercise Program,Information Processing,Receptive Language Training Provided Patient/Caregiver Instruction Home Exercise Program,Plan of Care,Questions/Concerns Therapy Recommendations Continue with Current Program
--- NOTE | 2021-04-21 11:52 | ST.OPTN ---
Visit Care Team Role Provider Type Renny Haynes MD Attending Provider Physician Family Provider Primary Care Provider Referring Provider Address: [address] [place] [address], [address], [place], [address] STITCHDOWN TOE FORMER Treatment Note STITCHDOWN TOE FORMER Clinical Instructor Line Start: 02/10/21 16:33 Freq: Status: Active Protocol: Document 02/19/21 17:37 JOVI (Rec: 02/19/21 17:37 JOVI [email or web address]) Clinical Instructor Signature Clinical Instructor Clinical Instructor Yes STITCHDOWN TOE FORMER Treatment Note Start: 01/06/21 12:19 Freq: Status: Active Protocol: Document 04/21/21 11:27 JOVI (Rec: 04/21/21 11:52 JOVI [email or web address]) Speech Pathology Treatment Note Session Time Visit Start Time 09:30 Visit Stop Time 10:20 Total Visit Minutes 50 Visit Information Visit Number 05/11 Plan of Care Dates 04/11/21 - 07/11/21 Insurance Information [facility] Setting Treatment Setting Outpatient Care Visit Type Note Type Progress Note Next Note Type Next Note Type Treatment Note General Information General Information The pt is a now 71-yr-old female familiar to this STITCHDOWN TOE FORMER from 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 On , the pt was admitted to the hospital with acute encephalopathy and malignant hypertension. She was initially confused. MRI findings on CT demonstrated a subacute left thalamic stroke. The patient was seen by speech pathology, PT and OT. She was functionally able to ambulate and had no weakness in the upper and lower extremities. However, she continued to have evidence of expressive and receptive aphasia. She dc'd from hospital to SNF, and then to home with . The pt will be receiving outpatient ST and PT services. Subjective Identification Type Other Others Present Family,Additional Therapist Observations/Patient Presentation The pt was accompanied by her who was present throughout for CG training to promote carryover of tx targets. No new complaints. The pt recently was experiencing GI issues, which have resolved over the last week, and since then has increased initiation with participation of household and personal tasks, such as cooking, cleaning dishes, dressing, and bathing, per spouse report. Chief Complaint(s) Language,Cognitive Patient Knowledge/Awareness of STITCHDOWN TOE FORMER Role Good in Treatment Parent/Caretake Knowledge/Awareness of Good STITCHDOWN TOE FORMER Role in Treatment Patient/Caregiver Compliance with Home Excellent Exercise Program Objective Short Term Goals 1. The pt will complete exercises targeting word recall with 80% accuracy to improve expressive language skills and increase conversation participation. MAKING PROGRESS; CONTINUE GOAL 2. The pt will follow written instructions with 90% accuracy to perform functional tasks, such as remote control use, simple computer navigation, housekeeping tasks, etc. MAKING PROGRESS; CONTINUE GOAL 3. Given texts presented in writing or orally, the pt will answer questions related to inferential or implied meanings with 80% accuracy to improve comprehension of abstract concepts. CONTINUE GOAL 4. The pt will complete sequencing tasks (e.g., following a recipe, navigating phone/computer) with min v/v prompts to improve executive function and memory skills and increase pt's participation with functional and social ADLs. CONTINUE GOAL Usp Goals CONTINUE ALL LONG-TERM GOALS 1. The pt will demonstrate expressive and receptive language skills WFL, as demonstrated by increased social and conversational participation and measured by pt/family report and clinical judgment. 2. The pt will demonstrate cognitive communication skills WFL, as demonstrated by at least 50% participation in household tasks completed by the pt prior to CVA (e.g., computer use, cooking, grocery shopping/planning, etc.) and measured by pt/family report and clinical judgment. Treatment Activities Continued word retrieval and sequencing skills training via categorical naming, alphabetizing words, and identifying words that do not belong with others. The pt required max prompts to list items in a category ( fruits). Transitioned task to identifying items (presented in writing) that do not belong in groups. Pt completed task with mod cues and 75% acc. Given lists of 3 words presented in writing, the pt demonstrated recall of alphabetizing rules with different first letters as well as letters that have the same initial letter. She then verbally alphabetized each list accurately, but when asked to repeat her answer, often changed responses to the sequence in which the words were originally listed. The pt required visual prompts to consistently list words in alphabetical order. This may indicate reduced memory skills and/or mental flexibility. Assessment Patient Response to Treatment Good Rehab Potential Good Impairments Identified Aphasia,Cognitive-Linguistic Skills,Expressive Language, Memory - Short Term,Memory - Working,Problem Solving, Receptive Language,Other Additional Impairments Identified Flat affect and prosody Progress Towards Goals Good Progress,Slow Progress Assessment of Overall Progress Improving Assessment of Improvement Over the course of treatment, the pt has made progress with confrontational naming skills, basic writing/spelling skills , and ability to discuss personally relevant topics. Auditory and reading comprehension skills are her strengths, while word recall and executive function deficits appear to be most limiting to her. These impact her ability to participate in conversations and appropriately sequence the steps of ADLs, resulting in significant dependence on spouse. The pt requires frequent verbal prompts for word recall during simple conversations. As a result, she does not initiate conversation and usually responds only when asked questions, often with vague and/or perseverative language (e.g., good or repeating topic words already stated by others in conversation). She is highly responsive to phonemic cuing, which her provides very appropriately. She exhibits frequent perseveration of words and concepts, especially if words/concepts are visually accessible. She benefits from removal of such visual reminders in order to focus on new concepts. Continued skilled intervention is medically necessary to improve the pt's expressive, receptive and cognitive communication skills, independence with ADL partcipation, and quality of life. While progress has been slow, it is being made, and the pt is supported by a very involved and family who provide excellent assistance with HEP tasks. The pt continues to exhibit flat affect but verbalizes motivation to continue with therapy and to improve. Reviewed with Patient Goals,Progress Being Made,Home Exercise Program Patient/Caregiver Understanding Good Plan Amount of Therapy Recommended 12+ Months Frequency of Treatment Twice a Week Length of Session 45 Minutes Treatment Emphasis Next Session Continue word recall and sequencing skills with pt's hobby activities Therapeutic Contents Client Education,Cognitive- Linguistic Training,Expressive Language Training,Home Exercise Program,Information Processing,Receptive Language Training Provided Patient/Caregiver Instruction Home Exercise Program,Plan of Care,Questions/Concerns Therapy Recommendations Continue with Current Program
--- NOTE | 2021-04-30 16:40 | ST.OPTN ---
Visit Care Team Role Provider Type Renny Haynes MD Attending Provider Physician Family Provider Primary Care Provider Referring Provider Address: [address] [place] [address], [address], [place], [address] MONITORING COORDINATOR Treatment Note MONITORING COORDINATOR Clinical Instructor Line Start: 02/10/21 16:33 Freq: Status: Active Protocol: Document 02/19/21 17:37 JOVI (Rec: 02/19/21 17:37 JOVI [email or web address]) Clinical Instructor Signature Clinical Instructor Clinical Instructor Yes MONITORING COORDINATOR Treatment Note Start: 01/06/21 12:19 Freq: Status: Active Protocol: Document 04/30/21 17:36 JOVI (Rec: 04/30/21 17:36 JOVI [email or web address]) Speech Pathology Treatment Note Session Time Visit Start Time 15:30 Visit Stop Time 16:15 Total Visit Minutes 45 Visit Information Visit Number 08/11 Plan of Care Dates 04/11/21 - 07/11/21 Insurance Information [facility] Setting Treatment Setting Outpatient Care Visit Type Note Type Treatment Note Next Note Type Next Note Type Treatment Note General Information General Information The pt is a now 71-yr-old female familiar to this MONITORING COORDINATOR from 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 On , the pt was admitted to the hospital with acute encephalopathy and malignant hypertension. She was initially confused. MRI findings on CT demonstrated a subacute left thalamic stroke. The patient was seen by speech pathology, PT and OT. She was functionally able to ambulate and had no weakness in the upper and lower extremities. However, she continued to have evidence of expressive and receptive aphasia. She dc'd from hospital to SNF, and then to home with . The pt will be receiving outpatient ST and PT services. Subjective Identification Type Other Others Present Family,Additional Therapist Observations/Patient Presentation The pt was accompanied by her who was present throughout for CG training to promote carryover of tx targets. No new complaints. Chief Complaint(s) Language,Cognitive Patient Knowledge/Awareness of MONITORING COORDINATOR Role Good in Treatment Parent/Caretake Knowledge/Awareness of Good MONITORING COORDINATOR Role in Treatment Patient/Caregiver Compliance with Home Excellent Exercise Program Objective Short Term Goals 1. The pt will complete exercises targeting word recall with 80% accuracy to improve expressive language skills and increase conversation participation. MAKING PROGRESS; CONTINUE GOAL 2. The pt will follow written instructions with 90% accuracy to perform functional tasks, such as remote control use, simple computer navigation, housekeeping tasks, etc. MAKING PROGRESS; CONTINUE GOAL 3. Given texts presented in writing or orally, the pt will answer questions related to inferential or implied meanings with 80% accuracy to improve comprehension of abstract concepts. CONTINUE GOAL 4. The pt will complete sequencing tasks (e.g., following a recipe, navigating phone/computer) with min v/v prompts to improve executive function and memory skills and increase pt's participation with functional and social ADLs. CONTINUE GOAL [employer] Goals CONTINUE ALL LONG-TERM GOALS 1. The pt will demonstrate expressive and receptive language skills WFL, as demonstrated by increased social and conversational participation and measured by pt/family report and clinical judgment. 2. The pt will demonstrate cognitive communication skills WFL, as demonstrated by at least 50% participation in household tasks completed by the pt prior to CVA (e.g., computer use, cooking, grocery shopping/planning, etc.) and measured by pt/family report and clinical judgment. Treatment Activities Evaluated pt's HEP via Constant Therapy zoya exercises and modified as appropriate, incorporating math word problems and number pattern reasoning tasks. Pt required max v/v to complete number pattern task, able to complete problems when set up by clinician but unable to determine pattern independently. Will include task for home practice to see if, with repetition and learning, the pt will improve this analytic reasoning task, as she was highly effective with numbers prior to her stroke. Given simple word problems, the pt read problems aloud accurately and set up and solved problems with min cues from Cliniician. The primary error she made was in transitioning from addition in one task to subtraction in the next, or vice versa. Assessment Patient Response to Treatment Good Rehab Potential Good Impairments Identified Aphasia,Cognitive-Linguistic Skills,Expressive Language, Memory - Short Term,Memory - Working,Problem Solving, Receptive Language,Other Additional Impairments Identified Flat affect and prosody Progress Towards Goals Good Progress,Slow Progress Assessment of Overall Progress Improving Assessment of Improvement The pt demonstrated stronger skills in concrete functional math problems vs more abstract quantitative reasoning skills . Reading ability and comprehension continues to be strong. Discussed POC and both pt/ spouse agreed they would like to continue with 2x/wk session , which is appropriate as the pt is making progress, but it is slow and requires much more therapy. Reviewed with Patient Goals,Progress Being Made,Home Exercise Program Patient/Caregiver Understanding Good Plan Amount of Therapy Recommended 12+ Months Frequency of Treatment Twice a Week Length of Session 45 Minutes Treatment Emphasis Next Session Continue word recall and sequencing skills with pt's [employer] activities Therapeutic Contents Client Education,Cognitive- Linguistic Training,Expressive Language Training,Home Exercise Program,Information Processing,Receptive Language Training Provided Patient/Caregiver Instruction Home Exercise Program,Plan of Care,Questions/Concerns Therapy Recommendations Continue with Current Program
--- NOTE | 2021-05-06 10:31 | ST.OPTN ---
Visit Care Team Role Provider Type Renny Haynes MD Attending Provider Physician Family Provider Primary Care Provider Referring Provider Address: [address] [place] [address], [address], [place], [address] CURRENCY COUNTER Treatment Note CURRENCY COUNTER Clinical Instructor Line Start: 02/10/21 16:33 Freq: Status: Active Protocol: Document 02/19/21 17:37 JOVI (Rec: 02/19/21 17:37 JOVI [email or web address]) Clinical Instructor Signature Clinical Instructor Clinical Instructor Yes CURRENCY COUNTER Treatment Note Start: 01/06/21 12:19 Freq: Status: Active Protocol: Document 05/06/21 10:22 JOVI (Rec: 05/06/21 10:31 JOVI [email or web address]) Speech Pathology Treatment Note Session Time Visit Start Time 09:30 Visit Stop Time 10:20 Total Visit Minutes 50 Visit Information Visit Number 09/11 Plan of Care Dates 04/11/21 - 07/11/21 Insurance Information [facility] Setting Treatment Setting Outpatient Care Visit Type Note Type Treatment Note Next Note Type Next Note Type Treatment Note General Information General Information The pt is a now 71-yr-old female familiar to this CURRENCY COUNTER from 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 On , the pt was admitted to the hospital with acute encephalopathy and malignant hypertension. She was initially confused. MRI findings on CT demonstrated a subacute left thalamic stroke. The patient was seen by speech pathology, PT and OT. She was functionally able to ambulate and had no weakness in the upper and lower extremities. However, she continued to have evidence of expressive and receptive aphasia. She dc'd from hospital to SNF, and then to home with . The pt will be receiving outpatient ST and PT services. Subjective Identification Type Other Others Present Family,Additional Therapist Observations/Patient Presentation The pt was accompanied by her who was present throughout for CG training to promote carryover of tx targets. No new complaints. Chief Complaint(s) Language,Cognitive Patient Knowledge/Awareness of CURRENCY COUNTER Role Good in Treatment Parent/Caretake Knowledge/Awareness of Good CURRENCY COUNTER Role in Treatment Patient/Caregiver Compliance with Home Excellent Exercise Program Objective Short Term Goals 1. The pt will complete exercises targeting word recall with 80% accuracy to improve expressive language skills and increase conversation participation. MAKING PROGRESS; CONTINUE GOAL 2. The pt will follow written instructions with 90% accuracy to perform functional tasks, such as remote control use, simple computer navigation, housekeeping tasks, etc. MAKING PROGRESS; CONTINUE GOAL 3. Given texts presented in writing or orally, the pt will answer questions related to inferential or implied meanings with 80% accuracy to improve comprehension of abstract concepts. CONTINUE GOAL 4. The pt will complete sequencing tasks (e.g., following a recipe, navigating phone/computer) with min v/v prompts to improve executive function and memory skills and increase pt's participation with functional and social ADLs. 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 The pt will demonstrate expressive and receptive language skills WFL, as demonstrated by increased social and conversational participation and measured by pt/family report and clinical judgment. 2. The pt will demonstrate cognitive communication skills WFL, as demonstrated by at least 50% participation in household tasks completed by the pt prior to CVA (e.g., computer use, cooking, grocery shopping/planning, etc.) and measured by pt/family report and clinical judgment. Treatment Activities Pt engaged in conversations related to her son's visit and to sewing, which has been a hobby of hers. Increased sentence length was produced in around these conversation topics that were meaningful to her. She explained simple processes and functions of sewing machine parts using complete sentences. Frequent word finding difficulties were exhibited, many resolved with phonemic cues. Attempts to have the pt describe target objects/concepts resulted in limited descriptions, frequent repetition and/or perseveration of previous words stated. Pt was best able to answer yes/no questions. Given categories related to sewing, the pt generated 17 words independently either in confrontational namine or in response to questions. She generated an additional 10 words with phonemic cues. Assessment Patient Response to Treatment Good Rehab Potential Good Impairments Identified Aphasia,Cognitive-Linguistic Skills,Expressive Language, Memory - Short Term,Memory - Working,Problem Solving, Receptive Language,Other Additional Impairments Identified Flat affect and prosody Progress Towards Goals Good Progress,Slow Progress Assessment of Overall Progress Improving Assessment of Improvement Increased sentence length and word production produced around topics of increased personal interest/experience. Pt continues to be highly responsive to phonemic cues. Moderate perseveration persists. Pt demonstrated humor and corrected her x1 in conversation. Reviewed with Patient Goals,Progress Being Made,Home Exercise Program Patient/Caregiver Understanding Good Plan Amount of Therapy Recommended 12+ Months Frequency of Treatment Twice a Week Length of Session 45 Minutes Treatment Emphasis Next Session Continue word recall and sequencing skills with pt's hobby activities Therapeutic Contents Client Education,Cognitive- Linguistic Training,Expressive Language Training,Home Exercise Program,Information Processing,Receptive Language Training Provided Patient/Caregiver Instruction Home Exercise Program,Plan of Care,Questions/Concerns Therapy Recommendations Continue with Current Program
--- NOTE | 2021-05-07 10:28 | ST.OPTN ---
Visit Care Team Role Provider Type Renny Haynes MD Attending Provider Physician Family Provider Primary Care Provider Referring Provider Address: [address] [place] [address], [address], [place], [address] [facility] Treatment Note [facility] Clinical Instructor Line Start: 02/10/21 16:33 Freq: Status: Active Protocol: Document 02/19/21 17:37 JOVI (Rec: 02/19/21 17:37 JOVI [email or web address]) Clinical Instructor Signature Clinical Instructor Clinical Instructor Yes [facility] Treatment Note Start: 01/06/21 12:19 Freq: Status: Active Protocol: Document 05/07/21 10:22 JOVI (Rec: 05/07/21 10:28 JOVI [email or web address]) Speech Pathology Treatment Note Session Time Visit Start Time 09:30 Visit Stop Time 10:15 Total Visit Minutes 45 Visit Information Visit Number 10/09 Plan of Care Dates 04/11/21 - 07/11/21 Insurance Information [facility] Setting Treatment Setting Outpatient Care Visit Type Note Type Treatment Note Next Note Type Next Note Type Treatment Note General Information General Information The pt is a now 71-yr-old female familiar to this [facility] from 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 On , the pt was admitted to the hospital with acute encephalopathy and malignant hypertension. She was initially confused. MRI findings on CT demonstrated a subacute left thalamic stroke. The patient was seen by speech pathology, PT and OT. She was functionally able to ambulate and had no weakness in the upper and lower extremities. However, she continued to have evidence of expressive and receptive aphasia. She dc'd from hospital to SNF, and then to home with . The pt will be receiving outpatient ST and PT services. Subjective Identification Type Other Others Present Family,Additional Therapist Observations/Patient Presentation The pt was accompanied by her who was present throughout for CG training to promote carryover of tx targets. No new complaints. Chief Complaint(s) Language,Cognitive Patient Knowledge/Awareness of [facility] Role Good in Treatment Parent/Caretake Knowledge/Awareness of Good [facility] Role in Treatment Patient/Caregiver Compliance with Home Excellent Exercise Program Objective Short Term Goals 1. The pt will complete exercises targeting word recall with 80% accuracy to improve expressive language skills and increase conversation participation. MAKING PROGRESS; CONTINUE GOAL 2. The pt will follow written instructions with 90% accuracy to perform functional tasks, such as remote control use, simple computer navigation, housekeeping tasks, etc. MAKING PROGRESS; CONTINUE GOAL 3. Given texts presented in writing or orally, the pt will answer questions related to inferential or implied meanings with 80% accuracy to improve comprehension of abstract concepts. CONTINUE GOAL 4. The pt will complete sequencing tasks (e.g., following a recipe, navigating phone/computer) with min v/v prompts to improve executive function and memory skills and increase pt's participation with functional and social ADLs. 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 The pt will demonstrate expressive and receptive language skills WFL, as demonstrated by increased social and conversational participation and measured by pt/family report and clinical judgment. 2. The pt will demonstrate cognitive communication skills WFL, as demonstrated by at least 50% participation in household tasks completed by the pt prior to CVA (e.g., computer use, cooking, grocery shopping/planning, etc.) and measured by pt/family report and clinical judgment. Treatment Activities Treatment session targeted conversation related to travel the pt and her have had. With mod prompts, the pt recalled a variety of places, foods, items purchased, etc. Over duration of the conversation, she became mildly more independently conversant, occasionally producing advanced vocabulary including Persian and Mohawk names for people, foods and places. Spouse was quick to provide phonemic cues, to which the pt was responsive. When given extended uninterrupted time to recall words, the pt recalled words or used synonyms or descriptor words in ~45% of opportunities. Assessment Patient Response to Treatment Good Rehab Potential Good Impairments Identified Aphasia,Cognitive-Linguistic Skills,Expressive Language, Memory - Short Term,Memory - Working,Problem Solving, Receptive Language,Other Additional Impairments Identified Flat affect and prosody Progress Towards Goals Good Progress,Slow Progress Assessment of Overall Progress Improving Assessment of Improvement Pt again demonstrated increased sentence length and word production conversational around topics of increased personal interest/experience. Pt continues to be highly responsive to phonemic cues. Moderate perseveration persists. Pt corrected x1 and produced uncommon words specific to other countries/cultures, demonstrating good prison memory recall of personal experiences. Reviewed with Patient Goals,Progress Being Made,Home Exercise Program Patient/Caregiver Understanding Good Plan Amount of Therapy Recommended 12+ Months Frequency of Treatment Twice a Week Length of Session 45 Minutes Treatment Emphasis Next Session Continue word recall and sequencing skills with pt's hobby activities Therapeutic Contents Client Education,Cognitive- Linguistic Training,Expressive Language Training,Home Exercise Program,Information Processing,Receptive Language Training Provided Patient/Caregiver Instruction Home Exercise Program,Plan of Care,Questions/Concerns Therapy Recommendations Continue with Current Program
--- NOTE | 2021-05-26 12:24 | ST.OPTN ---
Visit Care Team Role Provider Type Renny Haynes MD Attending Provider Physician Family Provider Primary Care Provider Referring Provider Address: [address] [place] [address], [address], [address] CURING ROOM WORKER Treatment Note CURING ROOM WORKER Clinical Instructor Line Start: 02/10/21 16:33 Freq: Status: Active Protocol: Document 02/19/21 17:37 JOVI (Rec: 02/19/21 17:37 JOVI [email or web address]) Clinical Instructor Signature Clinical Instructor Clinical Instructor Yes CURING ROOM WORKER Treatment Note Start: 01/06/21 12:19 Freq: Status: Active Protocol: Document 05/26/21 17:55 JOVI (Rec: 05/26/21 17:55 JOVI [email or web address]) Speech Pathology Treatment Note Session Time Visit Start Time 10:30 Visit Stop Time 11:15 Total Visit Minutes 45 Visit Information Visit Number 11/09 Plan of Care Dates 04/11/21 - 07/11/21 Insurance Information [facility] Setting Treatment Setting Outpatient Care Visit Type Note Type Treatment Note Next Note Type Next Note Type Treatment Note General Information General Information The pt is a now 71-yr-old female 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 On , the pt was admitted to the hospital with acute encephalopathy and malignant hypertension. She was initially confused. MRI findings on CT demonstrated a subacute left thalamic stroke. The patient was seen by speech pathology, PT and OT. She was functionally able to ambulate and had no weakness in the upper and lower extremities. However, she continued to have evidence of expressive and receptive aphasia. She dc'd from hospital to SNF, and then to home with . The pt will be receiving outpatient ST and PT services. Subjective Identification Type Other Others Present Family,Additional Therapist Observations/Patient Presentation The pt was accompanied by her who was present throughout for CG training to promote carryover of tx targets. No new complaints. Chief Complaint(s) Language,Cognitive Patient Knowledge/Awareness of CURING ROOM WORKER Role Good in Treatment Parent/Caretake Knowledge/Awareness of Good CURING ROOM WORKER Role in Treatment Patient/Caregiver Compliance with Home Excellent Exercise Program Objective Short Term Goals 1. The pt will complete exercises targeting word recall with 80% accuracy to improve expressive language skills and increase conversation participation. MAKING PROGRESS; CONTINUE GOAL 2. The pt will follow written instructions with 90% accuracy to perform functional tasks, such as remote control use, simple computer navigation, housekeeping tasks, etc. MAKING PROGRESS; CONTINUE GOAL 3. Given texts presented in writing or orally, the pt will answer questions related to inferential or implied meanings with 80% accuracy to improve comprehension of abstract concepts. CONTINUE GOAL 4. The pt will complete sequencing tasks (e.g., following a recipe, navigating phone/computer) with min v/v prompts to improve executive function and memory skills and increase pt's participation with functional and social ADLs. 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 The pt will demonstrate expressive and receptive language skills WFL, as demonstrated by increased social and conversational participation and measured by pt/family report and clinical judgment. 2. The pt will demonstrate cognitive communication skills WFL, as demonstrated by at least 50% participation in household tasks completed by the pt prior to CVA (e.g., computer use, cooking, grocery shopping/planning, etc.) and measured by pt/family report and clinical judgment. Treatment Activities Conversation: The pt was more highly engaged in spontaneous conversation with increased length and complexity of responses to questions. Pt did not initiate conversation. Expressive language: Targeted expansion of sentences and initiation of conversation via questions with use of pictures. Given pictures from the clinician's recent vacation, the pt gave accurate but limited descriptions, frequently not independently commenting on all aspects of the picture. For example, describing items in the foreground but not background of pictures, or at the middle or bottom but not top and sides of pictures. The pt has not demonstrated visual limitations previously. Will probe in next sessions to ensure she attends to all aspects of visual prompts. Given instructions to ask a question about the pictures, the pt did so only once in 4 opportunities (25% acc). When asked if she had a question, she responded, No. Will f/u with increased support and structure to tasks. Assessment Patient Response to Treatment Good Rehab Potential Good Impairments Identified Aphasia,Cognitive-Linguistic Skills,Expressive Language, Memory - Short Term,Memory - Working,Problem Solving, Receptive Language,Other Additional Impairments Identified Flat affect and prosody Progress Towards Goals Good Progress,Slow Progress Assessment of Overall Progress Improving Assessment of Improvement The pt demonstrated increased length, complexity and independence in response to prompts in spontaneous conversation but limited expression in structured tasks . Pt required v/v prompts to describe various parts of pictures and was very limited in asking questions, which is consistent with spouse reports that she rarely initiates conversation. Will continue these treatment targets with increased support. Reviewed with Patient Goals,Progress Being Made,Home Exercise Program Patient/Caregiver Understanding Good Plan Amount of Therapy Recommended 12+ Months Frequency of Treatment Twice a Week Length of Session 45 Minutes Treatment Emphasis Next Session Question asking, expanded sentence production Therapeutic Contents Client Education,Cognitive- Linguistic Training,Expressive Language Training,Home Exercise Program,Information Processing,Receptive Language Training Provided Patient/Caregiver Instruction Home Exercise Program,Plan of Care,Questions/Concerns Therapy Recommendations Continue with Current Program
--- NOTE | 2021-05-28 11:26 | ST.OPTN ---
Visit Care Team Role Provider Type Renny Haynes MD Attending Provider Physician Family Provider Primary Care Provider Referring Provider Address: [address] [place] [address], [address], [place], [address] PSYCHOLOGICAL OPERATIONS OFFICER Treatment Note PSYCHOLOGICAL OPERATIONS OFFICER Clinical Instructor Line Start: 02/10/21 16:33 Freq: Status: Active Protocol: Document 02/19/21 17:37 JOVI (Rec: 02/19/21 17:37 JOVI [email or web address]) Clinical Instructor Signature Clinical Instructor Clinical Instructor Yes PSYCHOLOGICAL OPERATIONS OFFICER Treatment Note Start: 01/06/21 12:19 Freq: Status: Active Protocol: Document 05/28/21 18:05 JOVI (Rec: 05/28/21 18:07 JOVI [email or web address]) Speech Pathology Treatment Note Session Time Visit Start Time 10:30 Visit Stop Time 11:15 Total Visit Minutes 45 Visit Information Visit Number 12/09 Plan of Care Dates 04/11/21 - 07/11/21 Insurance Information [facility] Setting Treatment Setting Outpatient Care Visit Type Note Type Treatment Note Next Note Type Next Note Type Treatment Note General Information General Information The pt is a now 71-yr-old female familiar to this 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 On , the pt was admitted to the hospital with acute encephalopathy and malignant hypertension. She was initially confused. MRI findings on CT demonstrated a subacute left thalamic stroke. The patient was seen by speech pathology, PT and OT. She was functionally able to ambulate and had no weakness in the upper and lower extremities. However, she continued to have evidence of expressive and receptive aphasia. She dc'd from hospital to SNF, and then to home with . The pt will be receiving outpatient ST and PT services. Subjective Identification Type Other Others Present Family,Additional Therapist Observations/Patient Presentation The pt was accompanied by her who was present throughout for CG training to promote carryover of tx targets. No new complaints. Chief Complaint(s) Language,Cognitive Patient Knowledge/Awareness of PSYCHOLOGICAL OPERATIONS OFFICER Role Good in Treatment Parent/Caretake Knowledge/Awareness of Good PSYCHOLOGICAL OPERATIONS OFFICER Role in Treatment Patient/Caregiver Compliance with Home Excellent Exercise Program Objective Short Term Goals 1. The pt will complete exercises targeting word recall with 80% accuracy to improve expressive language skills and increase conversation participation. MAKING PROGRESS; CONTINUE GOAL 2. The pt will follow written instructions with 90% accuracy to perform functional tasks, such as remote control use, simple computer navigation, housekeeping tasks, etc. MAKING PROGRESS; CONTINUE GOAL 3. Given texts presented in writing or orally, the pt will answer questions related to inferential or implied meanings with 80% accuracy to improve comprehension of abstract concepts. CONTINUE GOAL 4. The pt will complete sequencing tasks (e.g., following a recipe, navigating phone/computer) with min v/v prompts to improve executive function and memory skills and increase pt's participation with functional and social ADLs. 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 The pt will demonstrate expressive and receptive language skills WFL, as demonstrated by increased social and conversational participation and measured by pt/family report and clinical judgment. 2. The pt will demonstrate cognitive communication skills WFL, as demonstrated by at least 50% participation in household tasks completed by the pt prior to CVA (e.g., computer use, cooking, grocery shopping/planning, etc.) and measured by pt/family report and clinical judgment. Treatment Activities Expressive language expansion of sentence production via Constant Therapy picture description task. Pt initially described Who is doing what , then expanded with descriptions of sentence subjects. Good production with mod prompts, often defaulting to simple sentence structure or changing sentences (e.g., The woman is happy vs The happy woman is ironing.). Assessment Patient Response to Treatment Good Rehab Potential Good Impairments Identified Aphasia,Cognitive-Linguistic Skills,Expressive Language, Memory - Short Term,Memory - Working,Problem Solving, Receptive Language,Other Additional Impairments Identified Flat affect and prosody Progress Towards Goals Good Progress,Slow Progress Assessment of Overall Progress Improving Assessment of Improvement Pt provided appropriate responses with moderate level of prompting required. In general is slowly expanding verbal expression, more in spontaneous conversation than in structured tasks. Reviewed with Patient Goals,Progress Being Made,Home Exercise Program Patient/Caregiver Understanding Good Plan Amount of Therapy Recommended 12+ Months Frequency of Treatment Twice a Week Length of Session 45 Minutes Treatment Emphasis Next Session Question asking, expanded sentence production Therapeutic Contents Client Education,Cognitive- Linguistic Training,Expressive Language Training,Home Exercise Program,Information Processing,Receptive Language Training Provided Patient/Caregiver Instruction Home Exercise Program,Plan of Care,Questions/Concerns Therapy Recommendations Continue with Current Program
--- NOTE | 2021-06-02 11:36 | ST.OPTN ---
Visit Care Team Role Provider Type Renny Haynes MD Attending Provider Physician Family Provider Primary Care Provider Referring Provider Address: [address] [place] [address], [address], [place], [address] MEDICAL LAB TECHNICIAN Treatment Note MEDICAL LAB TECHNICIAN Clinical Instructor Line Start: 02/10/21 16:33 Freq: Status: Active Protocol: Document 02/19/21 17:37 JOVI (Rec: 02/19/21 17:37 JOVI [email or web address]) Clinical Instructor Signature Clinical Instructor Clinical Instructor Yes MEDICAL LAB TECHNICIAN Treatment Note Start: 01/06/21 12:19 Freq: Status: Active Protocol: Document 06/02/21 11:26 JOVI (Rec: 06/02/21 11:36 JOVI [email or web address]) Speech Pathology Treatment Note Session Time Visit Start Time 10:30 Visit Stop Time 11:20 Total Visit Minutes 50 Visit Information Visit Number 01/09 Plan of Care Dates 04/11/21 - 07/11/21 Insurance Information [facility] Setting Treatment Setting Outpatient Care Visit Type Note Type Treatment Note Next Note Type Next Note Type Treatment Note General Information General Information The pt is a now 71-yr-old female familiar to this MEDICAL LAB TECHNICIAN from 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 On , the pt was admitted to the hospital with acute encephalopathy and malignant hypertension. She was initially confused. MRI findings on CT demonstrated a subacute left thalamic stroke. The patient was seen by speech pathology, PT and OT. She was functionally able to ambulate and had no weakness in the upper and lower extremities. However, she continued to have evidence of expressive and receptive aphasia. She dc'd from hospital to SNF, and then to home with . The pt will be receiving outpatient ST and PT services. Subjective Identification Type Other Others Present Family,Additional Therapist Observations/Patient Presentation The pt was accompanied by her who was present throughout for CG training to promote carryover of tx targets. No new complaints. The couple are anticipating getting together with a close group of friends they haven't seen in ~1.5 yrs, as well as their children and grandchildren visiting for [place]. Chief Complaint(s) Language,Cognitive Patient Knowledge/Awareness of MEDICAL LAB TECHNICIAN Role Good in Treatment Parent/Caretake Knowledge/Awareness of Good MEDICAL LAB TECHNICIAN Role in Treatment Patient/Caregiver Compliance with Home Excellent Exercise Program Objective Short Term Goals 1. The pt will complete exercises targeting word recall with 80% accuracy to improve expressive language skills and increase conversation participation. MAKING PROGRESS; CONTINUE GOAL 2. The pt will follow written instructions with 90% accuracy to perform functional tasks, such as remote control use, simple computer navigation, housekeeping tasks, etc. MAKING PROGRESS; CONTINUE GOAL 3. Given texts presented in writing or orally, the pt will answer questions related to inferential or implied meanings with 80% accuracy to improve comprehension of abstract concepts. CONTINUE GOAL 4. The pt will complete sequencing tasks (e.g., following a recipe, navigating phone/computer) with min v/v prompts to improve executive function and memory skills and increase pt's participation with functional and social ADLs. CONTINUE GOAL Fpc Goals CONTINUE ALL LONG-TERM GOALS 1. The pt will demonstrate expressive and receptive language skills WFL, as demonstrated by increased social and conversational participation and measured by pt/family report and clinical judgment. 2. The pt will demonstrate cognitive communication skills WFL, as demonstrated by at least 50% participation in household tasks completed by the pt prior to CVA (e.g., computer use, cooking, grocery shopping/planning, etc.) and measured by pt/family report and clinical judgment. Treatment Activities Continued targeting expressive language and specifically initiating conversations with questions. Initiated training with review of Wh-questions, including How questions, presented in writing for reference throughout the session. Given picture scenes that depict problems, the pt first described each picture answering question Who is doing what? accurately with occ minimal prompts. She then answered the question, What is the problem independently with 100% acc. Next, she generated 3-5 approriate questions independently, occasionally repeating the question What is the problem , which was visible throughout the task. Given a list of Wh- questions, the pt asked specific questions (e.g., a Who question, etc.) with min- mod prompts, sometimes restating the problem or asking questions that begin with other words. MEDICAL LAB TECHNICIAN and spouse participated in activity. Each person, including pt, nicho a question word and asked an corresponding question. The task was expanded to each person asking a different question each starting with same word. The pt produced novel questions in ~75% of opportunities with mod verbal prompts. Assessment Patient Response to Treatment Good Rehab Potential Good Impairments Identified Aphasia,Cognitive-Linguistic Skills,Expressive Language, Memory - Short Term,Memory - Working,Problem Solving, Receptive Language,Other Additional Impairments Identified Flat affect and prosody Progress Towards Goals Good Progress,Slow Progress Assessment of Overall Progress Improving Assessment of Improvement The pt generated a good number of questions related to each picture requiring min-mod prompts, particularly when targeting a specific question word. She made good observations about details in the picture and participated with enthusiasm. She continues to demonstrate slowly expanding expression in conversation. Also continues with occasional perseveration, particularly on items that are visually present, such as the written question What is the problem. She is more productive with oral prompts. Reviewed with Patient Goals,Progress Being Made,Home Exercise Program Patient/Caregiver Understanding Good Plan Amount of Therapy Recommended 12+ Months Frequency of Treatment Twice a Week Length of Session 45 Minutes Treatment Emphasis Next Session Question asking, expanded sentence production Therapeutic Contents Client Education,Cognitive- Linguistic Training,Expressive Language Training,Home Exercise Program,Information Processing,Receptive Language Training Provided Patient/Caregiver Instruction Home Exercise Program,Plan of Care,Questions/Concerns Therapy Recommendations Continue with Current Program
--- NOTE | 2021-06-04 12:20 | ST.OPTN ---
Visit Care Team Role Provider Type Renny Haynes MD Attending Provider Physician Family Provider Primary Care Provider Referring Provider Address: [address] [place] [address], [address], [place], [address] WELDER REPAIR Treatment Note WELDER REPAIR Clinical Instructor Line Start: 02/10/21 16:33 Freq: Status: Active Protocol: Document 02/19/21 17:37 JOVI (Rec: 02/19/21 17:37 JOVI [email or web address]) Clinical Instructor Signature Clinical Instructor Clinical Instructor Yes WELDER REPAIR Treatment Note Start: 01/06/21 12:19 Freq: Status: Active Protocol: Document 06/04/21 12:07 JOVI (Rec: 06/04/21 12:20 JOVI [email or web address]) Speech Pathology Treatment Note Session Time Visit Start Time 10:30 Visit Stop Time 11:15 Total Visit Minutes 45 Visit Information Visit Number 02/08 Plan of Care Dates 04/11/21 - 07/11/21 Insurance Information [facility] Setting Treatment Setting Outpatient Care Visit Type Note Type Treatment Note Next Note Type Next Note Type Treatment Note General Information General Information The pt is a now 71-yr-old female familiar to this WELDER REPAIR from 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 On , the pt was admitted to the hospital with acute encephalopathy and malignant hypertension. She was initially confused. MRI findings on CT demonstrated a subacute left thalamic stroke. The patient was seen by speech pathology, PT and OT. She was functionally able to ambulate and had no weakness in the upper and lower extremities. However, she continued to have evidence of expressive and receptive aphasia. She dc'd from hospital to SNF, and then to home with . The pt will be receiving outpatient ST and PT services. Subjective Identification Type Other Others Present Family,Additional Therapist Observations/Patient Presentation The pt was accompanied by her who was present throughout for CG training to promote carryover of tx targets. No new complaints. The couple are anticipating getting together with a close group of friends they haven't seen in ~1.5 yrs, as well as their children and grandchildren visiting for [place]. Chief Complaint(s) Language,Cognitive Patient Knowledge/Awareness of WELDER REPAIR Role Good in Treatment Parent/Caretake Knowledge/Awareness of Good WELDER REPAIR Role in Treatment Patient/Caregiver Compliance with Home Excellent Exercise Program Objective Short Term Goals 1. The pt will complete exercises targeting word recall with 80% accuracy to improve expressive language skills and increase conversation participation. MAKING PROGRESS; CONTINUE GOAL 2. The pt will follow written instructions with 90% accuracy to perform functional tasks, such as remote control use, simple computer navigation, housekeeping tasks, etc. MAKING PROGRESS; CONTINUE GOAL 3. Given texts presented in writing or orally, the pt will answer questions related to inferential or implied meanings with 80% accuracy to improve comprehension of abstract concepts. CONTINUE GOAL 4. The pt will complete sequencing tasks (e.g., following a recipe, navigating phone/computer) with min v/v prompts to improve executive function and memory skills and increase pt's participation with functional and social ADLs. CONTINUE GOAL Long-Term Goals CONTINUE ALL LONG-TERM GOALS 1. The pt will demonstrate expressive and receptive language skills WFL, as demonstrated by increased social and conversational participation and measured by pt/family report and clinical judgment. 2. The pt will demonstrate cognitive communication skills WFL, as demonstrated by at least 50% participation in household tasks completed by the pt prior to CVA (e.g., computer use, cooking, grocery shopping/planning, etc.) and measured by pt/family report and clinical judgment. Treatment Activities Continued targeting expressive language and specifically initiating conversations with questions. Reviewed Wh- questions from last session. With verbal prompts as needed from spouse (mod-max), the pt named friends who will be gathering together on Wednesday. She then generated 2-6 questions to ask each person, based on prompts as needed from spouse and clinician RE persons' areas of interest, current known living and health situations, etc. The pt generally responded to prompts (i.e., What question do you want to ask him/her?) with statements instead of questions (e.g., I want to know how he's doing vs How are you doing?), though all such responses were appropriate to the context. When prompted to form questions, the pt did so in > 80% of opportunities. When the list of names and questions were generated and written on paper by the Clinician, the pt read questions aloud, appropriately changing pronouns to match the current audience; for example, How is she doing vs How are you doing, demonstrating strong syntactic skills. All other text was read accurately as written. Assessment Patient Response to Treatment Good Rehab Potential Good Impairments Identified Aphasia,Cognitive-Linguistic Skills,Expressive Language, Memory - Short Term,Memory - Working,Problem Solving, Receptive Language,Other Additional Impairments Identified Flat affect and prosody Progress Towards Goals Good Progress,Slow Progress Assessment of Overall Progress Improving Assessment of Improvement The pt required moderate prompts to consider each friend's current situation and /or personality from which to generate quesions. Once oriented to this information, she accurately expressed appropriate information that she would like to know from them. Mild prompting was consistently required to form questions around those ideas, such as What question would you ask to find that out? She frequently offered additional and often humorous information about friends, such as That question is all it will take. He'll go on and on about that! Such comments demonstrate expansion of thought and expressive language as compared to SOC. Reviewed with Patient Goals,Progress Being Made,Home Exercise Program Patient/Caregiver Understanding Good Plan Amount of Therapy Recommended 12+ Months Frequency of Treatment Twice a Week Length of Session 45 Minutes Treatment Emphasis Next Session Question asking, expanded sentence production Therapeutic Contents Client Education,Cognitive- Linguistic Training,Expressive Language Training,Home Exercise Program,Information Processing,Receptive Language Training Provided Patient/Caregiver Instruction Home Exercise Program,Plan of Care,Questions/Concerns Therapy Recommendations Continue with Current Program
--- NOTE | 2021-06-09 16:00 | ST.OPTN ---
Visit Care Team Role Provider Type Renny Haynes MD Attending Provider Physician Family Provider Primary Care Provider Referring Provider Address: [address] [place] [address], [address], [place], [address] SALES CORRESPONDENT Treatment Note SALES CORRESPONDENT Clinical Instructor Line Start: 02/10/21 16:33 Freq: Status: Active Protocol: Document 02/19/21 17:37 JOVI (Rec: 02/19/21 17:37 JOVI [email or web address]) Clinical Instructor Signature Clinical Instructor Clinical Instructor Yes SALES CORRESPONDENT Treatment Note Start: 01/06/21 12:19 Freq: Status: Active Protocol: Document 06/09/21 15:45 JOVI (Rec: 06/09/21 16:00 JOVI [email or web address]) Speech Pathology Treatment Note Session Time Visit Start Time 10:30 Visit Stop Time 11:15 Total Visit Minutes 45 Visit Information Visit Number 03/11 Plan of Care Dates 04/11/21 - 07/11/21 Insurance Information [facility] Setting Treatment Setting Outpatient Care Visit Type Note Type Treatment Note Next Note Type Next Note Type Treatment Note General Information General Information The pt is a now 71-yr-old female familiar to this SALES CORRESPONDENT from 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 On , the pt was admitted to the hospital with acute encephalopathy and malignant hypertension. She was initially confused. MRI findings on CT demonstrated a subacute left thalamic stroke. The patient was seen by speech pathology, PT and OT. She was functionally able to ambulate and had no weakness in the upper and lower extremities. However, she continued to have evidence of expressive and receptive aphasia. She dc'd from hospital to SNF, and then to home with . The pt will be receiving outpatient ST and PT services. Subjective Identification Type Other Others Present Family,Additional Therapist Observations/Patient Presentation The pt was accompanied by her who was present throughout for CG training to promote carryover of tx targets. No new complaints. The couple spent time with friends over the weekend, which was the topic of semi- structured and therpeutic conversation today. Chief Complaint(s) Language,Cognitive Patient Knowledge/Awareness of SALES CORRESPONDENT Role Good in Treatment Parent/Caretake Knowledge/Awareness of Good SALES CORRESPONDENT Role in Treatment Patient/Caregiver Compliance with Home Excellent Exercise Program Objective Short Term Goals 1. The pt will complete exercises targeting word recall with 80% accuracy to improve expressive language skills and increase conversation participation. MAKING PROGRESS; CONTINUE GOAL 2. The pt will follow written instructions with 90% accuracy to perform functional tasks, such as remote control use, simple computer navigation, housekeeping tasks, etc. MAKING PROGRESS; CONTINUE GOAL 3. Given texts presented in writing or orally, the pt will answer questions related to inferential or implied meanings with 80% accuracy to improve comprehension of abstract concepts. CONTINUE GOAL 4. The pt will complete sequencing tasks (e.g., following a recipe, navigating phone/computer) with min v/v prompts to improve executive function and memory skills and increase pt's participation with functional and social ADLs. CONTINUE GOAL Animal Cytologist Goals CONTINUE ALL LONG-TERM GOALS 1. The pt will demonstrate expressive and receptive language skills WFL, as demonstrated by increased social and conversational participation and measured by pt/family report and clinical judgment. 2. The pt will demonstrate cognitive communication skills WFL, as demonstrated by at least 50% participation in household tasks completed by the pt prior to CVA (e.g., computer use, cooking, grocery shopping/planning, etc.) and measured by pt/family report and clinical judgment. Treatment Activities The pt provided details about the couple's visit with friends yesterday. When asked general questions (e.g., How was it? What did you learn?), the pt's responses were also general and vague (e.g., It was good. I learned a lot.), demonstrating continued limited spontaneous and self- initiated speech. She was responsive to all questions, responding independently with 78% acc. She produced occ errors and occ sought answers from her , who typically responded with further questions or phonemic cues to prompt answers. This was effective in most occurrences. Twice, the pt appropriately stated, I don't know. In discussions related to specific friends, the pt accurately named individuals independently in 54% of opportunities and was responsive to semantic or phonemic cueing in an additional 31% of the time, for a total of 85% acc with mod prompts. In structured sentence generation and expansion tasks , the pt was equally responsive to prompting, able to generate 3 sentences using the same verb. All sentences were egocentric and expanded upon with accurately with guiding questions (e.g., Where ? When?). Assessment Patient Response to Treatment Good Rehab Potential Good Impairments Identified Aphasia,Cognitive-Linguistic Skills,Expressive Language, Memory - Short Term,Memory - Working,Problem Solving, Receptive Language,Other Additional Impairments Identified Flat affect and prosody Progress Towards Goals Good Progress,Slow Progress Assessment of Overall Progress Improving Assessment of Improvement The pt continues to be participatory in conversations , providing more expansive expression and details in response to specific questions vs open ended questions. She rarely initiates conversation beyond greetings. She exhibits good auditory comprehension in conversation and with concrete and simple concepts/ instruction in structured sentence expansion task. She did not exhibit perseveration in today's session, which is progress. Reviewed with Patient Goals,Progress Being Made,Home Exercise Program Patient/Caregiver Understanding Good Plan Amount of Therapy Recommended 12+ Months Frequency of Treatment Twice a Week Length of Session 45 Minutes Treatment Emphasis Next Session Question asking, expanded sentence production Therapeutic Contents Client Education,Cognitive- Linguistic Training,Expressive Language Training,Home Exercise Program,Information Processing,Receptive Language Training Provided Patient/Caregiver Instruction Home Exercise Program,Plan of Care,Questions/Concerns Therapy Recommendations Continue with Current Program
--- NOTE | 2021-06-11 16:42 | ST.OPTN ---
Visit Care Team Role Provider Type Renny Haynes MD Attending Provider Physician Family Provider Primary Care Provider Referring Provider Address: [address] [place] [address], [address], [place], [address] FOUNDATION ASSISTANT Treatment Note FOUNDATION ASSISTANT Clinical Instructor Line Start: 02/10/21 16:33 Freq: Status: Active Protocol: Document 02/19/21 17:37 JOVI (Rec: 02/19/21 17:37 JOVI [email or web address]) Clinical Instructor Signature Clinical Instructor Clinical Instructor Yes FOUNDATION ASSISTANT Treatment Note Start: 01/06/21 12:19 Freq: Status: Active Protocol: Document 06/11/21 16:24 JOVI (Rec: 06/11/21 16:42 JOVI [email or web address]) Speech Pathology Treatment Note Session Time Visit Start Time 10:30 Visit Stop Time 11:20 Total Visit Minutes 50 Visit Information Visit Number 04/11 Plan of Care Dates 04/11/21 - 07/11/[address] [facility] Setting Treatment Setting Outpatient Care Visit Type Note Type Treatment Note Next Note Type Next Note Type Progress Note General Information General Information The pt is a now 71-yr-old female familiar to this FOUNDATION ASSISTANT from 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 On , the pt was admitted to the hospital with acute encephalopathy and malignant hypertension. She was initially confused. MRI findings on CT demonstrated a subacute left thalamic stroke. The patient was seen by speech pathology, PT and OT. She was functionally able to ambulate and had no weakness in the upper and lower extremities. However, she continued to have evidence of expressive and receptive aphasia. She dc'd from hospital to SNF, and then to home with . The pt will be receiving outpatient ST and PT services. Subjective Identification Type Other Others Present Family,Additional Therapist Observations/Patient Presentation The pt was accompanied by her who was present throughout for CG training to promote carryover of tx targets. No new complaints. In discussion RE activities the pt has not participated in since stroke that she would like to, she stated she'd like to sew again. Chief Complaint(s) Language,Cognitive Patient Knowledge/Awareness of FOUNDATION ASSISTANT Role Good in Treatment Parent/Caretake Knowledge/Awareness of Good FOUNDATION ASSISTANT Role in Treatment Patient/Caregiver Compliance with Home Excellent Exercise Program Objective Short Term Goals 1. The pt will complete exercises targeting word recall with 80% accuracy to improve expressive language skills and increase conversation participation. MAKING PROGRESS; CONTINUE GOAL 2. The pt will follow written instructions with 90% accuracy to perform functional tasks, such as remote control use, simple computer navigation, housekeeping tasks, etc. MAKING PROGRESS; CONTINUE GOAL 3. Given texts presented in writing or orally, the pt will answer questions related to inferential or implied meanings with 80% accuracy to improve comprehension of abstract concepts. CONTINUE GOAL 4. The pt will complete sequencing tasks (e.g., following a recipe, navigating phone/computer) with min v/v prompts to improve executive function and memory skills and increase pt's participation with functional and social ADLs. 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 The pt will demonstrate expressive and receptive language skills WFL, as demonstrated by increased social and conversational participation and measured by pt/family report and clinical judgment. 2. The pt will demonstrate cognitive communication skills WFL, as demonstrated by at least 50% participation in household tasks completed by the pt prior to CVA (e.g., computer use, cooking, grocery shopping/planning, etc.) and measured by pt/family report and clinical judgment. Treatment Activities Reviewed POC and goals with pt /spouse. Agreed to continue work to reduced WFDs and target sequencing of steps of hobby and household tasks to increase the pt's expressive language skills and independence and engagement with these activities again. Given the topic of sewing a hem, the pt outlined 11 steps in sequence to completing the task, with mod/ prompts in the form of questions. Without prompting questions, the pt gave broad instructions (e.g., then you sew it) but gave appropriate details with specific language in response to questions. The pt's spouse suggested she start to use her computer again, which the pt was agreeable to. Recommended using labels with arrows pointing toward pertinent desktop icons to visually isolate them from others and assist pt with orientation and navigation. Also recommended using custom motorcycle painter's tape to cover buttons on the remote control to visually isolate those that are used from others. Demonstration was provided, and the pt/spouse expressed intention to attempt these at home. Assessment Patient Response to Treatment Good Rehab Potential Good Impairments Identified Aphasia,Cognitive-Linguistic Skills,Expressive Language, Memory - Short Term,Memory - Working,Problem Solving, Receptive Language,Other Additional Impairments Identified Flat affect and prosody Progress Towards Goals Good Progress,Slow Progress Assessment of Overall Progress Improving Assessment of Improvement The pt and spouse were receptive to recommendations to assist the pt in visually navigating remote control and computer desktop in order to increase engagement with these activities and the pt's independence. In treatment, the pt has been prone to perseveration on visual stimuli; therefore, visual isolation is anticipated to help her to focus on targets and improve memory with ease of practice. With question prompts, the pt clearly and accurately outlined steps to a simple sewing task. Will attempt to get materials to complete actual sewing and/or cross-stitch tasks in treatment to promote re- engagement at home. Reviewed with Patient Goals,Progress Being Made,Home Exercise Program Patient/Caregiver Understanding Good Plan Amount of Therapy Recommended 12+ Months Frequency of Treatment Twice a Week Length of Session 45 Minutes Treatment Emphasis Next Session Sequencing & discussion of sewing & cross-stitch hobbies Therapeutic Contents Client Education,Cognitive- Linguistic Training,Expressive Language Training,Home Exercise Program,Information Processing,Receptive Language Training Provided Patient/Caregiver Instruction Home Exercise Program,Plan of Care,Questions/Concerns Therapy Recommendations Continue with Current Program
--- NOTE | 2021-06-16 12:17 | ST.OPTN ---
Visit Care Team Role Provider Type Renny Haynes MD Attending Provider Physician Family Provider Primary Care Provider Referring Provider Address: [address] [place] [address], [address], [place], [address] LOGISTICS SPECIALIST Treatment Note LOGISTICS SPECIALIST Clinical Instructor Line Start: 02/10/21 16:33 Freq: Status: Active Protocol: Document 02/19/21 17:37 JOVI (Rec: 02/19/21 17:37 JOVI [email or web address]) Clinical Instructor Signature Clinical Instructor Clinical Instructor Yes LOGISTICS SPECIALIST Treatment Note Start: 01/06/21 12:19 Freq: Status: Active Protocol: Document 06/16/21 12:01 JOVI (Rec: 06/16/21 12:17 JOVI [email or web address]) Speech Pathology Treatment Note Session Time Visit Start Time 10:30 Visit Stop Time 11:15 Total Visit Minutes 45 Visit Information Visit Number 05/11 Plan of Care Dates 06/16/21 - 09/16/21 Insurance Information [facility] Setting Treatment Setting Outpatient Care Visit Type Note Type Progress Note Next Note Type Next Note Type Treatment Note General Information General Information The pt is a now 71-yr-old female familiar to this LOGISTICS SPECIALIST from 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 On , the pt was admitted to the hospital with acute encephalopathy and malignant hypertension. She was initially confused. MRI findings on CT demonstrated a subacute left thalamic stroke. The patient was seen by speech pathology, PT and OT. She was functionally able to ambulate and had no weakness in the upper and lower extremities. However, she continued to have evidence of expressive and receptive aphasia. She dc'd from hospital to SNF, and then to home with . The pt will be receiving outpatient ST and PT services. Subjective Identification Type Other Others Present Family,Additional Therapist Observations/Patient Presentation The pt was accompanied by her who was present throughout for CG training to promote carryover of tx targets. No new complaints. Chief Complaint(s) Language,Cognitive Patient Knowledge/Awareness of LOGISTICS SPECIALIST Role Good in Treatment Parent/Caretake Knowledge/Awareness of Good LOGISTICS SPECIALIST Role in Treatment Patient/Caregiver Compliance with Home Excellent Exercise Program Objective Short Term Goals 1. The pt will complete exercises targeting word recall with 80% accuracy to improve expressive language skills and increase conversation participation. MAKING PROGRESS; CONTINUE GOAL 2. The pt will follow written instructions with 90% accuracy to perform functional tasks, such as remote control use, simple computer navigation, housekeeping tasks, etc. MAKING PROGRESS; CONTINUE GOAL 3. Given texts presented in writing or orally, the pt will answer questions related to inferential or implied meanings with 80% accuracy to improve comprehension of abstract concepts. CONTINUE GOAL 4. The pt will complete sequencing tasks (e.g., following a recipe, navigating phone/computer) with min v/v prompts to improve executive function and memory skills and increase pt's participation with functional and social ADLs. CONTINUE GOAL Commercial Credit Analyst Goals CONTINUE ALL LONG-TERM GOALS 1. The pt will demonstrate expressive and receptive language skills WFL, as demonstrated by increased social and conversational participation and measured by pt/family report and clinical judgment. 2. The pt will demonstrate cognitive communication skills WFL, as demonstrated by at least 50% participation in household tasks completed by the pt prior to CVA (e.g., computer use, cooking, grocery shopping/planning, etc.) and measured by pt/family report and clinical judgment. Treatment Activities Targeted expressive language skills via word recall/ generating tasks. Naming synonyms/antonyms: 90%, min-mod prompts Defining objects: 85% acc, mod prompts. Trained pt in first identifying category, then describing details to assist conversation partner in being able to identify/name object. She was responsive to this with verbal prompts. Describing Similarities and differences: ~70% acc, mod-max prompts. Pt occ perseverated on concepts and words when self-generating speech, but answered prompting questions appropriately. Provision of extended response time was sometimes but not always sufficient for word recall. Instead of phonemic cues, the clinician provided semantic prompts, which were successful in >75% of opportunities, often resulting in language different from what the clinician had in mind . By using semantic vs phonemic cuing, the pt was better able to generate language of her choosing vs that of the clinician or her 's choice. Assessment Patient Response to Treatment Good Rehab Potential Good Impairments Identified Aphasia,Cognitive-Linguistic Skills,Expressive Language, Memory - Short Term,Memory - Working,Problem Solving, Receptive Language,Other Additional Impairments Identified Flat affect and prosody Progress Towards Goals Good Progress,Slow Progress Assessment of Overall Progress Improving Assessment of Improvement Over the course of treatment, the pt has exhibited increasingly expansive vocabulary recall and engagement in conversation. She continues to demonstrate good auditory comprehension for basic conversations related to her experiences and memories. She continues also to be responsive in conversation much more than initiating conversation, which remains a target of treatment . Regarding participation in household tasks and hobbies, the pt has shown mildly increased interest in tasks such as reading and helping to set/clear the dinner table. She has expressed interest in returning to craft hobbies such as sewing, cross-stitch, and the like, as well as engaging with the computer. Development of external prompts to support computer navigation have been initiated and will be continued in therapy. The pt's continues to be highly supportive of and engaged with the pt's care, providing effective prompts to generate speech from the pt and remaining pleasant and patient in all therapeutic interactions. Continued skilled intervention is medically necessary to increase the pt's independence and re-engagement with activities that have been meaningful to her in the past and which she states a desire to resume, hence improving quality of life and reducing caregiver burden. Reviewed with Patient Goals,Progress Being Made,Home Exercise Program Patient/Caregiver Understanding Good Plan Amount of Therapy Recommended 6 Months Frequency of Treatment Twice a Week Length of Session 45 Minutes Treatment Emphasis Next Session Sequencing & discussion of sewing & cross-stitch hobbies Therapeutic Contents Client Education,Cognitive- Linguistic Training,Expressive Language Training,Home Exercise Program,Information Processing,Receptive Language Training Provided Patient/Caregiver Instruction Home Exercise Program,Plan of Care,Questions/Concerns Therapy Recommendations Continue with Current Program
--- NOTE | 2021-06-18 12:40 | ST.OPTN ---
Visit Care Team Role Provider Type Renny Haynes MD Attending Provider Physician Family Provider Primary Care Provider Referring Provider Address: [address] [place] [address], [address], [address] TUB PULLER Treatment Note TUB PULLER Clinical Instructor Line Start: 02/10/21 16:33 Freq: Status: Active Protocol: Document 02/19/21 17:37 JOVI (Rec: 02/19/21 17:37 JOVI [email or web address]) Clinical Instructor Signature Clinical Instructor Clinical Instructor Yes TUB PULLER Treatment Note Start: 01/06/21 12:19 Freq: Status: Active Protocol: Document 06/18/21 11:31 JOVI (Rec: 06/18/21 11:37 JOVI [email or web address]) Speech Pathology Treatment Note Session Time Visit Start Time 10:30 Visit Stop Time 11:15 Total Visit Minutes 45 Visit Information Visit Number 08/11 Plan of Care Dates 06/16/21 - 09/16/21 Insurance Information [facility] Setting Treatment Setting Outpatient Care Visit Type Note Type Treatment Note Next Note Type Next Note Type Treatment Note General Information General Information The pt is a now 71-yr-old female familiar to this TUB PULLER from 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 On , the pt was admitted to the hospital with acute encephalopathy and malignant hypertension. She was initially confused. MRI findings on CT demonstrated a subacute left thalamic stroke. The patient was seen by speech pathology, PT and OT. She was functionally able to ambulate and had no weakness in the upper and lower extremities. However, she continued to have evidence of expressive and receptive aphasia. She dc'd from hospital to SNF, and then to home with . The pt will be receiving outpatient ST and PT services. Subjective Identification Type Other Others Present Family,Additional Therapist Observations/Patient Presentation The pt was accompanied by her who was present throughout for CG training to promote carryover of tx targets. No new complaints. Chief Complaint(s) Language,Cognitive Patient Knowledge/Awareness of TUB PULLER Role Good in Treatment Parent/Caretake Knowledge/Awareness of Good TUB PULLER Role in Treatment Patient/Caregiver Compliance with Home Excellent Exercise Program Objective Short Term Goals 1. The pt will complete exercises targeting word recall with 80% accuracy to improve expressive language skills and increase conversation participation. MAKING PROGRESS; CONTINUE GOAL 2. The pt will follow written instructions with 90% accuracy to perform functional tasks, such as remote control use, simple computer navigation, housekeeping tasks, etc. MAKING PROGRESS; CONTINUE GOAL 3. Given texts presented in writing or orally, the pt will answer questions related to inferential or implied meanings with 80% accuracy to improve comprehension of abstract concepts. CONTINUE GOAL 4. The pt will complete sequencing tasks (e.g., following a recipe, navigating phone/computer) with min v/v prompts to improve executive function and memory skills and increase pt's participation with functional and social ADLs. CONTINUE GOAL Emergency Medical Dispatcher Goals CONTINUE ALL LONG-TERM GOALS 1. The pt will demonstrate expressive and receptive language skills WFL, as demonstrated by increased social and conversational participation and measured by pt/family report and clinical judgment. 2. The pt will demonstrate cognitive communication skills WFL, as demonstrated by at least 50% participation in household tasks completed by the pt prior to CVA (e.g., computer use, cooking, grocery shopping/planning, etc.) and measured by pt/family report and clinical judgment. Treatment Activities Targeted receptive language via instructions for completing a cross-stitch project. The pt read instructions (4 paragraphs) without error. Given the pattern chart and steiner, the pt identified written information and answered related questions with 76% acc , min-mod prompts. The pt's spouse informed that the pt's eyeglasses are damaged, making it difficult to see small details. She has an eye appt in 2 wks. Given the small details of the cross stitch fabric, agreed to attempt a simpler pattern with larger pattern/plastic background to practice the stitches and refamiliarize the pt with cross stitch projects . Will continue with simpler pattern at next session. Assessment Patient Response to Treatment Good Rehab Potential Good Impairments Identified Aphasia,Cognitive-Linguistic Skills,Expressive Language, Memory - Short Term,Memory - Working,Problem Solving, Receptive Language,Other Additional Impairments Identified Flat affect Progress Towards Goals Good Progress,Slow Progress Assessment of Overall Progress Improving Assessment of Improvement The pt appeared to be very familiar with and enthusiastic about the cross stitch project, which has been a hobby in the past. She spoke more spontaneously while looking at the pattern and materials; all language was appropriate and with normal syntax. Receptively, the pt required occ prompts to orient to information on the steiner, even after review of same information. Additionally, when asked one question about a topic, she occ answered a different questions about it ( e.g., when asked what type of stitch corresponded with a symbol, she answered with the corresponding thread color), indicating mild auditory/ reading comprehension and/or cognitive linguistic defict. Based on the pt's responses to this material, it is anticipated that this particular pattern may be too complex at this time, as well as viauslly challenging, and the pt would benefit from introduction with a simpler pattern. She was in agreement with this recommendation. The target appears to be salient to the pt and appropriate for promoting re-engagement with hobbies, extending conversational speech, and targeting receptive and cognitive communication skills . Reviewed with Patient Goals,Progress Being Made,Home Exercise Program Patient/Caregiver Understanding Good Plan Amount of Therapy Recommended 6 Months Frequency of Treatment Twice a Week Length of Session 45 Minutes Treatment Emphasis Next Session Sequencing & discussion of sewing & cross-stitch hobbies Therapeutic Contents Client Education,Cognitive- Linguistic Training,Expressive Language Training,Home Exercise Program,Information Processing,Receptive Language Training Provided Patient/Caregiver Instruction Home Exercise Program,Plan of Care,Questions/Concerns Therapy Recommendations Continue with Current Program
--- NOTE | 2021-06-25 16:46 | ST.OPTN ---
Visit Care Team Role Provider Type Renny Haynes MD Attending Provider Physician Family Provider Primary Care Provider Referring Provider Address: [address] [place] [address], [address], [place], [address] GLOBAL PRODUCT MANAGER Treatment Note GLOBAL PRODUCT MANAGER Clinical Instructor Line Start: 02/10/21 16:33 Freq: Status: Active Protocol: Document 02/19/21 17:37 JOVI (Rec: 02/19/21 17:37 JOVI [email or web address]) Clinical Instructor Signature Clinical Instructor Clinical Instructor Yes GLOBAL PRODUCT MANAGER Treatment Note Start: 01/06/21 12:19 Freq: Status: Active Protocol: Document 06/25/21 16:33 JOVI (Rec: 06/25/21 16:46 JOVI [email or web address]) Speech Pathology Treatment Note Session Time Visit Start Time 10:30 Visit Stop Time 11:15 Total Visit Minutes 45 Visit Information Visit Number 09/[id number] Plan of Care Dates 06/16/21 - 09/16/21 Insurance Information [facility] Setting Treatment Setting Outpatient Care Visit Type Note Type Treatment Note Next Note Type Next Note Type Treatment Note General Information General Information The pt is a now 71-yr-old female familiar to this GLOBAL PRODUCT MANAGER from 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 On , the pt was admitted to the hospital with acute encephalopathy and malignant hypertension. She was initially confused. MRI findings on CT demonstrated a subacute left thalamic stroke. The patient was seen by speech pathology, PT and OT. She was functionally able to ambulate and had no weakness in the upper and lower extremities. However, she continued to have evidence of expressive and receptive aphasia. She dc'd from hospital to SNF, and then to home with . The pt will be receiving outpatient ST and PT services. Subjective Identification Type Other Others Present Family,Additional Therapist Observations/Patient Presentation The pt was accompanied by her who was present throughout for CG training to promote carryover of tx targets. No new complaints. Chief Complaint(s) Language,Cognitive Patient Knowledge/Awareness of GLOBAL PRODUCT MANAGER Role Good in Treatment Parent/Caretake Knowledge/Awareness of Good GLOBAL PRODUCT MANAGER Role in Treatment Patient/Caregiver Compliance with Home Excellent Exercise Program Objective Short Term Goals 1. The pt will complete exercises targeting word recall with 80% accuracy to improve expressive language skills and increase conversation participation. MAKING PROGRESS; CONTINUE GOAL 2. The pt will follow written instructions with 90% accuracy to perform functional tasks, such as remote control use, simple computer navigation, housekeeping tasks, etc. MAKING PROGRESS; CONTINUE GOAL 3. Given texts presented in writing or orally, the pt will answer questions related to inferential or implied meanings with 80% accuracy to improve comprehension of abstract concepts. CONTINUE GOAL 4. The pt will complete sequencing tasks (e.g., following a recipe, navigating phone/computer) with min v/v prompts to improve executive function and memory skills and increase pt's participation with functional and social ADLs. CONTINUE GOAL Practice Or Student Teacher Goals CONTINUE ALL LONG-TERM GOALS 1. The pt will demonstrate expressive and receptive language skills WFL, as demonstrated by increased social and conversational participation and measured by pt/family report and clinical judgment. 2. The pt will demonstrate cognitive communication skills WFL, as demonstrated by at least 50% participation in household tasks completed by the pt prior to CVA (e.g., computer use, cooking, grocery shopping/planning, etc.) and measured by pt/family report and clinical judgment. Treatment Activities Targeted receptive language via instructions for completing a cross-stitch project using a plastic mesh canvas with is larger and easier to see than typically used fabric. The pt read instructions (4 paragraphs) with 2 errors immediately self-corrected. Given the pattern chart and steiner, the pt identified written information and answered related questions with 92%% acc, min prompts. Answers to three of these questions were not provided in writing, but the pt answered based on her own knowledge and demonstrated the accuracy of her answers. The pt then completed a line of 8 cross stitches, including securing thread to the back of the canvas within the stitch. In this and many other ways, the pt exhibited familiarity with and dexterity in completing the task independently. While working on the task, the pt engaged minimally but appropriately in conversation, mostly in response to questions vs comments. At the end of the session, she engaged more verbally in discussion related to her granddaughter's areas of interest, cross-stitching not likely to be one of them. Assessment Patient Response to Treatment Good Rehab Potential Good Impairments Identified Aphasia,Cognitive-Linguistic Skills,Expressive Language, Memory - Short Term,Memory - Working,Problem Solving, Receptive Language,Other Additional Impairments Identified Flat affect Progress Towards Goals Good Progress,Slow Progress Assessment of Overall Progress Improving Assessment of Improvement Over the course of working with the cross-stitch project, the pt demonstrated excellent understanding of the process and ability to comprehend and follow written instructions including prose, table presentations, and symbols. She performed the task with ease, demonstrating her knowledge of and familiarity with it. She expressed interest in continuing the project at home, and materials were provided to do so. It is hoped that this will initiate the pt's re-engagement with hobbies and promote a variety of cognitively stimulating activities to lead her back to her PLOF and areas of interest. Verbal communication during the task was limited but appropriate, possibly indicating decreased dual attention skills or possibly reduced interest in conversation as per PLOF. Conversational participation did increased when she was not involved in the task. She exhibited excellent sustained and focused attention skills and minimal WFDs. Again it is hoped that as the pt re- engages with hobbies, expressive language around these topics will increase as well. Reviewed with Patient Goals,Progress Being Made,Home Exercise Program Patient/Caregiver Understanding Good Plan Amount of Therapy Recommended 6 Months Frequency of Treatment Twice a Week Length of Session 45 Minutes Treatment Emphasis Next Session Sequencing & discussion of sewing & cross-stitch hobbies Therapeutic Contents Client Education,Cognitive- Linguistic Training,Expressive Language Training,Home Exercise Program,Information Processing,Receptive Language Training Provided Patient/Caregiver Instruction Home Exercise Program,Plan of Care,Questions/Concerns Therapy Recommendations Continue with Current Program
--- NOTE | 2021-07-01 09:03 | ST.OPTN ---
Visit Care Team Role Provider Type Renny Haynes MD Attending Provider Physician Family Provider Primary Care Provider Referring Provider Address: [address] [place] [address], [address], [place], [address] THREADING MACHINE TENDER Treatment Note THREADING MACHINE TENDER Clinical Instructor Line Start: 02/10/21 16:33 Freq: Status: Active Protocol: Document 02/19/21 17:37 JOVI (Rec: 02/19/21 17:37 JOVI [email or web address]) Clinical Instructor Signature Clinical Instructor Clinical Instructor Yes THREADING MACHINE TENDER Treatment Note Start: 01/06/21 12:19 Freq: Status: Active Protocol: Document 06/30/21 18:05 JOVI (Rec: 06/30/21 18:06 JOVI [email or web address]) Speech Pathology Treatment Note Session Time Visit Start Time 10:30 Visit Stop Time 11:20 Total Visit Minutes 50 Visit Information Visit Number 10/09 Plan of Care Dates 06/16/21 - 09/16/21 Insurance Information [facility] Setting Treatment Setting Outpatient Care Visit Type Note Type Treatment Note Next Note Type Next Note Type Treatment Note General Information General Information The pt is a now 71-yr-old female familiar to this THREADING MACHINE TENDER from 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 On , the pt was admitted to the hospital with acute encephalopathy and malignant hypertension. She was initially confused. MRI findings on CT demonstrated a subacute left thalamic stroke. The patient was seen by speech pathology, PT and OT. She was functionally able to ambulate and had no weakness in the upper and lower extremities. However, she continued to have evidence of expressive and receptive aphasia. She dc'd from hospital to SNF, and then to home with . The pt will be receiving outpatient ST and PT services. Subjective Identification Type Other Others Present Family,Additional Therapist Observations/Patient Presentation The pt was accompanied by her who was present throughout for CG training to promote carryover of tx targets. No new complaints. She brought the cross stitch project with her. Completed 3 rows of stitches independently at home. reported she worked on it similarly to how she used to work on such projects, while watching TV or in spare time, etc. Chief Complaint(s) Language,Cognitive Patient Knowledge/Awareness of THREADING MACHINE TENDER Role Good in Treatment Parent/Caretake Knowledge/Awareness of Good THREADING MACHINE TENDER Role in Treatment Patient/Caregiver Compliance with Home Excellent Exercise Program Objective Short Term Goals 1. The pt will complete exercises targeting word recall with 80% accuracy to improve expressive language skills and increase conversation participation. MAKING PROGRESS; CONTINUE GOAL 2. The pt will follow written instructions with 90% accuracy to perform functional tasks, such as remote control use, simple computer navigation, housekeeping tasks, etc. MAKING PROGRESS; CONTINUE GOAL 3. Given texts presented in writing or orally, the pt will answer questions related to inferential or implied meanings with 80% accuracy to improve comprehension of abstract concepts. CONTINUE GOAL 4. The pt will complete sequencing tasks (e.g., following a recipe, navigating phone/computer) with min v/v prompts to improve executive function and memory skills and increase pt's participation with functional and social ADLs. CONTINUE GOAL Skilled Nursing Goals CONTINUE ALL LONG-TERM GOALS 1. The pt will demonstrate expressive and receptive language skills WFL, as demonstrated by increased social and conversational participation and measured by pt/family report and clinical judgment. 2. The pt will demonstrate cognitive communication skills WFL, as demonstrated by at least 50% participation in household tasks completed by the pt prior to CVA (e.g., computer use, cooking, grocery shopping/planning, etc.) and measured by pt/family report and clinical judgment. Treatment Activities Continued cognitive and language training via re- engagement with hobby. The pt read instructions for starting and ending a line of thread and carried both out with min cues, two attempts at starting new thread. Matching legend to pattern, she identified colors via codes in 1/3 attempts with mod assistance, confusing square and [place] symbols. She created 7 cross stitches with min-mod cues. Expressive language was limited throughout the task, as the pt concentrated on her work. She was meticulous, identifying and attempting to correct errors as she went. Assistance in error correction was required x1. She exhibited excellent sustained and focused attention. She responded to questions appropriately, demonstrating divided attention in simple contexts. Assessment Patient Response to Treatment Good Rehab Potential Good Impairments Identified Aphasia,Cognitive-Linguistic Skills,Expressive Language, Memory - Short Term,Memory - Working,Problem Solving, Receptive Language,Other Additional Impairments Identified Flat affect Progress Towards Goals Good Progress,Slow Progress Assessment of Overall Progress Improving Assessment of Improvement Pt demonstrates excellent attention skills and good self -monitoring and -correcting ability. She is adept at cross stitch, making occasional minor errors in pattern and matching symbols to pattern. She works slowly, but it is anticipated her speeds will increase with practice and as she becomes again increasingly familiar with the task. Large mesh is helpful for fine motor movements and visual assistance. The pt appears to enjoy the task and, per pt/ spouse reports, engaged with the hobby independently at home, similarly to how she did at PLOF, though not for as long or with the speed or accuracy as per PLOF. Reviewed with Patient Goals,Progress Being Made,Home Exercise Program Patient/Caregiver Understanding Good Plan Amount of Therapy Recommended 6 Months Frequency of Treatment Twice a Week Length of Session 45 Minutes Treatment Emphasis Next Session Sequencing & discussion of sewing & cross-stitch hobbies Therapeutic Contents Client Education,Cognitive- Linguistic Training,Expressive Language Training,Home Exercise Program,Information Processing,Receptive Language Training Provided Patient/Caregiver Instruction Home Exercise Program,Plan of Care,Questions/Concerns Therapy Recommendations Continue with Current Program
--- NOTE | 2021-07-02 16:01 | ST.OPTN ---
Visit Care Team Role Provider Type Renny Haynes MD Attending Provider Physician Family Provider Primary Care Provider Referring Provider Address: [address] [place] [address], [address], [place], [address] FOREST AIDE Treatment Note FOREST AIDE Clinical Instructor Line Start: 02/10/21 16:33 Freq: Status: Active Protocol: Document 02/19/21 17:37 JOVI (Rec: 02/19/21 17:37 JOVI [email or web address]) Clinical Instructor Signature Clinical Instructor Clinical Instructor Yes FOREST AIDE Treatment Note Start: 01/06/21 12:19 Freq: Status: Active Protocol: Document 07/02/21 15:46 JOVI (Rec: 07/02/21 16:01 JOVI [email or web address]) Speech Pathology Treatment Note Session Time Visit Start Time 10:30 Visit Stop Time 11:20 Total Visit Minutes 50 Visit Information Visit Number 11/09 Plan of Care Dates 06/16/21 - 09/16/21 Insurance Information [facility] Setting Treatment Setting Outpatient Care Visit Type Note Type Treatment Note Next Note Type Next Note Type Treatment Note General Information General Information The pt is a now 71-yr-old female familiar to this FOREST AIDE from 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 On , the pt was admitted to the hospital with acute encephalopathy and malignant hypertension. She was initially confused. MRI findings on CT demonstrated a subacute left thalamic stroke. The patient was seen by speech pathology, PT and OT. She was functionally able to ambulate and had no weakness in the upper and lower extremities. However, she continued to have evidence of expressive and receptive aphasia. She dc'd from hospital to SNF, and then to home with . The pt will be receiving outpatient ST and PT services. Subjective Identification Type Other Others Present Family,Additional Therapist Observations/Patient Presentation The pt was accompanied by her who was present throughout for CG training to promote carryover of tx targets. No new complaints. asked if it would be advised for the pt to attempt to play her violin again or if that might spark discouragement if she was unsuccessful with it. The pt expressed interest in attempting to play. Chief Complaint(s) Language,Cognitive Patient Knowledge/Awareness of FOREST AIDE Role Good in Treatment Parent/Caretake Knowledge/Awareness of Good FOREST AIDE Role in Treatment Patient/Caregiver Compliance with Home Excellent Exercise Program Objective Short Term Goals 1. The pt will complete exercises targeting word recall with 80% accuracy to improve expressive language skills and increase conversation participation. MAKING PROGRESS; CONTINUE GOAL 2. The pt will follow written instructions with 90% accuracy to perform functional tasks, such as remote control use, simple computer navigation, housekeeping tasks, etc. MAKING PROGRESS; CONTINUE GOAL 3. Given texts presented in writing or orally, the pt will answer questions related to inferential or implied meanings with 80% accuracy to improve comprehension of abstract concepts. CONTINUE GOAL 4. The pt will complete sequencing tasks (e.g., following a recipe, navigating phone/computer) with min v/v prompts to improve executive function and memory skills and increase pt's participation with functional and social ADLs. CONTINUE GOAL Portfolio Manager Goals CONTINUE ALL LONG-TERM GOALS 1. The pt will demonstrate expressive and receptive language skills WFL, as demonstrated by increased social and conversational participation and measured by pt/family report and clinical judgment. 2. The pt will demonstrate cognitive communication skills WFL, as demonstrated by at least 50% participation in household tasks completed by the pt prior to CVA (e.g., computer use, cooking, grocery shopping/planning, etc.) and measured by pt/family report and clinical judgment. Treatment Activities Feedback provided RE questions about the pt playing her violin. This FOREST AIDE encouraged her to try this, particularly given how adeptly her hands held and worked with the recent cross [employer] project. It is expected that muscle memory will be present and that the pt will have success with simple musical tasks. Per pt's PT, this will also be a target for Physical Therapy. Instrument playing is strongly encouraged for both cogntivie skills rehab as well as QoL by the pt re-engaging in hobbies. Continued expressive language training with semantic features analysis and conversation. During conversation, the pt exhibited WFDs x4. These targets were used in SFA tasks following a list of guided questions. The pt answered questions to describe objects with min-mod prompts, ~75% accuracy of independently answered questions, occasional mild perseveration. Otherwise in conversation, the pt's responses to questions were mildly more expansive and she did interrupt the FOREST AIDE x1 in order to give additional information, demonstrating increased initiative and expression of thought. The pt' s was relatively quiet in session today, only asking a few prompting questions and allowing the pt time for information processing and expression, which was helpful and appropriate. Assessment Patient Response to Treatment Good Rehab Potential Good Impairments Identified Aphasia,Cognitive-Linguistic Skills,Expressive Language, Memory - Short Term,Memory - Working,Problem Solving, Receptive Language,Other Additional Impairments Identified Flat affect Progress Towards Goals Good Progress,Slow Progress Assessment of Overall Progress Improving Assessment of Improvement Pt continues to make slow but steady progress in expanding expressive language. She continues with frequent WFDs and was minimally responsive to semantic cues in conversation vs phonemic cues, which have been her strength but represent a high level of cuing. In more structured tasks, she showed greater response to questioning and semantic cues. She exhibited initiation of expression for the first time today when she interrupted the clinician to provide greater information on a topic. Reviewed with Patient Goals,Progress Being Made,Home Exercise Program Patient/Caregiver Understanding Good Plan Amount of Therapy Recommended 6 Months Frequency of Treatment Twice a Week Length of Session 45 Minutes Treatment Emphasis Next Session Sequencing & discussion of sewing & cross-stitch hobbies Therapeutic Contents Client Education,Cognitive- Linguistic Training,Expressive Language Training,Home Exercise Program,Information Processing,Receptive Language Training Provided Patient/Caregiver Instruction Home Exercise Program,Plan of Care,Questions/Concerns Therapy Recommendations Continue with Current Program
--- NOTE | 2021-07-07 16:29 | ST.OPTN ---
Visit Care Team Role Provider Type Renny Haynes MD Attending Provider Physician Family Provider Primary Care Provider Referring Provider Address: [address] [place] [address], [address], [place], [address] ART EDUCATOR Treatment Note ART EDUCATOR Clinical Instructor Line Start: 02/10/21 16:33 Freq: Status: Active Protocol: Document 02/19/21 17:37 JOVI (Rec: 02/19/21 17:37 JOVI [email or web address]) Clinical Instructor Signature Clinical Instructor Clinical Instructor Yes ART EDUCATOR Treatment Note Start: 01/06/21 12:19 Freq: Status: Active Protocol: Document 07/07/21 12:18 JOVI (Rec: 07/07/21 12:34 JOVI [email or web address]) Speech Pathology Treatment Note Session Time Visit Start Time 10:30 Visit Stop Time 11:15 Total Visit Minutes 45 Visit Information Visit Number 12/09 Plan of Care Dates 06/16/21 - 09/16/21 Insurance Information [facility] Setting Treatment Setting Outpatient Care Visit Type Note Type Treatment Note Next Note Type Next Note Type Treatment Note General Information General Information The pt is a now 71-yr-old female familiar to this ART EDUCATOR from 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 On , the pt was admitted to the hospital with acute encephalopathy and malignant hypertension. She was initially confused. MRI findings on CT demonstrated a subacute left thalamic stroke. The patient was seen by speech pathology, PT and OT. She was functionally able to ambulate and had no weakness in the upper and lower extremities. However, she continued to have evidence of expressive and receptive aphasia. She dc'd from hospital to SNF, and then to home with . The pt will be receiving outpatient ST and PT services. Subjective Identification Type Other Others Present Family,Additional Therapist Observations/Patient Presentation The pt was accompanied by her who was present throughout for CG training to promote carryover of tx targets. No new complaints. Pt did not show interest in playing violin over the weekend. Pt/spouse requested taking 3 wks off over the holidays; this ART EDUCATOR is agreeable. Discussed POC with review of goals and discussion about continuing with reduced frequency or discharging to home practice. Agreed to schedule 1 visit every 2 wks for the month of August and make final decision after that . Continued word recall using semantic features analysis. Given pictures without ART EDUCATOR's visual access, the pt followed verbal prompts to describe and/or use gestures to show details about the pictures until the ART EDUCATOR guessed the object. The pt exhibited frequent WFDs, required extended time and verbal prompts. In ~40% of opportunities, when given time , the pt produced descriptive words, typically 1-2 word utterances that appeared to be synonyms to target words (e.g ., vibrates instead of blends) ; however, these were effective. Skilled feedback was provided. ART EDUCATOR agreed to put together paper tasks for HEP for next session to promote more intensive practice and examples of work she could continue if therapy is decreased or discontinued. Pt/spouse in agreement with this plan. Pt stated her primary goal was to be more efficient with her speech production. She stated that she has not been reading as per PLOF because she does not find it as stimulating as it used to be. She is not writing very much, nor is she interested in doing so. Her stated that her penmanship has always been poor but legibility is significantly reduced since stroke. Chief Complaint(s) Language,Cognitive Patient Knowledge/Awareness of ART EDUCATOR Role Good in Treatment Parent/Caretake Knowledge/Awareness of Good ART EDUCATOR Role in Treatment Patient/Caregiver Compliance with Home Excellent Exercise Program Objective Short Term Goals 1. The pt will complete exercises targeting word recall with 80% accuracy to improve expressive language skills and increase conversation participation. MAKING PROGRESS; CONTINUE GOAL 2. The pt will follow written instructions with 90% accuracy to perform functional tasks, such as remote control use, simple computer navigation, housekeeping tasks, etc. MAKING PROGRESS; CONTINUE GOAL 3. Given texts presented in writing or orally, the pt will answer questions related to inferential or implied meanings with 80% accuracy to improve comprehension of abstract concepts. CONTINUE GOAL 4. The pt will complete sequencing tasks (e.g., following a recipe, navigating phone/computer) with min v/v prompts to improve executive function and memory skills and increase pt's participation with functional and social ADLs. CONTINUE GOAL Intermediate Goals CONTINUE ALL LONG-TERM GOALS 1. The pt will demonstrate expressive and receptive language skills WFL, as demonstrated by increased social and conversational participation and measured by pt/family report and clinical judgment. 2. The pt will demonstrate cognitive communication skills WFL, as demonstrated by at least 50% participation in household tasks completed by the pt prior to CVA (e.g., computer use, cooking, grocery shopping/planning, etc.) and measured by pt/family report and clinical judgment. Treatment Activities The pt continues to exhibit frequent WFDs that require extensive time and usually verbal prompts to resolve. With moderate frequency, the pt will resolve in time by using synonyms. Assessment Patient Response to Treatment Good Rehab Potential Good Impairments Identified Aphasia,Cognitive-Linguistic Skills,Expressive Language, Memory - Short Term,Memory - Working,Problem Solving, Receptive Language,Other Additional Impairments Identified Flat affect Progress Towards Goals Good Progress,Slow Progress Assessment of Overall Progress Improving Assessment of Improvement Spouse reports that family has commented at recent gatherings that she is initiating conversation with more frequency. Progress has been slow over the course of treatment. The pt is now receiving PT 2x/wk. It is reasonable to reduce frequency at this time. Ongoing treatment is recommended to continue, however, targeting expressive language skills, as well as ongoing assessment of reading and writing skills. Pt may benefit from incorporation of paper homework tasks to promote greater consistency in practice with a wider variety of tasks. [employer] zoya has been used for HEP in order to promote re-engagement with computers, as per PLOF; however, the pt has demonstrated and reported minimal interest in this and may progress more quickly with paper-based exercises. Reviewed with Patient Goals,Progress Being Made,Home Exercise Program Patient/Caregiver Understanding Good Plan Amount of Therapy Recommended 1-2 Months Comment 3 wk break for holidays; then resume with 1x every 2 wks for Goldy Length of Session 45 Minutes Treatment Emphasis Next Session Paper based HEP tasks Therapeutic Contents Client Education,Cognitive- Linguistic Training,Expressive Language Training,Home Exercise Program,Information Processing,Receptive Language Training Provided Patient/Caregiver Instruction Home Exercise Program,Plan of Care,Questions/Concerns Therapy Recommendations Continue with Current Program
--- NOTE | 2021-07-09 18:12 | ST.OPTN ---
Visit Care Team Role Provider Type Renny Haynes MD Attending Provider Physician Family Provider Primary Care Provider Referring Provider Address: [address] [place] [address], [address], [place], [address] TRAY CASTING MACHINE OPERATOR Treatment Note TRAY CASTING MACHINE OPERATOR Clinical Instructor Line Start: 02/10/21 16:33 Freq: Status: Active Protocol: Document 02/19/21 17:37 JOVI (Rec: 02/19/21 17:37 JOVI [email or web address]) Clinical Instructor Signature Clinical Instructor Clinical Instructor Yes TRAY CASTING MACHINE OPERATOR Treatment Note Start: 01/06/21 12:19 Freq: Status: Active Protocol: Document 07/09/21 18:01 JOVI (Rec: 07/09/21 18:12 JOVI [email or web address]) Speech Pathology Treatment Note Session Time Visit Start Time 10:30 Visit Stop Time 11:15 Total Visit Minutes 45 Visit Information Visit Number 01/09 Plan of Care Dates 06/16/21 - 09/16/21 Insurance Information [facility] Setting Treatment Setting Outpatient Care Visit Type Note Type Treatment Note Next Note Type Next Note Type Treatment Note General Information General Information The pt is a now 71-yr-old female familiar to this TRAY CASTING MACHINE OPERATOR from 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 On , the pt was admitted to the hospital with acute encephalopathy and malignant hypertension. She was initially confused. MRI findings on CT demonstrated a subacute left thalamic stroke. The patient was seen by speech pathology, PT and OT. She was functionally able to ambulate and had no weakness in the upper and lower extremities. However, she continued to have evidence of expressive and receptive aphasia. She dc'd from hospital to SNF, and then to home with . The pt will be receiving outpatient ST and PT services. Subjective Identification Type Other Others Present Family,Additional Therapist Observations/Patient Presentation The pt was accompanied by her who was present throughout for CG training to promote carryover of tx targets. No new complaints. Chief Complaint(s) Language,Cognitive Patient Knowledge/Awareness of TRAY CASTING MACHINE OPERATOR Role Good in Treatment Parent/Caretake Knowledge/Awareness of Good TRAY CASTING MACHINE OPERATOR Role in Treatment Patient/Caregiver Compliance with Home Excellent Exercise Program Objective Short Term Goals 1. The pt will complete exercises targeting word recall with 80% accuracy to improve expressive language skills and increase conversation participation. MAKING PROGRESS; CONTINUE GOAL 2. The pt will follow written instructions with 90% accuracy to perform functional tasks, such as remote control use, simple computer navigation, housekeeping tasks, etc. MAKING PROGRESS; CONTINUE GOAL 3. Given texts presented in writing or orally, the pt will answer questions related to inferential or implied meanings with 80% accuracy to improve comprehension of abstract concepts. CONTINUE GOAL 4. The pt will complete sequencing tasks (e.g., following a recipe, navigating phone/computer) with min v/v prompts to improve executive function and memory skills and increase pt's participation with functional and social ADLs. CONTINUE GOAL Monument Carver Goals CONTINUE ALL LONG-TERM GOALS 1. The pt will demonstrate expressive and receptive language skills WFL, as demonstrated by increased social and conversational participation and measured by pt/family report and clinical judgment. 2. The pt will demonstrate cognitive communication skills WFL, as demonstrated by at least 50% participation in household tasks completed by the pt prior to CVA (e.g., computer use, cooking, grocery shopping/planning, etc.) and measured by pt/family report and clinical judgment. Treatment Activities Provided pt with paper-based HEP tasks targeting expressive language, word recall, sequencing skills, reading and writing skills to enhance HEP over the next several weeks/ mos with reduced frequency of Speech Therapy visits and to promote greater independence with recovery, per pt/spouse request and clinician judgment . Instructions were provided to pt/spouse with examples. The pt completed several tasks with good accuracy and variable min-mod cuing. Tasks performed included writing a check, which was accurate with exception of the date (pt wrote June 10, 1945). With verbal prompts, the pt deducted that the current month is July. She was unable to name the date or year. Once provided, she accurately wrote the date on the check. Additionally, the pt completed sentences given written starters of varying length. Pt responses were simple 1- to 3-word grammatically correct sentence completions. With verbal prompting (e.g., Where? When? etc.), the pt expanded sentences to be more descriptive. Syntax remained accurate. The pt required specific prompts in order to expand sentences. No significant perseveration was noted. Occasional mild spelling errors were observed, and writing was ~90% legible, primarily noted to be micrographic with occ indiscernable grapheme production. Assessment Patient Response to Treatment Good Rehab Potential Good Impairments Identified Aphasia,Cognitive-Linguistic Skills,Expressive Language, Memory - Short Term,Memory - Working,Problem Solving, Receptive Language,Other Additional Impairments Identified Flat affect Progress Towards Goals Good Progress,Slow Progress Assessment of Overall Progress Improving Assessment of Improvement The pt and spouse expressed enthusiasm toward HEP packet. The pt demonstrated understanding of instructions for a variety of tasks. Anticipate good results if the pt consistently completes exercises. She has excellent family support. Will f/u with the pt in 4 wks, after the holidays. Reviewed with Patient Goals,Progress Being Made,Home Exercise Program Patient/Caregiver Understanding Good Plan Amount of Therapy Recommended 1-2 Months Comment 3 wk break for holidays; then resume with 1x every 2 wks for Goldy Length of Session 45 Minutes Treatment Emphasis Next Session Paper based HEP tasks Therapeutic Contents Client Education,Cognitive- Linguistic Training,Expressive Language Training,Home Exercise Program,Information Processing,Receptive Language Training Provided Patient/Caregiver Instruction Home Exercise Program,Plan of Care,Questions/Concerns Therapy Recommendations Continue with Current Program
--- NOTE | 2021-08-05 12:23 | ST.OPTN ---
Visit Care Team Role Provider Type Renny Haynes MD Attending Provider Physician Family Provider Primary Care Provider Referring Provider Address: [address] [place] [address], [address], [place], [address] FRONT DESK OFFICER Treatment Note FRONT DESK OFFICER Clinical Instructor Line Start: 02/10/21 16:33 Freq: Status: Active Protocol: Document 02/19/21 17:37 JOVI (Rec: 02/19/21 17:37 JOVI [email or web address]) Clinical Instructor Signature Clinical Instructor Clinical Instructor Yes FRONT DESK OFFICER Treatment Note Start: 01/06/21 12:19 Freq: Status: Active Protocol: Document 08/05/21 16:44 JOVI (Rec: 08/05/21 16:44 JOVI [email or web address]) Speech Pathology Treatment Note Session Time Visit Start Time 10:30 Visit Stop Time 11:15 Total Visit Minutes 45 Visit Information Visit Number 02/08 Plan of Care Dates 06/16/21 - 09/16/[address] [facility] Setting Treatment Setting Outpatient Care Visit Type Note Type Treatment Note Next Note Type Next Note Type Treatment Note General Information General Information The pt is a now 71-yr-old female familiar to this FRONT DESK OFFICER from 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 On , the pt was admitted to the hospital with acute encephalopathy and malignant hypertension. She was initially confused. MRI findings on CT demonstrated a subacute left thalamic stroke. The patient was seen by speech pathology, PT and OT. She was functionally able to ambulate and had no weakness in the upper and lower extremities. However, she continued to have evidence of expressive and receptive aphasia. She dc'd from hospital to SNF, and then to home with . The pt will be receiving outpatient ST and PT services. Subjective Identification Type Other Others Present Family,Additional Therapist Observations/Patient Presentation The pt was accompanied by her who was present throughout for CG training to promote carryover of tx targets. No new complaints. Pt returns after a break for the holidays. Pt/Spouse reported increased involvement by the pt with daily activities and conversation. She did not work on written ST exercises. Chief Complaint(s) Language,Cognitive Patient Knowledge/Awareness of FRONT DESK OFFICER Role Good in Treatment Parent/Caretake Knowledge/Awareness of Good FRONT DESK OFFICER Role in Treatment Patient/Caregiver Compliance with Home Excellent Exercise Program Objective Short Term Goals 1. The pt will complete exercises targeting word recall with 80% accuracy to improve expressive language skills and increase conversation participation. MAKING PROGRESS; CONTINUE GOAL 2. The pt will follow written instructions with 90% accuracy to perform functional tasks, such as remote control use, simple computer navigation, housekeeping tasks, etc. MAKING PROGRESS; CONTINUE GOAL 3. Given texts presented in writing or orally, the pt will answer questions related to inferential or implied meanings with 80% accuracy to improve comprehension of abstract concepts. CONTINUE GOAL 4. The pt will complete sequencing tasks (e.g., following a recipe, navigating phone/computer) with min v/v prompts to improve executive function and memory skills and increase pt's participation with functional and social ADLs. CONTINUE GOAL Pediatrics Hospitalist Goals CONTINUE ALL LONG-TERM GOALS 1. The pt will demonstrate expressive and receptive language skills WFL, as demonstrated by increased social and conversational participation and measured by pt/family report and clinical judgment. 2. The pt will demonstrate cognitive communication skills WFL, as demonstrated by at least 50% participation in household tasks completed by the pt prior to CVA (e.g., computer use, cooking, grocery shopping/planning, etc.) and measured by pt/family report and clinical judgment. Treatment Activities Continued expressive languge treatment with categorical naming tasks. Pt completed with mod prompts, greater with abstract concepts vs concrete . Pt completed task in writing with 2 spelling errors. Once shown the errors, she independently corrected the spellings. Assessment Patient Response to Treatment Good Rehab Potential Good Impairments Identified Aphasia,Cognitive-Linguistic Skills,Expressive Language, Memory - Short Term,Memory - Working,Problem Solving, Receptive Language,Other Additional Impairments Identified Flat affect Progress Towards Goals Good Progress,Slow Progress Assessment of Overall Progress Improving Assessment of Improvement Pt identified categories of concrete items with ease. Verbal prompts and extended time required for more abstract concepts. Reviewed with Patient Goals,Progress Being Made,Home Exercise Program Patient/Caregiver Understanding Good Plan Amount of Therapy Recommended 1-2 Months Comment 3 wk break for holidays; then resume with 1x every 2 wks for Goldy Length of Session 45 Minutes Treatment Emphasis Next Session Paper based HEP tasks; cont. word recall strategies Therapeutic Contents Client Education,Cognitive- Linguistic Training,Expressive Language Training,Home Exercise Program,Information Processing,Receptive Language Training Provided Patient/Caregiver Instruction Home Exercise Program,Plan of Care,Questions/Concerns Therapy Recommendations Continue with Current Program
--- NOTE | 2021-08-11 13:42 | ST.OPTN ---
Visit Care Team Role Provider Type Renny Haynes MD Attending Provider Physician Family Provider Primary Care Provider Referring Provider Address: [address] [place] [address], [address], [place], [address] [employer] Treatment Note [employer] Clinical Instructor Line Start: 02/10/21 16:33 Freq: Status: Active Protocol: Document 02/19/21 17:37 JOVI (Rec: 02/19/21 17:37 JOVI [email or web address]) Clinical Instructor Signature Clinical Instructor Clinical Instructor Yes [employer] Treatment Note Start: 01/06/21 12:19 Freq: Status: Active Protocol: Document 08/11/21 13:34 JOVI (Rec: 08/11/21 13:41 JOVI [email or web address]) Speech Pathology Treatment Note Session Time Visit Start Time 09:30 Visit Stop Time 10:15 Total Visit Minutes 45 Visit Information Visit Number 03/[id number] Plan of Care Dates 06/16/21 - 09/16/21 Insurance Information [facility] Setting Treatment Setting Outpatient Care Visit Type Note Type Treatment Note Next Note Type Next Note Type Treatment Note General Information General Information The pt is a now 71-yr-old female familiar to this [employer] from 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 On , the pt was admitted to the hospital with acute encephalopathy and malignant hypertension. She was initially confused. MRI findings on CT demonstrated a subacute left thalamic stroke. The patient was seen by speech pathology, PT and OT. She was functionally able to ambulate and had no weakness in the upper and lower extremities. However, she continued to have evidence of expressive and receptive aphasia. She dc'd from hospital to SNF, and then to home with . The pt will be receiving outpatient ST and PT services. Subjective Identification Type Other Others Present Family,Additional Therapist Observations/Patient Presentation The pt was accompanied by her who was present throughout for CG training to promote carryover of tx targets. No new complaints. Chief Complaint(s) Language,Cognitive Patient Knowledge/Awareness of [employer] Role Good in Treatment Parent/Caretake Knowledge/Awareness of Good [employer] Role in Treatment Patient/Caregiver Compliance with Home Excellent Exercise Program Objective Short Term Goals 1. The pt will complete exercises targeting word recall with 80% accuracy to improve expressive language skills and increase conversation participation. MAKING PROGRESS; CONTINUE GOAL 2. The pt will follow written instructions with 90% accuracy to perform functional tasks, such as remote control use, simple computer navigation, housekeeping tasks, etc. MAKING PROGRESS; CONTINUE GOAL 3. Given texts presented in writing or orally, the pt will answer questions related to inferential or implied meanings with 80% accuracy to improve comprehension of abstract concepts. CONTINUE GOAL 4. The pt will complete sequencing tasks (e.g., following a recipe, navigating phone/computer) with min v/v prompts to improve executive function and memory skills and increase pt's participation with functional and social ADLs. CONTINUE GOAL Hatchery Helper Goals CONTINUE ALL LONG-TERM GOALS 1. The pt will demonstrate expressive and receptive language skills WFL, as demonstrated by increased social and conversational participation and measured by pt/family report and clinical judgment. 2. The pt will demonstrate cognitive communication skills WFL, as demonstrated by at least 50% participation in household tasks completed by the pt prior to CVA (e.g., computer use, cooking, grocery shopping/planning, etc.) and measured by pt/family report and clinical judgment. Treatment Activities Targeted expressive language and word recall strategies using semantic features analysis via [employer] game. The pt required max verbal verbal prompts from spouse and [employer] to describe words according to written prompts. The task appeared to worsen recall skills. Attempted to simplify task with drawing, in which the pt nicho the target object and, with verbal prompts, described its features. This proved easier but still significantly challenging for the pt. Skilled feedback was provided, and the pt reported difficulty choosing words in her mind. Once chosen, she was able to verbalize them, but this required significant prompting. Assessment Patient Response to Treatment Good Rehab Potential Good Impairments Identified Aphasia,Cognitive-Linguistic Skills,Expressive Language, Memory - Short Term,Memory - Working,Problem Solving, Receptive Language,Other Additional Impairments Identified Flat affect Progress Towards Goals Good Progress,Slow Progress Assessment of Overall Progress Improving Assessment of Improvement Pt exhibited significant word recall impairment in describing objects and concepts, even with written prompts. Will attempt to simplify task with multiple choice and/or matching descriptors to build skills. Reviewed with Patient Goals,Progress Being Made,Home Exercise Program Patient/Caregiver Understanding Good Plan Amount of Therapy Recommended 1-2 Months Frequency of Treatment Once a Week Length of Session 45 Minutes Treatment Emphasis Next Session Identifying features of objects with multiple choices. Therapeutic Contents Client Education,Cognitive- Linguistic Training,Expressive Language Training,Home Exercise Program,Information Processing,Receptive Language Training Provided Patient/Caregiver Instruction Home Exercise Program,Plan of Care,Questions/Concerns Therapy Recommendations Continue with Current Program
--- NOTE | 2021-08-20 18:00 | ST.OPTN ---
Visit Care Team Role Provider Type Renny Haynes MD Attending Provider Physician Family Provider Primary Care Provider Referring Provider Address: [address] [place] [address], [address], [place], [address] [employer] Treatment Note M[employer] Clinical Instructor Line Start: 02/10/21 16:33 Freq: Status: Active Protocol: Document 02/19/21 17:37 JOVI (Rec: 02/19/21 17:37 JOVI [email or web address]) Clinical Instructor Signature Clinical Instructor Clinical Instructor Yes MILL WASHER Treatment Note Start: 01/06/21 12:19 Freq: Status: Active Protocol: Document 08/20/21 18:06 JOVI (Rec: 08/20/21 18:07 JOVI [email or web address]) Speech Pathology Treatment Note Session Time Visit Start Time 10:30 Visit Stop Time 11:15 Total Visit Minutes 45 Visit Information Visit Number 9 Plan of Care Dates 06/16/21 - 09/16/21 Insurance Information [facility] Setting Treatment Setting Outpatient Care Visit Type Note Type Treatment Note Next Note Type Next Note Type Progress Note General Information General Information The pt is a now 71-yr-old female familiar to this MILL W[employer]ER from 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 On , the pt was admitted to the hospital with acute encephalopathy and malignant hypertension. She was initially confused. MRI findings on CT demonstrated a subacute left thalamic stroke. The patient was seen by speech pathology, PT and OT. She was functionally able to ambulate and had no weakness in the upper and lower extremities. However, she continued to have evidence of expressive and receptive aphasia. She dc'd from hospital to SNF, and then to home with . The pt will be receiving outpatient ST and PT services. Subjective Identification Type Other Others Present Family,Additional Therapist Observations/Patient Presentation The pt was accompanied by her who was present throughout for CG training to promote carryover of tx targets. No new complaints. Pt has been working on HEP tasks with 's help. Spouse reports occ perseveratory behavior during structured tasks. Chief Complaint(s) Language,Cognitive Patient Knowledge/Awareness of MILL WASHER Role Good in Treatment Parent/Caretake Knowledge/Awareness of Good MILL WASHER Role in Treatment Patient/Caregiver Compliance with Home Excellent Exercise Program Objective Short Term Goals 1. The pt will complete exercises targeting word recall with 80% accuracy to improve expressive language skills and increase conversation participation. MAKING PROGRESS; CONTINUE GOAL 2. The pt will follow written instructions with 90% accuracy to perform functional tasks, such as remote control use, simple computer navigation, housekeeping tasks, etc. MAKING PROGRESS; CONTINUE GOAL 3. Given texts presented in writing or orally, the pt will answer questions related to inferential or implied meanings with 80% accuracy to improve comprehension of abstract concepts. CONTINUE GOAL 4. The pt will complete sequencing tasks (e.g., following a recipe, navigating phone/computer) with min v/v prompts to improve executive function and memory skills and increase pt's participation with functional and social ADLs. CONTINUE GOAL Smocking Machine Operator Goals CONTINUE ALL LONG-TERM GOALS 1. The pt will demonstrate expressive and receptive language skills WFL, as demonstrated by increased social and conversational participation and measured by pt/family report and clinical judgment. 2. The pt will demonstrate cognitive communication skills WFL, as demonstrated by at least 50% participation in household tasks completed by the pt prior to CVA (e.g., computer use, cooking, grocery shopping/planning, etc.) and measured by pt/family report and clinical judgment. Treatment Activities Targeted expressive language and executive functions via story completion task. Given 2 sentences of a scenario, the pt completed stories independently in 38% of opportunities and the remaining items with min to mod verbal prompts. Perseveration was observed x4 over 8 tasks, with the pt either repeating the 2nd sentence of the scenario or repeating a word or concept from a previous scenario. She benefited from personalized conversations about the current scenario's topic (e.g. , an experience when the lights went out at her house, related to a scenario about electricity going out). The pt wrote her answers independently without spelling or syntax errors and with legible writing. Skilled feedback was provided with recommendations and training in strategies to reduce perseveration. Discussed HEP. Pt's spouse expressed desire to target pt' s reading skills and ability to navigate her Esther, since the pt has always been an avid reader. The pt was agreeable to this, which will be targeted at next session. Assessment Patient Response to Treatment Good Rehab Potential Good Impairments Identified Aphasia,Cognitive-Linguistic Skills,Expressive Language, Memory - Short Term,Memory - Working,Problem Solving, Receptive Language,Other Additional Impairments Identified Flat affect Progress Towards Goals Good Progress,Slow Progress Assessment of Overall Progress Improving Assessment of Improvement Writing skills are strong and writing is legible. Moderate perseveration continues to be present. Pt benefits from breaks and verbal distractions . Perseverative tendencies appear to distract the pt and reduce ability to complete novel sequential thought tasks . Reviewed with Patient Goals,Progress Being Made,Home Exercise Program Patient/Caregiver Understanding Good Plan Amount of Therapy Recommended 1-2 Months Frequency of Treatment Once a Week Length of Session 45 Minutes Treatment Emphasis Next Session Assessment of Esther navigation, reading skills Therapeutic Contents Client Education,Cognitive- Linguistic Training,Expressive Language Training,Home Exercise Program,Information Processing,Receptive Language Training Provided Patient/Caregiver Instruction Home Exercise Program,Plan of Care,Questions/Concerns Therapy Recommendations Continue with Current Program
--- NOTE | 2021-08-25 17:12 | ST.OPTN ---
Visit Care Team Role Provider Type Renny Haynes MD Attending Provider Physician Family Provider Primary Care Provider Referring Provider Address: [address] [place] [address], [address], [address] MIXING MACHINE TENDER Treatment Note MIXING MACHINE TENDER Clinical Instructor Line Start: 02/10/21 16:33 Freq: Status: Active Protocol: Document 02/19/21 17:37 JOVI (Rec: 02/19/21 17:37 JOVI [email or web address]) Clinical Instructor Signature Clinical Instructor Clinical Instructor Yes MIXING MACHINE TENDER Treatment Note Start: 01/06/21 12:19 Freq: Status: Active Protocol: Document 08/25/21 14:17 JOVI (Rec: 08/25/21 14:27 JOVI [email or web address]) Speech Pathology Treatment Note Session Time Visit Start Time 09:30 Visit Stop Time 10:15 Total Visit Minutes 45 Visit Information Visit Number 08/11 Plan of Care Dates 08/25/21 - 11/23/21 Insurance Information [facility] Setting Treatment Setting Outpatient Care Visit Type Note Type Progress Note Next Note Type Next Note Type Treatment Note General Information General Information The pt is a now 71-yr-old female 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 On , the pt was admitted to the hospital with acute encephalopathy and malignant hypertension. She was initially confused. MRI findings on CT demonstrated a subacute left thalamic stroke. The patient was seen by speech pathology, PT and OT. She was functionally able to ambulate and had no weakness in the upper and lower extremities. However, she continued to have evidence of expressive and receptive aphasia. She dc'd from hospital to SNF, and then to home with . The pt will be receiving outpatient ST and PT services. Subjective Identification Type Other Others Present Family,Additional Therapist Observations/Patient Presentation The pt was accompanied by her who was present throughout for CG training to promote carryover of tx targets. No new complaints. Pt has been working on HEP tasks with 's help. Spouse reports occ perseveratory behavior during structured tasks. Pt brought her Esther with her, which has >200 books , as she was an avid reader prior to her stroke, her Esther being her prefered reading tool. Pt's spouse stated she showed little interest in it when he gave it to her over the weekend. When asked about that, the pt stated It seemed mysterious meaning that navigation of the device was confusing to her. Chief Complaint(s) Language,Cognitive Patient Knowledge/Awareness of MIXING MACHINE TENDER Role Good in Treatment Parent/Caretake Knowledge/Awareness of Good MIXING MACHINE TENDER Role in Treatment Patient/Caregiver Compliance with Home Excellent Exercise Program Objective Short Term Goals 1. The pt will complete exercises targeting word recall with 75% accuracy to improve expressive language skills and increase conversation participation. MAKING PROGRESS; CONTINUE GOAL 2. The pt will follow written instructions with 80% accuracy to perform functional tasks, such as remote control use, simple computer navigation, housekeeping tasks, etc. MAKING PROGRESS; CONTINUE GOAL 3. Given texts presented in writing or orally, the pt will answer questions related to inferential or implied meanings with 75% accuracy to improve comprehension of abstract concepts. CONTINUE GOAL 4. The pt will complete sequencing tasks (e.g., following a recipe, navigating phone/computer) with min v/v prompts to improve executive function and memory skills and increase pt's participation with functional and social ADLs. CONTINUE GOAL Staff Midwife/Apprenticeship Director Goals CONTINUE ALL LONG-TERM GOALS 1. The pt will demonstrate expressive and receptive language skills WFL, as demonstrated by increased social and conversational participation and measured by pt/family report and clinical judgment. 2. The pt will demonstrate cognitive communication skills WFL, as demonstrated by at least 50% participation in household tasks completed by the pt prior to CVA (e.g., computer use, cooking, grocery shopping/planning, etc.) and measured by pt/family report and clinical judgment. Treatment Activities Initiated training in navigation of Esther device, targeting navigation of toolbar and moving to and from library and within books. MIXING MACHINE TENDER demonstrated this navigation and provided steps in writing. Using error-free learning, MIXING MACHINE TENDER guided the pt through navigation, with prompts for accessing toolbar reducing from max to min. The pt followed oral commands with ~ 85% accuracy. Reference to written prompts was made visually without direct assessment of the pt's ability to follow. Highest level of prompting was required for choosing and moving within a given book (e.g., Go to beginning of book). Needs reinforcement. Assessment Patient Response to Treatment Good Rehab Potential Good Impairments Identified Aphasia,Cognitive-Linguistic Skills,Expressive Language, Memory - Short Term,Memory - Working,Problem Solving, Receptive Language,Other Additional Impairments Identified Flat affect Progress Towards Goals Good Progress,Slow Progress Assessment of Overall Progress Improving Assessment of Improvement Over the course of treatment, the pt has made slow progress increasing expressive output and engaging in functional household tasks, such as helping set and clear the table. When the pt does express herself, whether orally or in writing, syntax is accurate, as is spelling and legibility when writing. Word finding difficulties continue to be her greatest obstacle in expressing herself . She is highly responsive to phonemic cuing and prompting questions, which her provides well. She tends to communicate in short sentences and demonstrates appropriate pragmatics. Perseveration continues to be present, particularly when information is visible in writing. She benefits from visually isolating targets and from breaks or distractions between repetitions of a task. Receptively (listening and reading), the pt has difficulty with information that is lengthy and/or complex , but provides appropriate responses in simple conversations or when given opportunity to look back to texts to find answers to reading questions. While her ability to read text is WNL, extensive assessment of receptive and cognitive communication skills is challenging d/t the pt's expressive language deficits, primarily WFDs. The pt is highly agreeable and cooperative, though presents with a generally flat affect and rarely initiates participation in conversation or tasks as per PLOF. Her is of great support to her, which is needed. Suspect the pt may be nearing her highest level of function or reaching a plateau in therapy. However, skilled intervention is medically necessary to develop a long- term HEP, including caregiver training, that will allow the pt to maintain current skills and/or improve if she is motivated to consistently participate in HEP tasks. Reviewed with Patient Goals,Progress Being Made,Home Exercise Program Patient/Caregiver Understanding Good Plan Amount of Therapy Recommended 1-2 Months Frequency of Treatment Once a Week Length of Session 45 Minutes Treatment Emphasis Next Session Assessment of Esther navigation, reading comprehension; HEP development Therapeutic Contents Client Education,Cognitive- Linguistic Training,Expressive Language Training,Home Exercise Program,Information Processing,Receptive Language Training Provided Patient/Caregiver Instruction Home Exercise Program,Plan of Care,Questions/Concerns Therapy Recommendations Continue with Current Program
--- NOTE | 2021-09-01 17:00 | ST.OPTN ---
Visit Care Team Role Provider Type Renny Haynes MD Attending Provider Physician Family Provider Primary Care Provider Referring Provider Address: [address] [place] [address], [address], [place], [address] BORDER GUARD Treatment Note BORDER GUARD Clinical Instructor Line Start: 02/10/21 16:33 Freq: Status: Active Protocol: Document 02/19/21 17:37 JOVI (Rec: 02/19/21 17:37 JOVI [email or web address]) Clinical Instructor Signature Clinical Instructor Clinical Instructor Yes BORDER GUARD Treatment Note Start: 01/06/21 12:19 Freq: Status: Active Protocol: Document 09/01/21 16:51 JOVI (Rec: 09/01/21 17:00 JOVI [email or web address]) Speech Pathology Treatment Note Session Time Visit Start Time 10:30 Visit Stop Time 11:15 Total Visit Minutes 45 Visit Information Visit Number 09/11 Plan of Care Dates 08/25/21 - 11/23/21 Insurance Information [facility] Setting Treatment Setting Outpatient Care Visit Type Note Type Progress Note Next Note Type Next Note Type Treatment Note General Information General Information The pt is a now 71-yr-old female familiar to this BORDER GUARD from 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 On , the pt was admitted to the hospital with acute encephalopathy and malignant hypertension. She was initially confused. MRI findings on CT demonstrated a subacute left thalamic stroke. The patient was seen by speech pathology, PT and OT. She was functionally able to ambulate and had no weakness in the upper and lower extremities. However, she continued to have evidence of expressive and receptive aphasia. She dc'd from hospital to SNF, and then to home with . The pt will be receiving outpatient ST and PT services. Subjective Identification Type Other Others Present Family,Additional Therapist Observations/Patient Presentation The pt was accompanied by her who was present throughout for CG training to promote carryover of tx targets. No new complaints. Pt brought her Esther with her. Chief Complaint(s) Language,Cognitive Patient Knowledge/Awareness of BORDER GUARD Role Good in Treatment Parent/Caretake Knowledge/Awareness of Good BORDER GUARD Role in Treatment Patient/Caregiver Compliance with Home Excellent Exercise Program Objective Short Term Goals 1. The pt will complete exercises targeting word recall with 75% accuracy to improve expressive language skills and increase conversation participation. MAKING PROGRESS; CONTINUE GOAL 2. The pt will follow written instructions with 80% accuracy to perform functional tasks, such as remote control use, simple computer navigation, housekeeping tasks, etc. MAKING PROGRESS; CONTINUE GOAL 3. Given texts presented in writing or orally, the pt will answer questions related to inferential or implied meanings with 75% accuracy to improve comprehension of abstract concepts. CONTINUE GOAL 4. The pt will complete sequencing tasks (e.g., following a recipe, navigating phone/computer) with min v/v prompts to improve executive function and memory skills and increase pt's participation with functional and social ADLs. CONTINUE GOAL Multiple Needle Stitcher Goals CONTINUE ALL LONG-TERM GOALS 1. The pt will demonstrate expressive and receptive language skills WFL, as demonstrated by increased social and conversational participation and measured by pt/family report and clinical judgment. 2. The pt will demonstrate cognitive communication skills WFL, as demonstrated by at least 50% participation in household tasks completed by the pt prior to CVA (e.g., computer use, cooking, grocery shopping/planning, etc.) and measured by pt/family report and clinical judgment. Treatment Activities Continued training navigation of [email or web address] tablet. The pt moved from home page to and through library and to individual books with ~60% acc, frequent need for v/v prompts. Several errors were made d/t the sensitivity of the touch screen and imprecise tapping from the pt. Once in a book, the pt navigated independently . She read aloud with occ errors such as skipping words, replacing words with synonyms , and misreading words (e.g., these for those), ~90% acc . No errors significantly changed the context of the text. Skilled feedback was provided including recommendations that the pt's spouse assist in setting up a particular book and condensing the pt's expansive library into collections (e.g., books by particular authors) to visually simplify the pt's library and assist her in finding books of interest. Pt and spouse were in agreement. Assessment Patient Response to Treatment Good Rehab Potential Good Impairments Identified Aphasia,Cognitive-Linguistic Skills,Expressive Language, Memory - Short Term,Memory - Working,Problem Solving, Receptive Language,Other Additional Impairments Identified Flat affect Progress Towards Goals Good Progress,Slow Progress Assessment of Overall Progress Improving Assessment of Improvement The pt exhibited moderate difficulty navigating into and around the library of her [email or web address] device. Once in a book, however, she navigated independently and read with high accuracy. All agreed that the goal of using the Esther is to re-engage the pt with reading, not to re-learn technology. Therefore, if setup assistance is helpful, the pt's spouse should provide it as needed. It is anticipated that over time, setup assistance will serve as teachable moments and the pt' s independence with navigating the device will improve. Reviewed with Patient Goals,Progress Being Made,Home Exercise Program Patient/Caregiver Understanding Good Plan Amount of Therapy Recommended 1-2 Months Frequency of Treatment Once a Week Length of Session 45 Minutes Treatment Emphasis Next Session Cont Esther usage, reading comprehension; HEP development Therapeutic Contents Client Education,Cognitive- Linguistic Training,Expressive Language Training,Home Exercise Program,Information Processing,Receptive Language Training Provided Patient/Caregiver Instruction Home Exercise Program,Plan of Care,Questions/Concerns Therapy Recommendations Continue with Current Program
--- NOTE | 2021-09-17 11:28 | ST.OPTN ---
Visit Care Team Role Provider Type Renny Haynes MD Attending Provider Physician Family Provider Primary Care Provider Referring Provider Address: [address] [place] [address], [address], [place], [address] COMMUNICATIONS COORDINATOR Treatment Note COMMUNICATIONS COORDINATOR Clinical Instructor Line Start: 02/10/21 16:33 Freq: Status: Active Protocol: Document 02/19/21 17:37 JOVI (Rec: 02/19/21 17:37 JOVI [email or web address]) Clinical Instructor Signature Clinical Instructor Clinical Instructor Yes COMMUNICATIONS COORDINATOR Treatment Note Start: 01/06/21 12:19 Freq: Status: Active Protocol: Document 09/17/21 11:17 JOVI (Rec: 09/17/21 11:27 JOVI [email or web address]) Speech Pathology Treatment Note Session Time Visit Start Time 10:30 Visit Stop Time 11:15 Total Visit Minutes 45 Visit Information Visit Number 10/09 Plan of Care Dates 08/25/21 - 11/23/21 Insurance Information [facility] Setting Treatment Setting Outpatient Care Visit Type Note Type Progress Note Next Note Type Next Note Type Treatment Note General Information General Information The pt is a now 71-yr-old female familiar to this COMMUNICATIONS COORDINATOR from 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 On , the pt was admitted to the hospital with acute encephalopathy and malignant hypertension. She was initially confused. MRI findings on CT demonstrated a subacute left thalamic stroke. The patient was seen by speech pathology, PT and OT. She was functionally able to ambulate and had no weakness in the upper and lower extremities. However, she continued to have evidence of expressive and receptive aphasia. She dc'd from hospital to SNF, and then to home with . The pt will be receiving outpatient ST and PT services. Subjective Identification Type Other Others Present Family,Additional Therapist Observations/Patient Presentation The pt was accompanied by her who was present throughout for CG training to promote carryover of tx targets. No new complaints. Pt has been exploring her Esther with her , though not yet reading books. She is also enjoying watching sewing and quilting shows on TV, though not yet doing any sewing or quilting herself. Chief Complaint(s) Language,Cognitive Patient Knowledge/Awareness of COMMUNICATIONS COORDINATOR Role Good in Treatment Parent/Caretake Knowledge/Awareness of Good COMMUNICATIONS COORDINATOR Role in Treatment Patient/Caregiver Compliance with Home Excellent Exercise Program Objective Short Term Goals 1. The pt will complete exercises targeting word recall with 75% accuracy to improve expressive language skills and increase conversation participation. MAKING PROGRESS; CONTINUE GOAL 2. The pt will follow written instructions with 80% accuracy to perform functional tasks, such as remote control use, simple computer navigation, housekeeping tasks, etc. MAKING PROGRESS; CONTINUE GOAL 3. Given texts presented in writing or orally, the pt will answer questions related to inferential or implied meanings with 75% accuracy to improve comprehension of abstract concepts. CONTINUE GOAL 4. The pt will complete sequencing tasks (e.g., following a recipe, navigating phone/computer) with min v/v prompts to improve executive function and memory skills and increase pt's participation with functional and social ADLs. CONTINUE GOAL Provisioning Analyst Goals CONTINUE ALL LONG-TERM GOALS 1. The pt will demonstrate expressive and receptive language skills WFL, as demonstrated by increased social and conversational participation and measured by pt/family report and clinical judgment. 2. The pt will demonstrate cognitive communication skills WFL, as demonstrated by at least 50% participation in household tasks completed by the pt prior to CVA (e.g., computer use, cooking, grocery shopping/planning, etc.) and measured by pt/family report and clinical judgment. Treatment Activities Targeted expressive language via scrambled sentences and stating multiple definitions of words. Pt unscrambled simple sentences independently in 21/ 25 opportunities (84% acc) most upon immediate visual presentation. Occ verbal prompts required. Given target words with multiple meanings and verbal prompts such as parts of speech or contexts in which words would be used, the pt defined meanings with 73% acc. Occ perseveration was observed. Pt benefited from conversation between target presentations or other such natural distractions. Assessment Patient Response to Treatment Good Rehab Potential Good Impairments Identified Aphasia,Cognitive-Linguistic Skills,Expressive Language, Memory - Short Term,Memory - Working,Problem Solving, Receptive Language,Other Additional Impairments Identified Flat affect Progress Towards Goals Good Progress,Slow Progress Assessment of Overall Progress Improving Assessment of Improvement The pt unscrambled written sentences accurately and quickly in most opportunities. Much improved processing speed. She required more verbal prompting for novel language generation when defining words , particularly benefiting from verbal presentation of contexts. Mild perseveration persists in structured tasks, especially toward words/ concepts presented in writing. Generally, the pt is exhibiting more engagement in conversations and slowly improving verbal expression. Reviewed with Patient Goals,Progress Being Made,Home Exercise Program Patient/Caregiver Understanding Good Plan Amount of Therapy Recommended 1-2 Months Frequency of Treatment Once a Week Length of Session 45 Minutes Treatment Emphasis Next Session Cont Esther usage, reading comprehension; HEP development Therapeutic Contents Client Education,Cognitive- Linguistic Training,Expressive Language Training,Home Exercise Program,Information Processing,Receptive Language Training Provided Patient/Caregiver Instruction Home Exercise Program,Plan of Care,Questions/Concerns Therapy Recommendations Continue with Current Program
--- NOTE | 2021-09-24 11:36 | ST.OPTN ---
Visit Care Team Role Provider Type Renny Haynes MD Attending Provider Physician Family Provider Primary Care Provider Referring Provider Address: [address] [place] [address], [address], [place], [address] CLAY MOLDER Treatment Note CLAY MOLDER Clinical Instructor Line Start: 02/10/21 16:33 Freq: Status: Active Protocol: Document 02/19/21 17:37 JOVI (Rec: 02/19/21 17:37 JOVI [email or web address]) Clinical Instructor Signature Clinical Instructor Clinical Instructor Yes CLAY MOLDER Treatment Note Start: 01/06/21 12:19 Freq: Status: Active Protocol: Document 09/24/21 11:26 JOVI (Rec: 09/24/21 11:36 JOVI [email or web address]) Speech Pathology Treatment Note Session Time Visit Start Time 10:30 Visit Stop Time 11:20 Total Visit Minutes 50 Visit Information Visit Number 11/09 Plan of Care Dates 08/25/21 - 11/23/21 Insurance Information [facility] Setting Treatment Setting Outpatient Care Visit Type Note Type Progress Note Next Note Type Next Note Type Treatment Note General Information General Information The pt is a now 71-yr-old female familiar to this CLAY MOLDER from 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 On , the pt was admitted to the hospital with acute encephalopathy and malignant hypertension. She was initially confused. MRI findings on CT demonstrated a subacute left thalamic stroke. The patient was seen by speech pathology, PT and OT. She was functionally able to ambulate and had no weakness in the upper and lower extremities. However, she continued to have evidence of expressive and receptive aphasia. She dc'd from hospital to SNF, and then to home with . The pt will be receiving outpatient ST and PT services. Subjective Identification Type Other Others Present Family,Additional Therapist Observations/Patient Presentation The pt was accompanied by her who was present throughout for CG training to promote carryover of tx targets. No new complaints. Pt has been exploring her Esther with her , though not yet reading books. The couple will attend a dinner libertarian with friends this weekend and will work together to prepare a dish to bring. Chief Complaint(s) Language,Cognitive Patient Knowledge/Awareness of CLAY MOLDER Role Good in Treatment Parent/Caretake Knowledge/Awareness of Good CLAY MOLDER Role in Treatment Patient/Caregiver Compliance with Home Excellent Exercise Program Objective Short Term Goals 1. The pt will complete exercises targeting word recall with 75% accuracy to improve expressive language skills and increase conversation participation. MAKING PROGRESS; CONTINUE GOAL 2. The pt will follow written instructions with 80% accuracy to perform functional tasks, such as remote control use, simple computer navigation, housekeeping tasks, etc. MAKING PROGRESS; CONTINUE GOAL 3. Given texts presented in writing or orally, the pt will answer questions related to inferential or implied meanings with 75% accuracy to improve comprehension of abstract concepts. CONTINUE GOAL 4. The pt will complete sequencing tasks (e.g., following a recipe, navigating phone/computer) with min v/v prompts to improve executive function and memory skills and increase pt's participation with functional and social ADLs. CONTINUE GOAL Wing Mailer Machine Operator Goals CONTINUE ALL LONG-TERM GOALS 1. The pt will demonstrate expressive and receptive language skills WFL, as demonstrated by increased social and conversational participation and measured by pt/family report and clinical judgment. 2. The pt will demonstrate cognitive communication skills WFL, as demonstrated by at least 50% participation in household tasks completed by the pt prior to CVA (e.g., computer use, cooking, grocery shopping/planning, etc.) and measured by pt/family report and clinical judgment. Treatment Activities Targeted reading skills via reading and discussing humorous poems. The pt read poems with >95% acc independently, quickly self- identifying and correcting the few errors she made. She answered questions about the morals and/or joke of the poems with 88% acc, giving responses in short words and phrases. Language was often broad or vague but largely accurate. The pt exhibited difficulty providing specific language but was able to make her meanings known. She showed initial confusion with multiple perspectives related to money (i.e., greater number of coins but lesser value). When demonstrated with actual coins and presented step-by- step, she then demonstrated understanding and correctly answered the target question. Assessment Patient Response to Treatment Good Rehab Potential Good Impairments Identified Aphasia,Cognitive-Linguistic Skills,Expressive Language, Memory - Short Term,Memory - Working,Problem Solving, Receptive Language,Other Additional Impairments Identified Flat affect Progress Towards Goals Good Progress,Slow Progress Assessment of Overall Progress Improving Assessment of Improvement The pt exhibited excellent reading ability and good comprehension of texts with occ confusion with abstract or contradicting concepts. Encouraged the pt to read short stories at home, preferably in book form vs Esther to initiate resuming reading hobby. Pt/spouse agreed going to the library to find such books would be a good community activity that might increase the pt's interest and motivation to re- engage with this long-loved hobby and benefit word recall and language skills. Reviewed with Patient Goals,Progress Being Made,Home Exercise Program Patient/Caregiver Understanding Good Plan Amount of Therapy Recommended 1-2 Months Frequency of Treatment Once a Week Length of Session 45 Minutes Treatment Emphasis Next Session Word recall, reading comprehension; HEP development Therapeutic Contents Client Education,Cognitive- Linguistic Training,Expressive Language Training,Home Exercise Program,Information Processing,Receptive Language Training Provided Patient/Caregiver Instruction Home Exercise Program,Plan of Care,Questions/Concerns Therapy Recommendations Continue with Current Program
--- NOTE | 2021-09-29 12:25 | ST.OPTN ---
Visit Care Team Role Provider Type Renny Haynes MD Attending Provider Physician Family Provider Primary Care Provider Referring Provider Address: [address] [place] [address], [address], [place], [address] DEVELOPMENT PROFESSIONAL Treatment Note DEVELOPMENT PROFESSIONAL Clinical Instructor Line Start: 02/10/21 16:33 Freq: Status: Active Protocol: Document 02/19/21 17:37 JOVI (Rec: 02/19/21 17:37 JOVI [email or web address]) Clinical Instructor Signature Clinical Instructor Clinical Instructor Yes DEVELOPMENT PROFESSIONAL Treatment Note Start: 01/06/21 12:19 Freq: Status: Active Protocol: Document 09/29/21 12:16 JOVI (Rec: 09/29/21 12:24 JOVI [email or web address]) Speech Pathology Treatment Note Session Time Visit Start Time 10:30 Visit Stop Time 11:15 Total Visit Minutes 45 Visit Information Visit Number 12/09 Plan of Care Dates 08/25/21 - 11/23/21 Insurance Information [facility] Setting Treatment Setting Outpatient Care Visit Type Note Type Progress Note Next Note Type Next Note Type Treatment Note General Information General Information The pt is a now 71-yr-old female familiar to this DEVELOPMENT PROFESSIONAL from 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 On , the pt was admitted to the hospital with acute encephalopathy and malignant hypertension. She was initially confused. MRI findings on CT demonstrated a subacute left thalamic stroke. The patient was seen by speech pathology, PT and OT. She was functionally able to ambulate and had no weakness in the upper and lower extremities. However, she continued to have evidence of expressive and receptive aphasia. She dc'd from hospital to SNF, and then to home with . The pt will be receiving outpatient ST and PT services. Subjective Identification Type Other Others Present Family,Additional Therapist Observations/Patient Presentation The pt was accompanied by her who was present throughout for CG training to promote carryover of tx targets. No new complaints. Chief Complaint(s) Language,Cognitive Patient Knowledge/Awareness of DEVELOPMENT PROFESSIONAL Role Good in Treatment Parent/Caretake Knowledge/Awareness of Good DEVELOPMENT PROFESSIONAL Role in Treatment Patient/Caregiver Compliance with Home Excellent Exercise Program Objective Short Term Goals 1. The pt will complete exercises targeting word recall with 75% accuracy to improve expressive language skills and increase conversation participation. MAKING PROGRESS; CONTINUE GOAL 2. The pt will follow written instructions with 80% accuracy to perform functional tasks, such as remote control use, simple computer navigation, housekeeping tasks, etc. MAKING PROGRESS; CONTINUE GOAL 3. Given texts presented in writing or orally, the pt will answer questions related to inferential or implied meanings with 75% accuracy to improve comprehension of abstract concepts. CONTINUE GOAL 4. The pt will complete sequencing tasks (e.g., following a recipe, navigating phone/computer) with min v/v prompts to improve executive function and memory skills and increase pt's participation with functional and social ADLs. CONTINUE GOAL Long-Term Goals CONTINUE ALL LONG-TERM GOALS 1. The pt will demonstrate expressive and receptive language skills WFL, as demonstrated by increased social and conversational participation and measured by pt/family report and clinical judgment. 2. The pt will demonstrate cognitive communication skills WFL, as demonstrated by at least 50% participation in household tasks completed by the pt prior to CVA (e.g., computer use, cooking, grocery shopping/planning, etc.) and measured by pt/family report and clinical judgment. Treatment Activities Targeted reading, writing, word recall and cognitive communication skills via sequencing and object similarities tasks. Sequencing: Pt sequenced 3- and 4-item groups with mod-max assistance, greater assistance with time-based items (days of week) than physical items (e.g., stages of a butterfly). Comparisons: Pt compared two flowering plants with mod-max prompts. Pt wrote answers with 1 spelling error, legible writing. She was participatory in conversation, independently adding an unsolicited comment to the discussion x1, answering other questions appropriately with mod need for phonemic cues d/t WFDs. Assessment Patient Response to Treatment Good Rehab Potential Good Impairments Identified Aphasia,Cognitive-Linguistic Skills,Expressive Language, Memory - Short Term,Memory - Working,Problem Solving, Receptive Language,Other Additional Impairments Identified Flat affect Progress Towards Goals Good Progress,Slow Progress Assessment of Overall Progress Improving Assessment of Improvement The pt independently contributed to conversation x1 in today's conversation, which is new for her in therapy. She continues with significant WFDs, often repeating what others have said. She required mod to max prompts for both sequencing and comparison tasks, greater assistance needed for abstract vs concrete topics. Reviewed with Patient Goals,Progress Being Made,Home Exercise Program Patient/Caregiver Understanding Good Plan Amount of Therapy Recommended 1-2 Months Frequency of Treatment Once a Week Length of Session 45 Minutes Treatment Emphasis Next Session Naming nouns and attributes Therapeutic Contents Client Education,Cognitive- Linguistic Training,Expressive Language Training,Home Exercise Program,Information Processing,Receptive Language Training Provided Patient/Caregiver Instruction Home Exercise Program,Plan of Care,Questions/Concerns Therapy Recommendations Continue with Current Program
--- NOTE | 2021-10-20 16:14 | ST.OPTN ---
Visit Care Team Role Provider Type Renny Haynes MD Attending Provider Physician Family Provider Primary Care Provider Referring Provider Address: [address] [place] [address], [address], [place], [address] PICKLE PUMPER Treatment Note PICKLE PUMPER Clinical Instructor Line Start: 02/10/21 16:33 Freq: Status: Active Protocol: Document 02/19/21 17:37 JOVI (Rec: 02/19/21 17:37 JOVI [email or web address]) Clinical Instructor Signature Clinical Instructor Clinical Instructor Yes PICKLE PUMPER Treatment Note Start: 01/06/21 12:19 Freq: Status: Active Protocol: Document 10/20/21 17:58 JOVI (Rec: 10/20/21 17:59 JOVI [email or web address]) Speech Pathology Treatment Note Session Time Visit Start Time 10:30 Visit Stop Time 11:15 Total Visit Minutes 45 Visit Information Visit Number 02/08 Plan of Care Dates 08/25/21 - 11/23/21 Insurance Information [facility] Setting Treatment Setting Outpatient Care Visit Type Note Type Progress Note Next Note Type Next Note Type Treatment Note General Information Patient History The pt is a now 71-yr-old female familiar to this PICKLE PUMPER from 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 On , the pt was admitted to the hospital with acute encephalopathy and malignant hypertension. She was initially confused. MRI findings on CT demonstrated a subacute left thalamic stroke. The patient was seen by speech pathology, PT and OT. She was functionally able to ambulate and had no weakness in the upper and lower extremities. However, she continued to have evidence of expressive and receptive aphasia. She dc'd from hospital to SNF, and then to home with . The pt will be receiving outpatient ST and PT services. Subjective Identification Type Other Others Present Family,Additional Therapist Observations/Patient Presentation The pt was accompanied by her who was present throughout for CG training to promote carryover of tx targets. No new complaints. Chief Complaint(s) Language,Cognitive Rehab Expectation/Goals: Patient Goals Improve language Rehab Expectation/Goals: Parent/Guardian Increase interaction with /Multiple Drum Sander Helper Goals other people and home tasks Patient Knowledge/Awareness of PICKLE PUMPER Role Good in Treatment Parent/Caretake Knowledge/Awareness of Good PICKLE PUMPER Role in Treatment Patient/Caregiver Compliance with Home Excellent Exercise Program Objective Short Term Goals 1. The pt will complete exercises targeting word recall with 75% accuracy to improve expressive language skills and increase conversation participation. GOAL MODIFIED; SEE BELOW. 2. The pt will follow written instructions with 80% accuracy to perform functional tasks, such as remote control use, simple computer navigation, housekeeping tasks, etc. DISCONTINUE GOAL 3. Given texts presented in writing or orally, the pt will answer questions related to inferential or implied meanings with 75% accuracy to improve comprehension of abstract concepts. DISCONTINUE GOAL 4. The pt will complete sequencing tasks (e.g., following a recipe, navigating phone/computer) with min v/v prompts to improve executive function and memory skills and increase pt's participation with functional and social ADLs. DISCONTINUE GOAL NEW GOALS: 1. Given pictures of familiar objects, the pt will name parts of objects and the whole with 80% accuracy to improve word recall skills. 2. Given words presented in writing, the pt create meaningful sentences describing an object/picture with 75% accuracy to increase language production skills. 3. Given a picture and topic prompts (e.g., How does the person feel?), the pt will generate complete simple sentences with 75% independent production and accuracy to increase verbal production skills. Custodial Goals 1. The pt will demonstrate expressive and receptive language skills WFL, as demonstrated by increased social and conversational participation and measured by pt/family report and clinical judgment. DISCONTINUE GOAL 2. The pt will demonstrate cognitive communication skills WFL, as demonstrated by at least 50% participation in household tasks completed by the pt prior to CVA (e.g., computer use, cooking, grocery shopping/planning, etc.) and measured by pt/family report and clinical judgment. DISCONTINUE GOAL NEW GOALS: Treatment Activities Completed administration of Gillespie Naming Test with modifications to prompts in order to assess best prompting strategy and provide caregiver training. These modifications prevent standardization of results but provided valuable information to guide POC. The pt named 133/148 items independently, 5 of which required extended time, and the remaining 15 items with semantic (including carrier phrases and leading descriptive questions) and phonemic cues. Twice the pt independently produced initial phonemes but without completion of target words. However, this indicates potential stimulability toward self-cuing not previously seen with this pt. There were no pictures that the pt did not name when prompted. Assessment Patient Response to Treatment Good Rehab Potential Good Impairments Identified Aphasia,Cognitive-Linguistic Skills,Expressive Language, Memory - Short Term,Memory - Working,Problem Solving, Receptive Language,Other Additional Impairments Identified Flat affect Progress Towards Goals Good Progress,Slow Progress Assessment of Overall Progress Improving Assessment of Improvement The pt demonstrated strong ability in confrontational naming skills and responsiveness to verbal prompts. She showed greater difficulty in naming parts of objects and retrieving words without visual presentation, usually seen in conversation and indicating deficits in abstraction. Reviewed with Patient Goals,Progress Being Made,Home Exercise Program Patient/Caregiver Understanding Good Plan Amount of Therapy Recommended 1-2 Months Frequency of Treatment Once a Week Length of Session 45 Minutes Treatment Emphasis Next Session Naming items from description with Fo2 pics Therapeutic Contents Client Education,Cognitive- Linguistic Training,Expressive Language Training,Home Exercise Program,Information Processing,Receptive Language Training Provided Patient/Caregiver Instruction Home Exercise Program,Plan of Care,Questions/Concerns Therapy Recommendations Continue with Current Program
--- NOTE | 2021-11-03 17:25 | ST.OPTN ---
Visit Care Team Role Provider Type Renny Haynes MD Attending Provider Physician Family Provider Primary Care Provider Referring Provider Address: [address] [place] [address], [address], [place], [address] CONCRETE PRECAST MOULDER Treatment Note CONCRETE PRECAST MOULDER Clinical Instructor Line Start: 02/10/21 16:33 Freq: Status: Active Protocol: Document 02/19/21 17:37 JOVI (Rec: 02/19/21 17:37 JOVI [email or web address]) Clinical Instructor Signature Clinical Instructor Clinical Instructor Yes CONCRETE PRECAST MOULDER Treatment Note Start: 01/06/21 12:19 Freq: Status: Active Protocol: Document 11/03/21 17:16 JOVI (Rec: 11/03/21 17:25 JOVI [email or web address]) Speech Pathology Treatment Note Session Time Visit Start Time 10:35 Visit Stop Time 11:20 Total Visit Minutes 45 Visit Information Visit Number 03/11 Plan of Care Dates 08/25/21 - 11/23/21 Insurance Information [facility] Setting Treatment Setting Outpatient Care Visit Type Note Type Progress Note Next Note Type Next Note Type Treatment Note General Information Patient History The pt is a now 71-yr-old female familiar to this CONCRETE PRECAST MOULDER from 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 On , the pt was admitted to the hospital with acute encephalopathy and malignant hypertension. She was initially confused. MRI findings on CT demonstrated a subacute left thalamic stroke. The patient was seen by speech pathology, PT and OT. She was functionally able to ambulate and had no weakness in the upper and lower extremities. However, she continued to have evidence of expressive and receptive aphasia. She dc'd from hospital to SNF, and then to home with . The pt will be receiving outpatient ST and PT services. Subjective Identification Type Other Others Present Family,Additional Therapist Observations/Patient Presentation The pt was accompanied by her who was present throughout for CG training to promote carryover of tx targets. No new complaints. Chief Complaint(s) Language,Cognitive Rehab Expectation/Goals: Patient Goals Improve language Rehab Expectation/Goals: Parent/Guardian Increase interaction with /Rack Loader Goals other people and home tasks Patient Knowledge/Awareness of CONCRETE PRECAST MOULDER Role Good in Treatment Parent/Caretake Knowledge/Awareness of Good CONCRETE PRECAST MOULDER Role in Treatment Patient/Caregiver Compliance with Home Excellent Exercise Program Objective Short Term Goals 1. The pt will complete exercises targeting word recall with 75% accuracy to improve expressive language skills and increase conversation participation. GOAL MODIFIED; SEE BELOW. 2. The pt will follow written instructions with 80% accuracy to perform functional tasks, such as remote control use, simple computer navigation, housekeeping tasks, etc. DISCONTINUE GOAL 3. Given texts presented in writing or orally, the pt will answer questions related to inferential or implied meanings with 75% accuracy to improve comprehension of abstract concepts. DISCONTINUE GOAL 4. The pt will complete sequencing tasks (e.g., following a recipe, navigating phone/computer) with min v/v prompts to improve executive function and memory skills and increase pt's participation with functional and social ADLs. DISCONTINUE GOAL NEW GOALS: 1. Given pictures of familiar objects, the pt will name parts of objects and the whole with 80% accuracy to improve word recall skills. 2. Given words presented in writing, the pt create meaningful sentences describing an object/picture with 75% accuracy to increase langauge production skills. 3. Given a picture and topic prompts (e.g., How does the person feel?), the pt will generate complete simple sentences with 75% independent production and accuracy to increase verbal production skills. Intermediate Goals 1. The pt will demonstrate expressive and receptive language skills WFL, as demonstrated by increased social and conversational participation and measured by pt/family report and clinical judgment. DISCONTINUE GOAL 2. The pt will demonstrate cognitive communication skills WFL, as demonstrated by at least 50% participation in household tasks completed by the pt prior to CVA (e.g., computer use, cooking, grocery shopping/planning, etc.) and measured by pt/family report and clinical judgment. DISCONTINUE GOAL NEW GOALS: Treatment Activities The pt participated in conversation RE social activities, answering CONCRETE PRECAST MOULDER's questions with moderate WFDs, ~1/2 of which were resolved with extended time; others were resolved with redirection or restatement of questions or phonemic prompts. Pt's spouse reported during home practice, the pt exhibited strength with concrete tasks and greater impairment as tasks became more abstract. Targeted word recall using naming objects and people from descriptions, first with pictures present and fading to pictures not present. The same targets were used for all tasks. With pictures present, the pt named items with 100% acc in Fo2 choices and with 75 % acc in Fo4 choices. Without pictures present, she named items with 83% acc. She answered questions related to describing the pictures with 79% acc and initiated picture descriptions x3. Assessment Patient Response to Treatment Good Rehab Potential Good Impairments Identified Aphasia,Cognitive-Linguistic Skills,Expressive Language, Memory - Short Term,Memory - Working,Problem Solving, Receptive Language,Other Additional Impairments Identified Flat affect Progress Towards Goals Good Progress,Slow Progress Assessment of Overall Progress Improving Assessment of Improvement The pt demonstrated better accuracy in naming items with pictures present than not. She benefited from talking about other items in the picture and purposes of objects and of individual's jobs in order to name them, demonstrating stimulability to verbalizing associations. Following such prompting questions, she independently initiated description of pictures x3, again demonstrating stimulability to treatment approach and repetition. Reviewed with Patient Goals,Progress Being Made,Home Exercise Program Patient/Caregiver Understanding Good Plan Amount of Therapy Recommended 1-2 Months Frequency of Treatment Once a Week Length of Session 45 Minutes Treatment Emphasis Next Session Naming items from description with pics fading to without pics Therapeutic Contents Client Education,Cognitive- Linguistic Training,Expressive Language Training,Home Exercise Program,Information Processing,Receptive Language Training Provided Patient/Caregiver Instruction Home Exercise Program,Plan of Care,Questions/Concerns Therapy Recommendations Continue with Current Program
--- NOTE | 2021-11-11 18:14 | ST.OPTN ---
Visit Care Team Role Provider Type Renny Haynes MD Attending Provider Physician Family Provider Primary Care Provider Referring Provider Address: [address] [place] [address], [address], [address] CIRCUIT DESIGNER Treatment Note CIRCUIT DESIGNER Clinical Instructor Line Start: 02/10/21 16:33 Freq: Status: Active Protocol: Document 02/19/21 17:37 JOVI (Rec: 02/19/21 17:37 JOVI [email or web address]) Clinical Instructor Signature Clinical Instructor Clinical Instructor Yes CIRCUIT DESIGNER Treatment Note Start: 01/06/21 12:19 Freq: Status: Active Protocol: Document 11/11/21 13:24 JOVI (Rec: 11/11/21 13:32 JOVI [id number]) Speech Pathology Treatment Note Session Time Visit Start Time 12:30 Visit Stop Time 13:15 Total Visit Minutes 45 Visit Information Visit Number 9 Plan of Care Dates 08/25/21 - 11/23/21 Insurance Information [facility] Setting Treatment Setting Outpatient Care Visit Type Note Type Progress Note Next Note Type Next Note Type Progress Note General Information Patient History The pt is a now 71-yr-old female familiar to this CIRCUIT DESIGNER from 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 On , the pt was admitted to the hospital with acute encephalopathy and malignant hypertension. She was initially confused. MRI findings on CT demonstrated a subacute left thalamic stroke. The patient was seen by speech pathology, PT and OT. She was functionally able to ambulate and had no weakness in the upper and lower extremities. However, she continued to have evidence of expressive and receptive aphasia. She dc'd from hospital to SNF, and then to home with . The pt will be receiving outpatient ST and PT services. Subjective Identification Type Other Others Present Family,Additional Therapist Observations/Patient Presentation The pt was accompanied by her who was present throughout for CG training to promote carryover of tx targets. No new complaints. Spouse reported the pt showed increased initiative in wanting to fill out a medical form recently. Due to timing and need for high legibility, he completed the form for her but was encouraged by her assertiveness. Chief Complaint(s) Language,Cognitive Rehab Expectation/Goals: Patient Goals Improve language Rehab Expectation/Goals: Parent/Guardian Increase interaction with /Metabolic Specialist Goals other people and home tasks Patient Knowledge/Awareness of CIRCUIT DESIGNER Role Good in Treatment Parent/Caretake Knowledge/Awareness of Good CIRCUIT DESIGNER Role in Treatment Patient/Caregiver Compliance with Home Excellent Exercise Program Objective Short Term Goals 1. The pt will complete exercises targeting word recall with 75% accuracy to improve expressive language skills and increase conversation participation. GOAL MODIFIED; SEE BELOW. 2. The pt will follow written instructions with 80% accuracy to perform functional tasks, such as remote control use, simple computer navigation, housekeeping tasks, etc. DISCONTINUE GOAL 3. Given texts presented in writing or orally, the pt will answer questions related to inferential or implied meanings with 75% accuracy to improve comprehension of abstract concepts. DISCONTINUE GOAL 4. The pt will complete sequencing tasks (e.g., following a recipe, navigating phone/computer) with min v/v prompts to improve executive function and memory skills and increase pt's participation with functional and social ADLs. DISCONTINUE GOAL NEW GOALS: 1. Given pictures of familiar objects, the pt will name parts of objects and the whole with 80% accuracy to improve word recall skills. 2. Given words presented in writing, the pt create meaningful sentences describing an object/picture with 75% accuracy to increase langauge production skills. 3. Given a picture and topic prompts (e.g., How does the person feel?), the pt will generate complete simple sentences with 75% independent production and accuracy to increase verbal production skills. Fci Goals 1. The pt will demonstrate expressive and receptive language skills WFL, as demonstrated by increased social and conversational participation and measured by pt/family report and clinical judgment. DISCONTINUE GOAL 2. The pt will demonstrate cognitive communication skills WFL, as demonstrated by at least 50% participation in household tasks completed by the pt prior to CVA (e.g., computer use, cooking, grocery shopping/planning, etc.) and measured by pt/family report and clinical judgment. DISCONTINUE GOAL NEW GOALS: Treatment Activities Targeted automatic personal speech and writing. Using a form template, the pt wrote the names of herself, , children and grandchildren independently and accurately. Given extended time, she stated and wrote her place of . She inaccurately wrote her birthday, which was corrected with verbal prompts. She was unable to state or write her address initially, but did so after verbal review with her . With phonemic cues, she recalled her phone number. She wrote all of this information on the form with occasional spelling errors that she self- corrected. Twice she transposed the number 19 to 91 . Upon reading the incorrect number, she recognized the error but required verbal instruction to correct it. Spaced retrieval technique was used to promote the pt's ability to recall , address and phone number verbally, which she did with moderate initial need for prompts ( phonemic cues and carrier phrases). This improved with practice but carried over only mildly after a delay. Skilled feedback and instructions for home practice were provided. Assessment Patient Response to Treatment Good Rehab Potential Good Impairments Identified Aphasia,Cognitive-Linguistic Skills,Expressive Language, Memory - Short Term,Memory - Working,Problem Solving, Receptive Language,Other Additional Impairments Identified Flat affect Progress Towards Goals Good Progress,Slow Progress Assessment of Overall Progress Improving Assessment of Improvement The pt exhibited moderate difficulty recalling personal information but was responsive to verbal cues, and repetition improved immediate recall though did not produce significant improvement in delayed recall. Needs reinforcement. The pt exhibited mild impairment in writing legibility and spelling. Writing was at times smaller than was legible. The pt self- corrected all spelling errors, requiring occ prompts to identify them. Transposition of 19 to 91 was noted x2. Reviewed with Patient Goals,Progress Being Made,Home Exercise Program Patient/Caregiver Understanding Good Plan Amount of Therapy Recommended 1-2 Months Frequency of Treatment Once a Week Length of Session 45 Minutes Treatment Emphasis Next Session Naming from description; Describing; Expressing personal contact info Therapeutic Contents Client Education,Cognitive- Linguistic Training,Expressive Language Training,Home Exercise Program,Information Processing,Receptive Language Training Provided Patient/Caregiver Instruction Home Exercise Program,Plan of Care,Questions/Concerns Therapy Recommendations Continue with Current Program
--- NOTE | 2021-11-18 13:30 | ST.OPTN ---
Visit Care Team Role Provider Type Renny Haynes MD Attending Provider Physician Family Provider Primary Care Provider Referring Provider Address: [address] [place] [address], [address], [place], [address] FIRE ALARM TECHNICIAN Treatment Note FIRE ALARM TECHNICIAN Clinical Instructor Line Start: 02/10/21 16:33 Freq: Status: Active Protocol: Document 02/19/21 17:37 JOVI (Rec: 02/19/21 17:37 JOVI [id number]) Clinical Instructor Signature Clinical Instructor Clinical Instructor Yes FIRE ALARM TECHNICIAN Treatment Note Start: 01/06/21 12:19 Freq: Status: Active Protocol: Document 11/18/21 13:21 JOVI (Rec: 11/18/21 13:30 JOVI [id number]) Speech Pathology Treatment Note Session Time Visit Start Time 12:30 Visit Stop Time 13:15 Total Visit Minutes 45 Visit Information Visit Number 08/11 Plan of Care Dates 08/25/21 - 11/23/21 Insurance Information [facility] Setting Treatment Setting Outpatient Care Visit Type Note Type Treatment Note Next Note Type Next Note Type Treatment Note General Information Patient History The pt is a now 71-yr-old female familiar to this FIRE ALARM TECHNICIAN from 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 On , the pt was admitted to the hospital with acute encephalopathy and malignant hypertension. She was initially confused. MRI findings on CT demonstrated a subacute left thalamic stroke. The patient was seen by speech pathology, PT and OT. She was functionally able to ambulate and had no weakness in the upper and lower extremities. However, she continued to have evidence of expressive and receptive aphasia. She dc'd from hospital to SNF, and then to home with . The pt will be receiving outpatient ST and PT services. Subjective Identification Type Other Others Present Family,Additional Therapist Observations/Patient Presentation The pt was accompanied by her who was present throughout for CG training to promote carryover of tx targets. No new complaints. Pt /spouse have been practicing reciting home address and phone number. No practice writing this week. Chief Complaint(s) Language,Cognitive Rehab Expectation/Goals: Patient Goals Improve language Rehab Expectation/Goals: Parent/Guardian Increase interaction with /[employer] Worker Goals other people and home tasks Patient Knowledge/Awareness of FIRE ALARM TECHNICIAN Role Good in Treatment Parent/Caretake Knowledge/Awareness of Good FIRE ALARM TECHNICIAN Role in Treatment Patient/Caregiver Compliance with Home Excellent Exercise Program Objective Short Term Goals 1. The pt will complete exercises targeting word recall with 75% accuracy to improve expressive language skills and increase conversation participation. GOAL MODIFIED; SEE BELOW. 2. The pt will follow written instructions with 80% accuracy to perform functional tasks, such as remote control use, simple computer navigation, housekeeping tasks, etc. DISCONTINUE GOAL 3. Given texts presented in writing or orally, the pt will answer questions related to inferential or implied meanings with 75% accuracy to improve comprehension of abstract concepts. DISCONTINUE GOAL 4. The pt will complete sequencing tasks (e.g., following a recipe, navigating phone/computer) with min v/v prompts to improve executive function and memory skills and increase pt's participation with functional and social ADLs. DISCONTINUE GOAL NEW GOALS: 1. Given pictures of familiar objects, the pt will name parts of objects and the whole with 80% accuracy to improve word recall skills. 2. Given words presented in writing, the pt create meaningful sentences describing an object/picture with 75% accuracy to increase langauge production skills. 3. Given a picture and topic prompts (e.g., How does the person feel?), the pt will generate complete simple sentences with 75% independent production and accuracy to increase verbal production skills. Fdc Goals 1. The pt will demonstrate expressive and receptive language skills WFL, as demonstrated by increased social and conversational participation and measured by pt/family report and clinical judgment. DISCONTINUE GOAL 2. The pt will demonstrate cognitive communication skills WFL, as demonstrated by at least 50% participation in household tasks completed by the pt prior to CVA (e.g., computer use, cooking, grocery shopping/planning, etc.) and measured by pt/family report and clinical judgment. DISCONTINUE GOAL NEW GOALS: Treatment Activities Continued training in word recall/generation using pictures of common items. Confrontational Namin% (6 /8) + remaining items with verbal and/or phonemic prompts . From a Fo4 pictures, the pt named objects from description with 63% acc; named location where objects are found with 75% acc. Given one picture at a time, pt named object parts with 87% acc, mod questioning prompts. Assessment Patient Response to Treatment Good Rehab Potential Good Impairments Identified Aphasia,Cognitive-Linguistic Skills,Expressive Language, Memory - Short Term,Memory - Working,Problem Solving, Receptive Language,Other Additional Impairments Identified Flat affect Progress Towards Goals Good Progress,Slow Progress Assessment of Overall Progress Improving Assessment of Improvement Mildly improved language generation seen today. Perseveration was limited to one episode. Mildly reduced need for prompts. The pt independently made one off-the -cuff comment. Reviewed with Patient Goals,Progress Being Made,Home Exercise Program Patient/Caregiver Understanding Good Plan Amount of Therapy Recommended 1-2 Months Frequency of Treatment Once a Week Length of Session 45 Minutes Treatment Emphasis Next Session Naming from description; Describing; Expressing personal contact info Therapeutic Contents Client Education,Cognitive- Linguistic Training,Expressive Language Training,Home Exercise Program,Information Processing,Receptive Language Training Provided Patient/Caregiver Instruction Home Exercise Program,Plan of Care,Questions/Concerns Therapy Recommendations Continue with Current Program
--- NOTE | 2021-11-24 10:30 | ST.OPTN ---
Visit Care Team Role Provider Type Renny Haynes MD Attending Provider Physician Family Provider Primary Care Provider Referring Provider Address: [address] [place] [address], [address], [address] TRACK WALKER Treatment Note TRACK WALKER Clinical Instructor Line Start: 02/10/21 16:33 Freq: Status: Active Protocol: Document 02/19/21 17:37 JOVI (Rec: 02/19/21 17:37 JOVI [id number]) Clinical Instructor Signature Clinical Instructor Clinical Instructor Yes TRACK WALKER Treatment Note Start: 01/06/21 12:19 Freq: Status: Active Protocol: Document 11/24/21 10:19 JOVI (Rec: 11/24/21 10:30 JOVI [id number]) Speech Pathology Treatment Note Session Time Visit Start Time 09:30 Visit Stop Time 10:15 Total Visit Minutes 45 Visit Information Visit Number 09/11 Plan of Care Dates 08/25/21 - 11/23/21 Insurance Information [facility] Setting Treatment Setting Outpatient Care Visit Type Note Type Treatment Note Next Note Type Next Note Type Treatment Note General Information Patient History The pt is a now 71-yr-old female familiar to this TRACK WALKER from 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 On , the pt was admitted to the hospital with acute encephalopathy and malignant hypertension. She was initially confused. MRI findings on CT demonstrated a subacute left thalamic stroke. The patient was seen by speech pathology, PT and OT. She was functionally able to ambulate and had no weakness in the upper and lower extremities. However, she continued to have evidence of expressive and receptive aphasia. She dc'd from hospital to SNF, and then to home with . The pt will be receiving outpatient ST and PT services. Subjective Identification Type Other Others Present Family,Additional Therapist Observations/Patient Presentation The pt was accompanied by her who was present throughout for CG training to promote carryover of tx targets. No new complaints. Pt /spouse have been practicing reciting emergency phone number, home address and pt's phone number. Chief Complaint(s) Language,Cognitive Rehab Expectation/Goals: Patient Goals Improve language Rehab Expectation/Goals: Parent/Guardian Increase interaction with /Director Custom Goals other people and home tasks Patient Knowledge/Awareness of TRACK WALKER Role Good in Treatment Parent/Caretake Knowledge/Awareness of Good TRACK WALKER Role in Treatment Patient/Caregiver Compliance with Home Excellent Exercise Program Objective Short Term Goals 1. The pt will complete exercises targeting word recall with 75% accuracy to improve expressive language skills and increase conversation participation. GOAL MODIFIED; SEE BELOW. 2. The pt will follow written instructions with 80% accuracy to perform functional tasks, such as remote control use, simple computer navigation, housekeeping tasks, etc. DISCONTINUE GOAL 3. Given texts presented in writing or orally, the pt will answer questions related to inferential or implied meanings with 75% accuracy to improve comprehension of abstract concepts. DISCONTINUE GOAL 4. The pt will complete sequencing tasks (e.g., following a recipe, navigating phone/computer) with min v/v prompts to improve executive function and memory skills and increase pt's participation with functional and social ADLs. DISCONTINUE GOAL NEW GOALS: 1. Given pictures of familiar objects, the pt will name parts of objects and the whole with 80% accuracy to improve word recall skills. 2. Given words presented in writing, the pt create meaningful sentences describing an object/picture with 75% accuracy to increase langauge production skills. 3. Given a picture and topic prompts (e.g., How does the person feel?), the pt will generate complete simple sentences with 75% independent production and accuracy to increase verbal production skills. Mcc Goals 1. The pt will demonstrate expressive and receptive language skills WFL, as demonstrated by increased social and conversational participation and measured by pt/family report and clinical judgment. DISCONTINUE GOAL 2. The pt will demonstrate cognitive communication skills WFL, as demonstrated by at least 50% participation in household tasks completed by the pt prior to CVA (e.g., computer use, cooking, grocery shopping/planning, etc.) and measured by pt/family report and clinical judgment. DISCONTINUE GOAL NEW GOALS: Treatment Activities Pt named emergency phone number when given a phone steiner pad to see. Unable to name without visual aid. She independently stated her phone number, and stated home address with 2 phonemic prompts. Given pictures of common items , she immediately and independently named them with 100% acc. She described their functions with 75% acc, and was responsive to verbal prompting questions to name the remaining items. Targeted sequencing skills with before/after questions. The pt answered with 50% acc; all errors involved identifying actions that occur after other actions. The pt was able to accurately talk through series of events with TRACK WALKER in correct order, after which she corrected her errors ; however, such guidance was necessary to answer after questions. Assessment Patient Response to Treatment Good Rehab Potential Good Impairments Identified Aphasia,Cognitive-Linguistic Skills,Expressive Language, Memory - Short Term,Memory - Working,Problem Solving, Receptive Language,Other Additional Impairments Identified Flat affect Progress Towards Goals Good Progress,Slow Progress Assessment of Overall Progress Improving Assessment of Improvement Reponse time, accuracy of word -recall tasks and increased pt initiation in conversation was seen today. Challenges were noted in identifying actions that occur after other actions. When answering before/after questions, the pt consistently responded before although she was able to reason through steps and conclude the correct answer with TRACK WALKER guidance. Needs reinforcement. Reviewed with Patient Goals,Progress Being Made,Home Exercise Program Patient/Caregiver Understanding Good Plan Amount of Therapy Recommended 1-2 Months Frequency of Treatment Once a Week Length of Session 45 Minutes Treatment Emphasis Next Session Sequencing before and after Therapeutic Contents Client Education,Cognitive- Linguistic Training,Expressive Language Training,Home Exercise Program,Information Processing,Receptive Language Training Provided Patient/Caregiver Instruction Home Exercise Program,Plan of Care,Questions/Concerns Therapy Recommendations Continue with Current Program
--- NOTE | 2021-12-03 17:28 | ST.OPTN ---
Visit Care Team Role Provider Type Renny Haynes MD Attending Provider Physician Family Provider Primary Care Provider Referring Provider Address: [address] [place] [address], [address], [address] TILTING HEAD BAND SAWYER Treatment Note TILTING HEAD BAND SAWYER Clinical Instructor Line Start: 02/10/21 16:33 Freq: Status: Active Protocol: Document 02/19/21 17:37 JOVI (Rec: 02/19/21 17:37 JOVI [id number]) Clinical Instructor Signature Clinical Instructor Clinical Instructor Yes TILTING HEAD BAND SAWYER Treatment Note Start: 01/06/21 12:19 Freq: Status: Active Protocol: Document 12/03/21 17:57 JOVI (Rec: 12/03/21 17:58 JOVI [id number]) Speech Pathology Treatment Note Session Time Visit Start Time 10:30 Visit Stop Time 11:15 Total Visit Minutes 45 Visit Information Visit Number 10/09 Plan of Care Dates 08/25/21 - 11/23/21 Insurance Information [facility] Setting Treatment Setting Outpatient Care Visit Type Note Type Treatment Note Next Note Type Next Note Type Treatment Note General Information Patient History The pt is a now 71-yr-old female familiar to this TILTING HEAD BAND SAWYER from 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 On , the pt was admitted to the hospital with acute encephalopathy and malignant hypertension. She was initially confused. MRI findings on CT demonstrated a subacute left thalamic stroke. The patient was seen by speech pathology, PT and OT. She was functionally able to ambulate and had no weakness in the upper and lower extremities. However, she continued to have evidence of expressive and receptive aphasia. She dc'd from hospital to SNF, and then to home with . The pt will be receiving outpatient ST and PT services. Subjective Identification Type Other Others Present Family,Additional Therapist Observations/Patient Presentation The pt was accompanied by her who was present throughout for CG training to promote carryover of tx targets. No new complaints. Pt /spouse have been practicing reciting emergency phone number, home address and pt's phone number. 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 Given pictures of familiar objects, the pt will name parts of objects and the whole with 80% accuracy to improve word recall skills. 2. Given words presented in writing, the pt create meaningful sentences describing an object/picture with 75% accuracy to increase langauge production skills. 3. Given a picture and topic prompts (e.g., How does the person feel?), the pt will generate complete simple sentences with 75% independent production and accuracy to increase verbal production skills. Fpc Goals 1. The pt will provide relevant novel content min cues in response to simple, egocentric open-ended questions in 50% of opportunities. 2. The pt will improve expressive language skills sufficient to participate meaningfully in conversations with 1-3 conversation partners at a time, as measured by pt/ spouse report and clinician judgment. Treatment Activities Informed pt/spouse of a Stroke Support Group that is being formed in [place]. The couple expressed a desire to attend and provided phone number and email information to be contacted with further information. Targeted sequencing using before and after. Pt answered oral questions using target words with 73% acc, mod prompts. She used target words appropriately in complete sentences related to oral prompts with 79% acc, mod prompts. She arranged written items (Fo4) in sequence with 50% accuracy, mod prompts. More prompts were required to correctly convey the concept of after than before. Assessment Patient Response to Treatment Good Rehab Potential Good Progress Towards Goals Good Progress,Slow Progress Assessment of Overall Progress Improving Assessment of Improvement Accuracy of target word usage improved as compared to last session, but the pt continues to exhibit greater difficulty identifying the concept of after. Reviewed with Patient Goals,Progress Being Made,Home Exercise Program Patient/Caregiver Understanding Good Plan Amount of Therapy Recommended 1-2 Months Frequency of Treatment Once a Week Length of Session 45 Minutes Treatment Emphasis Next Session Sequencing before and after; open-ended question responses Therapeutic Contents Client Education,Cognitive- Linguistic Training,Expressive Language Training,Home Exercise Program,Information Processing,Receptive Language Training Provided Patient/Caregiver Instruction Home Exercise Program,Plan of Care,Questions/Concerns Therapy Recommendations Continue with Current Program
--- NOTE | 2021-12-09 17:47 | ST.OPTN ---
Visit Care Team Role Provider Type Renny Haynes MD Attending Provider Physician Family Provider Primary Care Provider Referring Provider Address: [address] [place] [address], [address], [address] SIGN LETTERER Treatment Note SIGN LETTERER Clinical Instructor Line Start: 02/10/21 16:33 Freq: Status: Active Protocol: Document 02/19/21 17:37 JOVI (Rec: 02/19/21 17:37 JOVI [id number]) Clinical Instructor Signature Clinical Instructor Clinical Instructor Yes SIGN LETTERER Treatment Note Start: 01/06/21 12:19 Freq: Status: Active Protocol: Document 12/09/21 17:29 JOVI (Rec: 12/09/21 17:46 JOVI [id number]) Speech Pathology Treatment Note Session Time Visit Start Time 10:30 Visit Stop Time 11:15 Total Visit Minutes 45 Visit Information Visit Number 11/09 Plan of Care Dates 08/25/21 - 11/23/21 Insurance Information [facility] Setting Treatment Setting Outpatient Care Visit Type Note Type Treatment Note Next Note Type Next Note Type Treatment Note General Information Patient History The pt is a now 71-yr-old female familiar to this SIGN LETTERER from 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 On , the pt was admitted to the hospital with acute encephalopathy and malignant hypertension. She was initially confused. MRI findings on CT demonstrated a subacute left thalamic stroke. The patient was seen by speech pathology, PT and OT. She was functionally able to ambulate and had no weakness in the upper and lower extremities. However, she continued to have evidence of expressive and receptive aphasia. She dc'd from hospital to SNF, and then to home with . The pt will be receiving outpatient ST and PT services. Subjective Identification Type Other Others Present Family,Additional Therapist Observations/Patient Presentation The pt was accompanied by her who was present throughout for CG training to promote carryover of tx targets. No new complaints. 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 Given pictures of familiar objects, the pt will name parts of objects and the whole with 80% accuracy to improve word recall skills. 2. Given words presented in writing, the pt create meaningful sentences describing an object/picture with 75% accuracy to increase langauge production skills. 3. Given a picture and topic prompts (e.g., How does the person feel?), the pt will generate complete simple sentences with 75% independent production and accuracy to increase verbal production skills. Shelter Goals 1. The pt will provide relevant novel content min cues in response to simple, egocentric open-ended questions in 50% of opportunities. 2. The pt will improve expressive language skills sufficient to participate meaningfully in conversations with 1-3 conversation partners at a time, as measured by pt/ spouse report and clinician judgment. Treatment Activities Targeted word recall and sequencing using partially written [place] states names. Initiated activity with categorical naming. The pt named 3 states independently and an additional 16 states with leading questions (x4), carrier phrases (x5) or phonemic (x6) prompts. After discussion, the pt completed a spelling cloze activity by identifying target states independently (60% acc) or with verbal prompt and spelling state names with 80% acc. Continued targeting sequencing of actions with picture cards , also introduced conversationally. After the pt and SIGN LETTERER talked through the steps of taking pictures (Fo6 steps), the pt sequenced pictures with 50% acc, errors corrected with prompting questions using words before and after. Once, the pt correctly stated the step but chose a picture depicting a different step. With verbal prompting, she corrected the error. Assessment Patient Response to Treatment Good Rehab Potential Good Impairments Identified Expressive language,Receptive language Progress Towards Goals Slow Progress Assessment of Overall Progress Improving Assessment of Improvement The pt continues to benefit from conversational introductions to topics and activities. She made few spelling errors and continued to be responsive to, but requiring, verbal prompting. Reviewed with Patient Goals,Progress Being Made,Home Exercise Program Patient/Caregiver Understanding Good Plan Amount of Therapy Recommended 1-2 Months Frequency of Treatment Once a Week Length of Session 45 Minutes Treatment Emphasis Next Session Sequencing before and after; open-ended question responses Therapeutic Contents Client Education,Cognitive- Linguistic Training,Expressive Language Training,Home Exercise Program,Information Processing,Receptive Language Training Provided Patient/Caregiver Instruction Home Exercise Program,Plan of Care,Questions/Concerns Therapy Recommendations Continue with Current Program
--- NOTE | 2021-12-16 12:58 | ST.OPTN ---
Visit Care Team Role Provider Type Renny Haynes MD Attending Provider Physician Family Provider Primary Care Provider Referring Provider Address: [address] [place] [address], [address], [place], [address] SCIENTIFIC GLASS BLOWER Treatment Note SCIENTIFIC GLASS BLOWER Clinical Instructor Line Start: 02/10/21 16:33 Freq: Status: Active Protocol: Document 02/19/21 17:37 JOVI (Rec: 02/19/21 17:37 JOVI [id number]) Clinical Instructor Signature Clinical Instructor Clinical Instructor Yes SCIENTIFIC GLASS BLOWER Treatment Note Start: 01/06/21 12:19 Freq: Status: Active Protocol: Document 12/16/21 18:31 JOVI (Rec: 12/16/21 18:35 JOVI [id number]) Speech Pathology Treatment Note Session Time Visit Start Time 10:30 Visit Stop Time 11:20 Total Visit Minutes 50 Visit Information Visit Number 12/09 Plan of Care Dates 08/25/21 - 11/23/21 Insurance Information [facility] Setting Treatment Setting Outpatient Care Visit Type Note Type Treatment Note Next Note Type Next Note Type Treatment Note General Information Patient History The pt is a now 71-yr-old female familiar to this SCIENTIFIC GLASS BLOWER from 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 On , the pt was admitted to the hospital with acute encephalopathy and malignant hypertension. She was initially confused. MRI findings on CT demonstrated a subacute left thalamic stroke. The patient was seen by speech pathology, PT and OT. She was functionally able to ambulate and had no weakness in the upper and lower extremities. However, she continued to have evidence of expressive and receptive aphasia. She dc'd from hospital to SNF, and then to home with . The pt will be receiving outpatient ST and PT services. Subjective Identification Type Other Others Present Family,Additional Therapist Observations/Patient Presentation The pt was accompanied by her who was present throughout for CG training to promote carryover of tx targets. He reported Metformin was removed from the pt's medication regimen last week. Since then, the pt has demonstrated increased verbalization in conversations and interest in past areas of interest, such as the computer. With her 's help, she got into the internet and independently searched for information and was successful, per the couple 's reports. 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 Given pictures of familiar objects, the pt will name parts of objects and the whole with 80% accuracy to improve word recall skills. 2. Given words presented in writing, the pt create meaningful sentences describing an object/picture with 75% accuracy to increase langauge production skills. 3. Given a picture and topic prompts (e.g., How does the person feel?), the pt will generate complete simple sentences with 75% independent production and accuracy to increase verbal production skills. Snf Goals 1. The pt will provide relevant novel content min cues in response to simple, egocentric open-ended questions in 50% of opportunities. 2. The pt will improve expressive language skills sufficient to participate meaningfully in conversations with 1-3 conversation partners at a time, as measured by pt/ spouse report and clinician judgment. Treatment Activities The pt engaged in conversation at start of session with increased initiation and expansion of responses from simple phrases and sentences to sentences of moderate length and complexity. When questioned by her , the exhibited greater independent recall of details of her life from distant and recent past as well as upcoming plans with need for only 2 phonemic prompts across 10 minutes of conversation, a significant reduction in support. Treatment targeted picture descriptions and identification of emotions. Given pictures of people and scenes depicting emotional situations, the pt named people and items in the pictures and identified emotions with 100% acc, extended time required occasionally. In response to prompting questions, such as Where do you think this person is? and Why might the person be feeling that way?, the pt frequently responded, It's hard to say. With further prompting the pt was able to state reasonable answers. Moderate WFDs and reduced processing speeds were present, but reduced numbers of phonemic cues were required and the pt was appropriately responsive to verbal prompts. Discussed POC. The pt/spouse wish to continue ST with reduced frequency over the summer. Agreed to one visit every 2 wks with increased HEP . Will discuss goals and HEP tasks at next session. Assessment Patient Response to Treatment Good Rehab Potential Good Impairments Identified Expressive language,Receptive language Progress Towards Goals Slow Progress Assessment of Overall Progress Improving Assessment of Improvement Sudden notable improvement, likely secondary to medication changes. Continued skilled intervention is recommended, as the pt appears significantly more engaged and motivated in communication and personal hobby activities. Agreed with pt/family to reduce frequency of sessions with boosting of home exercise program to promote carryover and continued increased engagement of functional activities. Reviewed with Patient Goals,Progress Being Made,Home Exercise Program Patient/Caregiver Understanding Good Plan Amount of Therapy Recommended 1-2 Months Frequency of Treatment Once a Week Length of Session 45 Minutes Treatment Emphasis Next Session Sequencing before and after; open-ended question responses Therapeutic Contents Client Education,Cognitive- Linguistic Training,Expressive Language Training,Home Exercise Program,Information Processing,Receptive Language Training Provided Patient/Caregiver Instruction Home Exercise Program,Plan of Care,Questions/Concerns Therapy Recommendations Continue with Current Program
--- NOTE | 2021-12-23 17:15 | ST.OPTN ---
Visit Care Team Role Provider Type Renny Haynes MD Attending Provider Physician Family Provider Primary Care Provider Referring Provider Address: [address] [place] [address], [address], [place], [address] BOATWRIGHT Treatment Note BOATWRIGHT Clinical Instructor Line Start: 02/10/21 16:33 Freq: Status: Active Protocol: Document 12/23/21 17:14 JOVI (Rec: 12/23/21 17:14 JOVI [id number]) Clinical Instructor Signature Clinical Instructor Clinical Instructor Yes BOATWRIGHT Treatment Note Start: 01/06/21 12:19 Freq: Status: Active Protocol: Document 12/23/21 11:42 EK (Rec: 12/23/21 11:44 EK [id number]) Speech Pathology Treatment Note Session Time Visit Start Time 10:30 Visit Stop Time 11:15 Total Visit Minutes 45 Visit Information Visit Number 01/09 Plan of Care Dates 11/11/21 - 02/05/22 Insurance Information [facility] Setting Treatment Setting Outpatient Care Visit Type Note Type Treatment Note Next Note Type Next Note Type Treatment Note General Information Patient History The pt is a now 71-yr-old female familiar to this BOATWRIGHT from 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 On , the pt was admitted to the hospital with acute encephalopathy and malignant hypertension. She was initially confused. MRI findings on CT demonstrated a subacute left thalamic stroke. The patient was seen by speech pathology, PT and OT. She was functionally able to ambulate and had no weakness in the upper and lower extremities. However, she continued to have evidence of expressive and receptive aphasia. She dc'd from hospital to SNF, and then to home with . The pt will be receiving outpatient ST and PT services. Subjective Identification Type Other Others Present Family,Additional Therapist Observations/Patient Presentation The pt was accompanied by her who was present throughout for CG training to promote carryover of tx targets. He reported the pt's increased verbalization has continued to improve since last session. He also reported that while the pt has not engaged with the computer this week, she did look through a magazine for 20 minutes. Pt and spouse also reported that the pt has stopped taking magnesium oxide and has noticed a decrease in stomach issues since making this change. 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 Given pictures of familiar objects, the pt will name parts of objects and the whole with 80% accuracy to improve word recall skills. 2. Given words presented in writing, the pt create meaningful sentences describing an object/picture with 75% accuracy to increase langauge production skills. 3. Given a picture and topic prompts (e.g., How does the person feel?), the pt will generate complete simple sentences with 75% independent production and accuracy to increase verbal production skills. Mcfp Goals 1. The pt will provide relevant novel content min cues in response to simple, egocentric open-ended questions in 50% of opportunities. 2. The pt will improve expressive language skills sufficient to participate meaningfully in conversations with 1-3 conversation partners at a time, as measured by pt/ spouse report and clinician judgment. Treatment Activities Again, the pt was more engaged in conversation than she has been in the past and made several spontaneous comments. For example, when asked if she has looked at the computer since last session she stated not a great deal, I've been busy. This is notable as previously she would likely respond with a yes/no answer. Targeted pt's sequencing skills through arranging pictures of everyday tasks in their correct order. Pt sequenced the steps of washing dishes with 100% accuracy, wraping a present with 50% accuracy, then needed max cueing in order to sequence the steps of mailing a letter (all tasks included 4 steps). Pt's decreasing accuracy could have been d/t fatigue, next session will alternate between sequencing and other activities in order to decrease fatigue with that task. Pt was more successful sorting pictures of the tasks compared to arranging sentences describing the steps of any task. Targeted sentence production by presenting the pt with a picture and asking her various questions such as what is going on in this picture? and what do you think happened before this picture was taken? . Pt produced relevant sentences about the picture > 75% of the time. Pt did demonstrate mod WFD describing a picture of a child's Halloween costume, saying the child was wearing a pumpkin instead of a witch's hat. Provided tasks to incorporate into HEP over the next several weeks such as naming plants while gardening and engaging in conversations. Assessment Patient Response to Treatment Good Rehab Potential Good Impairments Identified Expressive language,Receptive language Progress Towards Goals Slow Progress Assessment of Overall Progress Improving Assessment of Improvement Pt continued to demonstrate improved verbal output today when compared to previous sessions, however, pt still continues to have confusion with sequencing tasks. Pt and caregiver appeared motivated to continue with HEP until next session. Reviewed with Patient Goals,Progress Being Made,Home Exercise Program Patient/Caregiver Understanding Good Plan Amount of Therapy Recommended 1-2 Months Frequency of Treatment Once a Week Length of Session 45 Minutes Treatment Emphasis Next Session Sequencing before and after; open-ended question responses Therapeutic Contents Client Education,Cognitive- Linguistic Training,Expressive Language Training,Home Exercise Program,Information Processing,Receptive Language Training Provided Patient/Caregiver Instruction Home Exercise Program,Plan of Care,Questions/Concerns Therapy Recommendations Continue with Current Program
--- NOTE | 2022-02-09 16:16 | ST.OPTN ---
Visit Care Team Role Provider Type Renny Haynes MD Attending Provider Physician Family Provider Primary Care Provider Referring Provider Address: [address] [place] [address], [address], [place], [address] TECHNOLOGIST DEVELOPMENT Treatment Note TECHNOLOGIST DEVELOPMENT Clinical Instructor Line Start: 02/10/21 16:33 Freq: Status: Active Protocol: Document 02/09/22 16:13 JOVI (Rec: 02/10/22 16:13 JOVI [id number]) Clinical Instructor Signature Clinical Instructor Clinical Instructor Yes TECHNOLOGIST DEVELOPMENT Treatment Note Start: 01/06/21 12:19 Freq: Status: Active Protocol: Document 02/09/22 11:47 EK (Rec: 02/10/22 12:19 EK [id number]) Speech Pathology Treatment Note Session Time Visit Start Time 09:30 Visit Stop Time 10:15 Total Visit Minutes 45 Visit Information Visit Number 08/11 Plan of Care Dates 02/10/22-05/08/22 Insurance Information [facility] Setting Treatment Setting Outpatient Care Visit Type Note Type Progress Note Next Note Type Next Note Type Treatment Note General Information Patient History The pt is a 71-yr-old female diagnosed on 11/25/20 with acute encephalopathy and malignant hypertension. MRI findings on CT demonstrated a subacute left thalamic stroke. She was functionally able to ambulate and had no weakness in the upper and lower extremities. However, she continued to have evidence of expressive and receptive aphasia. She dc'd from hospital to SNF, then to home with , now receiving outpaitent speech therapy. Subjective Identification Type Other Others Present Family,Additional Therapist Observations/Patient Presentation The pt was accompanied by her who was present throughout for CG training to promote carryover of tx targets. He reported the pt's increase in verbal output has continued to progress since last session in November. Her also reported she has been engaging more in conversation and been more vocal about her preferences. Session conducted and note written by student TECHNOLOGIST DEVELOPMENT Nadeen Mccray under TECHNOLOGIST DEVELOPMENT supervision. 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 Given pictures of familiar objects, the pt will name parts of objects and the whole with 80% accuracy to improve word recall skills. GOAL MET. 2. Given words presented in writing, the pt create meaningful sentences describing an object/picture with 75% accuracy to increase langauge production skills. GOOD PROGRESS; CONTINUE GOAL. 3. Given a picture and topic prompts (e.g., How does the person feel?), the pt will generate complete simple sentences with 75% independent production and accuracy to increase verbal production skills. GOOD PROGRESS CONTINUE GOAL. RESTART GOAL: 4. The pt will complete sequencing tasks (e.g., following a recipe, navigating phone/computer) with min v/v prompts to improve executive function and memory skills and increase pt's participation with functional and social ADLs. Retirement Goals 1. The pt will provide relevant novel content min cues in response to simple, egocentric open-ended questions in 50% of opportunities. GOOD PROGRESS, CONTINUE GOAL 2. The pt will improve expressive language skills sufficient to participate meaningfully in conversations with 1-3 conversation partners at a time, as measured by pt/ spouse report and clinician judgment. GOOD PROGRESS, CONTINUE GOAL. Treatment Activities Pt continues to be more engaged in conversation compared to previous sessions. For example when talking about their garden, the pt spontaneously commented that wasn't real successful and we are learning what works and what doesn't. Targeted sentence production by presenting the pt with a picture and asking her various questions such as what is going on in this picture? and how do you think the people in the picture are feeling??. Pt produced relevant sentences answering questions about the picture >80% of the time. Noted decrease in WFD as compared to last session and all of the pt?s sentences were at least 3-words long. Targeted pt's sequencing skills through arranging pictures of everyday tasks in their correct order. Pt was most successful when task was simplified into identifying which aspect of a task came first out of field of two options (e.g. what comes first , putting a stamp on the envelope or mailing the envelope). Pt required mod cueing initially but as the session continued, the pt only needed min cueing. This could be due to the pt needing to orient herself to the task through several trials. Skilled feedback was provided to which pt was receptive. Assessment Patient Response to Treatment Good Rehab Potential Good Impairments Identified Expressive language,Receptive language Progress Towards Goals Good Progress Assessment of Overall Progress Improving Assessment of Improvement Pt continues to steadily increase her verbal output and demonstrated improvement in her sentence production in response to open-ended questions as compared to last session. Pt has met some of her goals and made good progress on her other goals. Pt has progressed enough to re -start a previously discontinued goal, which demonstrates the pt would benefit from the continuation of targeting more complex tasks to improve pt's overall QOL. Reviewed with Patient Goals,Progress Being Made,Home Exercise Program Patient/Caregiver Understanding Good Plan Amount of Therapy Recommended 1-2 Months Frequency of Treatment Once a Week Length of Session 45 Minutes Treatment Emphasis Next Session Sequencing before and after; open-ended question responses Therapeutic Contents Client Education,Cognitive- Linguistic Training,Expressive Language Training,Home Exercise Program,Information Processing,Receptive Language Training Provided Patient/Caregiver Instruction Home Exercise Program,Plan of Care,Questions/Concerns Therapy Recommendations Continue with Current Program
--- NOTE | 2022-02-09 16:17 | ST.OPPOC ---
Physical, Occupational & Speech Therapy At [facility] Visit Care Team Role Provider Type Renny Haynes MD Attending Provider Physician Family Provider Primary Care Provider Referring Provider Address: [address] [place] [address], [address], [place], [address] Speech Pathology Plan of Care PROJECT MANAGEMENT PROFESSIONAL Clinical Instructor Line Start: 02/10/21 16:33 Freq: Status: Active Protocol: Document 02/09/22 16:13 JOVI (Rec: 02/10/22 16:13 JOVI [id number]) Clinical Instructor Signature Clinical Instructor Clinical Instructor Yes Speech Pathology Plan of Care Plan of Care Dates 02/10/22-05/08/[address] Renny Haynes Patient History The pt is a 71-yr-old female diagnosed on with acute encephalopathy and malignant hypertension. MRI findings on CT demonstrated a subacute left thalamic stroke. She was functionally able to ambulate and had no weakness in the upper and lower extremities. However, she continued to have evidence of expressive and receptive aphasia. She dc'd from hospital to SNF, then to home with , now receiving outpatient speech therapy. Impairments Identified Expressive language,Receptive language Short Term Goals 1. Given pictures of familiar objects, the pt will name parts of objects and the whole with 80 % accuracy to improve word recall skills. GOAL MET. 2. Given words presented in writing, the pt create meaningful sentences describing an object /picture with 75% accuracy to increase language production skills. GOOD PROGRESS; CONTINUE GOAL. 3. Given a picture and topic prompts (e.g., How does the person feel?), the pt will generate complete simple sentences with 75% independent production and accuracy to increase verbal production skills. GOOD PROGRESS CONTINUE GOAL. RESTART GOAL: 4. The pt will complete sequencing tasks (e.g., following a recipe, navigating phone/computer) with min v/v prompts to improve executive function and memory skills and increase pt's participation with functional and social ADLs. Care Home Goals 1. The pt will provide relevant novel content min cues in response to simple, egocentric open- ended questions in 50% of opportunities. GOOD PROGRESS, CONTINUE GOAL 2. The pt will improve expressive language skills sufficient to participate meaningfully in conversations with 1-3 conversation partners at a time, as measured by pt/spouse report and clinician judgment. GOOD PROGRESS, CONTINUE GOAL . Progress Towards Goals Good Progress Comment: Electronically Signed by: Nadeen Mccray 02/10/22 8273 If you are in agreement with this Plan of Care, please return a signed and dated copy. I have reviewed this Plan of Care and certify that the skilled therapy services above are required to meet the patient?s needs. Physician Signature Date Printed Name and Credentials Clinical Instructor Signature Printed Name and Credentials
--- NOTE | 2022-02-10 16:14 | ST.OPTN ---
Visit Care Team Role Provider Type Renny Haynes MD Attending Provider Physician Family Provider Primary Care Provider Referring Provider Address: [address] [place] [address], [address], [place], [address] MACHINE SKIVER Treatment Note MACHINE SKIVER Clinical Instructor Line Start: 02/10/21 16:33 Freq: Status: Active Protocol: Document 02/09/22 16:13 JOVI (Rec: 02/10/22 16:13 JOVI [id number]) Clinical Instructor Signature Clinical Instructor Clinical Instructor Yes MACHINE SKIVER Treatment Note Start: 01/06/21 12:19 Freq: Status: Active Protocol: Document 02/09/22 11:47 EK (Rec: 02/10/22 12:19 EK [id number]) Speech Pathology Treatment Note Session Time Visit Start Time 09:30 Visit Stop Time 10:15 Total Visit Minutes 45 Visit Information Visit Number 08/[id number] Plan of Care Dates 02/10/22-05/08/22 Insurance Information [facility] Setting Treatment Setting Outpatient Care Visit Type Note Type Progress Note Next Note Type Next Note Type Treatment Note General Information Patient History The pt is a 71-yr-old female diagnosed on 11/25/20 with acute encephalopathy and malignant hypertension. MRI findings on CT demonstrated a subacute left thalamic stroke. She was functionally able to ambulate and had no weakness in the upper and lower extremities. However, she continued to have evidence of expressive and receptive aphasia. She dc'd from hospital to SNF, then to home with , now receiving outpatient speech therapy. Subjective Identification Type Other Others Present Family,Additional Therapist Observations/Patient Presentation The pt was accompanied by her who was present throughout for CG training to promote carryover of tx targets. He reported the pt's increase in verbal output has continued to progress since last session in November. Her also reported she has been engaging more in conversation and been more vocal about her preferences. Session conducted and note written by student MACHINE SKIVER Nadeen Mccray under MACHINE SKIVER supervision. Chief Complaint(s) Language,Cognitive Rehab Expectation/Goals: Patient Goals Improve language Rehab Expectation/Goals: Parent/Guardian Increase interaction with /Lining Presser Goals other people and home tasks Patient Knowledge/Awareness of MACHINE SKIVER Role Good in Treatment Parent/Caretake Knowledge/Awareness of Good MACHINE SKIVER Role in Treatment Patient/Caregiver Compliance with Home Excellent Exercise Program Objective Short Term Goals 1. Given pictures of familiar objects, the pt will name parts of objects and the whole with 80% accuracy to improve word recall skills. GOAL MET. 2. Given words presented in writing, the pt create meaningful sentences describing an object/picture with 75% accuracy to increase language production skills. GOOD PROGRESS; CONTINUE GOAL. 3. Given a picture and topic prompts (e.g., How does the person feel?), the pt will generate complete simple sentences with 75% independent production and accuracy to increase verbal production skills. GOOD PROGRESS CONTINUE GOAL. RESTART GOAL: 4. The pt will complete sequencing tasks (e.g., following a recipe, navigating phone/computer) with min v/v prompts to improve executive function and memory skills and increase pt's participation with functional and social ADLs. Residential Goals 1. The pt will provide relevant novel content min cues in response to simple, egocentric open-ended questions in 50% of opportunities. GOOD PROGRESS, CONTINUE GOAL 2. The pt will improve expressive language skills sufficient to participate meaningfully in conversations with 1-3 conversation partners at a time, as measured by pt/ spouse report and clinician judgment. GOOD PROGRESS, CONTINUE GOAL. Treatment Activities Pt continues to be more engaged in conversation compared to previous sessions. For example when talking about their garden, the pt spontaneously commented that wasn't real successful and we are learning what works and what doesn't. Targeted sentence production by presenting the pt with a picture and asking her various questions such as what is going on in this picture? and how do you think the people in the picture are feeling??. Pt produced relevant sentences answering questions about the picture >80% of the time. Noted decrease in WFD as compared to last session and all of the pt?s sentences were at least 3-words long. Targeted pt's sequencing skills through arranging pictures of everyday tasks in their correct order. Pt was most successful when task was simplified into identifying which aspect of a task came first out of field of two options (e.g. what comes first , putting a stamp on the envelope or mailing the envelope). Pt required mod cueing initially but as the session continued, the pt only needed min cueing. This could be due to the pt needing to orient herself to the task through several trials. Skilled feedback was provided to which pt was receptive. Assessment Patient Response to Treatment Good Rehab Potential Good Impairments Identified Expressive language,Receptive language Progress Towards Goals Good Progress Assessment of Overall Progress Improving Assessment of Improvement Pt continues to steadily increase her verbal output and demonstrated improvement in her sentence production in response to open-ended questions as compared to last session. Pt has met some of her goals and made good progress on her other goals. Pt has progressed enough to re -start a previously discontinued goal, which demonstrates the pt would benefit from the continuation of targeting more complex tasks to improve pt's overall QOL. Reviewed with Patient Goals,Progress Being Made,Home Exercise Program Patient/Caregiver Understanding Good Plan Amount of Therapy Recommended 1-2 Months Frequency of Treatment Once a Week Length of Session 45 Minutes Treatment Emphasis Next Session Sequencing before and after; open-ended question responses Therapeutic Contents Client Education,Cognitive- Linguistic Training,Expressive Language Training,Home Exercise Program,Information Processing,Receptive Language Training Provided Patient/Caregiver Instruction Home Exercise Program,Plan of Care,Questions/Concerns Therapy Recommendations Continue with Current Program
--- NOTE | 2022-02-24 14:15 | ST.OPDS ---
Visit Care Team Role Provider Type Renny Haynes MD Attending Provider Physician Family Provider Primary Care Provider Referring Provider Address: [address] [place] [address], [address], [place], [address] CAR DISPATCHER Treatment Note CAR DISPATCHER Clinical Instructor Line Start: 02/10/21 16:33 Freq: Status: Active Protocol: Document 02/09/22 16:13 JOVI (Rec: 02/10/22 16:13 JOVI [id number]) Clinical Instructor Signature Clinical Instructor Clinical Instructor Yes CAR DISPATCHER Treatment Note Start: 01/06/21 12:19 Freq: Status: Active Protocol: Document 02/24/22 12:30 JOVI (Rec: 02/24/22 12:38 JOVI [id number]) Speech Pathology Treatment Note Session Time Visit Start Time 10:35 Visit Stop Time 11:20 Total Visit Minutes 45 Visit Information Visit Number 09/11 Plan of Care Dates 02/10/22-05/08/22 Insurance Information [facility] Setting Treatment Setting Outpatient Care Visit Type Note Type Discharge Summary General Information Patient History The pt is a now 72-yr-old female diagnosed on 11/25/20 with acute encephalopathy and malignant hypertension. MRI findings on CT demonstrated a subacute left thalamic stroke. She was functionally able to ambulate and had no weakness in the upper and lower extremities. However, she continued to have evidence of expressive and receptive aphasia. She dc'd from hospital to SNF, then to home with , now receiving outpaitent speech therapy. Subjective Identification Type Other Others Present Family Observations/Patient Presentation The pt was accompanied by her who was present throughout for CG training to promote carryover of tx targets. He reported the pt's increase in verbal output has continued to progress since medication change in November. Her also reported she has been engaging more in conversation and been more vocal about her preferences. She has not re-engaged with hobbies such as reading, computer work, or cooking. She spends much of her day watching TV. The couple go for drives and short walks and occ gather with friends and family. Her reported occ ongoing confusion sequencing tasks, requiring his guidance, and reduced overall motivation as compared to PLOF. Chief Complaint(s) Language,Cognitive Rehab Expectation/Goals: Patient Goals Improve language Rehab Expectation/Goals: Parent/Guardian Increase interaction with /Clam Treader Goals other people and home tasks Patient Knowledge/Awareness of CAR DISPATCHER Role Good in Treatment Parent/Caretake Knowledge/Awareness of Good CAR DISPATCHER Role in Treatment Patient/Caregiver Compliance with Home Excellent Exercise Program Objective Short Term Goals 1. Given pictures of familiar objects, the pt will name parts of objects and the whole with 80% accuracy to improve word recall skills. GOAL MET. 2. Given words presented in writing, the pt create meaningful sentences describing an object/picture with 75% accuracy to increase langauge production skills. GOOD PROGRESS; GOAL NOT MET 3. Given a picture and topic prompts (e.g., How does the person feel?), the pt will generate complete simple sentences with 75% independent production and accuracy to increase verbal production skills. GOAL MET 4. The pt will complete sequencing tasks (e.g., following a recipe, navigating phone/computer) with min v/v prompts to improve executive function and memory skills and increase pt's participation with functional and social ADLs. GOOD PROGRESS; GOAL NOT MET Estimator Project Manager Goals 1. The pt will provide relevant novel content min cues in response to simple, egocentric open-ended questions in 50% of opportunities. GOAL MET 2. The pt will improve expressive language skills sufficient to participate meaningfully in conversations with 1-3 conversation partners at a time, as measured by pt/ spouse report and clinician judgment. GOOD PROGRESS; GOAL NOT MET. PT PERFORMS WELL 1:1. NOTABLE DECREASE IN PARTICIPATION WITH MULTIPLE CONVERSATION PARTNERS. Treatment Activities In conversation about friends and family, the pt independently named 3 of 10 individuals in a group of close friends without hesitation. Given prompts to describe others and extended time to respond, she recalled an additional 6 names. She recalled the 10th name with a phonemic prompt. Skilled feedback was provided. Consulted with pt/spouse RE POC in light of this CAR DISPATCHER's departure from [facility] as of next week. Goals/ progress were reviewed with feedback and recommendations for continued home practice. The pt expressed desire to discharge from skilled intervention at this time rather than transfer to a new therapist. CAR DISPATCHER was in agreement since the current POC has only 2 sessions remaining, at which time discharge was planned. In conversation, the pt reported feeling that her language skills were improved. Spouse agreed that she is more participatory in conversations, particularly between the two of them. The couple agreed that the pt's motivation to be active as per PLOF is significantly diminished. Discussed the possibility of effects of medication and stroke that could contribute to this. The pt is scheduled to see Dr. Haynes in May and wishes to review medications and side effects with him at that time . CAR DISPATCHER was supportive of this. Assessment Patient Response to Treatment Good Rehab Potential Good Impairments Identified Expressive language,Receptive language Progress Towards Goals Good Progress Assessment of Overall Progress Improving Assessment of Improvement Over the course of treatment, the pt has made very good progress with word recall, ability to form meaningful spontaneous sentences, and increasing spontaneous participation in conversations . Prior to a change in medication in November, multiple phonemic cues were required in the majority conversations to elicit word recall, including names of friends which she listed today. Since November, minimal phonemic cues are required, and the pt has been far more responsive to verbal prompts to describe items for word retrieval, which in itself elicits much more verbal output. This was demonstrated nicely in her recall of friends' names today . Generally in treatment sessions, the pt's verbal responses do not exceed 1-2 sentences at a time, but her spouse reports more robust statements are made at home. Opinions have emerged significantly since a change in medication in November Syntax is WNL, and occasional WFDs continue to be present. The pt's writing corresponds directly with her oral communication. Occasional spelling errors are present but typically self-corrected. The pt has also improved her ability to sequence steps of functional tasks, although some confusion between before and after remains. Per spouse report, the pt exhibits similar confusion in functional tasks at home (e.g., general morning routine tasks) but is significantly improved since when the pt depended on her 's assistance to sequence most basic tasks (e.g., dressing herself). In conversations with multiple partners, the pt tends to listen and only participate when asked questions directly. She has not re-engaged with many of her previous hobbies, such as reading, working on the computer, sewing, cooking and playing violin. However, she is starting to exhibit interest in some of these tasks insofar as she enjoys watching cooking programs on TV and listening to recordings of herself playing the violin. While receptive communication skills are a strength, reduced speech rate and language complexity is beneficial for the pt to follow directions and provide responses that require moderately complex information. The pt's continues to be highly supportive and helpful to the pt, providing appropriate cues to encourage expressive language and gently providing opportunities to engage in hobbies. Discharge from skilled services is appropriate at this time. Prognosis for improvement remains good. The most beneficial activities at this time will be increased social interaction with opportunity for diverse conversation; engagement in games or other activities that promote interaction with others and skills such as sequencing, planning, and memory; completion of Speech Therapy HEP tasks which have been provided; and encouragement to re-engage with previous hobbies. Reviewed with Patient Goals,Progress Being Made,Home Exercise Program Patient/Caregiver Understanding Excellent Plan Therapeutic Contents Client Education,Cognitive- Linguistic Training,Expressive Language Training,Home Exercise Program,Information Processing,Receptive Language Training Provided Patient/Caregiver Instruction Home Exercise Program,Plan of Care,Questions/Concerns Therapy Recommendations Discharge to Home Exercise Program
== END 2022-04-08 13:49 ==
LOC: SP 10:30
PROVIDERS: Family Provider Internal Medicine; PCP Internal Medicine; Referring Provider Internal Medicine; Visit Provider Internal Medicine
DX: I63.9 Cerebral infarction, unspecified (principal)
CPT/HCPCS: 92507; 92523; 96105; 97129; 97130

== ENCOUNTER → 2022-06-17 09:05 | Outpatient (CLI) | payer MEDICARE, SELFPAY ==
[2021-02-27 10:08] VITALS: BMI 32.8
[2022-06-17 10:33] LABS: HEMOLYSIS < 15 (0-50); Iron 52 ug/dL (37-170)
[2022-06-17 10:35] LABS: Alanine Aminotransferase 50 IU/L (<35); Albumin 3.6 g/dL (3.5-5.0); Albumin Globulin Ratio 1.1 (1.0-2.8); Alkaline Phosphatase 117 U/L (38-126); Aspartate Aminotransferase 42 IU/L (14-36); BUN Creatinine Ratio 28.9 (6-22); Bilirubin Total 0.5 mg/dL (0.2-1.3); Blood Urea Nitrogen 24 mg/dL (7-17); Calcium 8.8 mg/dL (8.4-10.2); Carbon Dioxide 26 mmol/L (22-32); Chloride 104 mmol/L (98-107); Cholesterol 94 mg/dL (140-199); Estimated Glomerular Filt Rate > 60 mL/min (>60); Globulin 3.2 g/dL (1.7-4.1); Glucose 149 mg/dL (80-110); HDL Cholesterol 47 mg/dL (40-60); HEMOLYSIS < 15 (0-50); LDL Cholesterol Calculated 33 mg/dL (<100); Magnesium 1.7 mg/dL (1.6-2.3); Potassium 4.2 mmol/L (3.4-5.1); Sodium 140 mmol/L (137-145); Total Protein 6.8 g/dL (6.3-8.2); Triglycerides 69 mg/dL (35-150)
[2022-06-17 10:45] LABS: Percent Iron Saturation 14 % (15-50); Total Iron Binding Capacity 377 ug/dL (265-497); Transferrin 313 mg/dL (206-381)
== END ==
PROVIDERS: Family Provider Internal Medicine; PCP Internal Medicine; Referring Provider Internal Medicine; Visit Provider Internal Medicine
DX: E11.9 Type 2 diabetes mellitus without complications (principal); E61.1 Iron deficiency; E78.2 Mixed hyperlipidemia; I10 Essential (primary) hypertension
CPT/HCPCS: 36415; 80053; 80061; 83036; 83540; 83550; 83735

== ENCOUNTER → 2022-12-16 08:27 | Outpatient (CLI) | payer MEDICARE, SELFPAY ==
[2021-02-27 10:08] VITALS: BMI 32.8
[2022-12-16 10:43] LABS: Alanine Aminotransferase 43 IU/L (<35); Albumin 3.4 g/dL (3.5-5.0); Albumin Globulin Ratio 1.1 (1.0-2.8); Alkaline Phosphatase 113 U/L (38-126); Aspartate Aminotransferase 37 IU/L (14-36); BUN Creatinine Ratio 21.3 (6-22); Bilirubin Total 0.3 mg/dL (0.2-1.3); Blood Urea Nitrogen 16 mg/dL (7-17); Calcium 8.9 mg/dL (8.4-10.2); Carbon Dioxide 28 mmol/L (22-32); Chloride 102 mmol/L (98-107); Estimated Glomerular Filt Rate > 60 mL/min (>60); Globulin 3.2 g/dL (1.7-4.1); Glucose 153 mg/dL (80-110); HEMOLYSIS < 15 (0-50); Potassium 4.2 mmol/L (3.4-5.1); Sodium 138 mmol/L (137-145); Total Protein 6.6 g/dL (6.3-8.2)
[2022-12-17 07:36] LABS: x Labcorp Estim. Avg Glu (eAG) 192 mg/dL (.); x Labcorp Hemoglobin A1c 8.3 % (4.8-5.6)
== END ==
PROVIDERS: Family Provider Internal Medicine; PCP Internal Medicine; Referring Provider Internal Medicine; Visit Provider Internal Medicine
DX: E11.9 Type 2 diabetes mellitus without complications (principal)
CPT/HCPCS: 36415; 80053; 83036

== ENCOUNTER → 2023-03-18 09:57 | Outpatient (CLI) | payer MEDICARE, SELFPAY ==
[2021-02-27 10:08] VITALS: BMI 32.8
[2023-03-18 10:35] LABS: Hemoglobin A1C% w Est Avg Glu 7.7 % (4.0-6.0)
[2023-03-18 10:38] LABS: BUN Creatinine Ratio 31.5 (6-22); Blood Urea Nitrogen 23 mg/dL (7-17); Carbon Dioxide 26 mmol/L (22-32); Chloride 104 mmol/L (98-107); Estimated Glomerular Filt Rate > 60 mL/min (>60); Glucose 169 mg/dL (80-110); HEMOLYSIS < 15 (0-50); Potassium 4.4 mmol/L (3.4-5.1); Sodium 138 mmol/L (137-145)
== END ==
PROVIDERS: Family Provider Internal Medicine; PCP Internal Medicine; Referring Provider Internal Medicine; Visit Provider Internal Medicine
DX: E11.9 Type 2 diabetes mellitus without complications (principal); I10 Essential (primary) hypertension
CPT/HCPCS: 36415; 80048; 83036

== ENCOUNTER → 2023-06-16 10:27 | Outpatient (CLI) | payer MEDICARE, SELFPAY ==
[2021-02-27 10:08] VITALS: BMI 32.8
[2023-06-16 11:33] LABS: Hemoglobin A1C% w Est Avg Glu 8.1 % (4.0-6.0)
[2023-06-16 11:40] LABS: HEMOLYSIS < 15 (0-50); Iron 57 ug/dL (37-170)
[2023-06-16 11:49] LABS: Alanine Aminotransferase 44 IU/L (<35); Albumin 3.9 g/dL (3.5-5.0); Albumin Globulin Ratio 1.1 (1.0-2.8); Alkaline Phosphatase 91 U/L (38-126); Aspartate Aminotransferase 43 IU/L (14-36); Bilirubin Total 0.8 mg/dL (0.2-1.3); Blood Urea Nitrogen 18 mg/dL (7-17); Calcium 9.4 mg/dL (8.4-10.2); Carbon Dioxide 28 mmol/L (22-32); Chloride 103 mmol/L (98-107); Cholesterol 91 mg/dL (140-199); Estimated Glomerular Filt Rate > 60 mL/min (>60); Globulin 3.6 g/dL (1.7-4.1); Glucose 173 mg/dL (80-110); HDL Cholesterol 42 mg/dL (40-60); HEMOLYSIS 16 (0-50); LDL Cholesterol Calculated 32 mg/dL (<100); Potassium 4.2 mmol/L (3.4-5.1); Sodium 137 mmol/L (137-145); Total Protein 7.5 g/dL (6.3-8.2); Triglycerides 84 mg/dL (35-150)
[2023-06-16 11:52] LABS: Percent Iron Saturation 15 % (15-50); Total Iron Binding Capacity 375 ug/dL (265-497); Transferrin 312 mg/dL (206-381)
[2023-06-17 16:35] LABS: Creatinine Urine Random 84.4 mg/dL
[2023-06-17 17:18] LABS: Microalbumin Urine Random < 0.6 mg/dL (0-1.6)
== END ==
PROVIDERS: Family Provider Internal Medicine; PCP Internal Medicine; Referring Provider Internal Medicine; Visit Provider Internal Medicine
DX: E11.9 Type 2 diabetes mellitus without complications (principal); E61.1 Iron deficiency; E78.2 Mixed hyperlipidemia; I10 Essential (primary) hypertension
CPT/HCPCS: 36415; 80053; 80061; 82043; 82570; 83036; 83540; 83550

== ENCOUNTER → 2023-09-15 10:01 | Outpatient (CLI) | payer MEDICARE, SELFPAY ==
[2021-02-27 10:08] VITALS: BMI 32.8
[2023-09-15 11:48] LABS: BUN Creatinine Ratio 30.2 (6-22); Blood Urea Nitrogen 26 mg/dL (7-17); Calcium 9.1 mg/dL (8.4-10.2); Carbon Dioxide 24 mmol/L (22-32); Chloride 105 mmol/L (98-107); Estimated Glomerular Filt Rate > 60 mL/min (>60); Glucose 150 mg/dL (80-110); HEMOLYSIS < 15 (0-50); Potassium 4.2 mmol/L (3.4-5.1); Sodium 139 mmol/L (137-145)
[2023-09-17 11:26] LABS: x Labcorp Estim. Avg Glu (eAG) 157 mg/dL (.); x Labcorp Hemoglobin A1c 7.1 % (4.8-5.6)
== END ==
PROVIDERS: Family Provider Internal Medicine; PCP Internal Medicine; Referring Provider Internal Medicine; Visit Provider Internal Medicine Cardiovascular Disease
DX: I10 Essential (primary) hypertension (principal); E11.9 Type 2 diabetes mellitus without complications
CPT/HCPCS: 36415; 80048; 83036

== ENCOUNTER → 2023-11-15 10:44 | Outpatient (CLI) | payer MEDICARE, SELFPAY ==
[2023-09-20 11:29] VITALS: BMI 32.8
--- NOTE | 2023-11-15 10:45 | DI.RAD.S_ITS ---
PROCEDURE: XR DEXA AXIAL SKELETON INDICATIONS: other disorder bone COMPARISON: None. FINDINGS: Lumbar Spine: Bone mineral density 1.136 g/cm2, T score 0.8. Left Hip: Bone mineral density 1.107 g/cm2, T score 1.4. Left Femoral Neck: Bone mineral density 0.939 g/cm2, T score 0.8. Right Hip: Bone mineral density 1.081 g/cm2, T score 1.1. Right Femoral Neck: Bone mineral density 0.958 g/cm2, T score 1.0. Fracture Risk Calculation (when applicable): Not provided due to normal bone density. (T score greater or equal to -1.0 to: NORMAL) (T score from -1.1 to -2.4: OSTEOPENIA) (T score less than or equal to -2.5: OSTEOPOROSIS) IMPRESSION: Bone density is within normal limits. Dictated by: Alvarado Ragland M.D. on 11/15/2023 at 15:19 Approved by: Alvarado Ragland M.D. on 11/15/2023 at 15:27
== END ==
PROVIDERS: Family Provider Internal Medicine; PCP Internal Medicine; Referring Provider Internal Medicine; Visit Provider Internal Medicine
DX: M85.89 Other specified disorders of bone density and structure, multiple sites (principal)
CPT/HCPCS: 77080

== ENCOUNTER → 2023-12-16 08:43 | Outpatient (CLI) | payer MEDICARE, SELFPAY ==
[2023-09-20 11:29] VITALS: BMI 32.8
[2023-12-16 09:27] LABS: Add Manual Diff / Slide Review NO; Basophils Absolute Auto 0 /uL (0-100); Basophils Percent Auto 0.5 % (0-2); Eosinophils Absolute Auto 100 /uL (0-450); Eosinophils Percent Auto 2.3 % (2-4); Hematocrit 29.2 % (36-46); Lymphocytes Absolute Auto 1700 /uL (1100-4500); Lymphocytes Percent Auto 25.9 % (25-40); Mean Corpuscular HGB Conc 34.2 % (30-36); Mean Corpuscular Hemoglobin 31.7 PG (26-34); Mean Corpuscular Volume 92.9 fL (80-100); Monocytes Absolute Auto 600 /uL (0-900); Monocytes Percent Auto 8.9 % (3-14); Neutrophils Absolute Auto 4100 /uL (1500-7000); Neutrophils Percent Auto 62.4 % (50-75); Platelet Count 239 X10^3/uL (150-400); Red Blood Cell Count 3.14 X10^6/uL (4.0-5.2); Red Cell Distribution Width 15.3 % (11.6-14.8); White Blood Cell Count 6.5 X10^3/uL (4.5-11.0)
[2023-12-16 20:11] LABS: Alanine Aminotransferase 36 IU/L (<35); Albumin 3.6 g/dL (3.5-5.0); Albumin Globulin Ratio 1.2 (1.0-2.8); Alkaline Phosphatase 70 U/L (38-126); Aspartate Aminotransferase 45 IU/L (14-36); BUN Creatinine Ratio 28.2 (6-22); Bilirubin Total 0.6 mg/dL (0.2-1.3); Blood Urea Nitrogen 24 mg/dL (7-17); Calcium 8.8 mg/dL (8.4-10.2); Carbon Dioxide 24 mmol/L (22-32); Chloride 110 mmol/L (98-107); Cholesterol 86 mg/dL (140-199); Estimated Glomerular Filt Rate > 60 mL/min (>60); Glucose 153 mg/dL (80-110); HDL Cholesterol 37 mg/dL (40-60); HEMOLYSIS < 15 (0-50); LDL Cholesterol Calculated 32 mg/dL (<100); Potassium 4.6 mmol/L (3.4-5.1); Sodium 140 mmol/L (137-145); Total Protein 6.6 g/dL (6.3-8.2); Triglycerides 87 mg/dL (35-150)
[2023-12-17 06:11] LABS: Hemoglobin A1C% w Est Avg Glu 6.4 % (4.0-6.0)
[2023-12-17 13:12] LABS: HEMOLYSIS < 15 (0-50); Iron 44 ug/dL (37-170)
[2023-12-17 13:31] LABS: Percent Iron Saturation 11 % (15-50); Total Iron Binding Capacity 394 ug/dL (265-497); Transferrin 270 mg/dL (206-381)
== END ==
PROVIDERS: Family Provider Internal Medicine; PCP Internal Medicine; Referring Provider Internal Medicine; Visit Provider Internal Medicine
DX: E61.1 Iron deficiency (principal); E11.9 Type 2 diabetes mellitus without complications; I10 Essential (primary) hypertension; E78.2 Mixed hyperlipidemia
CPT/HCPCS: 36415; 80053; 80061; 83036; 83540; 83550; 85025

== ENCOUNTER → 2024-01-18 16:11 | Outpatient (CLI) | payer MEDICARE, SELFPAY ==
[2023-09-20 11:29] VITALS: BMI 32.8
--- NOTE | 2024-01-18 16:17 | DI.RAD.S_ITS ---
PROCEDURE: XR ABDOMEN 1V INDICATIONS: CONSTIPATION TECHNIQUE: One view of the abdomen acquired. COMPARISON: None. FINDINGS: Surgical changes and devices: Surgical clips are seen in the left upper quadrant. Bowel: Bowel gas pattern is normal. Moderate amount of stool in colon. Soft tissues: No suspicious abdominal calcifications. Visualized solid organ contours appear normal in size. Bones: No suspicious bony lesions. IMPRESSION: Moderately increased fecal load. Dictated by: Joseluis Cadena M.D. on 01/18/2024 at 17:00 Approved by: Joseluis Cadena M.D. on 01/18/2024 at 17:01
== END ==
PROVIDERS: Family Provider Internal Medicine; PCP Internal Medicine; Referring Provider Registered Nurse; Visit Provider Registered Nurse
DX: R15.9 Full incontinence of feces (principal); R15.2 Fecal urgency; R19.7 Diarrhea, unspecified
CPT/HCPCS: 74018

== ENCOUNTER → 2024-06-08 09:27 | Outpatient (CLI) | payer MEDICARE, SELFPAY ==
[2023-09-20 11:29] VITALS: BMI 32.8
[2024-06-08 10:37] LABS: Add Manual Diff / Slide Review NO; Basophils Absolute Auto 0 /uL (0-100); Basophils Percent Auto 0.6 % (0-2); Eosinophils Absolute Auto 100 /uL (0-450); Eosinophils Percent Auto 2.2 % (2-4); Hematocrit 37.7 % (36-46); Hemoglobin 12.7 g/dL (12.0-16.0); Lymphocytes Absolute Auto 1300 /uL (1100-4500); Mean Corpuscular HGB Conc 33.7 % (30-36); Mean Corpuscular Hemoglobin 31.2 PG (26-34); Mean Corpuscular Volume 92.4 fL (80-100); Monocytes Absolute Auto 400 /uL (0-900); Monocytes Percent Auto 7.9 % (3-14); Neutrophils Absolute Auto 2900 /uL (1500-7000); Neutrophils Percent Auto 62.3 % (50-75); Platelet Count 223 X10^3/uL (150-400); Red Blood Cell Count 4.08 X10^6/uL (4.0-5.2); Red Cell Distribution Width 14.9 % (11.6-14.8); White Blood Cell Count 4.7 X10^3/uL (4.5-11.0)
[2024-06-08 11:04] LABS: HEMOLYSIS < 15 (0-50); Iron 80 ug/dL (37-170)
[2024-06-08 11:07] LABS: Alanine Aminotransferase 38 IU/L (<35); Albumin 3.7 g/dL (3.5-5.0); Albumin Globulin Ratio 1.2 (1.0-2.8); Alkaline Phosphatase 86 U/L (38-126); Aspartate Aminotransferase 38 IU/L (14-36); BUN Creatinine Ratio 24.7 (6-22); Blood Urea Nitrogen 22 mg/dL (7-17); Calcium 9.7 mg/dL (8.4-10.2); Carbon Dioxide 21 mmol/L (22-32); Chloride 108 mmol/L (98-107); Estimated Glomerular Filt Rate > 60 mL/min (>60); Glucose 133 mg/dL (80-110); HEMOLYSIS < 15 (0-50); Potassium 4.3 mmol/L (3.4-5.1); Sodium 138 mmol/L (137-145); Total Protein 6.7 g/dL (6.3-8.2)
[2024-06-08 11:15] LABS: Percent Iron Saturation 22 % (15-50); Total Iron Binding Capacity 356 ug/dL (265-497); Transferrin 278 mg/dL (206-381)
[2024-06-08 11:30] LABS: Hemoglobin A1C% w Est Avg Glu 6.4 % (4.0-6.0)
== END ==
PROVIDERS: Family Provider Internal Medicine; PCP Internal Medicine; Referring Provider Internal Medicine; Visit Provider Internal Medicine
DX: D64.9 Anemia, unspecified (principal); E11.9 Type 2 diabetes mellitus without complications; E78.2 Mixed hyperlipidemia; I10 Essential (primary) hypertension
CPT/HCPCS: 36415; 80053; 83036; 83540; 83550; 85025

== ENCOUNTER → 2024-12-06 11:00 | Outpatient (CLI) | payer MEDICARE, SELFPAY ==
[2023-09-20 11:29] VITALS: BMI 32.8
[2024-12-06 11:53] LABS: Add Manual Diff / Slide Review NO; Basophils Absolute Auto 0 /uL (0-100); Basophils Percent Auto 0.5 % (0-2); Eosinophils Absolute Auto 200 /uL (0-450); Eosinophils Percent Auto 4.2 % (2-4); Hemoglobin 13.1 g/dL (12.0-16.0); Lymphocytes Absolute Auto 1200 /uL (1100-4500); Mean Corpuscular HGB Conc 33.6 % (30-36); Mean Corpuscular Hemoglobin 31.5 PG (26-34); Mean Corpuscular Volume 93.8 fL (80-100); Monocytes Absolute Auto 400 /uL (0-900); Monocytes Percent Auto 8.1 % (3-14); Neutrophils Absolute Auto 2800 /uL (1500-7000); Neutrophils Percent Auto 61.2 % (50-75); Platelet Count 190 X10^3/uL (150-400); Red Blood Cell Count 4.16 X10^6/uL (4.0-5.2); Red Cell Distribution Width 13.8 % (11.6-14.8); White Blood Cell Count 4.6 X10^3/uL (4.5-11.0)
[2024-12-06 12:14] LABS: HEMOLYSIS < 15 (0-50); Iron 63 ug/dL (37-170)
[2024-12-06 12:18] LABS: Alanine Aminotransferase 39 IU/L (<35); Albumin Globulin Ratio 1.3 (1.0-2.8); Alkaline Phosphatase 93 U/L (38-126); Aspartate Aminotransferase 41 IU/L (14-36); Bilirubin Total 0.9 mg/dL (0.2-1.3); Blood Urea Nitrogen 18 mg/dL (7-17); Calcium 9.4 mg/dL (8.4-10.2); Carbon Dioxide 25 mmol/L (22-32); Chloride 105 mmol/L (98-107); Cholesterol 103 mg/dL (140-199); Estimated Glomerular Filt Rate > 60 mL/min (>60); Glucose 125 mg/dL (70-99); HDL Cholesterol 44 mg/dL (40-60); HEMOLYSIS < 15 (0-50); LDL Cholesterol Calculated 35 mg/dL (<100); Potassium 4.1 mmol/L (3.4-5.1); Sodium 139 mmol/L (137-145); Triglycerides 118 mg/dL (35-150)
[2024-12-06 12:38] LABS: Percent Iron Saturation 17 % (15-50); Total Iron Binding Capacity 363 ug/dL (265-497); Transferrin 288 mg/dL (206-381)
[2024-12-06 13:13] LABS: Hemoglobin A1C% w Est Avg Glu 5.9 % (4.0-6.0)
[2024-12-06 16:13] LABS: Creatinine Urine Random 153.46 mg/dL
[2024-12-06 16:17] LABS: Microalbumin Urine Random 1.1 mg/dL (0-1.6)
== END ==
PROVIDERS: Family Provider Internal Medicine; PCP Internal Medicine; Referring Provider Internal Medicine; Visit Provider Internal Medicine
DX: E61.1 Iron deficiency (principal); E11.9 Type 2 diabetes mellitus without complications; I10 Essential (primary) hypertension; E78.2 Mixed hyperlipidemia
CPT/HCPCS: 36415; 80053; 80061; 82043; 82570; 83036; 83540; 83550; 85025

== ENCOUNTER → 2025-06-06 11:09 | Outpatient (CLI) | payer MEDICARE, SELFPAY ==
[2023-09-20 11:29] VITALS: BMI 32.8
[2025-06-06 12:19] LABS: HEMOLYSIS < 15 (0-50); Hemoglobin A1C% w Est Avg Glu 6.2 % (4.0-6.0); Iron 72 ug/dL (37-170)
[2025-06-06 12:55] LABS: Percent Iron Saturation 20 % (15-50); Total Iron Binding Capacity 362 ug/dL (265-497); Transferrin 302 mg/dL (206-381)
[2025-06-06 12:56] LABS: Alanine Aminotransferase 39 IU/L (<35); Albumin 3.9 g/dL (3.5-5.0); Albumin Globulin Ratio 1.3 (1.0-2.8); Alkaline Phosphatase 80 U/L (38-126); Blood Urea Nitrogen 19 mg/dL (7-17); Calcium 9.5 mg/dL (8.4-10.2); Carbon Dioxide 25 mmol/L (22-32); Chloride 104 mmol/L (98-107); Cholesterol 93 mg/dL (140-199); Estimated Glomerular Filt Rate > 60 mL/min (>60); Globulin 3.1 g/dL (1.7-4.1); Glucose 128 mg/dL (70-99); HDL Cholesterol 50 mg/dL (40-60); HEMOLYSIS < 15 (0-50); Potassium 4.3 mmol/L (3.4-5.1); Sodium 139 mmol/L (137-145); Total Protein 7.0 g/dL (6.3-8.2); Triglycerides 90 mg/dL (35-150)
== END ==
PROVIDERS: PCP Internal Medicine; Referring Provider Internal Medicine; Visit Provider Internal Medicine
DX: E11.9 Type 2 diabetes mellitus without complications (principal); E78.2 Mixed hyperlipidemia; E61.1 Iron deficiency
CPT/HCPCS: 36415; 80053; 80061; 83036; 83540; 83550